=== PATIENT | female | born 1935 | race Caucasian/White ===

== ENCOUNTER → 2016-03-27 | Outpatient (REF) | payer MEDICARE ==
[~2016-03-27] MED LIST: ACET65TA; BABY81CH PO; CALC500T49; CALC600T10 PO; COLA100C2; COLA100C2 PO; DEXI60CA PO; PRAV10TA PO; REST0.05 OP; SENO8.6T5; SIMV20TA2; THERGRAN PO; VICO5TAB
== END ==
LOC: M LAB REF 12:18
PROVIDERS: ATTEND Internal Medicine Medical Oncology
DX: C18.9 Malignant neoplasm of colon, unspecified (principal)

== ENCOUNTER → 2016-12-02 | Outpatient (REF) | payer MEDICARE ==
[~2016-12-02] MED LIST changes: -DEXI60CA PO; +DEXI60CA2 PO; -PRAV10TA PO; +PRAV10TA4 PO
== END ==
LOC: M LAB REF 16:05
PROVIDERS: ATTEND Internal Medicine
DX: R92.8 Other abnormal and inconclusive findings on diagnostic imaging of breast (principal)

== ENCOUNTER → 2017-03-06 | Outpatient (CLI) | payer MEDICARE ==
--- NOTE | 2017-03-06 13:25 | REP ---
DIAGNOSTIC MAMMOGRAM LEFT BREAST WITH LEFT BREAST ULTRASOUND: Diagnostic mammogram left breast performed in the MLO and CC projections. Patient had ultrasound guided biopsy of a nodule in the left breast centrally behind the nipple at [facility] 12/02/2016. Reportedly this was benign. Today's ML and CC views of the left breast show no change since the prior mammogram of 11/18/2016. The nodule posteriorly in the central left breast appears unchanged. There is no new mass or clustered microcalcifications. A metallic clip is seen just superior to the nodule in question. Real-time sonographic evaluation of the left breast is performed. In a region in the left breast centrally behind the nipple is an oval hypoechoic nodule which measures 1.4 x 0.8 x 1.2 cm. This is measuring larger than the prior ultrasound in October when maximum diameter was 9 mm. There are adjacent dilated ducts. IMPRESSION: ACR 3 probably benign. Mammographically the nodule centrally and posteriorly in the left breast is stable, status post ultrasound guided biopsy in November 2016 at [facility]. Sonographically it is measuring larger than on the prior study, but this could be due to postbiopsy change and residual surrounding hematoma. I would recommend another followup mammogram and ultrasound of the left breast in 3 months. ACR 3 probably benign. BI-RADS/ACR category 3 mammogram. Probably benign findings. Initial short-term followup (usually 6 month) examination. This mammogram was interpreted with the aid of an FDA-approved computer-aided detection system. A. Negative x-ray reports should not delay biopsy if a dominant or clinically suspicious mass is present. B. Four to eight percent of cancers are not identified by x-ray. C. Adenosis and dense breasts may obscure an underlying neoplasm. The patient states she had a clinical breast exam 3 months ago. The patient letter being requested is M3. Signed by Nik Churchill MD 03/06/2017 01:32 P
== END ==
LOC: M RAD 10:19
PROVIDERS: ATTEND Surgery
DX: R92.8 Other abnormal and inconclusive findings on diagnostic imaging of breast (principal); R55 Syncope and collapse
CPT/HCPCS: 76642; G0206

== ENCOUNTER → 2017-04-21 | Outpatient (REF) | payer MEDICARE ==
[2017-04-22 09:22] LABS: CARCINOEMBRYONIC ANTIGEN 1.1 NG/ML (<2.5)
== END ==
LOC: M LAB REF 13:32
DX: C18.9 Malignant neoplasm of colon, unspecified (principal)
CPT/HCPCS: 82378

== ENCOUNTER 2017-04-28 07:03 | Emergency (ER) | payer MEDICARE ==
[2017-04-28] MEDS: fentaNYL 100 MCG/2 ML INJECTION (J3010) IV (07:44)
[2017-04-28] MEDS: ONDANSETRON 4MG/2ML VIAL (J2405) IV (07:45)
[2017-04-28] MEDS ORDERED: KETOROLAC 30 MG/ML VIAL (J1885) As Ordered (08:14)
[2017-04-28] MEDS: KETOROLAC 30 MG/ML VIAL (J1885) IV (08:21)
== END 2017-04-28 10:37 | disposition home or self-care (01) ==
LOC: M ED 07:03
DX: S42.292A Other displaced fracture of upper end of left humerus, initial encounter for closed fracture (principal); W00.9XXA Unspecified fall due to ice and snow, initial encounter; Y92.093 Driveway of other non-institutional residence as the place of occurrence of the external cause; M50.322 Other cervical disc degeneration at C5-C6 level; M50.323 Other cervical disc degeneration at C6-C7 level; Z98.890 Other specified postprocedural states; Z98.0 Intestinal bypass and anastomosis status; Z85.038 Personal history of other malignant neoplasm of large intestine
CPT/HCPCS: J2405

== ENCOUNTER 2017-05-20 12:33 | Emergency (ER) | payer MEDICARE | END 2017-05-20 16:48 | disposition home or self-care (01) | LOC: M ED 12:33 | DX: M48.00 Spinal stenosis, site unspecified (principal); L89.309 Pressure ulcer of unspecified buttock, unspecified stage; S42.212A Unspecified displaced fracture of surgical neck of left humerus, initial encounter for closed fracture; E78.5 Hyperlipidemia, unspecified; Z90.49 Acquired absence of other specified parts of digestive tract; Z79.899 Other long term (current) drug therapy; Z91.89 Other specified personal risk factors, not elsewhere classified; Z91.013 Allergy to seafood | CPT/HCPCS: 99283 ==

== ENCOUNTER → 2017-07-14 | Outpatient (CLI) | payer MEDICARE | LOC: M RAD 10:38 | DX: N63.20 Unspecified lump in the left breast, unspecified quadrant (principal); D24.2 Benign neoplasm of left breast; R92.0 Mammographic microcalcification found on diagnostic imaging of breast | CPT/HCPCS: 77065 ==

== ENCOUNTER 2018-01-24 08:54 | Emergency (ER) | payer MEDICARE ==
[2018-01-24] MEDS: ACETAMINOPHEN TAB 650MG DOSE (2X325MG) PO (09:35)
== END 2018-01-24 11:29 | disposition home or self-care (01) ==
LOC: M ED 08:54
DX: S51.802A Unspecified open wound of left forearm, initial encounter (principal); S09.90XA Unspecified injury of head, initial encounter; W01.0XXA Fall on same level from slipping, tripping and stumbling without subsequent striking against object, initial encounter; Y92.511 Restaurant or cafe as the place of occurrence of the external cause; M43.02 Spondylolysis, cervical region; I63.81 Other cerebral infarction due to occlusion or stenosis of small artery; E78.00 Pure hypercholesterolemia, unspecified; Z79.899 Other long term (current) drug therapy; Z79.82 Long term (current) use of aspirin; Z88.8 Allergy status to other drugs, medicaments and biological substances; Z91.013 Allergy to seafood; Z91.048 Other nonmedicinal substance allergy status
CPT/HCPCS: 70450

== ENCOUNTER → 2018-02-05 | Outpatient (REF) | payer MEDICARE ==
[2018-02-05 15:31] LABS: BASO # 0.1 10^3/uL (0.0-0.2); EOS # 0.1 10^3/uL (0.0-0.50); EOS % 1.3 % (0.0-3.0); HEMATOCRIT 42.4 % (36.0-47.0); HEMOGLOBIN 12.9 g/dl (12.0-15.5); IMMATURE GRANULOCYTE % 0.7 % (0-3.0); LYMPH # 1.3 10^3/uL (1.5-4.5); LYMPH % 21.3 % (24.0-44.0); MEAN CORPUSCULAR HEMOGLOBIN 30.2 pg (27.0-33.0); MEAN CORPUSCULAR HGB CONC 30.4 g/dl (32.0-36.5); MEAN CORPUSCULAR VOLUME 99.3 fl (80.0-96.0); MONO # 0.6 10^3/uL (0.0-0.8); MONO % 10.4 % (0.0-5.0); NEUTROPHILS % 65.3 % (36.0-66.0); PLATELET COUNT, AUTOMATED 274 10^3/uL (150-450); RED BLOOD COUNT 4.27 10^6/uL (4.00-5.40); RED CELL DISTRIBUTION WIDTH 13.3 % (11.5-14.5); WHITE BLOOD COUNT 6.1 10^3/uL (4.0-10.0)
[2018-02-05 15:38] LABS: ALBUMIN 3.5 GM/DL (3.2-5.2); ALBUMIN/GLOBULIN RATIO 1.13 (1.00-1.93); ALKALINE PHOSPHATASE 115 U/L (45-117); ALT/SGPT 17 U/L (12-78); ANION GAP 7 MEQ/L (8-16); AST/SGOT 12 U/L (7-37); BILIRUBIN,TOTAL 0.8 MG/DL (0.2-1.0); BLOOD UREA NITROGEN 11 MG/DL (7-18); CARBON DIOXIDE LEVEL 30 MEQ/L (21-32); CHLORIDE LEVEL 105 MEQ/L (98-107); CREATININE FOR GFR 0.56 MG/DL (0.55-1.30); GLOMERULAR FILTRATION RATE > 60.0 (>32); GLUCOSE, FASTING 84 MG/DL (70-100); POTASSIUM SERUM 3.9 MEQ/L (3.5-5.1); RHEUMATOID FACTOR QUANT < 10.0 IU/ML (<15.0); SODIUM LEVEL 142 MEQ/L (136-145); TOTAL PROTEIN 6.6 GM/DL (6.4-8.2)
[2018-02-05 15:40] LABS: TOTAL 25(OH) VITAMIN D 16.2 NG/ML (30.0-100.0)
[2018-02-05 16:46] LABS: ERYTHROCYTE SEDIMENTATION RATE 28 mm/hr (0-30)
[2018-02-07 14:10] LABS: ANTINUCLEAR ANTIBODIES DIRECT Negative (Negative)
== END ==
LOC: M LABNEURO 10:52
DX: R51 Headache (principal)
CPT/HCPCS: 84443

== ENCOUNTER 2019-03-09 09:38 | Emergency (ER) | payer MEDICARE ==
[~2019-03-09] VITALS: Ht 160 cm; Wt 68.6 kg
[~2019-03-09 09:38] MED LIST changes: +APAP500T10 PO; +ASPI81TA85 PO; +COLA100C5 PO; +IBUP-1022 PO; +PERC5TAB12 PO; +PRAV40TA2 PO; +TRAM50TA2; +ZANT300T9 PO
[2019-03-09] MEDS ORDERED: ONDANSETRON 4MG/2ML VIAL (J2405) IV ONE (09:45)
[2019-03-09] MEDS ORDERED: ADACEL/BOOSTRIX VACCINE (DIPHTH/PERTUSS/ACELL/TETANUS)0.5ML SYR (90715) IM ONE (10:00)
[2019-03-09] MEDS: MORPHINE 2 MG/ML 1ML VIAL (J2270) IV PRN ×2 (10:26→11:06)
--- NOTE | 2019-03-09 10:29 | REP ---
CT brain: 03/09/2019. Indication: Head trauma. Comparison: 01/24/2018. Technique: Unenhanced axial CT images of the brain were obtained from skull base to vertex. Findings: Anterior right scalp hematoma is present. There is no intracranial hemorrhage, acute cortical infarction, mass effect, hydrocephalus or acute calvarial fracture. Diffuse volume loss, intracranial atherosclerotic disease and chronic small vessel disease are present. Left basal ganglia and the right cerebellar lacunar infarctions are present. Impression: No acute intracranial process. Electronically Signed by Uvaldo Espinoza DO 03/09/2019 10:20 A
--- NOTE | 2019-03-09 10:32 | REP ---
CT cervical spine: 03/09/2019. Indication: Cervical spine trauma. Comparison: 01/24/2018. Technique: Unenhanced axial CT images of the cervical spine were performed with coronal and sagittal reconstructions provided. Findings: There is no acute fracture, subluxation or dislocation. No significant spinal canal hemorrhage or additional spinal canal acute post traumatic sequelae are present. Multilevel spondylosis is present most pronounced at C5/C6 and C6/C7 without severe spinal canal narrowing detected. Bilateral carotid atherosclerotic disease is present. Impression: No acute osseous injury of the cervical spine. Electronically Signed by Uvaldo Espinoza DO 03/09/2019 10:23 A
--- NOTE | 2019-03-09 11:09 | REP ---
RIGHT HUMERUS, TWO VIEWS: Two views of the right humerus performed. There is a mildly comminuted displaced fracture of the proximal aspect of the right humerus involving the head and neck. No other acute fracture or dislocation is seen. There is narrowing of the acromioclavicular and glenohumeral joints. IMPRESSION: Mildly comminuted displaced fracture proximal right humerus. Electronically Signed by Nik Churchill MD 03/09/2019 04:05 P
[2019-03-09] MEDS ORDERED: NORC1TAB7 PO (11:16)
[2019-03-09 12:46] VITALS: BP 165/79
== END 2019-03-09 12:50 | disposition home or self-care (01) ==
LOC: EDBD 09:38 → M ED 09:38
DX: S42.291A Other displaced fracture of upper end of right humerus, initial encounter for closed fracture (principal); S01.81XA Laceration without foreign body of other part of head, initial encounter; W00.0XXA Fall on same level due to ice and snow, initial encounter; Y92.89 Other specified places as the place of occurrence of the external cause; E78.9 Disorder of lipoprotein metabolism, unspecified; M51.9 Unspecified thoracic, thoracolumbar and lumbosacral intervertebral disc disorder; Z79.899 Other long term (current) drug therapy; Z79.82 Long term (current) use of aspirin; Z88.8 Allergy status to other drugs, medicaments and biological substances; Z91.018 Allergy to other foods; Z91.048 Other nonmedicinal substance allergy status
CPT/HCPCS: 70450; 72125; 73060; 73564; 90471; 90715; 96374; 96375; 96376; 99284; J2270; J2405

== ENCOUNTER 2019-03-14 16:17 | Emergency (ER) | payer MEDICARE ==
[~2019-03-14] VITALS: Ht 162.6 cm; Wt 68.6 kg
[~2019-03-14 16:17] MED LIST changes: +NORC1TAB7 PO
[2019-03-14] MEDS ORDERED: VITA200028 PO (16:38)
[2019-03-14 18:18] VITALS: BP 131/64
--- NOTE | 2019-03-15 07:40 | REP ---
Clinical: Trauma. Technique: AP and lateral views of the right wrist. Findings: Generalized age-related osteopenia and degenerative changes noted. No obvious acute fracture or dislocation identified. Impression: No obvious acute fracture or dislocation. If the patient remains symptomatic consider complete reevaluation in 3-5 days. Electronically Signed by Vamshi Bingham MD 03/15/2019 07:31 A
--- NOTE | 2019-03-15 08:01 | REP ---
Clinical: Trauma. Technique: AP and lateral views of the right hand. Findings: Generalized age-related osteopenia and degenerative changes are appreciated. Lateral view demonstrates significant soft tissue swelling primarily overlying the wrist metacarpal region of the hand. No subcutaneous emphysema. No foreign body. No obvious acute fracture or dislocation. However, very subtle injury involving the base of the fifth metacarpal bone and/or the base of the fifth proximal phalanx cannot definitively be excluded. Impression: Significant soft tissue swelling. No definite acute fracture. As above. Electronically Signed by Vamshi Bingham MD 03/15/2019 07:52 A
== END 2019-03-14 18:20 | disposition home or self-care (01) ==
LOC: M ED 16:17
DX: R60.0 Localized edema (principal); E78.5 Hyperlipidemia, unspecified; Z79.899 Other long term (current) drug therapy; Z79.82 Long term (current) use of aspirin; Z91.018 Allergy to other foods; Z91.048 Other nonmedicinal substance allergy status; Z88.8 Allergy status to other drugs, medicaments and biological substances

== ENCOUNTER 2020-05-14 11:04 | Emergency (ER) | payer MEDICARE ==
[~2020-05-14] VITALS: Ht 162.6 cm; Wt 64.7 kg
[~2020-05-14 11:04] MED LIST changes: -ASPI81TA85 PO; +ASPI81TA86 PO; +VITA200028 PO
--- OUTSIDE RECORDS SUMMARY | 2020-05-14 11:11 | CCD ---
Author Organization Unknown Address [address] [place] [address] Phone [phone] Care Team Providers Care Pattern Finisher Name Role Phone LEONARDO ALVES MD 3 [phone] Allergies Code Code System Name Reaction Severity Status Onset Shellfish Derived Active 01/11/2015 5933 RxNorm Iodine Hives Moderate to Severe Active Medications Name Status Start Date Stop Date amoxicillin 500 mg tablet Completed 2018 Asprin Ec Low Dose Active Not available ferrous sulfate 325 mg (65 mg iron) tabl et TK 1 T PO BID Completed 03/21/2020 Fluzone High-Dose (PF) 180 mcg/0 .5 mL intramuscular syringe INJECT DIRECTED Completed 03/21/2020 Fluzone High-Dose Quad (PF) 240 mcg/0.7 mL IM syringe INJECT 0.7ML INTRAMUSCULARLY Completed 03/21/2020 gabapentin 100 mg capsule Completed 2019 hydrocodone 5 mg-acetaminophen 325 mg tablet Completed 07/21/2019 ibuprofen 600 mg tablet 1 tablet every 6 hours as needed Completed 2018 Miralax 17 gram/dose oral powder DISSOLVE 1 CAPFUL IN 4-8 OUNCES OF LIQUID DAILY FOR CONSTIPATION Active Not available oxycodone-acetaminophen 5 mg-325 mg tablet Completed 03/26/2018 pravastatin 10 mg tablet Active Not jania ilable ranitidine 300 mg tablet Completed 019 Restasis 0.05 % eye drops in a dropperette Completed 07/21/2019 Restasis MultiDose 0.05 % eye drops Completed 05/28/2018 tramadol 50 mg tablet Completed 03/26/2018 Tylenol Extra Strength 500 mg tablet Take 2 tablets twice a day by oral route. 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 01/11/2015 H istory Prolapsed Lumbar Intervertebral Disc Active 01/11/2015 History Intervertebral Disc Prolapse Active 01/11/2015 His tory Degeneration of Lumbar Intervertebral Disc Active 01/11 History Degeneration of Lumbosacral Intervertebral Disc Active 01/11/2015 History Spinal Stenosis of Lumbar Region Active 01/11/2015 History Lumbosacral Spondylosis without Myelopathy Active 03/26 Displacement of Lumbar Intervertebral Disc without Myelopathy Ac tive 03/26/2018 Lumbar Radiculopathy Active 03/26/2018 Procedures Date Name Performed by 03/24/2014 Hernia Repair Information not avai lable 03/24/1991 Cholecystectomy Information not avai lable 03/24/1964 Hysterectomy Information not avai lable 01/26/2019 MRI, Lumbar Spine, W/o Contrast [facility] [address] [address] (Work Place) Results Lab Results Date Name Specimen Result Interpretation Description Value Range Status Address 04/03/2020 [facility] P[facility] Report NOS No observation recorded. [facility]: [address] [place] [address] 04/03/2020 COVID-19 RNA (SARS-CoV-2), QL, outsole cementer machine-PCR, Respirat ory Specimen NOS Normal Sars-cov-2 negative negative Final [facility]: [address] [place] [address], [place] 09/28/2019 COVID-19 RNA (SARS-CoV-2), QL, outsole cementer machine-PCR, Respiratory Specim en No observation recorded. [facility]: [address] [place] [address] 09/13/2019 COVID-19 RNA (SARS-CoV-2), QL, outsole cementer machine-PCR, Respiratory Specim en No observation recorded. [facility]: [address] [place] [address] 08/30/2019 COVID-19 RNA (SARS-CoV-2), QL, outsole cementer machine-PCR, Respiratory Specim en No observation recorded. [facility]: [address] [place] [address] Past Encounters 04/17/2020 Pre-surgery Testing; Viral Screening Ranjit Lu MD: [address], [address], [place] [address], Ph. [phone] 04/06/2020 Spinal Stenosis of Lumbar Region; Lumbar Radiculopathy; Degeneration of Lumbar Intervertebral Disc; Degeneration of Lumbosacral Intervertebral Disc; Displacement of Lumbar Intervertebral Disc without Myelopathy; Intervertebral Disc Disorder; Spondylosis without Myelopathy; Lumbosacral Spondylosis without Myelopathy; Inflammation of Sacroiliac Joint Ranjit uL MD: [address] [facility] [address], [facility] [place] [address], Ph. 04/03/2020 Pre-surgery Testing; Viral Screening Ranjit Lu MD: [address] [address], [facility] [place] [address], Ph. [phone] 03/21/2020 Spinal Stenosis of Lumbar Region; Degeneration of Lumbar Intervertebral Disc; Degeneration of Lumbosacral Intervertebral Disc; Displacement of Lumbar Intervertebral Disc without Myelopathy; Intervertebral Disc Disorder; Spondylosis without Myelopathy; Lumbosacral Spondylosis without Myelopathy; Lumbar Radiculopathy; Inflammation of Sacroiliac Joint Vonda Pearce [employer]: [address] [address], [facility] [place] [address], Ph. 10/14/2019 Spinal Stenosis of Lumbar Region; Degeneration of Lumbar Intervertebral Disc; Degeneration of Lumbosacral Intervertebral Disc; Displacement of Lumbar Intervertebral Disc without Myelopathy; Intervertebral Disc Disorder; Spondylosis without Myelopathy; Lumbosacral Spondylosis without Myelopathy; Lumbar Radiculopathy; Inflammation of Sacroiliac Joint Vonda Pearce, [employer] WORKER: [address] [address], [facility] [place] [address], Ph. 09/30/2019 Spinal Stenosis of Lumbar Region; Lumbar Radiculopathy; Degeneration of Lumbar Intervertebral Disc; Degeneration of Lumbosacral Intervertebral Disc; Displacement of Lumbar Intervertebral Disc without Myelopathy; Intervertebral Disc Disorder; Spondylosis without Myelopathy; Lumbosacral Spondylosis without Myelopathy; Inflammation of Sacroiliac Joint Ranjit Lu MD: [id number] [facility] [address], [facility] [place] [address], Ph. 09/28/2019 Pre-surgery Testing; Viral Screening Ranjit Lu MD: [address] [address], [facility] [place] [address], Ph. [phone] 09/15/2019 Spinal Stenosis of Lumbar Region; Lumbar Radiculopathy; Degeneration of Lumbar Intervertebral Disc; Degeneration of Lumbosacral Intervertebral Disc; Displacement of Lumbar Intervertebral Disc without Myelopathy; Intervertebral Disc Disorder; Spondylosis without Myelopathy; Lumbosacral Spondylosis without Myelopathy; Inflammation of Sacroiliac Joint Ranjit Lu MD: [id number] [address], Ph. 09/13/2019 Pre-surgery Testing; Viral Screening Ranjit Lu MD: [id number] [address], Ph. [phone] 09/02/2019 Spinal Stenosis of Lumbar Region; Lumbar Radiculopathy; Degeneration of Lumbar Intervertebral Disc; Degeneration of Lumbosacral Intervertebral Disc; Displacement of Lumbar Intervertebral Disc without Myelopathy; Intervertebral Disc Disorder; Spondylosis without Myelopathy; Lumbosacral Spondylosis without Myelopathy; Inflammation of Sacroiliac Joint Ranjit Lu MD: [id number] [address], Ph. 08/30/2019 Pre-surgery Testing; Viral Screening Ranjit Lu MD: [id number] [address], Ph. [phone] 07/21/2019 Spinal Stenosis of Lumbar Region; Degeneration of Lumbar Intervertebral Disc; Degeneration of Lumbosacral Intervertebral Disc; Displacement of Lumbar Intervertebral Disc without Myelopathy; Intervertebral Disc Disorder; Spondylosis without Myelopathy; Lumbosacral Spondylosis without Myelopathy; Lumbar Radiculopathy; Inflammation of Sacroiliac Joint Vonda Pearce NP: [id number] [address], Ph. 02/08/2019 Spinal Stenosis of Lumbar Region; Lumbar Radiculopathy; Degeneration of Lumbar Intervertebral Disc; Degeneration of Lumbosacral Intervertebral Disc; Displacement of Lumbar Intervertebral Disc without Myelopathy; Intervertebral Disc Disorder; Spondylosis without Myelopathy; Lumbosacral Spondylosis without Myelopathy; Inflammation of Sacroiliac Joint Ranjit Lu MD: [id number] [address], Ph. 01/26/2019 Spinal Stenosis of Lumbar Region; Degeneration of Lumbar Intervertebral Disc; Degeneration of Lumbosacral Intervertebral Disc; Displacement of Lumbar Intervertebral Disc without Myelopathy; Intervertebral Disc Disorder; Spondylosis without Myelopathy; Lumbosacral Spondylosis without Myelopathy; Lumbar Radiculopathy; Inflammation of Sacroiliac Joint Vonda Pb Pearce, [employer] WORKER: [address] [address], [place] [address], Ph. 09/07/2018 Spinal Stenosis of Lumbar Region; Degeneration of Lumbar Intervertebral Disc; Degeneration of Lumbosacral Intervertebral Disc; Displacement of Lumbar Intervertebral Disc without Myelopathy; Intervertebral Disc Disorder; Spondylosis without Myelopathy; Lumbosacral Spondylosis without Myelopathy; Lumbar Radiculopathy; Inflammation of Sacroiliac Joint Vonda Pb Pearce, [employer] WORKER: [id number] [address], Ph. 07/08/2018 Spinal Stenosis of Lumbar Region; Degeneration of Lumbar Intervertebral Disc; Degeneration of Lumbosacral Intervertebral Disc; Displacement of Lumbar Intervertebral Disc without Myelopathy; Intervertebral Disc Disorder; Spondylosis without Myelopathy; Lumbosacral Spondylosis without Myelopathy; Lumbar Radiculopathy; Inflammation of Sacroiliac Joint Vonda Pb Pearce, [employer] WORKER: [address] [address], Ph. 06/10/2018 Spinal Stenosis of Lumbar Region; Degeneration of Lumbar Intervertebral Disc; Degeneration of Lumbosacral Intervertebral Disc; Displacement of Lumbar Intervertebral Disc without Myelopathy; Intervertebral Disc Disorder; Spondylosis without Myelopathy; Lumbosacral Spondylosis without Myelopathy; Lumbar Radiculopathy; Inflammation of Sacroiliac Joint Ranjit Lu MD: [address] [address], [place] [address], Ph. 05/28/2018 Spinal Stenosis of Lumbar Region; Degeneration of Lumbar Intervertebral Disc; Degeneration of Lumbosacral Intervertebral Disc; Displacement of Lumbar Intervertebral Disc without Myelopathy; Intervertebral Disc Disorder; Spondylosis without Myelopathy; Lumbosacral Spondylosis without Myelopathy; Lumbar Radiculopathy; Inflammation of Sacroiliac Joint Ranjit Lu MD: [address] [address], [place] [address], Ph. 05/18/2018 Spinal Stenosis of Lumbar Region; Degeneration of Lumbar Intervertebral Disc; Degeneration of Lumbosacral Intervertebral Disc; Displacement of Lumbar Intervertebral Disc without Myelopathy; Intervertebral Disc Disorder; Spondylosis without Myelopathy; Lumbosacral Spondylosis without Myelopathy; Lumbar Radiculopathy; Inflammation of Sacroiliac Joint Vonda Pb Pearce, [employer] WORKER: [address] [address], Ph. 03/30/2018 Spinal Stenosis of Lumbar Region; Degeneration of Lumbar Intervertebral Disc; Degeneration of Lumbosacral Intervertebral Disc; Displacement of Lumbar Intervertebral Disc without Myelopathy; Intervertebral Disc Disorder; Spondylosis without Myelopathy; Lumbosacral Spondylosis without Myelopathy; Lumbar Radiculopathy; Inflammation of Sacroiliac Joint Ranjit Lu MD: [id number] [address], Ph. 03/26/2018 Spinal Stenosis of Lumbar Region; Degeneration of Lumbar Intervertebral Disc; Degeneration of Lumbosacral Intervertebral Disc; Displacement of Lumbar Intervertebral Disc without Myelopathy; Intervertebral Disc Disorder; Spondylosis without Myelopathy; Lumbosacral Spondylosis without Myelopathy; Lumbar Radiculopathy; Inflammation of Sacroiliac Joint Vonda Pearce, [employer] WORKER: [id number] [address], [place] [address], Ph. Social History Tobacco Smoking Status Never Smoker Vaccine List None recorded. Plan of Care Reminders Provider Appointments None recorded. Lab None recorded. Referral None recorded. Procedures None recorded. Surgeries None recorded. Imaging None recorded. Vitals 03/21/2020 10:30AM Extended Follow Up Visit Height Blood Pressure 5 ft 3 in 136/81 mm[Hg] 10/14/2019 11:15AM Telehealth Height 5 ft 3 in 07/21/2019 02:30PM Telehealth Height 5 ft 3 in 02/08/2019 08:00AM Lumbar epidural steroid inject Height 5 ft 3 in 01/26/2019 09:30AM Extended Follow Up Visit Height Weight BMI Blood Pressure 5 ft 3 in 151 lbs 26.7 kg/m2 120/65 mm[Hg] 09/07/2018 08:15AM FOLLOW-UP Height Blood Pressure 5 ft 3 in 127/72 mm[Hg] 07/08/2018 09:30AM FOLLOW-UP Height Weight BMI Blood Pressure 5 ft 3 in 151 lbs 26.7 kg/m2 112/66 mm[Hg] 05/18/2018 04:30PM FOLLOW-UP Height Blood Pressure 5 ft 3 in 134/86 mm[Hg] 03/26/2018 01:30PM FOLLOW-UP Height Weight BMI Blood Pressure 5 ft 3 in 151 lbs 26.7 kg/m2 151/87 mm[Hg] 02/02/2018 Blood Pressure 126/74 mm[Hg] 01/05/2018 Blood Pressure 130/79 mm[Hg] 12/22/2017 Blood Pressure 165/70 mm[Hg] 11/13/2017 Blood Pressure 121/71 mm[Hg] 10/23/2017 Blood Pressure 140/79 mm[Hg] 10/13/2017 Blood Pressure 127/78 mm[Hg] 04/18/2017 Weight BMI Blood Pressure 160 lbs 28.45 kg/m2 126/74 mm[Hg] 02/21/2017 Weight BMI Blood Pressure 160 lbs 28.45 kg/m2 111/76 mm[Hg] 01/24/2017 Blood Pressure 132/65 mm[Hg] 01/09/2017 Blood Pressure 128/60 mm[Hg] 12/20/2016 Weight BMI Blood Pressure 159 lbs 28.27 kg/m2 136/82 mm[Hg] 12/05/2016 Blood Pressure 147/85 mm[Hg] 11/28/2016 Weight BMI Blood Pressure 153 lbs 27.20 kg/m2 113/71 mm[Hg] 11/13/2016 Blood Pressure 133/73 mm[Hg] 11/05/2016 Blood Pressure 152/79 mm[Hg] 10/08/2016 Blood Pressure 129/77 mm[Hg] 09/18/2016 Blood Pressure 126/88 mm[Hg] 07/29/2016 Blood Pressure 135/79 mm[Hg] 07/19/2016 Blood Pressure 146/76 mm[Hg] 07/03/2016 Blood Pressure 136/85 mm[Hg] 05/16/2016 Blood Pressure 121/74 mm[Hg] 04/25/2016 Blood Pressure 157/79 mm[Hg] 04/11/2016 Blood Pressure 146/83 mm[Hg] 04/02/2016 Blood Pressure 138/80 mm[Hg] 12/14/2015 Blood Pressure 121/79 mm[Hg] 11/23/2015 Blood Pressure 142/79 mm[Hg] 11/09/2015 Blood Pressure 132/75 mm[Hg] 11/02/2015 Blood Pressure 137/76 mm[Hg] 01/19/2015 Blood Pressure 153/92 mm[Hg] 01/11/2015 Height Weight BMI Blood Pressure 5 ft 3 in 151 lbs 26.85 kg/m2 143/83 mm[Hg]
--- OUTSIDE RECORDS SUMMARY | 2020-05-14 11:11 | CCD | Continuity of Care Document ---
Author Author Linette MEDEL M.D. Organization Unknown Address [address] [address] Phone [phone] Care Team Providers Care Retort Kiln Burner Name Role Phone RonniGonzález Jared [facility] [phone] Problems Active Problems Provider Date Hyperlipidemia Hua Medel M.D. Onset: 4 Social History Type Date Description Comments Sex Unknown ETOH Use Consumes 1 glass of wine per wee k Tobacco Use Start: Unknown Patient has never smoked Recreational Drug Use Denies Drug Use Allergies, Adverse Reactions, Alerts Active Allergies Reaction Severity Comments Date Latex hives- 04/27/2013 Scallops hives 04/27/2013 Medications Active Medications SIG Qnty Indications Ordering Provide r Date Dexilant 60mg Capsules DR 1 by mouth every day Hua Finnegan M.D. 04/14/19 21 Shingrix 50mcg/0.5ML Suspension Re c as directed 1units Hua Medel M.D. 12/24/19 19 Pravastatin Sodium 10mg Tablets take 1 tablet by mouth three times per week 90Eric Childs M.D. 04/27/2013 Aspirin Ec 81mg Tablets DR 1 po 3 times a week Unknown Tylenol Extra Strength 500mg Tablets prn OTC Unknown Vitamin D 1000Unit Tablets 1 by mouth every day Unknown Magnesium 500mg Capsules 1 by mouth every day Unknown Stool Softener 100mg Capsules 1 p.o. qod as needed for constipation OTC Unknown History Medications Nexium 40mg Capsules DR 1 by mouth every day Hua Finnegan M.D. 04/14/19 21 - 04/14/2020 Immunizations CPT Code Status Date Vaccine Lot # [id number] Given 11/25/2017 Pneumococcal Immunization R0 [id number] 02783 Given 11/04/2015 Prevnar 13 Pneum o. Conj Ped. Vaccine 13 Valent (PCV13) For Im Use 03603 Given 01/04/2015 Influenza Vaccin e (Fluzone) 3Yrs Of Age Or Older Medicare Plans 70531 Refused 12/23/2018 Influenza Virus Vaccine, Quadrivalent, Slit Virus, Im Use 3Y & Up Vital Signs Date Vital Result Comment 04/14/2020 8:49am BP Systolic 112 mmHg BP Diastolic 74 mmHg Body Temperature 98.8 F Heart Rate 80 /min Respiratory Rate 14 /min Height 60 inches 5'0" Weight 140.00 lb [place] Body Weight 100 lb BMI (Body Mass Index) 27.3 kg/m2 O2 % BldC Oximetry 96 % 10/11/2019 9:03am BP Systolic 126 mmHg BP Diastolic 84 mmHg Body Temperature 98.3 F Heart Rate 80 /min Respiratory Rate 14 /min Height 60 inches 5'0" Weight 139.00 lb [place] Body Weight 100 lb BMI (Body Mass Index) 27.1 kg/m2 O2 % BldC Oximetry 97 % Results Test Acquired Date Facility Test Result H/L Range Note CMP 04/14/2020 [facility] Glu 90 mg/dL 70 - 110 1 BUN 9 mg/dL 8 - 23 Creat 0.6 mg/dL 0.5 - 1.0 BUN/Creatinine Ratio 15.4 CALC Na 137 mmol/L 136 - 145 K 4.0 mmol/L 3.5 - 5.1 CL 100.1 mmol/L 98.0 - 107.0 Co2 27.0 mmol/L 22.0 - 29.0 CA 9.6 mg/dL 8.6 - 10.2 TP 6.3 g/dL Low 6.6 - 8.7 Alb 4.2 g/dL 3.4 - 4.8 A/G Ratio 2.0 CALC Globulin 2.1 CALC Alp 68.2 U/L 35 - 129 Alt (SGPT) 7 U/L 0 - 41 Ast (Sgot) 11 U/L 0 - 40 Tbili 1.38 mg/dL High 0.0 - 1.2 Osmolality-Calculated 271.3 CALC Anion Gap 14 mmol/L eGFR 96 # Calc 2 eGFR Non-Afr. Chinese 83 # Calc 3 Lipid Panel 04/14/2020 [facility] Chol 191 mg/dL 0 - 200 Trig 108 mg/dL 40 - 200 HDL 58 mg/dL 45 - 65 LDL_C 112 Calc 75 - 129 Cho/HDL Ratio 3.3 CALC CBC 04/14/2020 [facility] WBC 5.8 10E3/uL 4.1 - 10.9 RBC 3.90 10E6/uL Low 4.20 - 6.30 HGB 12.8 g/dL 12.0 - 18.0 HCT 39.5 % 37.0 - 51.0 MCV 101.3 fL High 80.0 - 97.0 MCH 32.8 pg High 26.0 - 32.0 MCHC 32.4 g/dL 31.0 - 36.0 PLT 243 10E3/uL 140 - 440 RDW-CV 13.6 % 11.5 - 14.5 Lym% 21.1 % 10.0 - 58.5 Neut% 66.9 % 37.0 - 92.0 MXD% 12.0 % 0.1 - 24.0 Lym# 1.2 10E3/uL 0.6 - 4.1 Neut# 3.9 % 2.0 - 7.8 MXD# 0.7 10E3/uL 0.0 - 1.8 MPV 9.7 fL 9.0 - 13.0 1 NORMAL RANGES Age WBC RBC HGB HCT MCV PLT Adult M 4.1-10.9 4.20-6.30 12.0-18.0 37.0-51.0 80-97 140-440 Adult F 4.1-10.9 4.04-5.48 12.0-18.0 37.0-51.0 80-97 140-440 0 -1 Yr 5.0-20.0 3.9-5.9 15-18 MV: 44 MV: 91 MV: 277 2-9 Yr. 6.0-17.0 3.8-5.4 11-13 MV: 37 MV: 78 MV: 300 10 Yrs. 5.0-13.0 3.8-5.4 12-15 MV: 39 MV: 80 MV: 250 NOTE: * FOR ADULT BLACK MALES AND FEMALES, NORMAL WBC IS 2.9-7.7 K/ML * FOR ADULT BLACK MALES AND FEMALES, NORMAL RBC,HGB, AND HCT IS 5% LESS SOURCE FOR DATA: [employer] 1800 OPERATION MANUAL( AUTOMATED BLOOD COUNTS AND DIFF.) APPENDIX B-3 CHRONIC KIDNEY DISEASE STAGING PER NKF: MALE GFR INTERPRETATION: 20-49 YRS: >60 mL/min Normal 50-59 YRS: >56 mL/min Normal 60-69 YRS: >49 mL/min Normal 70-79 YRS: >42 mL/min Normal 80 and above >35 mL/min Normal FEMALE GRF INTERPRETATION: 20-39 YRS: >60 mL/min Normal 40-49 YRS: >58 mL/min Normal 50-59 YRS: >51 mL/min Normal 60-69 YRS: >45 mL/min Normal 70-79 YRS: >39 mL/min Normal 80 and above >32 mL/min NormalCLASSIFICATION CHOLESTEROL FOR ADULTS CHILDREN/ADOLESCENTS* DESIRABLE: <200 MG/DL <170 MG/DL BORDER-LINE HIGH RISK: 200-239 MG/DL 170-199 MG/DL HIGH RISK: >240 MG/DL >200 MG/DL CLASS. FOR PRIMARY LDL CHOL PREVENTION: LDL CHOL-CHILD/ADOLESCENTS* DESIRABLE: <130 MG/DL <110 MG/DL BORDERLINE-HIGH RISK: 130-159 MG/DL 110-129 MG/DL HIGH RISK: >160 MG/DL >130 MG/DL *CHILDREN AND ADOLESCENTS REPRESENTS INDIVIDUALA AGED 2-19 YEARS EXCLUSIVE. 2 CKD-EPI 3 CKD-EPI Procedures Description No Information Available Medical Devices Description No Information Available Encounters Type Date Location Provider Dx Diagnosis Office Visit 04/14/2020 8:45a [facility] Hua Medel M. D. E78.5 Hyperlipidemia, unspecified K21.9 Gastro-esophageal reflux dis ease without esophagitis D64.9 Anemia, unspecified Assessments Date Code Description Provider 04/14/2020 E78.5 Hyperlipidemia, unspecified [facility] Hua jasso M.D. 04/14/2020 K21.9 Gastro-esophageal reflux disease without esophagitis Hua Medel M.D. 04/14/2020 D64.9 Anemia, unspecified Guillaume Medel M.D. Plan of Treatment Future Appointment(s):* 10/17/2020 8:45 am - Hua Medel M.D. at [facility] Functional Status Description No Information Available Mental Status Description No Information Available Referrals Description No Information Available
--- OUTSIDE RECORDS SUMMARY | 2020-05-14 11:11 | CCD | Continuity of Care Document ---
Author Author Linette ALVES M.D. Organization Unknown Address [address] [address] Phone [phone] Care Team Providers Care Training Manager Name Role Phone Ronni González Jared [facility] [phone] Problems Active Problems Provider Date Hyperlipidemia Hua Alves M.D. Onset: 4 Social History Type Date Description Comments Sex Unknown ETOH Use Consumes 1 glass of wine per wee k Tobacco Use Start: Unknown Patient has never smoked Recreational Drug Use Denies Drug Use Allergies, Adverse Reactions, Alerts Active Allergies Reaction Severity Comments Date Latex hives- 04/27/2013 Scallops hives 04/27/2013 Medications Active Medications SIG Qnty Indications Ordering Provide r Date Nexium 40mg Capsules DR 1 by mouth every day 90caps Hua Alves M.D. 04/14/19 21 Shingrix 50mcg/0.5ML Suspension Re c as directed 1units Hua Alves M.D. 12/24/19 19 Pravastatin Sodium 10mg Tablets take 1 tablet by mouth three times per week 90tabs Eric Alves M.D. 04/27/2013 Aspirin Ec 81mg Tablets DR 1 po 3 times a week Unknown Tylenol Extra Strength 500mg Tablets prn OTC Unknown Vitamin D 1000Unit Tablets 1 by mouth every day Unknown Magnesium 500mg Capsules 1 by mouth every day Unknown Stool Softener 100mg Capsules 1 p.o. qod as needed for constipation OTC Unknown Immunizations CPT Code Status Date Vaccine Lot # [id number] Given 11/25/2017 Pneumococcal Immunization R0 [id number] [id number] Given 11/04/2015 Prevnar 13 Pneum o. Conj Ped. Vaccine 13 Valent (PCV13) For Im Use 31924 Given 01/04/2015 Influenza Vaccin e (Fluzone) 3Yrs Of Age Or Older Medicare Plans 44043 Refused 12/23/2018 Influenza Virus Vaccine, Quadrivalent, Slit Virus, Im Use 3Y & Up Vital Signs Date Vital Result Comment 04/14/2020 8:49am BP Systolic 112 mmHg BP Diastolic 74 mmHg Body Temperature 98.8 F Heart Rate 80 /min Respiratory Rate 14 /min Height 60 inches 5'0" Weight 140.00 lb [place] Body Weight 100 lb BMI (Body Mass Index) 27.3 kg/m2 O2 % BldC Oximetry 96 % 10/11/2019 9:03am BP Systolic 126 mmHg BP Diastolic 84 mmHg Body Temperature 98.3 F Heart Rate 80 /min Respiratory Rate 14 /min Height 60 inches 5'0" Weight 139.00 lb [place] Body Weight 100 lb BMI (Body Mass Index) 27.1 kg/m2 O2 % BldC Oximetry 97 % Results Test Acquired Date Facility Test Result H/L Range Note CBC 04/14/2020 [facility] WBC 5.8 10E3/uL 4.1 - 10.9 1 RBC 3.90 10E6/uL Low 4.20 - 6.30 [...] HCT IS 5% LESS SOURCE FOR DATA: [employer] 1800 OPERATION MANUAL( AUTOMATED BLOOD COUNTS AND [...] ADOLESCENTS REPRESENTS INDIVIDUALA AGED 2-19 YEARS EXCLUSIVE. Procedures Description No Information Available Medical Devices Description No Information Available Encounters Type Date Location Provider Dx Diagnosis Office Visit 04/14/2020 8:45a [facility] Hua Alves M. D. E78.5 Hyperlipidemia, unspecified K21.9 Gastro-esophageal reflux dis ease without esophagitis D64.9 Anemia, unspecified Assessments Date Code Description Provider 04/14/2020 E78.5 Hyperlipidemia, unspecified [facility] jasso M.[facility]. 04/14/2020 K21.9 Gastro-esophageal reflux disease without esophagitis Hua Alves M.D. 04/14/2020 D64.9 Anemia, unspecified Guillaume Alves M.D. Plan of Treatment Future Appointment(s):* 10/17/2020 8:45 am - Hua Alves M.D. at [facility] Functional Status Description No Information Available Mental Status Description No Information Available Referrals Description No Information Available
--- OUTSIDE RECORDS SUMMARY | 2020-05-14 11:11 | CCD | Continuity of Care Document ---
Author Author Linette MEDEL M.D. Organization Unknown Address [address] [address] Phone [phone] Care Team Providers Care Sales Route Driver Helper Name Role Phone RonniGonzález Jared [facility] [phone] Problems Active Problems Provider Date Hyperlipidemia Hua [...] CPT Code Status Date Vaccine Lot # [id number] Given 11/25/2017 Pneumococcal Immunization R0 49249 02230 Given 11/04/2015 Prevnar 13 Pneum o. Conj Ped. Vaccine 13 Valent (PCV13) For Im Use 49822 Given 01/04/2015 Influenza Vaccin e (Fluzone) 3Yrs Of Age Or Older Medicare Plans 09265 Refused 12/23/2018 Influenza Virus Vaccine, Quadrivalent, Slit Virus, Im Use 3Y & Up Vital Signs Date Vital Result Comment 04/14/2020 8:49am BP Systolic 112 mmHg BP Diastolic 74 mmHg Body Temperature 98.8 F Heart Rate 80 /min Respiratory Rate 14 /min Height 60 inches 5'0" Weight 140.00 lb [place] Body Weight 100 lb BMI (Body Mass Index) 27.3 kg/m2 O2 % BldC Oximetry 96 % 10/11/2019 9:03am BP Systolic 126 mmHg BP Diastolic 84 mmHg Body Temperature 98.3 F Heart Rate 80 /min Respiratory Rate 14 /min Height 60 inches 5'0" Weight 139.00 lb [place] Body Weight 100 lb BMI (Body Mass [...] eGFR 96 # Calc 2 eGFR Non-Afr. Kyrgyz 83 # Calc 3 Lipid Panel 04/14/2020 [...] HCT IS 5% LESS SOURCE FOR DATA: [employer] 1800 OPERATION MANUAL( AUTOMATED BLOOD COUNTS AND [...] Provider Dx Diagnosis Office Visit 04/14/2020 8:45a [facility] Hua Medel M. D. E78.5 Hyperlipidemia, unspecified K21.9 Gastro-esophageal reflux dis ease without esophagitis D64.9 Anemia, unspecified Assessments Date Code Description Provider 04/14/2020 E78.5 Hyperlipidemia, unspecified [facility] Hua jasso M.D. 04/14/2020 K21.9 Gastro-esophageal reflux disease without esophagitis Hua Medel M.D. 04/14/2020 D64.9 Anemia, unspecified Guillaume Medel M.D. Plan of Treatment Future Appointment(s):* 10/17/2020 8:45 am - Hua Medel M.D. at [facility] Functional Status Description No Information Available Mental Status Description No Information Available Referrals Description No Information Available
--- OUTSIDE RECORDS SUMMARY | 2020-05-14 11:11 | CCD ---
Author Organization Unknown Address [address] [place] [address] Phone [phone] Care Team Providers Care Plate And Weld Inspector Name Role Phone LEONARDO ALVES MD 3 [phone] Allergies Code Code System Name Reaction Severity Status Onset Shellfish Derived Active 01/11/2015 5933 RxNorm Iodine Hives Moderate to Severe Active Medications Name Status Start Date Stop Date amoxicillin 500 mg tablet Completed 2018 Asprin Ec Low Dose Active Not available Dexilant 60 mg capsule, delayed release Active Not available ferrous sulfate 325 mg [...] LIQUID DAILY FOR CONSTIPATION Active Not available Moderna COVID-19 Vaccine (PF) 100 mcg/0. 5 mL intramuscular susp. (EUA) INJECT BY [facility] FIRST DOSE Active Not available oxycodone-acetaminophen 5 mg-325 mg [...] lable 01/26/2019 MRI, Lumbar Spine, W/o Contrast [facility] [address] [address] (Work Place) Results Lab Results Date Name Specimen Result Interpretation Description Value Range Status Address 04/17/2020 [facility] Pdf Report NOS No observation recorded. [facility]: [address] [facility], [place] 04/17/2020 COVID-19 RNA (SARS-CoV-2), QL, ballistics expert-PCR, Respirat ory Specimen NOS Normal Sars-cov-2 negative negative Final [facility]: [address] [facility], [place] 04/03/2020 [facility] Pdf Report NOS No observation recorded. [facility]: [address] [facility], [place] 04/03/2020 COVID-19 RNA (SARS-CoV-2), QL, ballistics expert-PCR, Respirat ory Specimen NOS Normal Sars-cov-2 negative negative Final [facility]: [address] [facility], [place] 09/28/2019 COVID-19 RNA (SARS-CoV-2), QL, ballistics expert-PCR, Respiratory Specim en No observation recorded. [employer]: [address] [place] [address], [place] 09/13/2019 COVID-19 RNA (SARS-CoV-2), QL, ballistics expert-PCR, Respiratory Specim en No observation recorded. [employer]: [address] [place] [address], [place] 08/30/2019 COVID-19 RNA (SARS-CoV-2), QL, ballistics expert-PCR, Respiratory Specim en No observation recorded. [employer]: [address] [place] [address], [place] Past Encounters 04/20/2020 Spinal Stenosis of Lumbar Region; Lumbar Radiculopathy; Degeneration of Lumbar Intervertebral Disc; Degeneration of Lumbosacral Intervertebral Disc; Displacement of Lumbar Intervertebral Disc without Myelopathy; Intervertebral Disc Disorder; Spondylosis without Myelopathy; Lumbosacral Spondylosis without Myelopathy; Inflammation of Sacroiliac Joint Ranjit Lu MD: [id number] [facility] [address], [facility] [place] [address], Ph. 04/17/2020 Pre-surgery Testing; Viral Screening Ranjit Lu MD: [address], [facility] [place] [address], Ph. [phone] 04/06/2020 Spinal Stenosis of Lumbar Region; Lumbar Radiculopathy; Degeneration of Lumbar Intervertebral Disc; Degeneration of Lumbosacral Intervertebral Disc; Displacement of Lumbar Intervertebral Disc without Myelopathy; Intervertebral Disc Disorder; Spondylosis without Myelopathy; Lumbosacral Spondylosis without Myelopathy; Inflammation of Sacroiliac Joint Ranjit Lu MD: [address], [facility] [place] [address], Ph. 04/03/2020 Pre-surgery Testing; Viral Screening Ranjit Lu MD: [address] [facility] [address], [facility] [place] [address], Ph. [phone] 03/21/2020 Spinal Stenosis of Lumbar Region; Degeneration of Lumbar Intervertebral Disc; Degeneration of Lumbosacral Intervertebral Disc; Displacement of Lumbar Intervertebral Disc without Myelopathy; Intervertebral Disc Disorder; Spondylosis without Myelopathy; Lumbosacral Spondylosis without Myelopathy; Lumbar Radiculopathy; Inflammation of Sacroiliac Joint Vonda Pearce NP: [address], [place] [address], Ph. 10/14/2019 Spinal Stenosis of Lumbar Region; Degeneration of Lumbar Intervertebral Disc; Degeneration of Lumbosacral Intervertebral Disc; Displacement of Lumbar Intervertebral Disc without Myelopathy; Intervertebral Disc Disorder; Spondylosis without Myelopathy; Lumbosacral Spondylosis without Myelopathy; Lumbar Radiculopathy; Inflammation of Sacroiliac Joint Vonda Pearce, MATHEW: [address] [facility] [address], [facility] [place] [address], Ph. 09/30/2019 Spinal Stenosis of Lumbar Region; Lumbar Radiculopathy; Degeneration of Lumbar Intervertebral Disc; Degeneration of Lumbosacral Intervertebral Disc; Displacement of Lumbar Intervertebral Disc without Myelopathy; Intervertebral Disc Disorder; Spondylosis without Myelopathy; Lumbosacral Spondylosis without Myelopathy; Inflammation of Sacroiliac Joint Ranjit Lu MD: [id number] [address], [facility] [place] [address], Ph. 09/28/2019 Pre-surgery Testing; Viral Screening Ranjit Lu MD: [id number] [address], [facility] [place] [address], Ph. [phone] 09/15/2019 Spinal Stenosis of Lumbar Region; Lumbar Radiculopathy; Degeneration of Lumbar Intervertebral Disc; Degeneration of Lumbosacral Intervertebral Disc; Displacement of Lumbar Intervertebral Disc without Myelopathy; Intervertebral Disc Disorder; Spondylosis without Myelopathy; Lumbosacral Spondylosis without Myelopathy; Inflammation of Sacroiliac Joint Ranjit Lu MD: [address] [address], [facility] [place] [address], Ph. 09/13/2019 Pre-surgery Testing; Viral Screening Ranjit Lu MD: [address] [address], [place] [address], Ph. [phone] 09/02/2019 Spinal Stenosis of Lumbar Region; Lumbar Radiculopathy; Degeneration of Lumbar Intervertebral Disc; Degeneration of Lumbosacral Intervertebral Disc; Displacement of Lumbar Intervertebral Disc without Myelopathy; Intervertebral Disc Disorder; Spondylosis without Myelopathy; Lumbosacral Spondylosis without Myelopathy; Inflammation of Sacroiliac Joint Ranjit Lu MD: [address] [address], [facility] [place] [address], Ph. 08/30/2019 Pre-surgery Testing; Viral Screening Ranjit Lu MD: [address] [address], Ph. [phone] 07/21/2019 Spinal Stenosis of Lumbar Region; Degeneration of Lumbar Intervertebral Disc; Degeneration of Lumbosacral Intervertebral Disc; Displacement of Lumbar Intervertebral Disc without Myelopathy; Intervertebral Disc Disorder; Spondylosis without Myelopathy; Lumbosacral Spondylosis without Myelopathy; Lumbar Radiculopathy; Inflammation of Sacroiliac Joint Vonda Pb Pearce, MECHANICAL RESEARCH ENGINEER: [address] [address], Ph. 02/08/2019 Spinal Stenosis of Lumbar Region; Lumbar Radiculopathy; Degeneration of Lumbar Intervertebral Disc; Degeneration of Lumbosacral Intervertebral Disc; Displacement of Lumbar Intervertebral Disc without Myelopathy; Intervertebral Disc Disorder; Spondylosis without Myelopathy; Lumbosacral Spondylosis without Myelopathy; Inflammation of Sacroiliac Joint Ranjit Lu MD: [address] [address], Ph. 01/26/2019 Spinal Stenosis of Lumbar Region; Degeneration of Lumbar Intervertebral Disc; Degeneration of Lumbosacral Intervertebral Disc; Displacement of Lumbar Intervertebral Disc without Myelopathy; Intervertebral Disc Disorder; Spondylosis without Myelopathy; Lumbosacral Spondylosis without Myelopathy; Lumbar Radiculopathy; Inflammation of Sacroiliac Joint Vonda Pb Pearce, MECHANICAL RESEARCH ENGINEER: [address] [address], Ph. 09/07/2018 Spinal Stenosis of Lumbar Region; Degeneration of Lumbar Intervertebral Disc; Degeneration of Lumbosacral Intervertebral Disc; Displacement of Lumbar Intervertebral Disc without Myelopathy; Intervertebral Disc Disorder; Spondylosis without Myelopathy; Lumbosacral Spondylosis without Myelopathy; Lumbar Radiculopathy; Inflammation of Sacroiliac Joint Vonda Pb Pearce, MECHANICAL RESEARCH ENGINEER: [address] [address], Ph. 07/08/2018 Spinal Stenosis of Lumbar Region; Degeneration of Lumbar Intervertebral Disc; Degeneration of Lumbosacral Intervertebral Disc; Displacement of Lumbar Intervertebral Disc without Myelopathy; Intervertebral Disc Disorder; Spondylosis without Myelopathy; Lumbosacral Spondylosis without Myelopathy; Lumbar Radiculopathy; Inflammation of Sacroiliac Joint Vonda Pearce, MECHANICAL RESEARCH ENGINEER: [address] [address], [facility] [place] [address], Ph. 06/10/2018 Spinal Stenosis of Lumbar Region; Degeneration of Lumbar Intervertebral Disc; Degeneration of Lumbosacral Intervertebral Disc; Displacement of Lumbar Intervertebral Disc without Myelopathy; Intervertebral Disc Disorder; Spondylosis without Myelopathy; Lumbosacral Spondylosis without Myelopathy; Lumbar Radiculopathy; Inflammation of Sacroiliac Joint Ranjit Lu MD: [address] [address], Ph. 05/28/2018 Spinal Stenosis of Lumbar Region; Degeneration of Lumbar Intervertebral Disc; Degeneration of Lumbosacral Intervertebral Disc; Displacement of Lumbar Intervertebral Disc without Myelopathy; Intervertebral Disc Disorder; Spondylosis without Myelopathy; Lumbosacral Spondylosis without Myelopathy; Lumbar Radiculopathy; Inflammation of Sacroiliac Joint Ranjit Lu MD: [address] [address], Ph. 05/18/2018 Spinal Stenosis of Lumbar Region; Degeneration of Lumbar Intervertebral Disc; Degeneration of Lumbosacral Intervertebral Disc; Displacement of Lumbar Intervertebral Disc without Myelopathy; Intervertebral Disc Disorder; Spondylosis without Myelopathy; Lumbosacral Spondylosis without Myelopathy; Lumbar Radiculopathy; Inflammation of Sacroiliac Joint Vonda Pb Pearce, MECHANICAL RESEARCH ENGINEER: [address] [address], [facility] [place] [address], Ph. 03/30/2018 Spinal Stenosis of Lumbar Region; Degeneration of Lumbar Intervertebral Disc; Degeneration of Lumbosacral Intervertebral Disc; Displacement of Lumbar Intervertebral Disc without Myelopathy; Intervertebral Disc Disorder; Spondylosis without Myelopathy; Lumbosacral Spondylosis without Myelopathy; Lumbar Radiculopathy; Inflammation of Sacroiliac Joint Ranjit Lu MD: [address] [address], [facility], [place] [address], Ph. 03/26/2018 Spinal Stenosis of Lumbar Region; Degeneration of Lumbar Intervertebral Disc; Degeneration of Lumbosacral Intervertebral Disc; Displacement of Lumbar Intervertebral Disc without Myelopathy; Intervertebral Disc Disorder; Spondylosis without Myelopathy; Lumbosacral Spondylosis without Myelopathy; Lumbar Radiculopathy; Inflammation of Sacroiliac Joint Vonda Pearce, MECHANICAL RESEARCH ENGINEER: [address], [place] [address], Ph. Social History Tobacco Smoking Status Never [...]
--- OUTSIDE RECORDS SUMMARY | 2020-05-14 11:11 | CCD | Continuity of Care Document ---
Author Author Linette ALVES M.D. Organization Unknown Address [address] [address] Phone [phone] Care Team Providers Care Cover Cutter Machine Name Role Phone Ronni González Jared AUTM [phone] Problems Active Problems Provider Date Hyperlipidemia Hua [...] M.D. 12/24/19 19 Pravastatin Sodium 10mg Tablets Take 1 Tablet By Mouth Three Times Per Week 90tabs Eric Alves M.D. 04/27/2013 Aspirin Ec [...] CPT Code Status Date Vaccine Lot # [id number] Given 11/25/2017 Pneumococcal Immunization R0 [id number] Given 11/04/2015 Prevnar 13 Pneum o. Conj Ped. Vaccine 13 Valent (PCV13) For Im Use [id number] Given 01/04/2015 Influenza Vaccin e (Fluzone) 3Yrs Of Age Or Older Medicare Plans [id number] Refused 12/23/2018 Influenza Virus Vaccine, Quadrivalent, Slit Virus, Im Use 3Y & Up Vital Signs Date Vital Result Comment 04/14/2020 8:49am BP Systolic 112 mmHg BP Diastolic 74 mmHg Body Temperature 98.8 F Heart Rate 80 /min Respiratory Rate 14 /min Height 60 inches 5'0" Weight 140.00 lb [place] Body Weight 100 lb BMI (Body Mass Index) 27.3 kg/m2 O2 % BldC Oximetry 96 % 10/11/2019 9:03am BP Systolic 126 mmHg BP Diastolic 84 mmHg Body Temperature 98.3 F Heart Rate 80 /min Respiratory Rate 14 /min Height 60 inches 5'0" Weight 139.00 lb [place] Body Weight 100 lb BMI (Body Mass Index) 27.1 kg/m2 O2 % BldC Oximetry 97 % Results Description No Information Available Procedures Description No Information Available Medical Devices Description No Information Available Encounters Type Date Location Provider Dx Diagnosis Office Visit 04/14/2020 8:45a [place] [facility] Hua Alves M. D. E78.5 Hyperlipidemia, unspecified K21.9 Gastro-esophageal reflux dis ease without esophagitis D64.9 Anemia, unspecified Assessments Date Code Description Provider 04/14/2020 E78.5 Hyperlipidemia, unspecified [facility] Hua jasso M.D. 04/14/2020 K21.9 Gastro-esophageal reflux disease without esophagitis Hua Alves M.D. 04/14/2020 D64.9 Anemia, unspecified Guillaume Alves M.D. Plan of Treatment No Information Available Functional Status Description No Information Available Mental Status Description No Information Available Referrals Description No Information Available
--- OUTSIDE RECORDS SUMMARY | 2020-05-14 11:12 | CCD ---
Author Organization Unknown Address [address] [place] [address] Phone [phone] Care Team Providers Care Wheelchair Driver Name Role Phone LEONARDO ALVES MD 3 [phone] Allergies Code Code System Name Reaction Severity Status Onset Shellfish Derived Active 01/11/2015 Medications Name Status Start Date Stop Date [...] tablet Completed 03/26/2018 pravastatin 10 mg tablet TK 1 T PO THREE TIMES PER WEEK MDD 1 Active N ot available ranitidine 300 mg tablet Completed 019 Restasis [...] lable 01/26/2019 MRI, Lumbar Spine, W/o Contrast [facility] [address] [address] (Work Place) Results Lab Results Date Name Specimen Result Interpretation Description Value Range Status Address 09/28/2019 COVID-19 RNA (SARS-CoV-2), QL, bee breeder-PCR, Respiratory Specim en No observation recorded. [employer]: [address] [place] [address] 09/13/2019 COVID-19 RNA (SARS-CoV-2), QL, bee breeder-PCR, Respiratory Specim en No observation recorded. [employer]: [address] [place] [address] 08/30/2019 COVID-19 RNA (SARS-CoV-2), QL, bee breeder-PCR, Respiratory Specim en No observation recorded. [employer]: [address] [place] [address] Past Encounters 03/21/2020 Spinal Stenosis of Lumbar Region; Degeneration of Lumbar Intervertebral Disc; Degeneration of Lumbosacral Intervertebral Disc; Displacement of Lumbar Intervertebral Disc without Myelopathy; Intervertebral Disc Disorder; Spondylosis without Myelopathy; Lumbosacral Spondylosis without Myelopathy; Lumbar Radiculopathy; Inflammation of Sacroiliac Joint Vonda Pearce, VP [employer]ODUCT MARKET[employer]: [address] [facility], [place] [address], Ph. 10/14/2019 Spinal Stenosis of Lumbar Region; Degeneration of Lumbar Intervertebral Disc; Degeneration of Lumbosacral Intervertebral Disc; Displacement of Lumbar Intervertebral Disc without Myelopathy; Intervertebral Disc Disorder; Spondylosis without Myelopathy; Lumbosacral Spondylosis without Myelopathy; Lumbar Radiculopathy; Inflammation of Sacroiliac Joint Vonda Pearce, VP PRODUCT MARKET[employer]: [address], [place] [address], Ph. 09/30/2019 Spinal Stenosis of Lumbar Region; Lumbar Radiculopathy; Degeneration of Lumbar Intervertebral Disc; Degeneration of Lumbosacral Intervertebral Disc; Displacement of Lumbar Intervertebral Disc without Myelopathy; Intervertebral Disc Disorder; Spondylosis without Myelopathy; Lumbosacral Spondylosis without Myelopathy; Inflammation of Sacroiliac Joint Ranjit Lu MD: [address] [address], [facility] [place] [address], Ph. 09/28/2019 Pre-surgery Testing; Viral Screening Ranjit Lu MD: [address] [address], [place] [address], Ph. [phone] 09/15/2019 Spinal Stenosis of Lumbar Region; Lumbar Radiculopathy; Degeneration of Lumbar Intervertebral Disc; Degeneration of Lumbosacral Intervertebral Disc; Displacement of Lumbar Intervertebral Disc without Myelopathy; Intervertebral Disc Disorder; Spondylosis without Myelopathy; Lumbosacral Spondylosis without Myelopathy; Inflammation of Sacroiliac Joint Ranjit Lu MD: [address] [address], [place] [address], Ph. 09/13/2019 Pre-surgery Testing; Viral Screening Ranjit Lu MD: [address] [address], [place] [address], Ph. [phone] 09/02/2019 Spinal Stenosis of Lumbar Region; Lumbar Radiculopathy; Degeneration of Lumbar Intervertebral Disc; Degeneration of Lumbosacral Intervertebral Disc; Displacement of Lumbar Intervertebral Disc without Myelopathy; Intervertebral Disc Disorder; Spondylosis without Myelopathy; Lumbosacral Spondylosis without Myelopathy; Inflammation of Sacroiliac Joint Ranjit Lu MD: [address] [address], [place] [address], Ph. 08/30/2019 Pre-surgery Testing; Viral Screening Ranjit Lu MD: [address] [address], [place] [address], Ph. [phone] 07/21/2019 Spinal Stenosis of Lumbar Region; Degeneration of Lumbar Intervertebral Disc; Degeneration of Lumbosacral Intervertebral Disc; Displacement of Lumbar Intervertebral Disc without Myelopathy; Intervertebral Disc Disorder; Spondylosis without Myelopathy; Lumbosacral Spondylosis without Myelopathy; Lumbar Radiculopathy; Inflammation of Sacroiliac Joint Vonda Pb Pearce, VP [employer]: [address] [address], Ph. 02/08/2019 Spinal Stenosis of Lumbar Region; Lumbar Radiculopathy; Degeneration of Lumbar Intervertebral Disc; Degeneration of Lumbosacral Intervertebral Disc; Displacement of Lumbar Intervertebral Disc without Myelopathy; Intervertebral Disc Disorder; Spondylosis without Myelopathy; Lumbosacral Spondylosis without Myelopathy; Inflammation of Sacroiliac Joint Ranjit Lu MD: [address] [place] [address], Ph. 01/26/2019 Spinal Stenosis of Lumbar Region; Degeneration of Lumbar Intervertebral Disc; Degeneration of Lumbosacral Intervertebral Disc; Displacement of Lumbar Intervertebral Disc without Myelopathy; Intervertebral Disc Disorder; Spondylosis without Myelopathy; Lumbosacral Spondylosis without Myelopathy; Lumbar Radiculopathy; Inflammation of Sacroiliac Joint Vonda Pb Pearce, VP [employer]: [address] [place] [address], Ph. 09/07/2018 Spinal Stenosis of Lumbar Region; Degeneration of Lumbar Intervertebral Disc; Degeneration of Lumbosacral Intervertebral Disc; Displacement of Lumbar Intervertebral Disc without Myelopathy; Intervertebral Disc Disorder; Spondylosis without Myelopathy; Lumbosacral Spondylosis without Myelopathy; Lumbar Radiculopathy; Inflammation of Sacroiliac Joint Vonda Pb Pearce, VP [employer]ET[employer]: [address] [address], [place] [address], Ph. 07/08/2018 Spinal Stenosis of Lumbar Region; Degeneration of Lumbar Intervertebral Disc; Degeneration of Lumbosacral Intervertebral Disc; Displacement of Lumbar Intervertebral Disc without Myelopathy; Intervertebral Disc Disorder; Spondylosis without Myelopathy; Lumbosacral Spondylosis without Myelopathy; Lumbar Radiculopathy; Inflammation of Sacroiliac Joint Vonda Pearce, VP [employer]ET[employer]: [address] [address], [place] [address], Ph. 06/10/2018 Spinal Stenosis of Lumbar Region; Degeneration of Lumbar Intervertebral Disc; Degeneration of Lumbosacral Intervertebral Disc; Displacement of Lumbar Intervertebral Disc without Myelopathy; Intervertebral Disc Disorder; Spondylosis without Myelopathy; Lumbosacral Spondylosis without Myelopathy; Lumbar Radiculopathy; Inflammation of Sacroiliac Joint Ranjit Lu MD: [address] [address], [place] [address], Ph. 05/28/2018 Spinal Stenosis of Lumbar Region; Degeneration of Lumbar Intervertebral Disc; Degeneration of Lumbosacral Intervertebral Disc; Displacement of Lumbar Intervertebral Disc without Myelopathy; Intervertebral Disc Disorder; Spondylosis without Myelopathy; Lumbosacral Spondylosis without Myelopathy; Lumbar Radiculopathy; Inflammation of Sacroiliac Joint Ranjit Lu MD: [address] [address], [place] [address], Ph. 05/18/2018 Spinal Stenosis of Lumbar Region; Degeneration of Lumbar Intervertebral Disc; Degeneration of Lumbosacral Intervertebral Disc; Displacement of Lumbar Intervertebral Disc without Myelopathy; Intervertebral Disc Disorder; Spondylosis without Myelopathy; Lumbosacral Spondylosis without Myelopathy; Lumbar Radiculopathy; Inflammation of Sacroiliac Joint Vonda Pb Pearce, VP [employer]ODUCT MARKETING: [address] [facility] [address], [facility] [place] [address], Ph. 03/30/2018 Spinal Stenosis of Lumbar Region; Degeneration of Lumbar Intervertebral Disc; Degeneration of Lumbosacral Intervertebral Disc; Displacement of Lumbar Intervertebral Disc without Myelopathy; Intervertebral Disc Disorder; Spondylosis without Myelopathy; Lumbosacral Spondylosis without Myelopathy; Lumbar Radiculopathy; Inflammation of Sacroiliac Joint Ranjit Lu MD: [address] [address], [place] [address], Ph. 03/26/2018 Spinal Stenosis of Lumbar Region; Degeneration of Lumbar Intervertebral Disc; Degeneration of Lumbosacral Intervertebral Disc; Displacement of Lumbar Intervertebral Disc without Myelopathy; Intervertebral Disc Disorder; Spondylosis without Myelopathy; Lumbosacral Spondylosis without Myelopathy; Lumbar Radiculopathy; Inflammation of Sacroiliac Joint Vonda Pearce, VP [employer] MARK[employer]: [address], [place] [address], Ph. Social History Tobacco Smoking Status Never [...]
--- OUTSIDE RECORDS SUMMARY | 2020-05-14 11:12 | CCD ---
Author Organization Unknown Address [address] [place] [address] Phone [phone] Care Team Providers Care Climate Change Analyst Name Role Phone LEONARDO ALVES MD 3 [phone] Allergies Code Code System Name Reaction Severity [...] lable 01/26/2019 MRI, Lumbar Spine, W/o Contrast [facility] [address] [id number] (Work Place) Results Lab Results Date Name Specimen Result Interpretation Description Value Range Status Address 04/03/2020 [facility] Pdf Report NOS No observation recorded. [facility]: [address] [place] [address], [place] 04/03/2020 COVID-19 RNA (SARS-CoV-2), QL, language translator-PCR, Respirat ory Specimen NOS Normal Sars-cov-2 negative negative Final [facility]: [address] [facility], [place] 09/28/2019 COVID-19 RNA (SARS-CoV-2), QL, language translator-PCR, Respiratory Specim en No observation recorded. [employer]: [address] [place] [address] 09/13/2019 COVID-19 RNA (SARS-CoV-2), QL, language translator-PCR, Respiratory Specim en No observation recorded. [employer]: [address] [place] [address] 08/30/2019 COVID-19 RNA (SARS-CoV-2), QL, language translator-PCR, Respiratory Specim en No observation recorded. [employer]: [address] [place] [address] Past Encounters 04/06/2020 Spinal Stenosis of Lumbar Region; Lumbar Radiculopathy; Degeneration of Lumbar Intervertebral Disc; Degeneration of Lumbosacral Intervertebral Disc; Displacement of Lumbar Intervertebral Disc without Myelopathy; Intervertebral Disc Disorder; Spondylosis without Myelopathy; Lumbosacral Spondylosis without Myelopathy; Inflammation of Sacroiliac Joint Ranjit Lu MD: [address], [place] [address], Ph. 04/03/2020 Pre-surgery Testing; Viral Screening Ranjit Lu MD: [address] [address], [facility] [place] [address], Ph. [phone] 03/21/2020 Spinal Stenosis of Lumbar Region; Degeneration of Lumbar Intervertebral Disc; Degeneration of Lumbosacral Intervertebral Disc; Displacement of Lumbar Intervertebral Disc without Myelopathy; Intervertebral Disc Disorder; Spondylosis without Myelopathy; Lumbosacral Spondylosis without Myelopathy; Lumbar Radiculopathy; Inflammation of Sacroiliac Joint Vonda Pearce, PROFESSOR OF ENGINEERING: [address] [facility] [address], [facility] [place] [address], Ph. 10/14/2019 Spinal Stenosis of Lumbar Region; Degeneration of Lumbar Intervertebral Disc; Degeneration of Lumbosacral Intervertebral Disc; Displacement of Lumbar Intervertebral Disc without Myelopathy; Intervertebral Disc Disorder; Spondylosis without Myelopathy; Lumbosacral Spondylosis without Myelopathy; Lumbar Radiculopathy; Inflammation of Sacroiliac Joint Vonda Pearce, PROFESSOR OF ENGINEERING: [address] [address], [facility] [place] [address], Ph. 09/30/2019 Spinal Stenosis of Lumbar Region; Lumbar Radiculopathy; Degeneration of Lumbar Intervertebral Disc; Degeneration of Lumbosacral Intervertebral Disc; Displacement of Lumbar Intervertebral Disc without Myelopathy; Intervertebral Disc Disorder; Spondylosis without Myelopathy; Lumbosacral Spondylosis without Myelopathy; Inflammation of Sacroiliac Joint Ranjit Lu MD: [address] [address], [facility] [place] [address], Ph. 09/28/2019 Pre-surgery Testing; Viral Screening Ranjit Lu MD: [address] [address], [place] [address], Ph. [phone] 09/15/2019 Spinal Stenosis of Lumbar Region; Lumbar Radiculopathy; Degeneration of Lumbar Intervertebral Disc; Degeneration of Lumbosacral Intervertebral Disc; Displacement of Lumbar Intervertebral Disc without Myelopathy; Intervertebral Disc Disorder; Spondylosis without Myelopathy; Lumbosacral Spondylosis without Myelopathy; Inflammation of Sacroiliac Joint Ranjit Lu MD: [address] [address], [place] [address], Ph. 09/13/2019 Pre-surgery Testing; Viral Screening Ranjit Lu MD: [address] [address], [place] [address], Ph. [phone] 09/02/2019 Spinal Stenosis of Lumbar Region; Lumbar Radiculopathy; Degeneration of Lumbar Intervertebral Disc; Degeneration of Lumbosacral Intervertebral Disc; Displacement of Lumbar Intervertebral Disc without Myelopathy; Intervertebral Disc Disorder; Spondylosis without Myelopathy; Lumbosacral Spondylosis without Myelopathy; Inflammation of Sacroiliac Joint Ranjit Lu MD: [address] [address], [place] [address], Ph. 08/30/2019 Pre-surgery Testing; Viral Screening Ranjit Lu MD: [address] [address], [place] [address], Ph. [phone] 07/21/2019 Spinal Stenosis of Lumbar Region; Degeneration of Lumbar Intervertebral Disc; Degeneration of Lumbosacral Intervertebral Disc; Displacement of Lumbar Intervertebral Disc without Myelopathy; Intervertebral Disc Disorder; Spondylosis without Myelopathy; Lumbosacral Spondylosis without Myelopathy; Lumbar Radiculopathy; Inflammation of Sacroiliac Joint Vonda Pearce NP: [address] [address], Ph. 02/08/2019 Spinal Stenosis of Lumbar Region; Lumbar Radiculopathy; Degeneration of Lumbar Intervertebral Disc; Degeneration of Lumbosacral Intervertebral Disc; Displacement of Lumbar Intervertebral Disc without Myelopathy; Intervertebral Disc Disorder; Spondylosis without Myelopathy; Lumbosacral Spondylosis without Myelopathy; Inflammation of Sacroiliac Joint Ranjit Lu MD: [address] [address], [place] [address], Ph. 01/26/2019 Spinal Stenosis of Lumbar Region; Degeneration of Lumbar Intervertebral Disc; Degeneration of Lumbosacral Intervertebral Disc; Displacement of Lumbar Intervertebral Disc without Myelopathy; Intervertebral Disc Disorder; Spondylosis without Myelopathy; Lumbosacral Spondylosis without Myelopathy; Lumbar Radiculopathy; Inflammation of Sacroiliac Joint Vonda Pb Pearce, PROFESSOR OF ENGINEERING: [address] [address], Ph. 09/07/2018 Spinal Stenosis of Lumbar Region; Degeneration of Lumbar Intervertebral Disc; Degeneration of Lumbosacral Intervertebral Disc; Displacement of Lumbar Intervertebral Disc without Myelopathy; Intervertebral Disc Disorder; Spondylosis without Myelopathy; Lumbosacral Spondylosis without Myelopathy; Lumbar Radiculopathy; Inflammation of Sacroiliac Joint Vonda Pb Pearce, PROFESSOR OF ENGINEERING: [address] [address], Ph. 07/08/2018 Spinal Stenosis of Lumbar Region; Degeneration of Lumbar Intervertebral Disc; Degeneration of Lumbosacral Intervertebral Disc; Displacement of Lumbar Intervertebral Disc without Myelopathy; Intervertebral Disc Disorder; Spondylosis without Myelopathy; Lumbosacral Spondylosis without Myelopathy; Lumbar Radiculopathy; Inflammation of Sacroiliac Joint Vonda Pb Pearce, PROFESSOR OF ENGINEERING: [address] [address], Ph. 06/10/2018 Spinal Stenosis of Lumbar Region; Degeneration of Lumbar Intervertebral Disc; Degeneration of Lumbosacral Intervertebral Disc; Displacement of Lumbar Intervertebral Disc without Myelopathy; Intervertebral Disc Disorder; Spondylosis without Myelopathy; Lumbosacral Spondylosis without Myelopathy; Lumbar Radiculopathy; Inflammation of Sacroiliac Joint Ranjit Lu MD: [address] [address], Ph. 05/28/2018 Spinal Stenosis of Lumbar Region; Degeneration of Lumbar Intervertebral Disc; Degeneration of Lumbosacral Intervertebral Disc; Displacement of Lumbar Intervertebral Disc without Myelopathy; Intervertebral Disc Disorder; Spondylosis without Myelopathy; Lumbosacral Spondylosis without Myelopathy; Lumbar Radiculopathy; Inflammation of Sacroiliac Joint Ranjit Lu MD: [address] [address] [place] [address], Ph. 05/18/2018 Spinal Stenosis of Lumbar Region; Degeneration of Lumbar Intervertebral Disc; Degeneration of Lumbosacral Intervertebral Disc; Displacement of Lumbar Intervertebral Disc without Myelopathy; Intervertebral Disc Disorder; Spondylosis without Myelopathy; Lumbosacral Spondylosis without Myelopathy; Lumbar Radiculopathy; Inflammation of Sacroiliac Joint Vonda Pearce PROFESSOR OF ENGINEERING: [address] [address], [facility] [place] [address], Ph. 03/30/2018 Spinal Stenosis of Lumbar Region; Degeneration of Lumbar Intervertebral Disc; Degeneration of Lumbosacral Intervertebral Disc; Displacement of Lumbar Intervertebral Disc without Myelopathy; Intervertebral Disc Disorder; Spondylosis without Myelopathy; Lumbosacral Spondylosis without Myelopathy; Lumbar Radiculopathy; Inflammation of Sacroiliac Joint Ranjit Lu MD: [address] [address], [place] [address], Ph. 03/26/2018 Spinal Stenosis of Lumbar Region; Degeneration of Lumbar Intervertebral Disc; Degeneration of Lumbosacral Intervertebral Disc; Displacement of Lumbar Intervertebral Disc without Myelopathy; Intervertebral Disc Disorder; Spondylosis without Myelopathy; Lumbosacral Spondylosis without Myelopathy; Lumbar Radiculopathy; Inflammation of Sacroiliac Joint Vonda Pearce PROFESSOR OF ENGINEERING: [address] [address], [place] [address], Ph. Social History Tobacco Smoking Status Never [...]
--- OUTSIDE RECORDS SUMMARY | 2020-05-14 11:12 | CCD ---
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 [place]: [address] [place] [address] Past Encounters 04/03/2020 Pre-surgery Testing; Viral Screening aRnjit Lu MD: [id number] [facility], [facility] [place] [address], Ph. [phone] 03/21/2020 Spinal Stenosis of Lumbar Region; Degeneration of Lumbar Intervertebral Disc; Degeneration of Lumbosacral Intervertebral Disc; Displacement of Lumbar Intervertebral Disc without Myelopathy; Intervertebral Disc Disorder; Spondylosis without Myelopathy; Lumbosacral Spondylosis without Myelopathy; Lumbar Radiculopathy; Inflammation of Sacroiliac Joint Vonda Pearce NP: [id number] [facility], [place] [address], Ph. 10/14/2019 Spinal Stenosis of Lumbar Region; Degeneration of Lumbar Intervertebral Disc; Degeneration of Lumbosacral Intervertebral Disc; Displacement of Lumbar Intervertebral Disc without Myelopathy; Intervertebral Disc Disorder; Spondylosis without Myelopathy; Lumbosacral Spondylosis without Myelopathy; Lumbar Radiculopathy; Inflammation of Sacroiliac Joint Vonda Pearce NP: [id number] [address], [facility] [address], Ph. 09/30/2019 Spinal Stenosis of Lumbar Region; Lumbar Radiculopathy; Degeneration of Lumbar Intervertebral Disc; Degeneration of Lumbosacral Intervertebral Disc; Displacement of Lumbar Intervertebral Disc without Myelopathy; Intervertebral Disc Disorder; Spondylosis without Myelopathy; Lumbosacral Spondylosis without Myelopathy; Inflammation of Sacroiliac Joint Ranjit Lu MD: [id number] [address], [place] [address], Ph. 09/28/2019 Pre-surgery Testing; Viral Screening Ranjit Lu MD: [id number] [address], [place] [address], Ph. [phone] 09/15/2019 Spinal Stenosis of Lumbar Region; Lumbar Radiculopathy; Degeneration of Lumbar Intervertebral Disc; Degeneration of Lumbosacral Intervertebral Disc; Displacement of Lumbar Intervertebral Disc without Myelopathy; Intervertebral Disc Disorder; Spondylosis without Myelopathy; Lumbosacral Spondylosis without Myelopathy; Inflammation of Sacroiliac Joint Ranjit Lu MD: [address] [address], [facility] [place] [address], Ph. 09/13/2019 Pre-surgery Testing; Viral Screening Ranjit Lu MD: [id number] [address], [place] [address], Ph. [phone] 09/02/2019 Spinal Stenosis of Lumbar Region; Lumbar Radiculopathy; Degeneration of Lumbar Intervertebral Disc; Degeneration of Lumbosacral Intervertebral Disc; Displacement of Lumbar Intervertebral Disc without Myelopathy; Intervertebral Disc Disorder; Spondylosis without Myelopathy; Lumbosacral Spondylosis without Myelopathy; Inflammation of Sacroiliac Joint Ranjit Lu MD: [address] [address], [place] [address], Ph. 08/30/2019 Pre-surgery Testing; Viral Screening Ranjit Lu MD: [id number] [address], [facility] [place] [address], Ph. [phone] 07/21/2019 Spinal Stenosis of Lumbar Region; Degeneration of Lumbar Intervertebral Disc; Degeneration of Lumbosacral Intervertebral Disc; Displacement of Lumbar Intervertebral Disc without Myelopathy; Intervertebral Disc Disorder; Spondylosis without Myelopathy; Lumbosacral Spondylosis without Myelopathy; Lumbar Radiculopathy; Inflammation of Sacroiliac Joint Vonda Manaixasonrosales Pearce, SALES ACCOUNT REPRESENTATIVE: [id number] [address], Ph. 02/08/2019 Spinal Stenosis of Lumbar Region; Lumbar Radiculopathy; Degeneration of Lumbar Intervertebral Disc; Degeneration of Lumbosacral Intervertebral Disc; Displacement of Lumbar Intervertebral Disc without Myelopathy; Intervertebral Disc Disorder; Spondylosis without Myelopathy; Lumbosacral Spondylosis without Myelopathy; Inflammation of Sacroiliac Joint Ranjit Lu MD: [address] [facility], [facility] [place] [address], Ph. 01/26/2019 Spinal Stenosis of Lumbar Region; Degeneration of Lumbar Intervertebral Disc; Degeneration of Lumbosacral Intervertebral Disc; Displacement of Lumbar Intervertebral Disc without Myelopathy; Intervertebral Disc Disorder; Spondylosis without Myelopathy; Lumbosacral Spondylosis without Myelopathy; Lumbar Radiculopathy; Inflammation of Sacroiliac Joint Vonda Rameshsonrosales [place]zon, SALES ACCOUNT REPRESENTATIVE: [address] [address], [facility] [place] [address], Ph. 09/07/2018 Spinal Stenosis of Lumbar Region; Degeneration of Lumbar Intervertebral Disc; Degeneration of Lumbosacral Intervertebral Disc; Displacement of Lumbar Intervertebral Disc without Myelopathy; Intervertebral Disc Disorder; Spondylosis without Myelopathy; Lumbosacral Spondylosis without Myelopathy; Lumbar Radiculopathy; Inflammation of Sacroiliac Joint Vonda Manongsong Jumalon, SALES ACCOUNT REPRESENTATIVE: [address] [facility], [facility] [place] [address], Ph. 07/08/2018 Spinal Stenosis of Lumbar Region; Degeneration of Lumbar Intervertebral Disc; Degeneration of Lumbosacral Intervertebral Disc; Displacement of Lumbar Intervertebral Disc without Myelopathy; Intervertebral Disc Disorder; Spondylosis without Myelopathy; Lumbosacral Spondylosis without Myelopathy; Lumbar Radiculopathy; Inflammation of Sacroiliac Joint Vonda Pb Pearce, SALES ACCOUNT REPRESENTATIVE: [address] [address], [place] [address], Ph. 06/10/2018 Spinal Stenosis of Lumbar Region; Degeneration of Lumbar Intervertebral Disc; Degeneration of Lumbosacral Intervertebral Disc; Displacement of Lumbar Intervertebral Disc without Myelopathy; Intervertebral Disc Disorder; Spondylosis without Myelopathy; Lumbosacral Spondylosis without Myelopathy; Lumbar Radiculopathy; Inflammation of Sacroiliac Joint Ranjit Lu MD: [id number] [address], Ph. 05/28/2018 Spinal Stenosis of Lumbar Region; Degeneration of Lumbar Intervertebral Disc; Degeneration of Lumbosacral Intervertebral Disc; Displacement of Lumbar Intervertebral Disc without Myelopathy; Intervertebral Disc Disorder; Spondylosis without Myelopathy; Lumbosacral Spondylosis without Myelopathy; Lumbar Radiculopathy; Inflammation of Sacroiliac Joint Ranjit Lu MD: [id number] [address], Ph. 05/18/2018 Spinal Stenosis of Lumbar Region; Degeneration of Lumbar Intervertebral Disc; Degeneration of Lumbosacral Intervertebral Disc; Displacement of Lumbar Intervertebral Disc without Myelopathy; Intervertebral Disc Disorder; Spondylosis without Myelopathy; Lumbosacral Spondylosis without Myelopathy; Lumbar Radiculopathy; Inflammation of Sacroiliac Joint Vonda Pb Pearce, SALES ACCOUNT REPRESENTATIVE: [id number] [address], Ph. 03/30/2018 Spinal Stenosis of Lumbar Region; Degeneration of Lumbar Intervertebral Disc; Degeneration of Lumbosacral Intervertebral Disc; Displacement of Lumbar Intervertebral Disc without Myelopathy; Intervertebral Disc Disorder; Spondylosis without Myelopathy; Lumbosacral Spondylosis without Myelopathy; Lumbar Radiculopathy; Inflammation of Sacroiliac Joint Ranjit Lu MD: [address], [place] [address], Ph. 03/26/2018 Spinal Stenosis of Lumbar Region; Degeneration of Lumbar Intervertebral Disc; Degeneration of Lumbosacral Intervertebral Disc; Displacement of Lumbar Intervertebral Disc without Myelopathy; Intervertebral Disc Disorder; Spondylosis without Myelopathy; Lumbosacral Spondylosis without Myelopathy; Lumbar Radiculopathy; Inflammation of Sacroiliac Joint Vonda Pearce NP: [address], [place] [address], Ph. Social History Tobacco Smoking Status Never [...]
--- OUTSIDE RECORDS SUMMARY | 2020-05-14 11:13 | CCD ---
Author Author [facility] Organization [facility] Address Unknown Phone Unavailable Care Team Providers Care Neurodiagnostic Technician Name Role Phone Jumalon, M Vonda PATTERN CHAIN BUILDER Unavailable Unavailable Jumalon, M Vonda PATTERN CHAIN BUILDER Unavailable Unavailable Jumalon, M Vonda PATTERN CHAIN BUILDER Unavailable Unavailable Jumalon, M Vonda PATTERN CHAIN BUILDER Unavailable Unavailable Jumalon, M Vonda PATTERN CHAIN BUILDER Unavailable Unavailable Jumalon, M Vonda PATTERN CHAIN BUILDER Unavailable Unavailable Jumalon, M Vonda PATTERN CHAIN BUILDER Unavailable Unavailable Jumalon, M Vonda PATTERN CHAIN BUILDER Unavailable Unavailable Jumalon, M Vonda PATTERN CHAIN BUILDER Unavailable Unavailable Jumalon, M Vonda PATTERN CHAIN BUILDER Unavailable Unavailable Jumalon, M Vonda PATTERN CHAIN BUILDER Unavailable Unavailable Jumalon, M Vonda PATTERN CHAIN BUILDER Unavailable Unavailable Jumalon, M Vonda PATTERN CHAIN BUILDER Unavailable Unavailable Jumalon, M Vonda PATTERN CHAIN BUILDER Unavailable Unavailable Jumalon, M Vonda PATTERN CHAIN BUILDER Unavailable Unavailable Jumalon, M Vonda PATTERN CHAIN BUILDER Unavailable Unavailable Jumalon, M Vonda PATTERN CHAIN BUILDER Unavailable Unavailable Jumalon, M Vonda PATTERN CHAIN BUILDER Unavailable Unavailable Jumalon, M Vonda PATTERN CHAIN BUILDER Unavailable Unavailable Jumalon, M Vonda PATTERN CHAIN BUILDER Unavailable Unavailable Jumalon, M Vonda PATTERN CHAIN BUILDER Unavailable Unavailable Jumalon, M Vonda PATTERN CHAIN BUILDER Unavailable Unavailable Jumalon, M Vonda PATTERN CHAIN BUILDER Unavailable Unavailable Jumalon, M Vonda PATTERN CHAIN BUILDER Unavailable Unavailable Jumalon, M Vonda PATTERN CHAIN BUILDER Unavailable Unavailable Jumalon, M Vonda PATTERN CHAIN BUILDER Unavailable Unavailable Jumalon M Vonda PATTERN CHAIN BUILDER Unavailable Unavailable Jumalon, M Vonda PATTERN CHAIN BUILDER Unavailable Unavailable Sekou ALVES MD Unavailable Unavailable Sekou ALVES MD Unavailable Unavailable Sekou ALVES MD Unavailable Unavailable Sekou ALVES MD Unavailable Unavailable Sekou ALVES MD Unavailable Unavailable Sekou ALVES MD Unavailable Unavailable Sekou ALVES MD Unavailable Unavailable Sekou ALVES MD Unavailable Unavailable Sekou ALVES MD Unavailable Unavailable Sekou ALVES MD Unavailable Unavailable Sekou ALVES MD Unavailable Unavailable Sekou ALVES MD Unavailable Unavailable Sekou ALVES MD Unavailable Unavailable Sekou ALVES MD Unavailable Unavailable Sekou ALVES MD Unavailable Unavailable Sekou ALVES MD Unavailable Unavailable Sekou ALVES MD Unavailable Unavailable Sekou ALVES MD Unavailable Unavailable Sekou ALVES MD Unavailable Unavailable Sekou ALVES MD Unavailable Unavailable Sekou ALVES MD Unavailable Unavailable Sekou ALVES MD Unavailable Unavailable Sekou ALVES MD Unavailable Unavailable Sekou ALVES MD Unavailable Unavailable Sekou ALVES MD Unavailable Unavailable Sekou ALVES MD Unavailable Unavailable Sekou ALVES MD Unavailable Unavailable Sekou ALVES MD Unavailable Unavailable Sekou ALVES MD Unavailable Unavailable Sekou ALVES MD Unavailable Unavailable Sekou ALVES MD Unavailable Unavailable Sekou ALVES MD Unavailable Unavailable Sekou ALVES MD Unavailable Unavailable Sekou ALVES MD Unavailable Unavailable Sekou ALVES MD Unavailable Unavailable Sekou ALVES MD Unavailable Unavailable Sekou ALVES MD Unavailable Unavailable Sekou ALVES MD Unavailable Unavailable Sekou ALVES MD Unavailable Unavailable Sekou ALVES MD Unavailable Unavailable Sekou ALVES MD Unavailable Unavailable Sekou ALVES MD Unavailable Unavailable Sekou ALVES MD Unavailable Unavailable Sekou ALVES MD Unavailable Unavailable Sekou ALVES MD Unavailable Unavailable Seoku ALVES MD Unavailable Unavailable Sekou ALVES MD Unavailable Unavailable Sekou ALVES MD Unavailable Unavailable Sekou ALVES MD Unavailable Unavailable Sekou ALVES MD Unavailable Unavailable Sekou ALVES MD Unavailable Unavailable Skeou ALVES MD Unavailable Unavailable Sekou ALVES MD Unavailable Unavailable Sekou ALVES MD Unavailable Unavailable Sekou ALVES MD Unavailable Unavailable Sekou ALVES MD Unavailable Unavailable Sekou ALVES MD Unavailable Unavailable Sekou ALVES MD Unavailable Unavailable Sekou ALVES MD Unavailable Unavailable Sekou ALVES MD Unavailable Unavailable Sekou ALVES MD Unavailable Unavailable Sekou ALVES MD Unavailable Unavailable Sekou ALVES MD Unavailable Unavailable Sekou ALVES MD Unavailable Unavailable Sekou ALVES MD Unavailable Unavailable Sekou ALVES MD Unavailable Unavailable Sekou ALVES MD Unavailable Unavailable Sekou ALVES MD Unavailable Unavailable Sekou ALVES MD Unavailable Unavailable Sekou ALVES MD Unavailable Unavailable Sekou ALVES MD Unavailable Unavailable Sekou ALVES MD Unavailable Unavailable Sekou ALVES MD Unavailable Unavailable Sekou ALVES MD Unavailable Unavailable Sekou ALVES MD Unavailable Unavailable Sekou ALVES MD Unavailable Unavailable Jumalon, M Vonda PATTERN CHAIN BUILDER Unavailable Unavailable Jumalon, M Vonda PATTERN CHAIN BUILDER Unavailable Unavailable Jumalon, M Vonda PATTERN CHAIN BUILDER Unavailable Unavailable Jumalon, M Vonda PATTERN CHAIN BUILDER Unavailable Unavailable Jumalon, M Vonda PATTERN CHAIN BUILDER Unavailable Unavailable Jumalon, M Vonda PATTERN CHAIN BUILDER Unavailable Unavailable Jumalon, M Vonda PATTERN CHAIN BUILDER Unavailable Unavailable Jumalon, M Vonda PATTERN CHAIN BUILDER Unavailable Unavailable Jumalon, M Vonda PATTERN CHAIN BUILDER Unavailable Unavailable Jumalon, M Vonda PATTERN CHAIN BUILDER Unavailable Unavailable Jumalon, M Vonda PATTERN CHAIN BUILDER Unavailable Unavailable Jumalon, M Vonda PATTERN CHAIN BUILDER Unavailable Unavailable Jumalon, M Vonda PATTERN CHAIN BUILDER Unavailable Unavailable Jumalon, M Vonda PATTERN CHAIN BUILDER Unavailable Unavailable Jumalon, M Vonda PATTERN CHAIN BUILDER Unavailable Unavailable Jumalon, M Vonda PATTERN CHAIN BUILDER Unavailable Unavailable Jumalon, M Vonda PATTERN CHAIN BUILDER Unavailable Unavailable Jumalon, M Vonda PATTERN CHAIN BUILDER Unavailable Unavailable Jumalon, M Vonda PATTERN CHAIN BUILDER Unavailable Unavailable Jumalon, M Vonda PATTERN CHAIN BUILDER Unavailable Unavailable Jumalon, M Vonda PATTERN CHAIN BUILDER Unavailable Unavailable Jumalon, M Vonda PATTERN CHAIN BUILDER Unavailable Unavailable Jumalon, M Vonda PATTERN CHAIN BUILDER Unavailable Unavailable Jumalon, M Vonda PATTERN CHAIN BUILDER Unavailable Unavailable Jumalon, M Vonda PATTERN CHAIN BUILDER Unavailable Unavailable Jumalon, M Vonda PATTERN CHAIN BUILDER Unavailable Unavailable Jumalon, M Vonda PATTERN CHAIN BUILDER Unavailable Unavailable Eric Lu MD Unavailable Unavailable Eric Lu MD Unavailable Unavailable Erci Lu MD Unavailable Unavailable Eric Lu MD Unavailable Unavailable Eric Lu MD Unavailable Unavailable Eric Lu MD Unavailable Unavailable Eric Lu MD Unavailable Unavailable Eric Lu MD Unavailable Unavailable Eric Lu MD Unavailable Unavailable Eric Lu MD Unavailable Unavailable Eric Lu MD Unavailable Unavailable Bolla, S Ranjit CORTES Unavailable Unavailable Bolla, S Ranjit MD Unavailable Unavailable Bolla, S Ranjit MD Unavailable Unavailable Bolla, S Ranjit MD Unavailable Unavailable Bolla, S Ranjit MD Unavailable Unavailable Bolla, S Ranjit MD Unavailable Unavailable Bolla, S Ranjit MD Unavailable Unavailable Bolla, S Ranjit MD Unavailable Unavailable Bolla, S Ranjit MD Unavailable Unavailable Bolla, S Ranjit MD Unavailable Unavailable Bolla, S Ranjit MD Unavailable Unavailable Bolla, S Ranjit MD Unavailable Unavailable Bolla, S Ranjit MD Unavailable Unavailable Bolla, S Ranjit MD Unavailable Unavailable Bolla, S Ranjit MD Unavailable Unavailable Bolla, S Ranjit MD Unavailable Unavailable Bolla, S Ranjit MD Unavailable Unavailable Bolla, S Ranjit MD Unavailable Unavailable Bolla, S Ranjit MD Unavailable Unavailable Bolla, S Ranjit MD Unavailable Unavailable Bolla, S Ranjit MD Unavailable Unavailable Bolla, S Ranjit MD Unavailable Unavailable Bolla, S Ranjit MD Unavailable Unavailable Bolla, S Ranjit MD Unavailable Unavailable Bolla, S Ranjit MD Unavailable Unavailable Bolla, S Ranjit MD Unavailable Unavailable Bolla, S Ranjit MD Unavailable Unavailable Bolla, S Ranjit MD Unavailable Unavailable Bolla, S Ranjit MD Unavailable Unavailable Bolla, S Ranjit MD Unavailable Unavailable Bolla, S Ranjit MD Unavailable Unavailable Bolla, S Ranjit MD Unavailable Unavailable Bolla, S Ranjit MD Unavailable Unavailable Bolla, S Ranjit MD Unavailable Unavailable Bolla, S Ranjit MD Unavailable Unavailable Bolla, S Ranjit MD Unavailable Unavailable Bolla, S Ranjit MD Unavailable Unavailable Re-disclosure Warning The records that you are about to access may contain information from federally-assisted alcohol or drug abuse programs. If such information is present, then the following federally mandated warning applies: This information has been disclosed to you from records protected by federal confidentiality rules (42 CFR part 2). The federal rules prohibit you from making any further disclosure of this information unless further disclosure is expressly permitted by the written consent of the person to whom it pertains or as otherwise permitted by 42 CFR part 2. A general authorization for the release of medical or other information is NOT sufficient for this purpose. The Federal rules restrict any use of the information to criminally investigate or prosecute any alcohol or drug abuse patient.The records that you are about to access may contain highly sensitive health information, the redisclosure of which is protected by Article 27-F of the [facility] Public Health law. If you continue you may have access to information: Regarding HIV / AIDS; Provided by facilities licensed or operated by the [facility] Office of Mental Health; or Provided by the [facility] Office for People With Developmental Disabilities. If such information is present, then the following [facility] mandated warning applies: This information has been disclosed to you from confidential records which are protected by state law. State law prohibits you from making any further disclosure of this information without the specific written consent of the person to whom it pertains, or as otherwise permitted by law. Any unauthorized further disclosure in violation of state law may result in a fine or snf sentence or both. A general authorization for the release of medical or other information is NOT sufficient authorization for further disc losure. Allergies and Adverse Reactions Type Description Substance Reaction Status Data Source(s ) Latex Latex Latex active NETSMART ([facility]) Scallops Scallops Scallops active NETSMART ([facility]) Family History Family Member Name Family Member Gender Family Member Status Date o f Status Description Data Source(s) Unknown Male Problem MEDENT ([facility]) Unknown Unknown Problem [facility] Unknown Unknown Problem MEDENT ([facility]) Encounters Encounter Providers Location Date Indications Data Source(s ) Ranjit Lu MD: [id number] [address], [place] [address], Ph. Attender: Ranjit Lu MD ID - [facility] Office 04/20/2020 12:00:00 AM EST DARIEN ([facility]) Ranjit Lu MD: [id number] [facility], [facility] [place] [address], Ph. [phone] Attender: Ranjit Lu MD [facility] - Main Office 04/17/2020 12:00:00 AM EST DARIEN ([facility]) Ranjit Lu MD: [address], [place], [place] [address], Ph. [phone] Attender: Ranjit Lu MD ID - [facility] 04/17/2020 12:00:00 AM EST DARIEN ([facility]) Outpatient Attender: LEONARDO ALVES MD [facility] 07:45:00 AM EST MEDENT ([facility] Rnajit Lu MD: [address], [address], [place] [address], Ph. Attender: Ranjit Lu MD ID - [facility] 04/06/2020 12:00:00 AM EST DARIEN ([facility]) Ranjit Lu MD: [address], [place] [address], Ph. Attender: Ranjit Lu MD ID - [facility] 04/06/2020 12:00:00 AM EST DARIEN ([facility]) Ranjit Lu MD: [address], [place] [address], Ph. Attender: Ranjit Lu MD ID - [facility] 04/06/2020 12:00:00 AM EST DARIEN ([facility]) Ranjit Lu MD: [address], [place] [address], Ph. [phone] Attender: Ranjit Lu MD ID - [facility] 04/03/2020 12:00:00 AM EST DARIEN ([facility]) Ranjit Lu MD: [address], [place] [address], Ph. [phone] Attender: Ranjit IZQUIERDO - [facility] 04/03/2020 12:00:00 AM EST DARIEN ([facility]) Ranjit Lu MD: [address], [place] [address], Ph. [phone] Attender: Ranjit Lu MD ID - [facility] 04/03/2020 12:00:00 AM EST DARIEN ([facility]) Ranjit Lu MD: [address], [place] [address], Ph. [phone] Attender: Ranjit Lu MD ID - [facility] 04/03/2020 12:00:00 AM EST DARIEN ([facility]) Vondamauricio Pearce, SUGAR MIXER: [address], [facility] [place] [address], Ph. Attender: Vonda Pearce [facility] 03/21/2020 12:00:00 AM EST ATHE NA ([facility]) Vonda Pearce, SUGAR MIXER: [address], [place] [address], Ph. Attender: Vonda Pearce [facility] 03/21/2020 12:00:00 AM EST ATHE NA ([facility]) Vonda Pearce, SUGAR MIXER: [address], [place] [address], Ph. Attender: Vonda Pearce [facility] 03/21/2020 12:00:00 AM EST ATHE NA ([facility]) Vonda Pearce, SUGAR MIXER: [address], [place] [address], Ph. Attender: Vonda Pearce PATTERN CHAIN BUILDER [place] - [facility] 03/21/2020 12:00:00 AM EST ATHE NA ([facility]) Vonda Pearce, SUGAR MIXER: [address], [place] [address], Ph. Attender: Vonda Pearce [facility] - [facility] 03/21/2020 12:00:00 AM EST ATHE NA ([facility]) Vonda Pearce, SUGAR MIXER: [address], [place] [address], Ph. Attender: Vonda Pearce [facility] - [facility] 10/14/2019 12:00:00 AM EDT ATHE NA ([facility]) Vonda Pearce, SUGAR MIXER: [address], [place] [address], Ph. Attender: Vonda Pearce [facility] - [facility] 10/14/2019 12:00:00 AM EDT ATHE NA ([facility]) Vonda Pearce, SUGAR MIXER: [address], [place] [address], Ph. Attender: Vonda Pearce [facility] - [facility] 10/14/2019 12:00:00 AM EDT ATHE NA ([facility]) Vonda Pearce, SUGAR MIXER: [address], [place] [address], Ph. Attender: Vonda Pearce [facility] - [facility] 10/14/2019 12:00:00 AM EDT ATHE NA ([facility]) Vonda Tommygiovanna Ramses, SUGAR MIXER: [address], [address], [place] [address], Ph. Attender: Vonda Pearce [facility] - [facility] 10/14/2019 12:00:00 AM EDT ATHPenelope NA ([facility]) Vonda Pearce, SUGAR MIXER: [address], [address], [place] [address], Ph. Attender: Vonda Pearce [facility] - [facility] 10/14/2019 12:00:00 AM EDT ATHPenelope NA ([facility]) Outpatient Attender: LEONARDO ALVES MD [facility] 09:15:00 AM EDT JEREMY ([facility] Ranjit Lu MD: [address], [place] [address], Ph. Attender: Ranjit Lu MD ID - [facility] 09/30/2019 12:00:00 AM EDT DARIEN ([facility]) Ranjit Lu MD: [address], [address], [place] [address], Ph. Attender: Ranjit Lu MD ID - [facility] 09/30/2019 12:00:00 AM EDT DARIEN ([facility]) Ranjit Lu MD: [address], [address], [place] [address], Ph. Attender: Ranjit Lu MD ID - [facility] 09/30/2019 12:00:00 AM EDT DARIEN ([facility]) Ranjit Lu MD: [address], [address], [place] [address], Ph. Attender: Ranjit Lu MD ID - [facility] 09/30/2019 12:00:00 AM EDT DARIEN ([facility]) Ranjit Lu MD: [address], [address], [place] [address], Ph. Attender: Ranjit IZQUIERDO - [facility] 09/30/2019 12:00:00 AM EDT DARIEN ([facility]) Ranjit Lu MD: [address], [address], [place] [address], Ph. Attender: Ranjit IZQUIERDO - [facility] 09/30/2019 12:00:00 AM EDT DARIEN ([facility]) Ranjit Lu MD: [address], [address], [place] [address], Ph. Attender: Ranjit IZQUIERDO - [facility] 09/30/2019 12:00:00 AM EDT DARIEN ([facility]) Ranjit Lu MD: [address], [address], [place] [address], Ph. [phone] Attender: Ranjit IZQUIERDO - [facility] 09/28/2019 12:00:00 AM EDT DARIEN ([facility]) Ranjit Lu MD: [address], [address], [place] [address], Ph. [phone] Attender: Ranjit IZQUIERDO - [facility] 09/28/2019 12:00:00 AM EDT DARIEN ([facility]) Ranjit Lu MD: [address], [address], [place] [address], Ph. [phone] Attender: Ranjit IZQUIERDO - [facility] 09/28/2019 12:00:00 AM EDT DARIEN ([facility]) Ranjit Lu MD: [address], [address], [place] [address], Ph. [phone] Attender: Ranjit Lu MD ID - [facility] 09/28/2019 12:00:00 AM EDT DARIEN ([facility]) Ranjit Lu MD: [address], [address], [place] [address], Ph. [phone] Attender: Ranjit Lu MD ID - [facility] 09/28/2019 12:00:00 AM EDT DARIEN ([facility]) Ranjit Lu MD: [address], [address], [place] [address], Ph. [phone] Attender: Ranjit IZQUIERDO - [facility] 09/28/2019 12:00:00 AM EDT DARIEN ([facility]) Ranjit Lu MD: [address], [address], [place] [address], Ph. [phone] Attender: Ranjit Lu MD ID - [facility] 09/28/2019 12:00:00 AM EDT DARIEN ([facility]) Ranjit Lu MD: [address], [address], [place] [address], Ph. [phone] Attender: Ranjit IZQUIERDO - [facility] 09/28/2019 12:00:00 AM EDT DARIEN ([facility]) Ranjit Lu MD: [address], [address], [place] [address], Ph. Attender: Ranjit IZQUIERDO - [facility] 09/15/2019 12:00:00 AM EDT DARIEN ([facility]) Ranjit Lu MD: [address], [address], [place] [address], Ph. Attender: Ranjit Lu MD ID - [facility] 09/15/2019 12:00:00 AM EDT DARIEN ([facility]) Ranjit Lu MD: [address], [address], [place] [address], Ph. Attender: Ranjit Lu MD ID - [facility] 09/15/2019 12:00:00 AM EDT DARIEN ([facility]) Ranjit Lu MD: [address], [address], [place] [address], Ph. Attender: Ranjit Lu MD ID - [facility] 09/15/2019 12:00:00 AM EDT DARIEN ([facility]) Ranjit Lu MD: [address], [address], [place] [address], Ph. Attender: Ranjit IZQUIERDO - [facility] 09/15/2019 12:00:00 AM EDT DARIEN ([facility]) Ranjit Lu MD: [address], [address], [place] [address], Ph. Attender: Ranjti Lu MD ID - [facility] 09/15/2019 12:00:00 AM EDT DARIEN ([facility]) Ranjit Lu MD: [address], [address], [place] [address], Ph. Attender: Ranjit IZQUIERDO - [facility] 09/15/2019 12:00:00 AM EDT DARIEN ([facility]) Ranjit Lu MD: [address], [address], [place] [address], Ph. Attender: Ranjit Lu MD ID - [facility] 09/15/2019 12:00:00 AM EDT DARIEN ([facility]) Ranjit Lu MD: [address], [address], [place] [address], Ph. Attender: Ranjit Lu MD ID - [facility] 09/15/2019 12:00:00 AM EDT DARIEN ([facility]) Ranjit Lu MD: [address], [address], [place] [address], Ph. [phone] Attender: Ranjit Lu MD ID - [facility] 09/13/2019 12:00:00 AM EDT DARIEN ([facility]) Ranjit Lu MD: [address], [address], [place] [address], Ph. [phone] Attender: Ranjit Lu MD ID - [facility] 09/13/2019 12:00:00 AM EDT DARIEN ([facility]) Ranjit Lu MD: [address], [address], [place] [address], Ph. [phone] Attender: Ranjit IZQUIERDO - [facility] 09/13/2019 12:00:00 AM EDT DARIEN ([facility]) Ranjit Lu MD: [address], [address], [place] [address], Ph. [phone] Attender: Ranjit Lu MD ID - [facility] 09/13/2019 12:00:00 AM EDT DARIEN ([facility]) Ranjit Lu MD: [id number], [address], [place] [address], Ph. [phone] Attender: Ranjit Lu MD ID - [facility] 09/13/2019 12:00:00 AM EDT DARIEN ([facility]) Ranjit Lu MD: [address], [address], [place] [address], Ph. [phone] Attender: Ranjit Lu MD ID - [facility] 09/13/2019 12:00:00 AM EDT DARIEN ([facility]) Ranjit Lu MD: [address], [address], [place] [address], Ph. [phone] Attender: Ranjit IZQUIERDO - [facility] 09/13/2019 12:00:00 AM EDT DARIEN ([facility]) Ranjit Lu MD: [address], [address], [place] [address], Ph. [phone] Attender: Ranjit IZQUIERDO - [facility] 09/13/2019 12:00:00 AM EDT DARIEN ([facility]) Ranjit Lu MD: [address], [address], [place] [address], Ph. [phone] Attender: Ranjit IZQUIERDO - [facility] 09/13/2019 12:00:00 AM EDT DARIEN ([facility]) Ranjit Lu MD: [address], [address], [place] [address], Ph. [phone] Attender: Ranjit IZQUIERDO - [facility] 09/13/2019 12:00:00 AM EDT DARIEN ([facility]) Ranjit Lu MD: [address], [address], [place] [address], Ph. Attender: Ranjit IZQUIERDO - [facility] 09/02/2019 12:00:00 AM EDT DARIEN ([facility]) Ranjit Lu MD: [address], [address], [place] [address], Ph. Attender: Ranjit Lu MD ID - [facility] 09/02/2019 12:00:00 AM EDT DARIEN ([facility]) Ranjit Lu MD: [address], [address], [place] [address], Ph. Attender: Ranjit IZQUIERDO - [facility] 09/02/2019 12:00:00 AM EDT DARIEN ([facility]) Ranjit Lu MD: [address], [address], [place] [address], Ph. Attender: Ranjit IZQUIERDO - [facility] 09/02/2019 12:00:00 AM EDT DARIEN ([facility]) Ranjit Lu MD: [address], [address], [place] [address], Ph. Attender: Ranjit IZQUIERDO - [facility] 09/02/2019 12:00:00 AM EDT DARIEN ([facility]) Ranjit Lu MD: [address], [address], [place] [address], Ph. Attender: Ranjit IZQUIERDO - [facility] 09/02/2019 12:00:00 AM EDT DARIEN ([facility]) Ranjit Lu MD: [address], [address], [place] [address], Ph. Attender: Ranjit IZQUIERDO - [facility] 09/02/2019 12:00:00 AM EDT DARIEN ([facility]) Ranjit Lu MD: [address], [address], [place] [address], Ph. Attender: Ranjit IZQUIERDO - [facility] 09/02/2019 12:00:00 AM EDT DARIEN ([facility]) Ranjit Lu MD: [address], [address], [place] [address], Ph. Attender: Ranjit IZQUIERDO - [facility] 09/02/2019 12:00:00 AM EDT DARIEN ([facility]) Ranjit Lu MD: [address], [address], [place] [address], Ph. Attender: Ranjit IZQUIERDO - [facility] 09/02/2019 12:00:00 AM EDT DARIEN ([facility]) Ranjit Lu MD: [address], [address], [place] [address], Ph. Attender: Ranjit IZQUIERDO - [facility] 09/02/2019 12:00:00 AM EDT DARIEN ([facility]) Ranjit Lu MD: [address], [address], [place] [address], Ph. [phone] Attender: Ranjit IZQUIERDO - [facility] 08/30/2019 12:00:00 AM EDT DARIEN ([facility]) Ranjit Lu MD: [address], [address], [place] [address], Ph. [phone] Attender: Ranjit IZQUIERDO - [facility] 08/30/2019 12:00:00 AM EDT DARIEN ([facility]) Ranjit Lu MD: [address], [address], [place] [address], Ph. [phone] Attender: Ranjit Lu MD ID - [facility] - [facility] 08/30/2019 12:00:00 AM EDT DARIEN ([facility]) Ranjit Lu MD: [address], [address], [place] [address], Ph. [phone] Attender: Ranjit Lu MD ID - [facility] - [facility] 08/30/2019 12:00:00 AM EDT DARIEN ([facility]) Ranjit Lu MD: [address], [address], [place] [address], Ph. [phone] Attender: Ranjit Lu MD ID - [facility] - [facility] 08/30/2019 12:00:00 AM EDT DARIEN ([facility]) Ranjit Lu MD: [address], [address], [place] [address], Ph. [phone] Attender: Ranjit Lu MD ID - [facility] - [facility] 08/30/2019 12:00:00 AM EDT DARIEN ([facility]) Ranjit Lu MD: [address], [address], [place] [address], Ph. [phone] Attender: Ranjit IZQUIERDO - [facility] - [facility] 08/30/2019 12:00:00 AM EDT DARIEN ([facility]) Ranjit Lu MD: [address], [address], [place] [address], Ph. [phone] Attender: Ranjit Lu MD ID - [facility] - [facility] 08/30/2019 12:00:00 AM EDT DARIEN ([facility]) Ranjit Lu MD: [address], [address], [place] [address], Ph. [phone] Attender: Ranjit Lu MD ID - [facility] 08/30/2019 12:00:00 AM EDT DARIEN ([facility]) Ranjit Lu MD: [address], [address], [place] [address], Ph. [phone] Attender: Ranjit Lu MD ID - [facility] 08/30/2019 12:00:00 AM EDT DARIEN ([facility]) Ranjit Lu MD: [address], [address], [place] [address], Ph. [phone] Attender: Ranjit Lu MD ID - [facility] 08/30/2019 12:00:00 AM EDT DARIEN ([facility]) Ranjit Lu MD: [address], [address], [place] [address], Ph. [phone] Attender: Ranjit Lu MD ID - [facility] 08/30/2019 12:00:00 AM EDT DARIEN ([facility]) Vonda Pearce, SUGAR MIXER: [address], [place] [address], Ph. Attender: Vonda Pearce [facility] - [facility] 07/21/2019 12:00:00 AM EDT DARIEN ([facility]) Vonda Pearce, SUGAR MIXER: [address], [place] [address], Ph. Attender: Vonda Pearce [facility] - [facility] 07/21/2019 12:00:00 AM EDT DARIEN ([facility]) Vonda Pearce, SUGAR MIXER: [address], [place] [address], Ph. Attender: Vonda Pearce [employer] [place] - [facility] 07/21/2019 12:00:00 AM EDT DARIEN ([facility]) Vonda Pearce, SUGAR MIXER: [address], [place] [address], Ph. Attender: Vonda Pearce [employer] [place] - [facility] 07/21/2019 12:00:00 AM EDT DARIEN ([facility]) Vonda Pearce, SUGAR MIXER: [address], [place] [address], Ph. Attender: Vonda Pearce [employer] [place] - [facility] 07/21/2019 12:00:00 AM EDT DARIEN ([facility]) Vonda Pearce, SUGAR MIXER: [address], [place] [address], Ph. Attender: Vonda Pearce [employer] [place] - [facility] 07/21/2019 12:00:00 AM EDT DARIEN ([facility]) Vonda Pearce, SUGAR MIXER: [address], [place] [address], Ph. Attender: Vonda Pearce [employer] [place] - [facility] 07/21/2019 12:00:00 AM EDT DARIEN ([facility]) Vonda Pearce, SUGAR MIXER: [address], [place] [address], Ph. Attender: Vonda Pearce [employer] [place] - [facility] 07/21/2019 12:00:00 AM EDT DARIEN ([facility]) Vonda Pearce, SUGAR MIXER: [address], [place] [address], Ph. [facility]: [facility] 07/21/2019 12:00:00 AM EDT DARIEN ([facility]) Vonda Pearce, SUGAR MIXER: [address], [place] [address], Ph. Attender: [facility] 07/21/2019 12:00:00 AM EDT DARIEN ([facility]) Vonda Pearce, SUGAR MIXER: [address], [place] [address], Ph. Attender: [facility] 07/21/2019 12:00:00 AM EDT DARIEN ([facility]) Vonda Pearce, SUGAR MIXER: [address], [place] [address], Ph. Attender: [facility] 07/21/2019 12:00:00 AM EDT DARIEN ([facility]) Vonda Pearce, SUGAR MIXER: [address], [place] [address], Ph. 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) Outpatient Attender: LEONARDO ALVES MD [facility] 05/2019 01:00:00 PM EDT [facility] ([facility] Outpatient Referrer: Vonda Pearce [employer] 04/01/2019 03:04:0 0 PM EST [facility] Outpatient Attender: LEONARDO ALVES MD [facility] 10/2019 12:15:00 PM EST [facility] ([facility] Outpatient Referrer: Vonda Pearce PATTERN CH[employer]DER 03/30/2019 02:02:0 0 PM EST [facility] 03/30/2019 12:00:00 AM EST - 020 01:23:35 PM EST NETSMART ([facility]) Immunizations Vaccine Date Status Description Data Source(s) INFLUENZA VIRUS VACCINE QUADRIVAL SPLIT 2019-21(65 YR UP)/PF 12/19/2019 12:00:00 AM EDT completed [facility] Medications Medication Brand Name Start Date Product Form Dose Route Admi nistrative Instructions Pharmacy Instructions Status Indications Reaction Description Data Source(s) dexlansoprazole 60 MG Delayed Release Oral Capsule [Dexilant ] Dexilant 04/14/2020 12:00:00 AM EST ORAL active [facility] ([facility] Esomeprazole 40 MG Delayed Release Oral Capsule [Nexium] Nex ium 04/14/2020 12:00:00 AM EST ORAL completed [facility] ([facility] Ferrous Sulfate 325 (65 Fe) MG Ferrous Sulfate 04/02/2019 12:00:00 AM EST 0 {mg} completed NETSMART ([facility]) Triple Antibio. Oint Triple Antibio. Oint 04/02/2019 12:00:00 AM ES T 1.0 {asd} completed [facility]SM[facility] ([facility]) ferrous sulfate 325 MG Oral Tablet Ferrous Sulfate 04/01/2019 12:00 :00 AM EST ORAL active MEDENT ([facility] Aspirin 81 MG Aspirin 03/30/2019 12:00:00 AM EST c ompleted NETSMART ([facility]) Pravastatin Sodium 10 MG Pravastatin Sodium 03/30/2019 12:00:00 AM EST completed [facility] ([facility]) magnesium magnesium 03/30/2019 12:00:00 AM EST 483.0 {mg} completed [facility]SMART ([facility] ) Vitamin D3 25 MCG Vitamin D3 03/30/2019 12:00:00 AM EST completed [facility]SMART ([facility] ) Tylenol Extra Strength 500 MG Tylenol Extra Strength 03/30/2019 12:00:00 AM EST completed NETSMA RT ([facility]) Restasis 0.05 % Restasis 03/30/2019 12:00:00 AM EST completed [facility]SMART ([facility]) Advil 200 MG Advil 03/30/2019 12:00:00 AM EST comp leted [facility]SMART ([facility]) Acetaminophen 325 MG / Hydrocodone Galina trate 5 MG Oral Tablet hydrocodone 5 mg- acetaminophen 325 mg tablet hydrocodone 5 mg-acetaminophen 325 mg tablet completed Acetaminophen 325 MG / Hydrocodone Bitartrate 5 MG Oral Tablet DARIEN ([facility]) Acetaminophen 325 MG / Hydrocodone Galina trate 5 MG Oral Tablet hydrocodone 5 mg- acetaminophen 325 mg tablet hydrocodone 5 mg-acetaminophen 325 mg tablet completed acetaminophen 325 MG / hydrocodone bitartrate 5 MG Oral Tablet DARIEN ([facility]) Fluzone High-Dose Quad (PF) 240 mcg/0.7 mL IM syringe INJECT 0.7ML INTRAMUSCULARLY 104732 completed 0.7 ML influenza A virus A/[facility]/[id number] (H1N1) antigen 0.0857 MG/ML / influenza A virus A/[place] (H3N2) antigen 0.0857 MG/ML / influenza B virus B/[facility] antigen 0.0857 MG/ML / influenza B virus B/ antigen 0.0857 MG/ML Prefilled Syringe [Fluzone Quadrivalent ] DARIEN ([facility]) Acetaminophen 325 MG / Hydrocodone Galina trate 5 MG Oral Tablet hydrocodone 5 mg- acetaminophen 325 mg tablet hydrocodone 5 mg-acetaminophen 325 mg tablet completed acetaminophen 325 MG / hydrocodone bitartrate 5 MG Oral Tablet DARIEN ([facility]) Cyclosporine 0.5 MG/ML Ophthalmic Suspen nicola [Restasis] Restasis 0.05 % eye drops in a dropperette Restasis 0.05 % eye drops in a dropperette completed cyclosporine 0.5 MG/ML Ophthalmi c Suspension [Restasis] DARIEN ([facility]) Cyclosporine 0.5 MG/ML Ophthalmic Suspen nicola [Restasis] Restasis 0.05 % eye drops in a dropperette Restasis 0.05 % eye drops in a dropperette completed cyclosporine 0.5 MG/ML Ophthalmi c Suspension [Restasis] DARIEN ([facility]) Acetaminophen 325 MG / Hydrocodone Galina trate 5 MG Oral Tablet hydrocodone 5 mg- acetaminophen 325 mg tablet hydrocodone 5 mg-acetaminophen 325 mg tablet completed acetaminophen 325 MG / hydrocodone bitartrate 5 MG Oral Tablet DARIEN ([facility]) Cyclosporine 0.5 MG/ML Ophthalmic Suspen nicola [Restasis] Restasis 0.05 % eye drops in a dropperette Restasis 0.05 % eye drops in a dropperette completed cyclosporine 0.5 MG/ML Ophthalmi c Suspension [Restasis] DARIEN ([facility]) Acetaminophen 325 MG / Hydrocodone Galina trate 5 MG Oral Tablet hydrocodone 5 mg- acetaminophen 325 mg tablet hydrocodone 5 mg-acetaminophen 325 mg tablet completed acetaminophen 325 MG / hydrocodone bitartrate 5 MG Oral Tablet DARIEN ([facility]) ferrous sulfate 325 MG Oral Tablet lynette us sulfate 325 mg (65 mg iron) tablet TK 1 T PO BID ferrous sulfate 325 mg (65 mg iron) tablet TK 1 T PO BID completed ferrous sulfate 325 MG Oral Tablet DARIEN ([facility]) Fluzone High-Dose Quad (PF) 240 mcg/0.7 mL IM syringe INJECT 0.7ML INTRAMUSCULARLY 527104 completed 0.7 ML influenza A virus A/[facility]/[id number] (H1N1) antigen 0.0857 MG/ML / influenza A virus A/[place] (H3N2) antigen 0.0857 MG/ML / influenza B virus B/[facility] antigen 0.0857 MG/ML / influenza B virus B/ antigen 0.0857 MG/ML Prefilled Syringe [Fluzone Quadrivalent ] DARIEN ([facility]) Cyclosporine 0.5 MG/ML Ophthalmic Suspen nicola [Restasis] Restasis 0.05 % eye drops in a dropperette Restasis 0.05 % eye drops in a dropperette completed cyclosporine 0.5 MG/ML Ophthalmi c Suspension [Restasis] DARIEN ([facility]) Cyclosporine 0.5 MG/ML Ophthalmic Suspen nicola [Restasis] Restasis 0.05 % eye drops in a dropperette Restasis 0.05 % eye drops in a dropperette completed cyclosporine 0.5 MG/ML Ophthalmi c Suspension [Restasis] DARIEN ([facility]) gabapentin 100 MG Oral Capsule gabapentin 100 mg capsu le gabapentin 100 mg capsule completed gabapentin 100 MG Oral Capsule DARIEN ([facility]) Acetaminophen 325 MG / Hydrocodone Galina trate 5 MG Oral Tablet hydrocodone 5 mg- acetaminophen 325 mg tablet hydrocodone 5 mg-acetaminophen 325 mg tablet completed acetaminophen 325 MG / hydrocodone bitartrate 5 MG Oral Tablet DARIEN ([facility]) ferrous sulfate 325 MG Oral Tablet lynette us sulfate 325 mg (65 mg iron) tablet TK 1 T PO BID ferrous sulfate 325 mg (65 mg iron) tablet TK 1 T PO BID completed ferrous sulfate 325 MG Oral Tablet DARIEN ([facility] [place] [facility]) Fluzone High-Dose Quad (PF) 240 mcg/0.7 mL IM syringe INJECT 0.7ML INTRAMUSCULARLY [id number] completed 0.7 ML influenza A virus A/[facility]/[id number] (H1N1) antigen 0.0857 MG/ML / influenza A virus A/[place] (H3N2) antigen 0.0857 MG/ML / influenza B virus B/[facility] antigen 0.0857 MG/ML / influenza B virus B/ antigen 0.0857 MG/ML Prefilled Syringe [Fluzone Quadrivalent ] DARIEN ([facility]) Acetaminophen 325 MG / Hydrocodone Galina trate 5 MG Oral Tablet hydrocodone 5 mg- acetaminophen 325 mg tablet hydrocodone 5 mg-acetaminophen 325 mg tablet completed acetaminophen 325 MG / hydrocodone bitartrate 5 MG Oral Tablet DARIEN ([facility]) ferrous sulfate 325 MG Oral Tablet lynette us sulfate 325 mg (65 mg iron) tablet TK 1 T PO BID ferrous sulfate 325 mg (65 mg iron) tablet TK 1 T PO BID completed ferrous sulfate 325 MG Oral Tabl et DARIEN ([facility]) Acetaminophen 325 MG / Hydrocodone Galina trate 5 MG Oral Tablet hydrocodone 5 mg- acetaminophen 325 mg tablet hydrocodone 5 mg-acetaminophen 325 mg tablet completed acetaminophen 325 MG / hydrocodone bitartrate 5 MG Oral Tablet DARIEN ([facility]) Cyclosporine 0.5 MG/ML Ophthalmic Suspen nicola [Restasis] Restasis 0.05 % eye drops in a dropperette Restasis 0.05 % eye drops in a dropperette completed cyclosporine 0.5 MG/ML Ophthalmi c Suspension [Restasis] DARIEN ([facility]) gabapentin 100 MG Oral Capsule gabapentin 100 mg capsu le gabapentin 100 mg capsule completed gabapentin 100 MG Oral Capsule DARIEN ([facility]) gabapentin 100 MG Oral Capsule gabapentin 100 mg capsu le gabapentin 100 mg capsule completed gabapentin 100 MG Oral Capsule DARIEN ([facility]) gabapentin 100 MG Oral Capsule gabapentin 100 mg capsu le gabapentin 100 mg capsule completed gabapentin 100 MG Oral Capsule DARIEN ([facility]) Cyclosporine 0.5 MG/ML Ophthalmic Suspen nicola [Restasis] Restasis 0.05 % eye drops in a dropperette Restasis 0.05 % eye drops in a dropperette completed cyclosporine 0.5 MG/ML Ophthalmi c Suspension [Restasis] DARIEN ([facility]) Fluzone High-Dose (PF) 180 mcg/0 .5 mL intramuscular syringe INJECT DIRECTED [id number] completed 0.5 ML influenza A virus A/ (H1N1) antigen 0.12 MG/ML / influenza A virus A/[place] (H3N2) antigen 0.12 MG/ML / influenza B virus B/ antigen 0.12 MG/ML Prefilled Syringe [Fluzone 8031-6714] DARIEN ([facility]) Acetaminophen 325 MG / Hydrocodone Galina trate 5 MG Oral Tablet hydrocodone 5 mg- acetaminophen 325 mg tablet hydrocodone 5 mg-acetaminophen 325 mg tablet completed acetaminophen 325 MG / hydrocodone bitartrate 5 MG Oral Tablet DARIEN ([facility]) Fluzone High-Dose Quad (PF) 240 mcg/0.7 mL IM syringe INJECT 0.7ML INTRAMUSCULARLY [id number] completed 0.7 ML influenza A virus A/[facility]/[id number] (H1N1) antigen 0.0857 MG/ML / influenza A virus A/[place] (H3N2) antigen 0.0857 MG/ML / influenza B virus B/[facility] antigen 0.0857 MG/ML / influenza B virus B/[place] antigen 0.0857 MG/ML Prefilled Syringe [Fluzone Quadrivalent ] DARIEN ([facility]) Fluzone High-Dose (PF) 180 mcg/0 .5 mL intramuscular syringe INJECT DIRECTED [id number] completed 0.5 ML influenza A virus A/[place] (H1N1) antigen 0.12 MG/ML / influenza A virus A/[place] (H3N2) antigen 0.12 MG/ML / influenza B virus B/[place] antigen 0.12 MG/ML Prefilled Syringe [Fluzone ] DARIEN ([facility]) Cyclosporine 0.5 MG/ML Ophthalmic Suspen nicola [Restasis] Restasis 0.05 % eye drops in a dropperette Restasis 0.05 % eye drops in a dropperette completed cyclosporine 0.5 MG/ML Ophthalmi c Suspension [Restasis] DARIEN ([facility]) gabapentin 100 MG Oral Capsule gabapentin 100 mg capsu le gabapentin 100 mg capsule completed gabapentin 100 MG Oral Capsule DARIEN ([facility]) Acetaminophen 325 MG / Hydrocodone Galina trate 5 MG Oral Tablet hydrocodone 5 mg- acetaminophen 325 mg tablet hydrocodone 5 mg-acetaminophen 325 mg tablet completed acetaminophen 325 MG / hydrocodone bitartrate 5 MG Oral Tablet DARIEN ([facility]) Acetaminophen 325 MG / Hydrocodone Galina trate 5 MG Oral Tablet hydrocodone 5 mg- acetaminophen 325 mg tablet hydrocodone 5 mg-acetaminophen 325 mg tablet completed acetaminophen 325 MG / hydrocodone bitartrate 5 MG Oral Tablet DARIEN ([facility]) ferrous sulfate 325 MG Oral Tablet lynette us sulfate 325 mg (65 mg iron) tablet TK 1 T PO BID ferrous sulfate 325 mg (65 mg iron) tablet TK 1 T PO BID completed ferrous sulfate 325 MG Oral Tablet DARIEN ([facility]) Fluzone High-Dose (PF) 180 mcg/0 .5 mL intramuscular syringe INJECT DIRECTED [id number] completed 0.5 ML influenza A virus A/[place] (H1N1) antigen 0.12 MG/ML / influenza A virus A/[place] (H3N2) antigen 0.12 MG/ML / influenza B virus B/[place] antigen 0.12 MG/ML Prefilled Syringe [Fluzone ] DARIEN ([facility]) Cyclosporine 0.5 MG/ML Ophthalmic Suspen nicola [Restasis] Restasis 0.05 % eye drops in a dropperette Restasis 0.05 % eye drops in a dropperette completed cyclosporine 0.5 MG/ML Ophthalmi c Suspension [Restasis] DARIEN ([facility]) Cyclosporine 0.5 MG/ML Ophthalmic Suspen nicola [Restasis] Restasis 0.05 % eye drops in a dropperette Restasis 0.05 % eye drops in a dropperette completed cyclosporine 0.5 MG/ML Ophthalmi c Suspension [Restasis] DARIEN ([facility]) Acetaminophen 325 MG / Hydrocodone Galina trate 5 MG Oral Tablet hydrocodone 5 mg- acetaminophen 325 mg tablet hydrocodone 5 mg-acetaminophen 325 mg tablet completed acetaminophen 325 MG / hydrocodone bitartrate 5 MG Oral Tablet DARIEN ([facility]) Cyclosporine 0.5 MG/ML Ophthalmic Suspen nicola [Restasis] Restasis 0.05 % eye drops in a dropperette Restasis 0.05 % eye drops in a dropperette completed cyclosporine 0.5 MG/ML Ophthalmi c Suspension [Restasis] MANGUM ([facility]) Fluzone High-Dose Quad (PF) 240 mcg/0.7 mL IM syringe INJECT 0.7ML INTRAMUSCULARLY [id number] completed 0.7 ML influenza A virus A/[facility]/HHP0072 (H1N1) antigen 0.0857 MG/ML / influenza A virus A/[facility] (H3N2) antigen 0.0857 MG/ML / influenza B virus B/[facility] antigen 0.0857 MG/ML / influenza B virus B/ antigen 0.0857 MG/ML Prefilled Syringe [Fluzone Quadrivalent ] DARIEN ([facility]) Acetaminophen 325 MG / Hydrocodone Galina trate 5 MG Oral Tablet hydrocodone 5 mg- acetaminophen 325 mg tablet hydrocodone 5 mg-acetaminophen 325 mg tablet completed acetaminophen 325 MG / hydrocodone bitartrate 5 MG Oral Tablet DARIEN ([facility]) Cyclosporine 0.5 MG/ML Ophthalmic Suspen nicola [Restasis] Restasis 0.05 % eye drops in a dropperette Restasis 0.05 % eye drops in a dropperette completed Cyclosporine 0.5 MG/ML Ophthalmi c Suspension [Restasis] DARIEN ([facility]) ferrous sulfate 325 MG Oral Tablet lynette us sulfate 325 mg (65 mg iron) tablet TK 1 T PO BID ferrous sulfate 325 mg (65 mg iron) tablet TK 1 T PO BID completed ferrous sulfate 325 MG Oral Tablet DARIEN ([facility]) Fluzone High-Dose (PF) 180 mcg/0 .5 mL intramuscular syringe INJECT DIRECTED [id number] completed 0.5 ML influenza A virus A/ (H1N1) antigen 0.12 MG/ML / influenza A virus A/ (H3N2) antigen 0.12 MG/ML / influenza B virus B/ antigen 0.12 MG/ML Prefilled Syringe [Fluzone ] DARIEN ([facility]) Cyclosporine 0.5 MG/ML Ophthalmic Suspen nicola [Restasis] Restasis 0.05 % eye drops in a dropperette Restasis 0.05 % eye drops in a dropperette completed cyclosporine 0.5 MG/ML Ophthalmi c Suspension [Restasis] DARIEN ([facility]) Fluzone High-Dose (PF) 180 mcg/0 .5 mL intramuscular syringe INJECT DIRECTED [id number] completed 0.5 ML influenza A virus A/[place] (H1N1) antigen 0.12 MG/ML / influenza A virus A/ (H3N2) antigen 0.12 MG/ML / influenza B virus B/ antigen 0.12 MG/ML Prefilled Syringe [Fluzone ] DARIEN ([facility]) Insurance Providers Payer name Policy type / Coverage type Policy ID Covered democrat ID Covered democrat's relationship to oneil Policy Oneil Plan Information MEDICARE [id number] SP [id number] U59 AARP HEALTH CARE OPTIONS [id number] SP [id number] MEDICARE C [id number] S [id number] U59 AARP O [id number] S [id number] MEDICARE C [id number] S [id number] D MEDICARE [id number] SP [id number] D AARP HEALTH CARE OPTIONS [id number] SP [id number] Aarp Healthcare Options Medigap Part B [id number] Self [id number] [place] Primary [id number] Self [id number] A[employer] Options Medigap Part B [id number] Self [id number] [place] Primary [id number] Self [id number] [employer] Options Medigap Part B [id number] Self [id number] [place] Primary [id number] Self [id number] [employer] Options Medigap Part B [id number] Self [id number] [place] Primary [id number] Self [id number] [employer] Options Medigap Part B [id number] Self [id number] [place] Primary [id number] Self [id number] [employer] Options Medigap Part B [id number] Self [id number] [place] Primary [id number] Self [id number] AARP HEALTH CARE OPTIONS [id number] SP [id number] A[employer] Options Medigap Part B [id number] Self [id number] [place] Primary [id number] Self [id number] [employer] Options Medigap Part B [id number] Self [id number] [place] Primary [id number] Self [id number] [employer] Options Medigap Part B [id number] Self [id number] [place] Primary [id number] Self [id number] A[employer] Options Medigap Part B [id number] Self [id number] [place] Primary [id number] Self [id number] Aarp Medigap Part B [id number] Self [id number] [place]/NGS Medicare Primary [id number] Self [id number] AARP HEALTH CARE OPTIONS [id number] SP [id number] Aarp Medigap Part B [id number] Self [id number] Medicare [facility] Medicare Primary [id number] Self [id number] AARP O [id number] S [id number] Aarp Medigap Part B [id number] Self [id number] Medicare 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 Problem 03/29/2019 12:00:00 AM EST NETSMART ([facility]) W19.XXXD Unspecified fall, subsequent encounter U nspecified fall, subsequent encounter Problem 03/29/2019 12:00:00 AM EST NETSMART ([facility]) S42.221D 2-part displaced fracture of surgical neck of right humerus, subsequent encounter for fracture with routine healing 2-part displaced fracture of surgical neck of right humerus, subsequent encounter for fracture with routine healing Problem 03/21/2019 12:00:00 AM EST NETSMART ([facility]) Surgeries/Procedures Procedure Description Date Indications Data Source(s) THERAPEUTIC PX 1/> AREAS EACH 15 MIN EXERCISES 12:00:00 AM EDT MEDENT ([facility] ) THERAPEUTIC PX 1/> AREAS EACH 15 MIN EXERCISES 12:00:00 AM EDT MEDENT ([facility] ) THERAPEUTIC PX 1/> AREAS EACH 15 MIN EXERCISES 12:00:00 AM EDT MEDENT ([facility] ) THERAPEUTIC PX 1/> AREAS EACH 15 MIN EXERCISES 12:00:00 AM EDT MEDENT ([facility] ) THERAPEUTIC PX 1/> AREAS EACH 15 MIN EXERCISES 12:00:00 AM EDT MEDENT ([facility] ) THERAPEUTIC PX 1/> AREAS EACH 15 MIN EXERCISES 12:00:00 AM EDT MEDENT ([facility] ) THERAPEUTIC PX 1/> AREAS EACH 15 MIN EXERCISES 12:00:00 AM EDT MEDENT ([facility] ) THERAPEUTIC PX 1/> AREAS EACH 15 MIN EXERCISES 12:00:00 AM EDT MEDENT ([facility] ) THERAPEUTIC PX 1/> AREAS EACH 15 MIN EXERCISES 12:00:00 AM EDT MEDENT ([facility] ) THERAPEUTIC PX 1/> AREAS EACH 15 MIN EXERCISES 12:00:00 AM EDT MEDENT ([facility] ) THERAPEUTIC PX 1/> AREAS EACH 15 MIN EXERCISES 12:00:00 AM EDT MEDENT ([facility] ) THERAPEUTIC PX 1/> AREAS EACH 15 MIN EXERCISES 12:00:00 AM EDT MEDENT ([facility] ) THERAPEUTIC PX 1/> AREAS EACH 15 MIN EXERCISES 12:00:00 AM EDT MEDENT ([facility] ) THERAPEUTIC PX 1/> AREAS EACH 15 MIN EXERCISES 12:00:00 AM EDT MEDENT ([facility] ) THERAPEUTIC PX 1/> AREAS EACH 15 MIN EXERCISES 12:00:00 AM EDT MEDENT ([facility] ) THERAPEUTIC PX 1/> AREAS EACH 15 MIN EXERCISES 12:00:00 AM EDT MEDENT ([facility] ) THERAPEUTIC PX 1/> AREAS EACH 15 MIN EXERCISES 12:00:00 AM EDT MEDENT ([facility] ) THERAPEUTIC PX 1/> AREAS EACH 15 MIN EXERCISES 12:00:00 AM EDT MEDENT ([facility] ) THERAPEUTIC PX 1/> AREAS EACH 15 MIN EXERCISES 12:00:00 AM EDT MEDENT ([facility] ) THERAPEUTIC PX 1/> AREAS EACH 15 MIN EXERCISES 12:00:00 AM EST MEDENT ([facility]) Physical Therapy Eval - Low Complexity 05/24/2019 12:0 0:00 AM EST MEDENT ([facility]) RADEX SHOULDER COMPLETE MINIMUM 2 VIEWS 04/19/2019 12: 00:00 AM EST MEDENT ([facility]) RADEX SHOULDER COMPLETE MINIMUM 2 VIEWS 03/19/2019 12: 00:00 AM EST MEDENT ([facility]) Results ID Date Data Source [id number] 04/17/2020 12:00:00 AM EST [facility] Name Value Range Interpretation Code Description Data Nannette rce(s) Supporting Document(s) SARS-CoV-2 NEGATIVE [facility] This lab was ordered by [facility] and reported by [facility]. ID Date Data Source [id number] 04/17/2020 12:00:00 AM EST DARIEN ([facility]) Name Value Range Interpretation Code Description Data Nannette rce(s) Supporting Document(s) SARS-CoV-2 (COVID-19) RNA [Presence] in Respiratory specimen by TONE with probe detection negative negative normal Sars-cov-2 DARIEN ([facility]) ID Date Data Source [id number] 04/17/2020 12:00:00 AM EST DARIEN ([facility]) Name Value Range Interpretation Code Description Data Nannette rce(s) Supporting Document(s) ID Date Data Source [id number] 04/14/2020 08:57:00 AM EST MEDENT ([facility] Name Value Range Interpretation Code Description Data Nannette rce(s) Supporting Document(s) WBC 5.8 10E3/uL 4.1-10.9 MEDENT ([facility] NORMAL RANGES Age WBC RBC HGB HCT [...] HCT IS 5% LESS SOURCE FOR DATA: [employer] 1800 OPERATION MANUAL( AUTOMATED BLOOD COUNTS AND [...] DESIRABLE: <130 MG/DL <110 MG/DL BORDERLINE-HIGH RISK: 130- 159 MG/DL 110-129 MG/DL HIGH RISK: >160 MG/DL >130 MG/DL *CHILDREN AND ADOLESCENTS REPRESENTS INDIVIDUALA AGED 2-19 YEARS EXCLUSIVE. RBC 3.90 10E6/uL 4.20-6.30 Below low normal [facility] ([facility] NORMAL RANGES Age WBC RBC HGB HCT [...] HCT IS 5% LESS SOURCE FOR DATA: JORDY [employer] 1800 OPERATION MANUAL( AUTOMATED BLOOD COUNTS AND [...] DESIRABLE: <130 MG/DL <110 MG/DL BORDERLINE-HIGH RISK: 130- 159 MG/DL 110-129 MG/DL HIGH RISK: >160 MG/DL >130 MG/DL *CHILDREN AND ADOLESCENTS REPRESENTS INDIVIDUALA AGED 2-19 YEARS EXCLUSIVE. HGB 12.8 g/dL 12.0-18.0 [facility] NORMAL RANGES Age WBC RBC HGB HCT [...] HCT IS 5% LESS SOURCE FOR DATA: [employer] 1800 OPERATION MANUAL( AUTOMATED BLOOD COUNTS AND [...] DESIRABLE: <130 MG/DL <110 MG/DL BORDERLINE-HIGH RISK: 130- 159 MG/DL 110-129 MG/DL HIGH RISK: >160 MG/DL >130 MG/DL *CHILDREN AND ADOLESCENTS REPRESENTS INDIVIDUALA AGED 2-19 YEARS EXCLUSIVE. MCV 101.3 fL 80.0-97.0 Above high normal MEDENT ([facility] NORMAL RANGES Age WBC RBC HGB HCT [...] HCT IS 5% LESS SOURCE FOR DATA: [employer] 1800 OPERATION MANUAL( AUTOMATED BLOOD COUNTS AND [...] DESIRABLE: <130 MG/DL <110 MG/DL BORDERLINE-HIGH RISK: 130- 159 MG/DL 110-129 MG/DL HIGH RISK: >160 MG/DL >130 MG/DL *CHILDREN AND ADOLESCENTS REPRESENTS INDIVIDUALA AGED 2-19 YEARS EXCLUSIVE. HCT 39.5 % 37.0-51.0 [facility] ([facility] NORMAL RANGES Age WBC RBC HGB HCT [...] HCT IS 5% LESS SOURCE FOR DATA: JORDY DYN 1800 OPERATION MANUAL( AUTOMATED BLOOD COUNTS AND [...] DESIRABLE: <130 MG/DL <110 MG/DL BORDERLINE-HIGH RISK: 130- 159 MG/DL 110-129 MG/DL HIGH RISK: >160 MG/DL >130 MG/DL *CHILDREN AND ADOLESCENTS REPRESENTS INDIVIDUALA AGED 2-19 YEARS EXCLUSIVE. MCHC 32.4 g/dL 31.0-36.0 [facility] ([facility] NORMAL RANGES Age WBC RBC HGB HCT [...] HCT IS 5% LESS SOURCE FOR DATA: [employer] 1800 OPERATION MANUAL( AUTOMATED BLOOD COUNTS AND [...] DESIRABLE: <130 MG/DL <110 MG/DL BORDERLINE-HIGH RISK: 130- 159 MG/DL 110-129 MG/DL HIGH RISK: >160 MG/DL >130 MG/DL *CHILDREN AND ADOLESCENTS REPRESENTS INDIVIDUALA AGED 2-19 YEARS EXCLUSIVE. MCH 32.8 pg 26.0-32.0 Above high normal MEDENT ([facility] NORMAL RANGES Age WBC RBC HGB HCT [...] HCT IS 5% LESS SOURCE FOR DATA: [employer] 1800 OPERATION MANUAL( AUTOMATED BLOOD COUNTS AND [...] DESIRABLE: <130 MG/DL <110 MG/DL BORDERLINE-HIGH RISK: 130- 159 MG/DL 110-129 MG/DL HIGH RISK: >160 MG/DL >130 MG/DL *CHILDREN AND ADOLESCENTS REPRESENTS INDIVIDUALA AGED 2-19 YEARS EXCLUSIVE. PLT 243 10E3/uL 140-440 [employer] ([facility] NORMAL RANGES Age WBC RBC HGB HCT [...] HCT IS 5% LESS SOURCE FOR DATA: [employer] DYN 1800 OPERATION MANUAL( AUTOMATED BLOOD COUNTS AND [...] DESIRABLE: <130 MG/DL <110 MG/DL BORDERLINE-HIGH RISK: 130- 159 MG/DL 110-129 MG/DL HIGH RISK: >160 MG/DL >130 MG/DL *CHILDREN AND ADOLESCENTS REPRESENTS INDIVIDUALA AGED 2-19 YEARS EXCLUSIVE. Lym% 21.1 % 10.0-58.5 MEDENT ([facility] NORMAL RANGES Age WBC RBC HGB HCT [...] HCT IS 5% LESS SOURCE FOR DATA: [employer] 1800 OPERATION MANUAL( AUTOMATED BLOOD COUNTS AND [...] DESIRABLE: <130 MG/DL <110 MG/DL BORDERLINE-HIGH RISK: 130- 159 MG/DL 110-129 MG/DL HIGH RISK: >160 MG/DL >130 MG/DL *CHILDREN AND ADOLESCENTS REPRESENTS INDIVIDUALA AGED 2-19 YEARS EXCLUSIVE. Neut% 66.9 % 37.0-92.0 MEDENT ([facility] NORMAL RANGES Age WBC RBC HGB HCT [...] HCT IS 5% LESS SOURCE FOR DATA: [employer] 1800 OPERATION MANUAL( AUTOMATED BLOOD COUNTS AND [...] DESIRABLE: <130 MG/DL <110 MG/DL BORDERLINE-HIGH RISK: 130- 159 MG/DL 110-129 MG/DL HIGH RISK: >160 MG/DL >130 MG/DL *CHILDREN AND ADOLESCENTS REPRESENTS INDIVIDUALA AGED 2-19 YEARS EXCLUSIVE. RDW-CV 13.6 % 11.5-14.5 [facility] ([facility] NORMAL RANGES Age WBC RBC HGB HCT [...] HCT IS 5% LESS SOURCE FOR DATA: [employer] 1800 OPERATION MANUAL( AUTOMATED BLOOD COUNTS AND [...] DESIRABLE: <130 MG/DL <110 MG/DL BORDERLINE-HIGH RISK: 130- 159 MG/DL 110-129 MG/DL HIGH RISK: >160 MG/DL >130 MG/DL *CHILDREN AND ADOLESCENTS REPRESENTS INDIVIDUALA AGED 2-19 YEARS EXCLUSIVE. MXD% 12.0 % 0.1-24.0 [facility] ([facility] NORMAL RANGES Age WBC RBC HGB HCT [...] HCT IS 5% LESS SOURCE FOR DATA: [employer] 1800 OPERATION MANUAL( AUTOMATED BLOOD COUNTS AND [...] DESIRABLE: <130 MG/DL <110 MG/DL BORDERLINE-HIGH RISK: 130- 159 MG/DL 110-129 MG/DL HIGH RISK: >160 MG/DL >130 MG/DL *CHILDREN AND ADOLESCENTS REPRESENTS INDIVIDUALA AGED 2-19 YEARS EXCLUSIVE. Lym# 1.2 10E3/uL 0.6-4.1 JEREMY ([facility] NORMAL RANGES Age WBC RBC HGB HCT [...] HCT IS 5% LESS SOURCE FOR DATA: [employer] 1800 OPERATION MANUAL( AUTOMATED BLOOD COUNTS AND [...] DESIRABLE: <130 MG/DL <110 MG/DL BORDERLINE-HIGH RISK: 130- 159 MG/DL 110-129 MG/DL HIGH RISK: >160 MG/DL >130 MG/DL *CHILDREN AND ADOLESCENTS REPRESENTS INDIVIDUALA AGED 2-19 YEARS EXCLUSIVE. Neut# 3.9 % 2.0-7.8 [facility] ([facility] NORMAL RANGES Age WBC RBC HGB HCT [...] HCT IS 5% LESS SOURCE FOR DATA: [employer] 1800 OPERATION MANUAL( AUTOMATED BLOOD COUNTS AND [...] DESIRABLE: <130 MG/DL <110 MG/DL BORDERLINE-HIGH RISK: 130- 159 MG/DL 110-129 MG/DL HIGH RISK: >160 MG/DL >130 MG/DL *CHILDREN AND ADOLESCENTS REPRESENTS INDIVIDUALA AGED 2-19 YEARS EXCLUSIVE. MXD# 0.7 10E3/uL 0.0-1.8 [facility] ([facility] NORMAL RANGES Age WBC RBC HGB HCT [...] HCT IS 5% LESS SOURCE FOR DATA: [employer] 1800 OPERATION MANUAL( AUTOMATED BLOOD COUNTS AND [...] DESIRABLE: <130 MG/DL <110 MG/DL BORDERLINE-HIGH RISK: 130- 159 MG/DL 110-129 MG/DL HIGH RISK: >160 MG/DL >130 MG/DL *CHILDREN AND ADOLESCENTS REPRESENTS INDIVIDUALA AGED 2-19 YEARS EXCLUSIVE. MPV 9.7 fL 9.0-13.0 JEREMY [facility] NORMAL RANGES Age WBC RBC HGB HCT [...] HCT IS 5% LESS SOURCE FOR DATA: [employer] 1800 OPERATION MANUAL( AUTOMATED BLOOD COUNTS AND [...] DESIRABLE: <130 MG/DL <110 MG/DL BORDERLINE-HIGH RISK: 130- 159 MG/DL 110-129 MG/DL HIGH RISK: >160 MG/DL >130 MG/DL *CHILDREN AND ADOLESCENTS REPRESENTS INDIVIDUALA AGED 2-19 YEARS EXCLUSIVE. ID Date Data Source [id number] 04/14/2020 08:57:00 AM EST MEDENT ([facility] Name Value Range Interpretation Code Description Data Nannette rce(s) Supporting Document(s) Chol 191 mg/dL 0-200 MEDENT ([facility] NORMAL RANGES Age WBC RBC HGB HCT [...] HCT IS 5% LESS SOURCE FOR DATA: [employer] 1800 OPERATION MANUAL( AUTOMATED BLOOD COUNTS AND [...] DESIRABLE: <130 MG/DL <110 MG/DL BORDERLINE-HIGH RISK: 130- 159 MG/DL 110-129 MG/DL HIGH RISK: >160 MG/DL >130 MG/DL *CHILDREN AND ADOLESCENTS REPRESENTS INDIVIDUALA AGED 2-19 YEARS EXCLUSIVE. LDL_C 112 Calc 75-129 MEDENT ([facility] NORMAL RANGES Age WBC RBC HGB HCT [...] HCT IS 5% LESS SOURCE FOR DATA: [employer] 1800 OPERATION MANUAL( AUTOMATED BLOOD COUNTS AND [...] DESIRABLE: <130 MG/DL <110 MG/DL BORDERLINE-HIGH RISK: 130- 159 MG/DL 110-129 MG/DL HIGH RISK: >160 MG/DL >130 MG/DL *CHILDREN AND ADOLESCENTS REPRESENTS INDIVIDUALA AGED 2-19 YEARS EXCLUSIVE. Trig 108 mg/dL 40-200 MEDENT ([facility] NORMAL RANGES Age WBC RBC HGB HCT [...] HCT IS 5% LESS SOURCE FOR DATA: [employer] DYN 1800 OPERATION MANUAL( AUTOMATED BLOOD COUNTS AND [...] DESIRABLE: <130 MG/DL <110 MG/DL BORDERLINE-HIGH RISK: 130- 159 MG/DL 110-129 MG/DL HIGH RISK: >160 MG/DL >130 MG/DL *CHILDREN AND ADOLESCENTS REPRESENTS INDIVIDUALA AGED 2-19 YEARS EXCLUSIVE. Cholesterol in HDL [Mass/volume] in Serum or Plasma 58 mg/dL 45-65 MEDENT ([facility] NORMAL RANGES Age WBC RBC HGB HCT [...] HCT IS 5% LESS SOURCE FOR DATA: [employer] 1800 OPERATION MANUAL( AUTOMATED BLOOD COUNTS AND [...] DESIRABLE: <130 MG/DL <110 MG/DL BORDERLINE-HIGH RISK: 130- 159 MG/DL 110-129 MG/DL HIGH RISK: >160 MG/DL >130 MG/DL *CHILDREN AND ADOLESCENTS REPRESENTS INDIVIDUALA AGED 2-19 YEARS EXCLUSIVE. Cho/HDL Ratio 3.3 CALC [facility] ([facility] NORMAL RANGES Age WBC RBC HGB HCT [...] HCT IS 5% LESS SOURCE FOR DATA: [employer] 1800 OPERATION MANUAL( AUTOMATED BLOOD COUNTS AND [...] DESIRABLE: <130 MG/DL <110 MG/DL BORDERLINE-HIGH RISK: 130- 159 MG/DL 110-129 MG/DL HIGH RISK: >160 MG/DL >130 MG/DL *CHILDREN AND ADOLESCENTS REPRESENTS INDIVIDUALA AGED 2-19 YEARS EXCLUSIVE. ID Date Data Source [id number] 04/14/2020 08:57:00 AM EST MEDENT ([facility] Name Value Range Interpretation Code Description Data Nannette rce(s) Supporting Document(s) Glu 90 mg/dL 70-110 MEDENT ([facility] NORMAL RANGES Age WBC RBC HGB HCT [...] HCT IS 5% LESS SOURCE FOR DATA: [employer] DYN 1800 OPERATION MANUAL( AUTOMATED BLOOD COUNTS AND [...] DESIRABLE: <130 MG/DL <110 MG/DL BORDERLINE-HIGH RISK: 130- 159 MG/DL 110-129 MG/DL HIGH RISK: >160 MG/DL >130 MG/DL *CHILDREN AND ADOLESCENTS REPRESENTS INDIVIDUALA AGED 2-19 YEARS EXCLUSIVE. BUN 9 mg/dL 8-23 [facility] ([facility] NORMAL RANGES Age WBC RBC HGB HCT [...] HCT IS 5% LESS SOURCE FOR DATA: [employer] 1800 OPERATION MANUAL( AUTOMATED BLOOD COUNTS AND [...] DESIRABLE: <130 MG/DL <110 MG/DL BORDERLINE-HIGH RISK: 130- 159 MG/DL 110-129 MG/DL HIGH RISK: >160 MG/DL >130 MG/DL *CHILDREN AND ADOLESCENTS REPRESENTS INDIVIDUALA AGED 2-19 YEARS EXCLUSIVE. BUN/Creatinine Ratio 15.4 [facility] ([facility] NORMAL RANGES Age WBC RBC HGB HCT [...] HCT IS 5% LESS SOURCE FOR DATA: [employer] 1800 OPERATION MANUAL( AUTOMATED BLOOD COUNTS AND [...] DESIRABLE: <130 MG/DL <110 MG/DL BORDERLINE-HIGH RISK: 130- 159 MG/DL 110-129 MG/DL HIGH RISK: >160 MG/DL >130 MG/DL *CHILDREN AND ADOLESCENTS REPRESENTS INDIVIDUALA AGED 2-19 YEARS EXCLUSIVE. Creat 0.6 mg/dL 0.5-1.0 [facility] ([facility] NORMAL RANGES Age WBC RBC HGB HCT [...] HCT IS 5% LESS SOURCE FOR DATA: [employer] 1800 OPERATION MANUAL( AUTOMATED BLOOD COUNTS AND [...] DESIRABLE: <130 MG/DL <110 MG/DL BORDERLINE-HIGH RISK: 130- 159 MG/DL 110-129 MG/DL HIGH RISK: >160 MG/DL >130 MG/DL *CHILDREN AND ADOLESCENTS REPRESENTS INDIVIDUALA AGED 2-19 YEARS EXCLUSIVE. Na 137 mmol/L 136-145 MEDENT ([facility] NORMAL RANGES Age WBC RBC HGB HCT [...] HCT IS 5% LESS SOURCE FOR DATA: [employer] 1800 OPERATION MANUAL( AUTOMATED BLOOD COUNTS AND [...] DESIRABLE: <130 MG/DL <110 MG/DL BORDERLINE-HIGH RISK: 130- 159 MG/DL 110-129 MG/DL HIGH RISK: >160 MG/DL >130 MG/DL *CHILDREN AND ADOLESCENTS REPRESENTS INDIVIDUALA AGED 2-19 YEARS EXCLUSIVE. CL 100.1 mmol/L 98.0-107.0 JEREMY [facility] NORMAL RANGES Age WBC RBC HGB HCT [...] HCT IS 5% LESS SOURCE FOR DATA: [employer] 1800 OPERATION MANUAL( AUTOMATED BLOOD COUNTS AND [...] DESIRABLE: <130 MG/DL <110 MG/DL BORDERLINE-HIGH RISK: 130- 159 MG/DL 110-129 MG/DL HIGH RISK: >160 MG/DL >130 MG/DL *CHILDREN AND ADOLESCENTS REPRESENTS INDIVIDUALA AGED 2-19 YEARS EXCLUSIVE. K 4.0 mmol/L 3.5-5.1 [facility] ([facility] NORMAL RANGES Age WBC RBC HGB HCT [...] HCT IS 5% LESS SOURCE FOR DATA: [employer] 1800 OPERATION MANUAL( AUTOMATED BLOOD COUNTS AND [...] DESIRABLE: <130 MG/DL <110 MG/DL BORDERLINE-HIGH RISK: 130- 159 MG/DL 110-129 MG/DL HIGH RISK: >160 MG/DL >130 MG/DL *CHILDREN AND ADOLESCENTS REPRESENTS INDIVIDUALA AGED 2-19 YEARS EXCLUSIVE. Co2 27.0 mmol/L 22.0-29.0 MEDENT ([facility] NORMAL RANGES Age WBC RBC HGB HCT [...] HCT IS 5% LESS SOURCE FOR DATA: [employer] 1800 OPERATION MANUAL( AUTOMATED BLOOD COUNTS AND [...] DESIRABLE: <130 MG/DL <110 MG/DL BORDERLINE-HIGH RISK: 130- 159 MG/DL 110-129 MG/DL HIGH RISK: >160 MG/DL >130 MG/DL *CHILDREN AND ADOLESCENTS REPRESENTS INDIVIDUALA AGED 2-19 YEARS EXCLUSIVE. CA 9.6 mg/dL 8.6-10.2 [facility] ([facility] NORMAL RANGES Age WBC RBC HGB HCT [...] HCT IS 5% LESS SOURCE FOR DATA: [employer] 1800 OPERATION MANUAL( AUTOMATED BLOOD COUNTS AND [...] DESIRABLE: <130 MG/DL <110 MG/DL BORDERLINE-HIGH RISK: 130- 159 MG/DL 110-129 MG/DL HIGH RISK: >160 MG/DL >130 MG/DL *CHILDREN AND ADOLESCENTS REPRESENTS INDIVIDUALA AGED 2-19 YEARS EXCLUSIVE. TP 6.3 g/dL 6.6-8.7 Below low normal [facility] ( [facility] NORMAL RANGES Age WBC RBC HGB HCT [...] HCT IS 5% LESS SOURCE FOR DATA: [employer] 1800 OPERATION MANUAL( AUTOMATED BLOOD COUNTS AND [...] DESIRABLE: <130 MG/DL <110 MG/DL BORDERLINE-HIGH RISK: 130- 159 MG/DL 110-129 MG/DL HIGH RISK: >160 MG/DL >130 MG/DL *CHILDREN AND ADOLESCENTS REPRESENTS INDIVIDUALA AGED 2-19 YEARS EXCLUSIVE. Alb 4.2 g/dL 3.4-4.8 [facility] (Family [facility] NORMAL RANGES Age WBC RBC HGB HCT [...] HCT IS 5% LESS SOURCE FOR DATA: [employer] 1800 OPERATION MANUAL( AUTOMATED BLOOD COUNTS AND [...] DESIRABLE: <130 MG/DL <110 MG/DL BORDERLINE-HIGH RISK: 130- 159 MG/DL 110-129 MG/DL HIGH RISK: >160 MG/DL >130 MG/DL *CHILDREN AND ADOLESCENTS REPRESENTS INDIVIDUALA AGED 2-19 YEARS EXCLUSIVE. A/G Ratio 2.0 CALC [employer] ([facility] NORMAL RANGES Age WBC RBC HGB HCT [...] HCT IS 5% LESS SOURCE FOR DATA: JORDY DYN 1800 OPERATION MANUAL( AUTOMATED BLOOD COUNTS AND [...] DESIRABLE: <130 MG/DL <110 MG/DL BORDERLINE-HIGH RISK: 130- 159 MG/DL 110-129 MG/DL HIGH RISK: >160 MG/DL >130 MG/DL *CHILDREN AND ADOLESCENTS REPRESENTS INDIVIDUALA AGED 2-19 YEARS EXCLUSIVE. Globulin 2.1 CALC MEDENT ([facility] NORMAL RANGES Age WBC RBC HGB HCT [...] HCT IS 5% LESS SOURCE FOR DATA: [employer] 1800 OPERATION MANUAL( AUTOMATED BLOOD COUNTS AND [...] DESIRABLE: <130 MG/DL <110 MG/DL BORDERLINE-HIGH RISK: 130- 159 MG/DL 110-129 MG/DL HIGH RISK: >160 MG/DL >130 MG/DL *CHILDREN AND ADOLESCENTS REPRESENTS INDIVIDUALA AGED 2-19 YEARS EXCLUSIVE. Alt (SGPT) 7 U/L 0-41 [facility] ([facility] NORMAL RANGES Age WBC RBC HGB HCT [...] HCT IS 5% LESS SOURCE FOR DATA: [employer] 1800 OPERATION MANUAL( AUTOMATED BLOOD COUNTS AND [...] DESIRABLE: <130 MG/DL <110 MG/DL BORDERLINE-HIGH RISK: 130- 159 MG/DL 110-129 MG/DL HIGH RISK: >160 MG/DL >130 MG/DL *CHILDREN AND ADOLESCENTS REPRESENTS INDIVIDUALA AGED 2-19 YEARS EXCLUSIVE. Alp 68.2 U/L 35-129 [facility] ([facility] NORMAL RANGES Age WBC RBC HGB HCT [...] HCT IS 5% LESS SOURCE FOR DATA: [employer] DYN 1800 OPERATION MANUAL( AUTOMATED BLOOD COUNTS AND [...] DESIRABLE: <130 MG/DL <110 MG/DL BORDERLINE-HIGH RISK: 130- 159 MG/DL 110-129 MG/DL HIGH RISK: >160 MG/DL >130 MG/DL *CHILDREN AND ADOLESCENTS REPRESENTS INDIVIDUALA AGED 2-19 YEARS EXCLUSIVE. Ast (Sgot) 11 U/L 0-40 [facility] ([facility] NORMAL RANGES Age WBC RBC HGB HCT [...] HCT IS 5% LESS SOURCE FOR DATA: [employer] 1800 OPERATION MANUAL( AUTOMATED BLOOD COUNTS AND [...] DESIRABLE: <130 MG/DL <110 MG/DL BORDERLINE-HIGH RISK: 130- 159 MG/DL 110-129 MG/DL HIGH RISK: >160 MG/DL >130 MG/DL *CHILDREN AND ADOLESCENTS REPRESENTS INDIVIDUALA AGED 2-19 YEARS EXCLUSIVE. Anion Gap 14 mmol/L [facility] ([facility] NORMAL RANGES Age WBC RBC HGB HCT [...] HCT IS 5% LESS SOURCE FOR DATA: [employer] 1800 OPERATION MANUAL( AUTOMATED BLOOD COUNTS AND [...] DESIRABLE: <130 MG/DL <110 MG/DL BORDERLINE-HIGH RISK: 130- 159 MG/DL 110-129 MG/DL HIGH RISK: >160 MG/DL >130 MG/DL *CHILDREN AND ADOLESCENTS REPRESENTS INDIVIDUALA AGED 2-19 YEARS EXCLUSIVE. Tbili 1.38 mg/dL 0.0-1.2 Above high normal [facility] ([facility] NORMAL RANGES Age WBC RBC HGB HCT [...] HCT IS 5% LESS SOURCE FOR DATA: [employer] DYN 1800 OPERATION MANUAL( AUTOMATED BLOOD COUNTS AND [...] DESIRABLE: <130 MG/DL <110 MG/DL BORDERLINE-HIGH RISK: 130- 159 MG/DL 110-129 MG/DL HIGH RISK: >160 MG/DL >130 MG/DL *CHILDREN AND ADOLESCENTS REPRESENTS INDIVIDUALA AGED 2-19 YEARS EXCLUSIVE. Osmolality-Calculated 271.3 CALC [employer] ([facility] NORMAL RANGES Age WBC RBC HGB HCT [...] HCT IS 5% LESS SOURCE FOR DATA: [employer] 1800 OPERATION MANUAL( AUTOMATED BLOOD COUNTS AND [...] DESIRABLE: <130 MG/DL <110 MG/DL BORDERLINE-HIGH RISK: 130- 159 MG/DL 110-129 MG/DL HIGH RISK: >160 MG/DL >130 MG/DL *CHILDREN AND ADOLESCENTS REPRESENTS INDIVIDUALA AGED 2-19 YEARS EXCLUSIVE. eGFR Non-Afr. [place] 83 # MEDENT ([facility] NORMAL RANGES Age WBC RBC HGB HCT [...] HCT IS 5% LESS SOURCE FOR DATA: [employer] 1800 OPERATION MANUAL( AUTOMATED BLOOD COUNTS AND [...] DESIRABLE: <130 MG/DL <110 MG/DL BORDERLINE-HIGH RISK: 130- 159 MG/DL 110-129 MG/DL HIGH RISK: >160 MG/DL >130 MG/DL *CHILDREN AND ADOLESCENTS REPRESENTS INDIVIDUALA AGED 2-19 YEARS EXCLUSIVE. eGFR 96 # [facility] ( [facility] NORMAL RANGES Age WBC RBC HGB HCT [...] HCT IS 5% LESS SOURCE FOR DATA: [employer] 1800 OPERATION MANUAL( AUTOMATED BLOOD COUNTS AND [...] DESIRABLE: <130 MG/DL <110 MG/DL BORDERLINE-HIGH RISK: 130- 159 MG/DL 110-129 MG/DL HIGH RISK: >160 MG/DL >130 MG/DL *CHILDREN AND ADOLESCENTS REPRESENTS INDIVIDUALA AGED 2-19 YEARS EXCLUSIVE. ID Date Data Source [id number] 04/03/2020 12:00:00 AM EST DARIEN ([employer] [facility]) Name Value Range Interpretation Code Description Data Nannette rce(s) Supporting Document(s) SARS-CoV-2 (COVID-19) RNA [Presence] in Respiratory specimen by TONE with probe detection negative negative normal Sars-cov-2 DARIEN ([employer] [facility]) ID Date Data Source [id number] 04/03/2020 12:00:00 AM SUHA LEDEZMA [employer] [facility]) Name Value Range Interpretation Code Description Data Nannette rce(s) Supporting Document(s) ID Date Data Source [id number] 04/03/2020 12:00:00 AM EST DARIEN ([facility]) Name Value Range Interpretation Code Description Data Nannette rce(s) Supporting Document(s) SARS-CoV-2 (COVID-19) RNA [Presence] in Respiratory specimen by TONE with probe detection negative negative normal Sars-cov-2 DARIEN ([facility]) ID Date Data Source [id number] 04/03/2020 12:00:00 AM EST DARIEN ([facility]) Name Value Range Interpretation Code Description Data Nannette rce(s) Supporting Document(s) ID Date Data Source [id number] 04/03/2020 12:00:00 AM EST DARIEN ([facility]) Name Value Range Interpretation Code Description Data Nannette rce(s) Supporting Document(s) SARS-CoV-2 (COVID-19) RNA [Presence] in Respiratory specimen by TONE with probe detection negative negative normal Sars-cov-2 DARIEN ([facility]) ID Date Data Source [id number] 04/03/2020 12:00:00 AM EST DARIEN ([facility]) Name Value Range Interpretation Code Description Data Nannette rce(s) Supporting Document(s) ID Date Data Source [id number] 04/03/2020 12:00:00 AM EST [facility] Name Value Range Interpretation Code Description Data Nannette rce(s) Supporting Document(s) SARS-CoV-2 NEGATIVE [facility] This lab was ordered by [facility] [employer] [facility]-COVID[facility] and reported by [facility]. ID Date Data Source [id number] 10/11/2019 09:13:00 AM EDT MEDENT ([facility] Name Value Range Interpretation Code Description Data Nannette rce(s) Supporting Document(s) WBC 5.3 10E3/uL 4.1-10.9 [facility] ([facility] NORMAL RANGES Age WBC RBC HGB HCT [...] HCT IS 5% LESS SOURCE FOR DATA: [employer] 1800 OPERATION MANUAL( AUTOMATED BLOOD COUNTS AND [...] DESIRABLE: <130 MG/DL <110 MG/DL BORDERLINE-HIGH RISK: 130- 159 MG/DL 110-129 MG/DL HIGH RISK: >160 MG/DL >130 MG/DL *CHILDREN AND ADOLESCENTS REPRESENTS INDIVIDUALA AGED 2-19 YEARS EXCLUSIVE. RBC 4.01 10E6/uL 4.20-6.30 Below low normal [facility] ([facility] NORMAL RANGES Age WBC RBC HGB HCT [...] HCT IS 5% LESS SOURCE FOR DATA: [employer] 1800 OPERATION MANUAL( AUTOMATED BLOOD COUNTS AND [...] DESIRABLE: <130 MG/DL <110 MG/DL BORDERLINE-HIGH RISK: 130- 159 MG/DL 110-129 MG/DL HIGH RISK: >160 MG/DL >130 MG/DL *CHILDREN AND ADOLESCENTS REPRESENTS INDIVIDUALA AGED 2-19 YEARS EXCLUSIVE. HCT 40.5 % 37.0-51.0 [facility] ([facility] NORMAL RANGES Age WBC RBC HGB HCT [...] HCT IS 5% LESS SOURCE FOR DATA: [employer] 1800 OPERATION MANUAL( AUTOMATED BLOOD COUNTS AND [...] DESIRABLE: <130 MG/DL <110 MG/DL BORDERLINE-HIGH RISK: 130- 159 MG/DL 110-129 MG/DL HIGH RISK: >160 MG/DL >130 MG/DL *CHILDREN AND ADOLESCENTS REPRESENTS INDIVIDUALA AGED 2-19 YEARS EXCLUSIVE. HGB 13.1 g/dL 12.0-18.0 [employer] ([facility] NORMAL RANGES Age WBC RBC HGB HCT [...] HCT IS 5% LESS SOURCE FOR DATA: [employer] 1800 OPERATION MANUAL( AUTOMATED BLOOD COUNTS AND [...] DESIRABLE: <130 MG/DL <110 MG/DL BORDERLINE-HIGH RISK: 130- 159 MG/DL 110-129 MG/DL HIGH RISK: >160 MG/DL >130 MG/DL *CHILDREN AND ADOLESCENTS REPRESENTS INDIVIDUALA AGED 2-19 YEARS EXCLUSIVE. MCV 101.0 fL 80.0-97.0 Above high normal [facility] ([facility] NORMAL RANGES Age WBC RBC HGB HCT [...] HCT IS 5% LESS SOURCE FOR DATA: [employer] 1800 OPERATION MANUAL( AUTOMATED BLOOD COUNTS AND [...] DESIRABLE: <130 MG/DL <110 MG/DL BORDERLINE-HIGH RISK: 130- 159 MG/DL 110-129 MG/DL HIGH RISK: >160 MG/DL >130 MG/DL *CHILDREN AND ADOLESCENTS REPRESENTS INDIVIDUALA AGED 2-19 YEARS EXCLUSIVE. MCHC 32.3 g/dL 31.0-36.0 [facility] ([facility] NORMAL RANGES Age WBC RBC HGB HCT [...] HCT IS 5% LESS SOURCE FOR DATA: [employer] 1800 OPERATION MANUAL( AUTOMATED BLOOD COUNTS AND [...] DESIRABLE: <130 MG/DL <110 MG/DL BORDERLINE-HIGH RISK: 130- 159 MG/DL 110-129 MG/DL HIGH RISK: >160 MG/DL >130 MG/DL *CHILDREN AND ADOLESCENTS REPRESENTS INDIVIDUALA AGED 2-19 YEARS EXCLUSIVE. MCH 32.7 pg 26.0-32.0 Above high normal [facility] ([facility] NORMAL RANGES Age WBC RBC HGB HCT [...] HCT IS 5% LESS SOURCE FOR DATA: [employer] 1800 OPERATION MANUAL( AUTOMATED BLOOD COUNTS AND [...] DESIRABLE: <130 MG/DL <110 MG/DL BORDERLINE-HIGH RISK: 130- 159 MG/DL 110-129 MG/DL HIGH RISK: >160 MG/DL >130 MG/DL *CHILDREN AND ADOLESCENTS REPRESENTS INDIVIDUALA AGED 2-19 YEARS EXCLUSIVE. PLT 234 10E3/uL 140-440 [facility] ([facility] NORMAL RANGES Age WBC RBC HGB HCT [...] HCT IS 5% LESS SOURCE FOR DATA: [employer] 1800 OPERATION MANUAL( AUTOMATED BLOOD COUNTS AND [...] DESIRABLE: <130 MG/DL <110 MG/DL BORDERLINE-HIGH RISK: 130- 159 MG/DL 110-129 MG/DL HIGH RISK: >160 MG/DL >130 MG/DL *CHILDREN AND ADOLESCENTS REPRESENTS INDIVIDUALA AGED 2-19 YEARS EXCLUSIVE. RDW-CV 12.9 % 11.5-14.5 [facility] ([facility] NORMAL RANGES Age WBC RBC HGB HCT [...] HCT IS 5% LESS SOURCE FOR DATA: [employer] 1800 OPERATION MANUAL( AUTOMATED BLOOD COUNTS AND [...] DESIRABLE: <130 MG/DL <110 MG/DL BORDERLINE-HIGH RISK: 130- 159 MG/DL 110-129 MG/DL HIGH RISK: >160 MG/DL >130 MG/DL *CHILDREN AND ADOLESCENTS REPRESENTS INDIVIDUALA AGED 2-19 YEARS EXCLUSIVE. Lym% 19.8 % 10.0-58.5 [facility] ([facility] NORMAL RANGES Age WBC RBC HGB HCT [...] HCT IS 5% LESS SOURCE FOR DATA: [employer] 1800 OPERATION MANUAL( AUTOMATED BLOOD COUNTS AND [...] DESIRABLE: <130 MG/DL <110 MG/DL BORDERLINE-HIGH RISK: 130- 159 MG/DL 110-129 MG/DL HIGH RISK: >160 MG/DL >130 MG/DL *CHILDREN AND ADOLESCENTS REPRESENTS INDIVIDUALA AGED 2-19 YEARS EXCLUSIVE. Neut% 70.2 % 37.0-92.0 [facility] ([facility] NORMAL RANGES Age WBC RBC HGB HCT [...] HCT IS 5% LESS SOURCE FOR DATA: [employer] 1800 OPERATION MANUAL( AUTOMATED BLOOD COUNTS AND [...] DESIRABLE: <130 MG/DL <110 MG/DL BORDERLINE-HIGH RISK: 130- 159 MG/DL 110-129 MG/DL HIGH RISK: >160 MG/DL >130 MG/DL *CHILDREN AND ADOLESCENTS REPRESENTS INDIVIDUALA AGED 2-19 YEARS EXCLUSIVE. Lym# 1.0 10E3/uL 0.6-4.1 MEDENT ([facility] NORMAL RANGES Age WBC RBC HGB HCT [...] HCT IS 5% LESS SOURCE FOR DATA: [employer] 1800 OPERATION MANUAL( AUTOMATED BLOOD COUNTS AND [...] DESIRABLE: <130 MG/DL <110 MG/DL BORDERLINE-HIGH RISK: 130- 159 MG/DL 110-129 MG/DL HIGH RISK: >160 MG/DL >130 MG/DL *CHILDREN AND ADOLESCENTS REPRESENTS INDIVIDUALA AGED 2-19 YEARS EXCLUSIVE. MXD% 10.0 % 0.1-24.0 [facility] ([facility] NORMAL RANGES Age WBC RBC HGB HCT [...] HCT IS 5% LESS SOURCE FOR DATA: JORD[employer] DYN 1800 OPERATION MANUAL( AUTOMATED BLOOD COUNTS AND [...] DESIRABLE: <130 MG/DL <110 MG/DL BORDERLINE-HIGH RISK: 130- 159 MG/DL 110-129 MG/DL HIGH RISK: >160 MG/DL >130 MG/DL *CHILDREN AND ADOLESCENTS REPRESENTS INDIVIDUALA AGED 2-19 YEARS EXCLUSIVE. Neut# 3.8 % 2.0-7.8 [facility] ([facility] NORMAL RANGES Age WBC RBC HGB HCT [...] HCT IS 5% LESS SOURCE FOR DATA: [employer] 1800 OPERATION MANUAL( AUTOMATED BLOOD COUNTS AND [...] DESIRABLE: <130 MG/DL <110 MG/DL BORDERLINE-HIGH RISK: 130- 159 MG/DL 110-129 MG/DL HIGH RISK: >160 MG/DL >130 MG/DL *CHILDREN AND ADOLESCENTS REPRESENTS INDIVIDUALA AGED 2-19 YEARS EXCLUSIVE. MXD# 0.5 10E3/uL 0.0-1.8 [facility] ([facility] NORMAL RANGES Age WBC RBC HGB HCT [...] HCT IS 5% LESS SOURCE FOR DATA: [employer] 1800 OPERATION MANUAL( AUTOMATED BLOOD COUNTS AND [...] DESIRABLE: <130 MG/DL <110 MG/DL BORDERLINE-HIGH RISK: 130- 159 MG/DL 110-129 MG/DL HIGH RISK: >160 MG/DL >130 MG/DL *CHILDREN AND ADOLESCENTS REPRESENTS INDIVIDUALA AGED 2-19 YEARS EXCLUSIVE. MPV 9.5 fL 9.0-13.0 [facility] ([facility] NORMAL RANGES Age WBC RBC HGB HCT [...] HCT IS 5% LESS SOURCE FOR DATA: [employer] 1800 OPERATION MANUAL( AUTOMATED BLOOD COUNTS AND [...] DESIRABLE: <130 MG/DL <110 MG/DL BORDERLINE-HIGH RISK: 130- 159 MG/DL 110-129 MG/DL HIGH RISK: >160 MG/DL >130 MG/DL *CHILDREN AND ADOLESCENTS REPRESENTS INDIVIDUALA AGED 2-19 YEARS EXCLUSIVE. ID Date Data Source [id number] 10/11/2019 09:13:00 AM EDT MEDENT ([facility] Name Value Range Interpretation Code Description Data Nannette rce(s) Supporting Document(s) Chol 201 mg/dL 0-200 Above high normal [facility] ([facility] NORMAL RANGES Age WBC RBC HGB HCT [...] HCT IS 5% LESS SOURCE FOR DATA: [employer] 1800 OPERATION MANUAL( AUTOMATED BLOOD COUNTS AND [...] DESIRABLE: <130 MG/DL <110 MG/DL BORDERLINE-HIGH RISK: 130- 159 MG/DL 110-129 MG/DL HIGH RISK: >160 MG/DL >130 MG/DL *CHILDREN AND ADOLESCENTS REPRESENTS INDIVIDUALA AGED 2-19 YEARS EXCLUSIVE. Trig 102 mg/dL 40-200 [facility] ([facility] NORMAL RANGES Age WBC RBC HGB HCT [...] HCT IS 5% LESS SOURCE FOR DATA: [employer] 1800 OPERATION MANUAL( AUTOMATED BLOOD COUNTS AND [...] DESIRABLE: <130 MG/DL <110 MG/DL BORDERLINE-HIGH RISK: 130- 159 MG/DL 110-129 MG/DL HIGH RISK: >160 MG/DL >130 MG/DL *CHILDREN AND ADOLESCENTS REPRESENTS INDIVIDUALA AGED 2-19 YEARS EXCLUSIVE. LDL_C 134 Calc 75-129 Above high normal [facility] ([facility] NORMAL RANGES Age WBC RBC HGB HCT [...] HCT IS 5% LESS SOURCE FOR DATA: [employer] DYN 1800 OPERATION MANUAL( AUTOMATED BLOOD COUNTS AND [...] DESIRABLE: <130 MG/DL <110 MG/DL BORDERLINE-HIGH RISK: 130- 159 MG/DL 110-129 MG/DL HIGH RISK: >160 MG/DL >130 MG/DL *CHILDREN AND ADOLESCENTS REPRESENTS INDIVIDUALA AGED 2-19 YEARS EXCLUSIVE. Cholesterol in HDL [Mass/volume] in Serum or Plasma 47 mg/dL 45-65 [facility] ([facility] NORMAL RANGES Age WBC RBC HGB HCT [...] HCT IS 5% LESS SOURCE FOR DATA: [employer] 1800 OPERATION MANUAL( AUTOMATED BLOOD COUNTS AND [...] DESIRABLE: <130 MG/DL <110 MG/DL BORDERLINE-HIGH RISK: 130- 159 MG/DL 110-129 MG/DL HIGH RISK: >160 MG/DL >130 MG/DL *CHILDREN AND ADOLESCENTS REPRESENTS INDIVIDUALA AGED 2-19 YEARS EXCLUSIVE. Cho/HDL Ratio 4.3 Calc JEREMY ([facility] NORMAL RANGES Age WBC RBC HGB HCT [...] HCT IS 5% LESS SOURCE FOR DATA: [employer] 1800 OPERATION MANUAL( AUTOMATED BLOOD COUNTS AND [...] DESIRABLE: <130 MG/DL <110 MG/DL BORDERLINE-HIGH RISK: 130- 159 MG/DL 110-129 MG/DL HIGH RISK: >160 MG/DL >130 MG/DL *CHILDREN AND ADOLESCENTS REPRESENTS INDIVIDUALA AGED 2-19 YEARS EXCLUSIVE. ID Date Data Source [id number] 10/11/2019 09:13:00 AM JUNIOR LUNA ([facility] Name Value Range Interpretation Code Description Data Nannette rce(s) Supporting Document(s) Glu 92 mg/dL 70-110 [facility] ([facility] NORMAL RANGES Age WBC RBC HGB HCT [...] HCT IS 5% LESS SOURCE FOR DATA: [employer] 1800 OPERATION MANUAL( AUTOMATED BLOOD COUNTS AND [...] DESIRABLE: <130 MG/DL <110 MG/DL BORDERLINE-HIGH RISK: 130- 159 MG/DL 110-129 MG/DL HIGH RISK: >160 MG/DL >130 MG/DL *CHILDREN AND ADOLESCENTS REPRESENTS INDIVIDUALA AGED 2-19 YEARS EXCLUSIVE. BUN 8 mg/dL 8-23 [facility] ([facility] NORMAL RANGES Age WBC RBC HGB HCT [...] HCT IS 5% LESS SOURCE FOR DATA: [employer] 1800 OPERATION MANUAL( AUTOMATED BLOOD COUNTS AND [...] DESIRABLE: <130 MG/DL <110 MG/DL BORDERLINE-HIGH RISK: 130- 159 MG/DL 110-129 MG/DL HIGH RISK: >160 MG/DL >130 MG/DL *CHILDREN AND ADOLESCENTS REPRESENTS INDIVIDUALA AGED 2-19 YEARS EXCLUSIVE. BUN/Creatinine Ratio 14.6 CALC [employer] ([facility] NORMAL RANGES Age WBC RBC HGB HCT [...] HCT IS 5% LESS SOURCE FOR DATA: [employer] DYN 1800 OPERATION MANUAL( AUTOMATED BLOOD COUNTS AND [...] DESIRABLE: <130 MG/DL <110 MG/DL BORDERLINE-HIGH RISK: 130- 159 MG/DL 110-129 MG/DL HIGH RISK: >160 MG/DL >130 MG/DL *CHILDREN AND ADOLESCENTS REPRESENTS INDIVIDUALA AGED 2-19 YEARS EXCLUSIVE. Na 138 mmol/L 136-145 [facility] ([facility] NORMAL RANGES Age WBC RBC HGB HCT [...] HCT IS 5% LESS SOURCE FOR DATA: [employer] 1800 OPERATION MANUAL( AUTOMATED BLOOD COUNTS AND [...] DESIRABLE: <130 MG/DL <110 MG/DL BORDERLINE-HIGH RISK: 130- 159 MG/DL 110-129 MG/DL HIGH RISK: >160 MG/DL >130 MG/DL *CHILDREN AND ADOLESCENTS REPRESENTS INDIVIDUALA AGED 2-19 YEARS EXCLUSIVE. Creat 0.6 mg/dL 0.5-1.0 [facility] ([facility] NORMAL RANGES Age WBC RBC HGB HCT [...] HCT IS 5% LESS SOURCE FOR DATA: [employer] 1800 OPERATION MANUAL( AUTOMATED BLOOD COUNTS AND [...] DESIRABLE: <130 MG/DL <110 MG/DL BORDERLINE-HIGH RISK: 130- 159 MG/DL 110-129 MG/DL HIGH RISK: >160 MG/DL >130 MG/DL *CHILDREN AND ADOLESCENTS REPRESENTS INDIVIDUALA AGED 2-19 YEARS EXCLUSIVE. CL 100.4 mmol/L 98.0-107.0 [facility] ([facility] NORMAL RANGES Age WBC RBC HGB HCT [...] HCT IS 5% LESS SOURCE FOR DATA: [employer] 1800 OPERATION MANUAL( AUTOMATED BLOOD COUNTS AND [...] DESIRABLE: <130 MG/DL <110 MG/DL BORDERLINE-HIGH RISK: 130- 159 MG/DL 110-129 MG/DL HIGH RISK: >160 MG/DL >130 MG/DL *CHILDREN AND ADOLESCENTS REPRESENTS INDIVIDUALA AGED 2-19 YEARS EXCLUSIVE. K 3.8 mmol/L 3.5-5.1 [facility] ([facility] NORMAL RANGES Age WBC RBC HGB HCT [...] HCT IS 5% LESS SOURCE FOR DATA: [employer] 1800 OPERATION MANUAL( AUTOMATED BLOOD COUNTS AND [...] DESIRABLE: <130 MG/DL <110 MG/DL BORDERLINE-HIGH RISK: 130- 159 MG/DL 110-129 MG/DL HIGH RISK: >160 MG/DL >130 MG/DL *CHILDREN AND ADOLESCENTS REPRESENTS INDIVIDUALA AGED 2-19 YEARS EXCLUSIVE. Co2 27.9 mmol/L 22.0-29.0 [facility] ([facility] NORMAL RANGES Age WBC RBC HGB HCT [...] HCT IS 5% LESS SOURCE FOR DATA: [employer] 1800 OPERATION MANUAL( AUTOMATED BLOOD COUNTS AND [...] DESIRABLE: <130 MG/DL <110 MG/DL BORDERLINE-HIGH RISK: 130- 159 MG/DL 110-129 MG/DL HIGH RISK: >160 MG/DL >130 MG/DL *CHILDREN AND ADOLESCENTS REPRESENTS INDIVIDUALA AGED 2-19 YEARS EXCLUSIVE. CA 9.9 mg/dL 8.6-10.2 [facility] ([facility] NORMAL RANGES Age WBC RBC HGB HCT [...] HCT IS 5% LESS SOURCE FOR DATA: [employer] 1800 OPERATION MANUAL( AUTOMATED BLOOD COUNTS AND [...] DESIRABLE: <130 MG/DL <110 MG/DL BORDERLINE-HIGH RISK: 130- 159 MG/DL 110-129 MG/DL HIGH RISK: >160 MG/DL >130 MG/DL *CHILDREN AND ADOLESCENTS REPRESENTS INDIVIDUALA AGED 2-19 YEARS EXCLUSIVE. TP 6.2 g/dL 6.6-8.7 Below low normal [facility] ( [facility] NORMAL RANGES Age WBC RBC HGB HCT [...] HCT IS 5% LESS SOURCE FOR DATA: [employer] 1800 OPERATION MANUAL( AUTOMATED BLOOD COUNTS AND [...] DESIRABLE: <130 MG/DL <110 MG/DL BORDERLINE-HIGH RISK: 130- 159 MG/DL 110-129 MG/DL HIGH RISK: >160 MG/DL >130 MG/DL *CHILDREN AND ADOLESCENTS REPRESENTS INDIVIDUALA AGED 2-19 YEARS EXCLUSIVE. Alb 4.0 g/dL 3.4-4.8 JEREMY ([facility] NORMAL RANGES Age WBC RBC HGB HCT [...] HCT IS 5% LESS SOURCE FOR DATA: [employer] 1800 OPERATION MANUAL( AUTOMATED BLOOD COUNTS AND [...] DESIRABLE: <130 MG/DL <110 MG/DL BORDERLINE-HIGH RISK: 130- 159 MG/DL 110-129 MG/DL HIGH RISK: >160 MG/DL >130 MG/DL *CHILDREN AND ADOLESCENTS REPRESENTS INDIVIDUALA AGED 2-19 YEARS EXCLUSIVE. Globulin 2.2 CALC [facility] ([facility] NORMAL RANGES Age WBC RBC HGB HCT [...] HCT IS 5% LESS SOURCE FOR DATA: [employer] DYN 1800 OPERATION MANUAL( AUTOMATED BLOOD COUNTS AND [...] DESIRABLE: <130 MG/DL <110 MG/DL BORDERLINE-HIGH RISK: 130- 159 MG/DL 110-129 MG/DL HIGH RISK: >160 MG/DL >130 MG/DL *CHILDREN AND ADOLESCENTS REPRESENTS INDIVIDUALA AGED 2-19 YEARS EXCLUSIVE. Alp 70.3 U/L 35-129 [facility] ([facility] NORMAL RANGES Age WBC RBC HGB HCT [...] HCT IS 5% LESS SOURCE FOR DATA: [employer] 1800 OPERATION MANUAL( AUTOMATED BLOOD COUNTS AND [...] DESIRABLE: <130 MG/DL <110 MG/DL BORDERLINE-HIGH RISK: 130- 159 MG/DL 110-129 MG/DL HIGH RISK: >160 MG/DL >130 MG/DL *CHILDREN AND ADOLESCENTS REPRESENTS INDIVIDUALA AGED 2-19 YEARS EXCLUSIVE. A/G Ratio 1.8 [facility]C [facility] NORMAL RANGES Age WBC RBC HGB HCT [...] HCT IS 5% LESS SOURCE FOR DATA: [employer] 1800 OPERATION MANUAL( AUTOMATED BLOOD COUNTS AND [...] DESIRABLE: <130 MG/DL <110 MG/DL BORDERLINE-HIGH RISK: 130- 159 MG/DL 110-129 MG/DL HIGH RISK: >160 MG/DL >130 MG/DL *CHILDREN AND ADOLESCENTS REPRESENTS INDIVIDUALA AGED 2-19 YEARS EXCLUSIVE. Tbili 0.87 mg/dL 0.0-1.2 [facility] ([facility] NORMAL RANGES Age WBC RBC HGB HCT [...] HCT IS 5% LESS SOURCE FOR DATA: [employer] 1800 OPERATION MANUAL( AUTOMATED BLOOD COUNTS AND [...] DESIRABLE: <130 MG/DL <110 MG/DL BORDERLINE-HIGH RISK: 130- 159 MG/DL 110-129 MG/DL HIGH RISK: >160 MG/DL >130 MG/DL *CHILDREN AND ADOLESCENTS REPRESENTS INDIVIDUALA AGED 2-19 YEARS EXCLUSIVE. Ast (Sgot) 13 U/L 0-40 [facility] ([facility] NORMAL RANGES Age WBC RBC HGB HCT [...] HCT IS 5% LESS SOURCE FOR DATA: [employer] 1800 OPERATION MANUAL( AUTOMATED BLOOD COUNTS AND [...] DESIRABLE: <130 MG/DL <110 MG/DL BORDERLINE-HIGH RISK: 130- 159 MG/DL 110-129 MG/DL HIGH RISK: >160 MG/DL >130 MG/DL *CHILDREN AND ADOLESCENTS REPRESENTS INDIVIDUALA AGED 2-19 YEARS EXCLUSIVE. Alt (SGPT) 8 U/L 0-41 [facility] ([facility] NORMAL RANGES Age WBC RBC HGB HCT [...] HCT IS 5% LESS SOURCE FOR DATA: JORDY [employer] 1800 OPERATION MANUAL( AUTOMATED BLOOD COUNTS AND [...] DESIRABLE: <130 MG/DL <110 MG/DL BORDERLINE-HIGH RISK: 130- 159 MG/DL 110-129 MG/DL HIGH RISK: >160 MG/DL >130 MG/DL *CHILDREN AND ADOLESCENTS REPRESENTS INDIVIDUALA AGED 2-19 YEARS EXCLUSIVE. Anion Gap 14 mmol/L [facility] ([facility] NORMAL RANGES Age WBC RBC HGB HCT [...] HCT IS 5% LESS SOURCE FOR DATA: [employer] 1800 OPERATION MANUAL( AUTOMATED BLOOD COUNTS AND [...] DESIRABLE: <130 MG/DL <110 MG/DL BORDERLINE-HIGH RISK: 130- 159 MG/DL 110-129 MG/DL HIGH RISK: >160 MG/DL >130 MG/DL *CHILDREN AND ADOLESCENTS REPRESENTS INDIVIDUALA AGED 2-19 YEARS EXCLUSIVE. Osmolality-Calculated 274.5 CALC MED ENT ([facility] NORMAL RANGES Age WBC RBC HGB HCT [...] HCT IS 5% LESS SOURCE FOR DATA: [employer] 1800 OPERATION MANUAL( AUTOMATED BLOOD COUNTS AND [...] DESIRABLE: <130 MG/DL <110 MG/DL BORDERLINE-HIGH RISK: 130- 159 MG/DL 110-129 MG/DL HIGH RISK: >160 MG/DL >130 MG/DL *CHILDREN AND ADOLESCENTS REPRESENTS INDIVIDUALA AGED 2-19 YEARS EXCLUSIVE. eGFR 96 # MEDENT ( [facility] NORMAL RANGES Age WBC RBC HGB HCT [...] HCT IS 5% LESS SOURCE FOR DATA: [employer] 1800 OPERATION MANUAL( AUTOMATED BLOOD COUNTS AND [...] DESIRABLE: <130 MG/DL <110 MG/DL BORDERLINE-HIGH RISK: 130- 159 MG/DL 110-129 MG/DL HIGH RISK: >160 MG/DL >130 MG/DL *CHILDREN AND ADOLESCENTS REPRESENTS INDIVIDUALA AGED 2-19 YEARS EXCLUSIVE. eGFR Non-Afr. [place] 83 # MEDENT ([facility] NORMAL RANGES Age WBC RBC HGB HCT [...] HCT IS 5% LESS SOURCE FOR DATA: [employer] 1800 OPERATION MANUAL( AUTOMATED BLOOD COUNTS AND [...] DESIRABLE: <130 MG/DL <110 MG/DL BORDERLINE-HIGH RISK: 130- 159 MG/DL 110-129 MG/DL HIGH RISK: >160 MG/DL >130 MG/DL *CHILDREN AND ADOLESCENTS REPRESENTS INDIVIDUALA AGED 2-19 YEARS EXCLUSIVE. ID Date Data Source [id number] 09/28/2019 12:00:00 AM EDT DARIEN ([facility]) Name Value Range Interpretation Code Description Data Nannette rce(s) Supporting Document(s) ID Date Data Source [id number] 09/28/2019 12:00:00 AM EDT DARIEN ([facility]) Name Value Range Interpretation Code Description Data Nannette rce(s) Supporting Document(s) ID Date Data Source [id number] 09/28/2019 12:00:00 AM EDT DARIEN ([facility]) Name Value Range Interpretation Code Description Data Nannette rce(s) Supporting Document(s) ID Date Data Source [id number] 09/28/2019 12:00:00 AM EDT DARIEN ([facility]) Name Value Range Interpretation Code Description Data Nannette rce(s) Supporting Document(s) ID Date Data Source [id number] 09/28/2019 12:00:00 AM EDT DARIEN ([facility]) Name Value Range Interpretation Code Description Data Nannette rce(s) Supporting Document(s) ID Date Data Source [id number] 09/28/2019 12:00:00 AM EDT DARIEN ([facility]) Name Value Range Interpretation Code Description Data Nannette rce(s) Supporting Document(s) ID Date Data Source [id number] 09/28/2019 12:00:00 AM EDT [facility] Name Value Range Interpretation Code Description Data Nannette rce(s) Supporting Document(s) SARS-CoV-2 [facility] This lab was [facility] by [facility] and reported by [facility]. ID Date Data Source [id number] 09/13/2019 12:00:00 AM EDT DARIEN ([facility]) Name Value Range Interpretation Code Description Data Nannette rce(s) Supporting Document(s) ID Date Data Source [id number] 09/13/2019 12:00:00 AM EDT DARIEN ([facility]) Name Value Range Interpretation Code Description Data Nannette rce(s) Supporting Document(s) ID Date Data Source [id number] 09/13/2019 12:00:00 AM EDT DARIEN ([facility]) Name Value Range Interpretation Code Description Data Nannette rce(s) Supporting Document(s) ID Date Data Source [id number] 09/13/2019 12:00:00 AM EDT DARIEN ([facility]) Name Value Range Interpretation Code Description Data Nannette rce(s) Supporting Document(s) ID Date Data Source [id number] 09/13/2019 12:00:00 AM EDT DARIEN ([facility]) Name Value Range Interpretation Code Description Data Nannette rce(s) Supporting Document(s) ID Date Data Source [id number] 09/13/2019 12:00:00 AM EDT DARIEN ([facility]) Name Value Range Interpretation Code Description Data Nannette rce(s) Supporting Document(s) ID Date Data Source [id number] 09/13/2019 12:00:00 AM EDT DARIEN ([facility]) Name Value Range Interpretation Code Description Data Nannette rce(s) Supporting Document(s) ID Date Data Source [id number] 09/13/2019 12:00:00 AM EDT DARIEN ([facility]) Name Value Range Interpretation Code Description Data Nannette rce(s) Supporting Document(s) ID Date Data Source [id number] 09/13/2019 12:00:00 AM EDT [facility] Name Value Range Interpretation Code Description Data Nannette rce(s) Supporting Document(s) SARS-CoV-2 [facility] This lab was ordered by [facility] and reported by [facility]. ID Date Data Source [id number] 09/13/2019 12:00:00 AM EDT DARIEN ([facility]) Name Value Range Interpretation Code Description Data Nannette rce(s) Supporting Document(s) ID Date Data Source [id number] 08/30/2019 12:00:00 AM EDT DARIEN ([facility]) Name Value Range Interpretation Code Description Data Nannette rce(s) Supporting Document(s) ID Date Data Source [id number] 08/30/2019 12:00:00 AM EDT DARIEN ([facility]) Name Value Range Interpretation Code Description Data Nannette rce(s) Supporting Document(s) ID Date Data Source [id number] 08/30/2019 12:00:00 AM EDT DARIEN ([facility]) Name Value Range Interpretation Code Description Data Nannette rce(s) Supporting Document(s) ID Date Data Source [id number] 08/30/2019 12:00:00 AM EDT DARIEN ([facility]) Name Value Range Interpretation Code Description Data Nannette rce(s) Supporting Document(s) ID Date Data Source [id number] 08/30/2019 12:00:00 AM EDT DARIEN ([facility]) Name Value Range Interpretation Code Description Data Nannette rce(s) Supporting Document(s) ID Date Data Source [id number] 08/30/2019 12:00:00 AM EDT DARIEN ([facility]) Name Value Range Interpretation Code Description Data Nannette rce(s) Supporting Document(s) ID Date Data Source [id number] 08/30/2019 12:00:00 AM EDT DARIEN ([facility]) Name Value Range Interpretation Code Description Data Nannette rce(s) Supporting Document(s) ID Date Data Source [id number] 08/30/2019 12:00:00 AM EDT DARIEN ([facility]) Name Value Range Interpretation Code Description Data Nannette rce(s) Supporting Document(s) ID Date Data Source [id number] 08/30/2019 12:00:00 AM EDT DARIEN ([facility]) Name Value Range Interpretation Code Description Data Nannette rce(s) Supporting Document(s) ID Date Data Source [id number] 08/30/2019 12:00:00 AM EDT DARIEN ([facility]) Name Value Range Interpretation Code Description Data Nannette rce(s) Supporting Document(s) ID Date Data Source [id number] 08/30/2019 12:00:00 AM EDT DARIEN ([facility]) Name Value Range Interpretation Code Description Data Nannette rce(s) Supporting Document(s) ID Date Data Source [id number] 08/30/2019 12:00:00 AM EDT [facility] Name Value Range Interpretation Code Description Data Nannette rce(s) Supporting Document(s) SARS-CoV-2 [facility] This lab was ordered by [facility] and reported by [facility]. ID Date Data Source [id number] 06/18/2019 08:50:00 AM EDT MEDENT ([facility] Name Value Range Interpretation Code Description Data Nannette rce(s) Supporting Document(s) Trig 132 mg/dL 40-200 MED[facility] ([facility] CLASSIFICATION CHOLESTEROL FO R ADULTS CHILDREN/ADOLESCENTS* DESIRABLE: <200 MG/DL <170 MG/DL BORDER-LINE HIGH RISK: 200-239 MG/DL 170-199 MG/DL HIGH RISK: >240 MG/DL >200 MG/DL CLASS. FOR PRIMARY LDL CHOL PREVENTION: LDL CHOL-CHILD/ADOLESCENTS* DESIRABLE: <130 MG/DL <110 MG/DL BORDERLINE-HIGH RISK: 130-159 MG/DL 110-129 MG/DL HIGH RISK: >160 MG/DL >130 MG/DL *CHILDREN AND ADOLESCENTS REPRESENTS INDIVIDUALA AGED 2-19 YEARS EXCLUSIVE. CHRONIC KIDNEY DISEASE STAGING PER NKF: MALE [...] mL/min Normal 80 and above >32 mL/min Normal Chol 247 mg/dL 0-200 Above high normal MEDENT ([facility] CLASSIFICATION CHOLESTEROL FO R ADULTS CHILDREN/ADOLESCENTS* DESIRABLE: <200 MG/DL <170 MG/DL BORDER-LINE HIGH RISK: 200-239 MG/DL 170-199 MG/DL HIGH RISK: >240 MG/DL >200 MG/DL CLASS. FOR PRIMARY LDL CHOL PREVENTION: LDL CHOL-CHILD/ADOLESCENTS* DESIRABLE: <130 MG/DL <110 MG/DL BORDERLINE-HIGH RISK: 130-159 MG/DL 110-129 MG/DL HIGH RISK: >160 MG/DL >130 MG/DL *CHILDREN AND ADOLESCENTS REPRESENTS INDIVIDUALA AGED 2-19 YEARS EXCLUSIVE. CHRONIC KIDNEY DISEASE STAGING PER NKF: MALE [...] mL/min Normal 80 and above >32 mL/min Normal Cho/HDL Ratio 4.4 CALC MEDENT ([facility] CLASSIFICATION CHOLESTEROL FO R ADULTS CHILDREN/ADOLESCENTS* DESIRABLE: <200 MG/DL <170 MG/DL BORDER-LINE HIGH RISK: 200-239 MG/DL 170-199 MG/DL HIGH RISK: >240 MG/DL >200 MG/DL CLASS. FOR PRIMARY LDL CHOL PREVENTION: LDL CHOL-CHILD/ADOLESCENTS* DESIRABLE: <130 MG/DL <110 MG/DL BORDERLINE-HIGH RISK: 130-159 MG/DL 110-129 MG/DL HIGH RISK: >160 MG/DL >130 MG/DL *CHILDREN AND ADOLESCENTS REPRESENTS INDIVIDUALA AGED 2-19 YEARS EXCLUSIVE. CHRONIC KIDNEY DISEASE STAGING PER NKF: MALE [...] mL/min Normal 80 and above >32 mL/min Normal Prostate specific Ag [Mass/volume] in Serum or Plasma 56 mg/dL 45-6 5 MEDENT ([facility] CLASSIFICATION CHOLESTEROL FO R ADULTS CHILDREN/ADOLESCENTS* DESIRABLE: <200 MG/DL <170 MG/DL BORDER-LINE HIGH RISK: 200-239 MG/DL 170-199 MG/DL HIGH RISK: >240 MG/DL >200 MG/DL CLASS. FOR PRIMARY LDL CHOL PREVENTION: LDL CHOL-CHILD/ADOLESCENTS* DESIRABLE: <130 MG/DL <110 MG/DL BORDERLINE-HIGH RISK: 130-159 MG/DL 110-129 MG/DL HIGH RISK: >160 MG/DL >130 MG/DL *CHILDREN AND ADOLESCENTS REPRESENTS INDIVIDUALA AGED 2-19 YEARS EXCLUSIVE. CHRONIC KIDNEY DISEASE STAGING PER NKF: MALE [...] mL/min Normal 80 and above >32 mL/min Normal LDL_C 165 Calc 75-129 Above high normal MEDENT ([facility] CLASSIFICATION CHOLESTEROL FO R ADULTS CHILDREN/ADOLESCENTS* DESIRABLE: <200 MG/DL <170 MG/DL BORDER-LINE HIGH RISK: 200-239 MG/DL 170-199 MG/DL HIGH RISK: >240 MG/DL >200 MG/DL CLASS. FOR PRIMARY LDL CHOL PREVENTION: LDL CHOL-CHILD/ADOLESCENTS* DESIRABLE: <130 MG/DL <110 MG/DL BORDERLINE-HIGH RISK: 130-159 MG/DL 110-129 MG/DL HIGH RISK: >160 MG/DL >130 MG/DL *CHILDREN AND ADOLESCENTS REPRESENTS INDIVIDUALA AGED 2-19 YEARS EXCLUSIVE. CHRONIC KIDNEY DISEASE STAGING PER NKF: MALE [...] mL/min Normal 80 and above >32 mL/min Normal ID Date Data Source [id number] 06/18/2019 08:50:00 AM EDT MEDENT ([facility] Name Value Range Interpretation Code Description Data Nannette rce(s) Supporting Document(s) BUN 9 mg/dL 8-23 [facility] ([facility] CLASSIFICATION CHOLESTEROL FO R ADULTS CHILDREN/ADOLESCENTS* DESIRABLE: <200 MG/DL <170 MG/DL BORDER-LINE HIGH RISK: 200-239 MG/DL 170-199 MG/DL HIGH RISK: >240 MG/DL >200 MG/DL CLASS. FOR PRIMARY LDL CHOL PREVENTION: LDL CHOL-CHILD/ADOLESCENTS* DESIRABLE: <130 MG/DL <110 MG/DL BORDERLINE-HIGH RISK: 130-159 MG/DL 110-129 MG/DL HIGH RISK: >160 MG/DL >130 MG/DL *CHILDREN AND ADOLESCENTS REPRESENTS INDIVIDUALA AGED 2-19 YEARS EXCLUSIVE. CHRONIC KIDNEY DISEASE STAGING PER NKF: MALE [...] mL/min Normal 80 and above >32 mL/min Normal Glu 93 mg/dL 70-110 MED[facility] ([facility] CLASSIFICATION CHOLESTEROL FO R ADULTS CHILDREN/ADOLESCENTS* DESIRABLE: <200 MG/DL <170 MG/DL BORDER-LINE HIGH RISK: 200-239 MG/DL 170-199 MG/DL HIGH RISK: >240 MG/DL >200 MG/DL CLASS. FOR PRIMARY LDL CHOL PREVENTION: LDL CHOL-CHILD/ADOLESCENTS* DESIRABLE: <130 MG/DL <110 MG/DL BORDERLINE-HIGH RISK: 130-159 MG/DL 110-129 MG/DL HIGH RISK: >160 MG/DL >130 MG/DL *CHILDREN AND ADOLESCENTS REPRESENTS INDIVIDUALA AGED 2-19 YEARS EXCLUSIVE. CHRONIC KIDNEY DISEASE STAGING PER NKF: MALE [...] mL/min Normal 80 and above >32 mL/min Normal Na 138 mmol/L 136-145 MEDENT ([facility] CLASSIFICATION CHOLESTEROL FO R ADULTS CHILDREN/ADOLESCENTS* DESIRABLE: <200 MG/DL <170 MG/DL BORDER-LINE HIGH RISK: 200-239 MG/DL 170-199 MG/DL HIGH RISK: >240 MG/DL >200 MG/DL CLASS. FOR PRIMARY LDL CHOL PREVENTION: LDL CHOL-CHILD/ADOLESCENTS* DESIRABLE: <130 MG/DL <110 MG/DL BORDERLINE-HIGH RISK: 130-159 MG/DL 110-129 MG/DL HIGH RISK: >160 MG/DL >130 MG/DL *CHILDREN AND ADOLESCENTS REPRESENTS INDIVIDUALA AGED 2-19 YEARS EXCLUSIVE. CHRONIC KIDNEY DISEASE STAGING PER NKF: MALE [...] mL/min Normal 80 and above >32 mL/min Normal Creat 0.6 mg/dL 0.5-1.0 [facility] ([facility] CLASSIFICATION CHOLESTEROL FO R ADULTS CHILDREN/ADOLESCENTS* DESIRABLE: <200 MG/DL <170 MG/DL BORDER-LINE HIGH RISK: 200-239 MG/DL 170-199 MG/DL HIGH RISK: >240 MG/DL >200 MG/DL CLASS. FOR PRIMARY LDL CHOL PREVENTION: LDL CHOL-CHILD/ADOLESCENTS* DESIRABLE: <130 MG/DL <110 MG/DL BORDERLINE-HIGH RISK: 130-159 MG/DL 110-129 MG/DL HIGH RISK: >160 MG/DL >130 MG/DL *CHILDREN AND ADOLESCENTS REPRESENTS INDIVIDUALA AGED 2-19 YEARS EXCLUSIVE. CHRONIC KIDNEY DISEASE STAGING PER NKF: MALE [...] mL/min Normal 80 and above >32 mL/min Normal BUN/Creatinine Ratio 15.5 Calc MEDENT ([facility] CLASSIFICATION CHOLESTEROL FO R ADULTS CHILDREN/ADOLESCENTS* DESIRABLE: <200 MG/DL <170 MG/DL BORDER-LINE HIGH RISK: 200-239 MG/DL 170-199 MG/DL HIGH RISK: >240 MG/DL >200 MG/DL CLASS. FOR PRIMARY LDL CHOL PREVENTION: LDL CHOL-CHILD/ADOLESCENTS* DESIRABLE: <130 MG/DL <110 MG/DL BORDERLINE-HIGH RISK: 130-159 MG/DL 110-129 MG/DL HIGH RISK: >160 MG/DL >130 MG/DL *CHILDREN AND ADOLESCENTS REPRESENTS INDIVIDUALA AGED 2-19 YEARS EXCLUSIVE. CHRONIC KIDNEY DISEASE STAGING PER NKF: MALE [...] mL/min Normal 80 and above >32 mL/min Normal K 4.2 mmol/L 3.5-5.1 MEDENT ([facility] CLASSIFICATION CHOLESTEROL FO R ADULTS CHILDREN/ADOLESCENTS* DESIRABLE: <200 MG/DL <170 MG/DL BORDER-LINE HIGH RISK: 200-239 MG/DL 170-199 MG/DL HIGH RISK: >240 MG/DL >200 MG/DL CLASS. FOR PRIMARY LDL CHOL PREVENTION: LDL CHOL-CHILD/ADOLESCENTS* DESIRABLE: <130 MG/DL <110 MG/DL BORDERLINE-HIGH RISK: 130-159 MG/DL 110-129 MG/DL HIGH RISK: >160 MG/DL >130 MG/DL *CHILDREN AND ADOLESCENTS REPRESENTS INDIVIDUALA AGED 2-19 YEARS EXCLUSIVE. CHRONIC KIDNEY DISEASE STAGING PER NKF: MALE [...] mL/min Normal 80 and above >32 mL/min Normal CA 9.6 mg/dL 8.6-10.2 MEDENT ([facility] CLASSIFICATION CHOLESTEROL FO R ADULTS CHILDREN/ADOLESCENTS* DESIRABLE: <200 MG/DL <170 MG/DL BORDER-LINE HIGH RISK: 200-239 MG/DL 170-199 MG/DL HIGH RISK: >240 MG/DL >200 MG/DL CLASS. FOR PRIMARY LDL CHOL PREVENTION: LDL CHOL-CHILD/ADOLESCENTS* DESIRABLE: <130 MG/DL <110 MG/DL BORDERLINE-HIGH RISK: 130-159 MG/DL 110-129 MG/DL HIGH RISK: >160 MG/DL >130 MG/DL *CHILDREN AND ADOLESCENTS REPRESENTS INDIVIDUALA AGED 2-19 YEARS EXCLUSIVE. CHRONIC KIDNEY DISEASE STAGING PER NKF: MALE [...] mL/min Normal 80 and above >32 mL/min Normal CL 100.9 mmol/L 98.0-107.0 [facility] ([facility] CLASSIFICATION CHOLESTEROL FO R ADULTS CHILDREN/ADOLESCENTS* DESIRABLE: <200 MG/DL <170 MG/DL BORDER-LINE HIGH RISK: 200-239 MG/DL 170-199 MG/DL HIGH RISK: >240 MG/DL >200 MG/DL CLASS. FOR PRIMARY LDL CHOL PREVENTION: LDL CHOL-CHILD/ADOLESCENTS* DESIRABLE: <130 MG/DL <110 MG/DL BORDERLINE-HIGH RISK: 130-159 MG/DL 110-129 MG/DL HIGH RISK: >160 MG/DL >130 MG/DL *CHILDREN AND ADOLESCENTS REPRESENTS INDIVIDUALA AGED 2-19 YEARS EXCLUSIVE. CHRONIC KIDNEY DISEASE STAGING PER NKF: MALE [...] mL/min Normal 80 and above >32 mL/min Normal Co2 25.7 mmol/L 22.0-29.0 MEDENT ([facility] CLASSIFICATION CHOLESTEROL FO R ADULTS CHILDREN/ADOLESCENTS* DESIRABLE: <200 MG/DL <170 MG/DL BORDER-LINE HIGH RISK: 200-239 MG/DL 170-199 MG/DL HIGH RISK: >240 MG/DL >200 MG/DL CLASS. FOR PRIMARY LDL CHOL PREVENTION: LDL CHOL-CHILD/ADOLESCENTS* DESIRABLE: <130 MG/DL <110 MG/DL BORDERLINE-HIGH RISK: 130-159 MG/DL 110-129 MG/DL HIGH RISK: >160 MG/DL >130 MG/DL *CHILDREN AND ADOLESCENTS REPRESENTS INDIVIDUALA AGED 2-19 YEARS EXCLUSIVE. CHRONIC KIDNEY DISEASE STAGING PER NKF: MALE [...] mL/min Normal 80 and above >32 mL/min Normal TP 6.4 g/dL 6.6-8.7 Below low normal MEDENT ( [facility] CLASSIFICATION CHOLESTEROL FO R ADULTS CHILDREN/ADOLESCENTS* DESIRABLE: <200 MG/DL <170 MG/DL BORDER-LINE HIGH RISK: 200-239 MG/DL 170-199 MG/DL HIGH RISK: >240 MG/DL >200 MG/DL CLASS. FOR PRIMARY LDL CHOL PREVENTION: LDL CHOL-CHILD/ADOLESCENTS* DESIRABLE: <130 MG/DL <110 MG/DL BORDERLINE-HIGH RISK: 130-159 MG/DL 110-129 MG/DL HIGH RISK: >160 MG/DL >130 MG/DL *CHILDREN AND ADOLESCENTS REPRESENTS INDIVIDUALA AGED 2-19 YEARS EXCLUSIVE. CHRONIC KIDNEY DISEASE STAGING PER NKF: MALE [...] mL/min Normal 80 and above >32 mL/min Normal Alb 3.9 g/dL 3.4-4.8 [facility] ([facility] CLASSIFICATION CHOLESTEROL FO R ADULTS CHILDREN/ADOLESCENTS* DESIRABLE: <200 MG/DL <170 MG/DL BORDER-LINE HIGH RISK: 200-239 MG/DL 170-199 MG/DL HIGH RISK: >240 MG/DL >200 MG/DL CLASS. FOR PRIMARY LDL CHOL PREVENTION: LDL CHOL-CHILD/ADOLESCENTS* DESIRABLE: <130 MG/DL <110 MG/DL BORDERLINE-HIGH RISK: 130-159 MG/DL 110-129 MG/DL HIGH RISK: >160 MG/DL >130 MG/DL *CHILDREN AND ADOLESCENTS REPRESENTS INDIVIDUALA AGED 2-19 YEARS EXCLUSIVE. CHRONIC KIDNEY DISEASE STAGING PER NKF: MALE [...] mL/min Normal 80 and above >32 mL/min Normal A/G Ratio 1.6 Calc [facility] ([facility] CLASSIFICATION CHOLESTEROL FO R ADULTS CHILDREN/ADOLESCENTS* DESIRABLE: <200 MG/DL <170 MG/DL BORDER-LINE HIGH RISK: 200-239 MG/DL 170-199 MG/DL HIGH RISK: >240 MG/DL >200 MG/DL CLASS. FOR PRIMARY LDL CHOL PREVENTION: LDL CHOL-CHILD/ADOLESCENTS* DESIRABLE: <130 MG/DL <110 MG/DL BORDERLINE-HIGH RISK: 130-159 MG/DL 110-129 MG/DL HIGH RISK: >160 MG/DL >130 MG/DL *CHILDREN AND ADOLESCENTS REPRESENTS INDIVIDUALA AGED 2-19 YEARS EXCLUSIVE. CHRONIC KIDNEY DISEASE STAGING PER NKF: MALE [...] mL/min Normal 80 and above >32 mL/min Normal Ast (Sgot) 14 U/L 0-40 MEDENT ([facility] CLASSIFICATION CHOLESTEROL FO R ADULTS CHILDREN/ADOLESCENTS* DESIRABLE: <200 MG/DL <170 MG/DL BORDER-LINE HIGH RISK: 200-239 MG/DL 170-199 MG/DL HIGH RISK: >240 MG/DL >200 MG/DL CLASS. FOR PRIMARY LDL CHOL PREVENTION: LDL CHOL-CHILD/ADOLESCENTS* DESIRABLE: <130 MG/DL <110 MG/DL BORDERLINE-HIGH RISK: 130-159 MG/DL 110-129 MG/DL HIGH RISK: >160 MG/DL >130 MG/DL *CHILDREN AND ADOLESCENTS REPRESENTS INDIVIDUALA AGED 2-19 YEARS EXCLUSIVE. CHRONIC KIDNEY DISEASE STAGING PER NKF: MALE [...] mL/min Normal 80 and above >32 mL/min Normal Alp 101.9 U/L 35-129 [facility] ([facility] CLASSIFICATION CHOLESTEROL FO R ADULTS CHILDREN/ADOLESCENTS* DESIRABLE: <200 MG/DL <170 MG/DL BORDER-LINE HIGH RISK: 200-239 MG/DL 170-199 MG/DL HIGH RISK: >240 MG/DL >200 MG/DL CLASS. FOR PRIMARY LDL CHOL PREVENTION: LDL CHOL-CHILD/ADOLESCENTS* DESIRABLE: <130 MG/DL <110 MG/DL BORDERLINE-HIGH RISK: 130-159 MG/DL 110-129 MG/DL HIGH RISK: >160 MG/DL >130 MG/DL *CHILDREN AND ADOLESCENTS REPRESENTS INDIVIDUALA AGED 2-19 YEARS EXCLUSIVE. CHRONIC KIDNEY DISEASE STAGING PER NKF: MALE [...] mL/min Normal 80 and above >32 mL/min Normal Alt (SGPT) 7 U/L 0-41 [facility] ([facility] CLASSIFICATION CHOLESTEROL FO R ADULTS CHILDREN/ADOLESCENTS* DESIRABLE: <200 MG/DL <170 MG/DL BORDER-LINE HIGH RISK: 200-239 MG/DL 170-199 MG/DL HIGH RISK: >240 MG/DL >200 MG/DL CLASS. FOR PRIMARY LDL CHOL PREVENTION: LDL CHOL-CHILD/ADOLESCENTS* DESIRABLE: <130 MG/DL <110 MG/DL BORDERLINE-HIGH RISK: 130-159 MG/DL 110-129 MG/DL HIGH RISK: >160 MG/DL >130 MG/DL *CHILDREN AND ADOLESCENTS REPRESENTS INDIVIDUALA AGED 2-19 YEARS EXCLUSIVE. CHRONIC KIDNEY DISEASE STAGING PER NKF: MALE [...] mL/min Normal 80 and above >32 mL/min Normal Globulin 2.5 Calc MEDENT ([facility] CLASSIFICATION CHOLESTEROL FO R ADULTS CHILDREN/ADOLESCENTS* DESIRABLE: <200 MG/DL <170 MG/DL BORDER-LINE HIGH RISK: 200-239 MG/DL 170-199 MG/DL HIGH RISK: >240 MG/DL >200 MG/DL CLASS. FOR PRIMARY LDL CHOL PREVENTION: LDL CHOL-CHILD/ADOLESCENTS* DESIRABLE: <130 MG/DL <110 MG/DL BORDERLINE-HIGH RISK: 130-159 MG/DL 110-129 MG/DL HIGH RISK: >160 MG/DL >130 MG/DL *CHILDREN AND ADOLESCENTS REPRESENTS INDIVIDUALA AGED 2-19 YEARS EXCLUSIVE. CHRONIC KIDNEY DISEASE STAGING PER NKF: MALE [...] mL/min Normal 80 and above >32 mL/min Normal Osmolality-Calculated 274.6 Calc MED ENT ([facility] CLASSIFICATION CHOLESTEROL FO R ADULTS CHILDREN/ADOLESCENTS* DESIRABLE: <200 MG/DL <170 MG/DL BORDER-LINE HIGH RISK: 200-239 MG/DL 170-199 MG/DL HIGH RISK: >240 MG/DL >200 MG/DL CLASS. FOR PRIMARY LDL CHOL PREVENTION: LDL CHOL-CHILD/ADOLESCENTS* DESIRABLE: <130 MG/DL <110 MG/DL BORDERLINE-HIGH RISK: 130-159 MG/DL 110-129 MG/DL HIGH RISK: >160 MG/DL >130 MG/DL *CHILDREN AND ADOLESCENTS REPRESENTS INDIVIDUALA AGED 2-19 YEARS EXCLUSIVE. CHRONIC KIDNEY DISEASE STAGING PER NKF: MALE [...] mL/min Normal 80 and above >32 mL/min Normal Anion Gap 16 mmol/L [facility] ([facility] CLASSIFICATION CHOLESTEROL FO R ADULTS CHILDREN/ADOLESCENTS* DESIRABLE: <200 MG/DL <170 MG/DL BORDER-LINE HIGH RISK: 200-239 MG/DL 170-199 MG/DL HIGH RISK: >240 MG/DL >200 MG/DL CLASS. FOR PRIMARY LDL CHOL PREVENTION: LDL CHOL-CHILD/ADOLESCENTS* DESIRABLE: <130 MG/DL <110 MG/DL BORDERLINE-HIGH RISK: 130-159 MG/DL 110-129 MG/DL HIGH RISK: >160 MG/DL >130 MG/DL *CHILDREN AND ADOLESCENTS REPRESENTS INDIVIDUALA AGED 2-19 YEARS EXCLUSIVE. CHRONIC KIDNEY DISEASE STAGING PER NKF: MALE [...] mL/min Normal 80 and above >32 mL/min Normal Tbili 0.85 mg/dL 0.0-1.2 [facility] ([facility] CLASSIFICATION CHOLESTEROL FO R ADULTS CHILDREN/ADOLESCENTS* DESIRABLE: <200 MG/DL <170 MG/DL BORDER-LINE HIGH RISK: 200-239 MG/DL 170-199 MG/DL HIGH RISK: >240 MG/DL >200 MG/DL CLASS. FOR PRIMARY LDL CHOL PREVENTION: LDL CHOL-CHILD/ADOLESCENTS* DESIRABLE: <130 MG/DL <110 MG/DL BORDERLINE-HIGH RISK: 130-159 MG/DL 110-129 MG/DL HIGH RISK: >160 MG/DL >130 MG/DL *CHILDREN AND ADOLESCENTS REPRESENTS INDIVIDUALA AGED 2-19 YEARS EXCLUSIVE. CHRONIC KIDNEY DISEASE STAGING PER NKF: MALE [...] mL/min Normal 80 and above >32 mL/min Normal eGFR Non-Afr. [place] 83 # [facility] ([facility] CLASSIFICATION CHOLESTEROL FO R ADULTS CHILDREN/ADOLESCENTS* DESIRABLE: <200 MG/DL <170 MG/DL BORDER-LINE HIGH RISK: 200-239 MG/DL 170-199 MG/DL HIGH RISK: >240 MG/DL >200 MG/DL CLASS. FOR PRIMARY LDL CHOL PREVENTION: LDL CHOL-CHILD/ADOLESCENTS* DESIRABLE: <130 MG/DL <110 MG/DL BORDERLINE-HIGH RISK: 130-159 MG/DL 110-129 MG/DL HIGH RISK: >160 MG/DL >130 MG/DL *CHILDREN AND ADOLESCENTS REPRESENTS INDIVIDUALA AGED 2-19 YEARS EXCLUSIVE. CHRONIC KIDNEY DISEASE STAGING PER NKF: MALE [...] mL/min Normal 80 and above >32 mL/min Normal eGFR 96 # [facility] ( [facility] CLASSIFICATION CHOLESTEROL FO R ADULTS CHILDREN/ADOLESCENTS* DESIRABLE: <200 MG/DL <170 MG/DL BORDER-LINE HIGH RISK: 200-239 MG/DL 170-199 MG/DL HIGH RISK: >240 MG/DL >200 MG/DL CLASS. FOR PRIMARY LDL CHOL PREVENTION: LDL CHOL-CHILD/ADOLESCENTS* DESIRABLE: <130 MG/DL <110 MG/DL BORDERLINE-HIGH RISK: 130-159 MG/DL 110-129 MG/DL HIGH RISK: >160 MG/DL >130 MG/DL *CHILDREN AND ADOLESCENTS REPRESENTS INDIVIDUALA AGED 2-19 YEARS EXCLUSIVE. CHRONIC KIDNEY DISEASE STAGING PER NKF: MALE [...] mL/min Normal 80 and above >32 mL/min Normal ID Date Data Source [id number] 03/31/2019 01:37:00 PM SUHA LUNA ([facility] Name Value Range Interpretation Code Description Data Nannette rce(s) Supporting Document(s) WBC 5.6 10E3/uL 4.1-10.9 JEREMY ([facility] CHRONIC KIDNEY DISEASE STAGING PER NKF: MALE [...] mL/min Normal 80 and above >32 mL/min NormalNORMAL RANGES Age WBC RBC HGB HCT MCV PLT Adult M 4.1-10.9 4.20-6.30 12.0-18.0 37.0-51.0 80-97 140-440 Adult F 4.1-10.9 4.04-5.48 12.0-18.0 37.0-51.0 80-97 140-440 0- 1 Yr 5.0-20.0 3.9-5.9 15-18 MV: 44 MV: 91 MV: 277 2-9 Yr. 6.0-17.0 3.8-5.4 11-13 MV: 37 MV: 78 MV: 300 10 Yrs. 5.0-13.0 3.8-5.4 12-15 MV: 39 MV: 80 MV: 250 NOTE: * FOR ADULT BLACK MALES AND FEMALES, NORMAL WBC IS 2.9-7.7 K/ML * FOR ADULT BLACK MALES AND FEMALES, NORMAL RBC,HGB, AND HCT IS 5% LESS SOURCE FOR DATA: JORDY DYN 1800 OPERATION MANUAL( AUTOMATED BLOOD COUNTS AND DIFF.) APPENDIX B-3 HGB 11.2 g/dL 12.0-18.0 Below low normal [facility] ( [facility] CHRONIC KIDNEY DISEASE STAGING PER NKF: MALE [...] mL/min Normal 80 and above >32 mL/min NormalNORMAL RANGES Age WBC RBC HGB HCT MCV PLT Adult M 4.1-10.9 4.20-6.30 12.0-18.0 37.0-51.0 80-97 140-440 Adult F 4.1-10.9 4.04-5.48 12.0-18.0 37.0-51.0 80-97 140-440 0- 1 Yr 5.0-20.0 3.9-5.9 15-18 MV: 44 MV: 91 MV: 277 2-9 Yr. 6.0-17.0 3.8-5.4 11-13 MV: 37 MV: 78 MV: 300 10 Yrs. 5.0-13.0 3.8-5.4 12-15 MV: 39 MV: 80 MV: 250 NOTE: * FOR ADULT BLACK MALES AND FEMALES, NORMAL WBC IS 2.9-7.7 K/ML * FOR ADULT BLACK MALES AND FEMALES, NORMAL RBC,HGB, AND HCT IS 5% LESS SOURCE FOR DATA: JORDY DYN 1800 OPERATION MANUAL( AUTOMATED BLOOD COUNTS AND DIFF.) APPENDIX B-3 RBC 3.55 10E6/uL 4.20-6.30 Below low normal [facility] ([facility] CHRONIC KIDNEY DISEASE STAGING PER NKF: MALE [...] mL/min Normal 80 and above >32 mL/min NormalNORMAL RANGES Age WBC RBC HGB HCT MCV PLT Adult M 4.1-10.9 4.20-6.30 12.0-18.0 37.0-51.0 80-97 140-440 Adult F 4.1-10.9 4.04-5.48 12.0-18.0 37.0-51.0 80-97 140-440 0- 1 Yr 5.0-20.0 3.9-5.9 15-18 MV: 44 MV: 91 MV: 277 2-9 Yr. 6.0-17.0 3.8-5.4 11-13 MV: 37 MV: 78 MV: 300 10 Yrs. 5.0-13.0 3.8-5.4 12-15 MV: 39 MV: 80 MV: 250 NOTE: * FOR ADULT BLACK MALES AND FEMALES, NORMAL WBC IS 2.9-7.7 K/ML * FOR ADULT BLACK MALES AND FEMALES, NORMAL RBC,HGB, AND HCT IS 5% LESS SOURCE FOR DATA: JORDY DYN 1800 OPERATION MANUAL( AUTOMATED BLOOD COUNTS AND DIFF.) APPENDIX B-3 MCH 31.5 pg 26.0-32.0 [facility] ([facility] CHRONIC KIDNEY DISEASE STAGING PER NKF: MALE [...] mL/min Normal 80 and above >32 mL/min NormalNORMAL RANGES Age WBC RBC HGB HCT MCV PLT Adult M 4.1-10.9 4.20-6.30 12.0-18.0 37.0-51.0 80-97 140-440 Adult F 4.1-10.9 4.04-5.48 12.0-18.0 37.0-51.0 80-97 140-440 0- 1 Yr 5.0-20.0 3.9-5.9 15-18 MV: 44 MV: 91 MV: 277 2-9 Yr. 6.0-17.0 3.8-5.4 11-13 MV: 37 MV: 78 MV: 300 10 Yrs. 5.0-13.0 3.8-5.4 12-15 MV: 39 MV: 80 MV: 250 NOTE: * FOR ADULT BLACK MALES AND FEMALES, NORMAL WBC IS 2.9-7.7 K/ML * FOR ADULT BLACK MALES AND FEMALES, NORMAL RBC,HGB, AND HCT IS 5% LESS SOURCE FOR DATA: JORDY DYN 1800 OPERATION MANUAL( AUTOMATED BLOOD COUNTS AND DIFF.) APPENDIX B-3 HCT 35.4 % 37.0-51.0 Below low normal [facility] ( [facility] CHRONIC KIDNEY DISEASE STAGING PER NKF: MALE [...] mL/min Normal 80 and above >32 mL/min NormalNORMAL RANGES Age WBC RBC HGB HCT MCV PLT Adult M 4.1-10.9 4.20-6.30 12.0-18.0 37.0-51.0 80-97 140-440 Adult F 4.1-10.9 4.04-5.48 12.0-18.0 37.0-51.0 80-97 140-440 0- 1 Yr 5.0-20.0 3.9-5.9 15-18 MV: 44 MV: 91 MV: 277 2-9 Yr. 6.0-17.0 3.8-5.4 11-13 MV: 37 MV: 78 MV: 300 10 Yrs. 5.0-13.0 3.8-5.4 12-15 MV: 39 MV: 80 MV: 250 NOTE: * FOR ADULT BLACK MALES AND FEMALES, NORMAL WBC IS 2.9-7.7 K/ML * FOR ADULT BLACK MALES AND FEMALES, NORMAL RBC,HGB, AND HCT IS 5% LESS SOURCE FOR DATA: JORDY DYN 1800 OPERATION MANUAL( AUTOMATED BLOOD COUNTS AND DIFF.) APPENDIX B-3 MCV 99.7 fL 80.0-97.0 Above high normal [facility] ([facility] CHRONIC KIDNEY DISEASE STAGING PER NKF: MALE [...] mL/min Normal 80 and above >32 mL/min NormalNORMAL RANGES Age WBC RBC HGB HCT MCV PLT Adult M 4.1-10.9 4.20-6.30 12.0-18.0 37.0-51.0 80-97 140-440 Adult F 4.1-10.9 4.04-5.48 12.0-18.0 37.0-51.0 80-97 140-440 0- 1 Yr 5.0-20.0 3.9-5.9 15-18 MV: 44 MV: 91 MV: 277 2-9 Yr. 6.0-17.0 3.8-5.4 11-13 MV: 37 MV: 78 MV: 300 10 Yrs. 5.0-13.0 3.8-5.4 12-15 MV: 39 MV: 80 MV: 250 NOTE: * FOR ADULT BLACK MALES AND FEMALES, NORMAL WBC IS 2.9-7.7 K/ML * FOR ADULT BLACK MALES AND FEMALES, NORMAL RBC,HGB, AND HCT IS 5% LESS SOURCE FOR DATA: Voradius 1800 OPERATION MANUAL( AUTOMATED BLOOD COUNTS AND DIFF.) APPENDIX B-3 RDW-CV 13.6 % 11.5-14.5 [facility] CHRONIC KIDNEY DISEASE STAGING PER NKF: MALE [...] mL/min Normal 80 and above >32 mL/min NormalNORMAL RANGES Age WBC RBC HGB HCT MCV PLT Adult M 4.1-10.9 4.20-6.30 12.0-18.0 37.0-51.0 80-97 140-440 Adult F 4.1-10.9 4.04-5.48 12.0-18.0 37.0-51.0 80-97 140-440 0- 1 Yr 5.0-20.0 3.9-5.9 15-18 MV: 44 MV: 91 MV: 277 2-9 Yr. 6.0-17.0 3.8-5.4 11-13 MV: 37 MV: 78 MV: 300 10 Yrs. 5.0-13.0 3.8-5.4 12-15 MV: 39 MV: 80 MV: 250 NOTE: * FOR ADULT BLACK MALES AND FEMALES, NORMAL WBC IS 2.9-7.7 K/ML * FOR ADULT BLACK MALES AND FEMALES, NORMAL RBC,HGB, AND HCT IS 5% LESS SOURCE FOR DATA: Voradius 1800 OPERATION MANUAL( AUTOMATED BLOOD COUNTS AND DIFF.) APPENDIX B-3 MCHC 31.6 g/dL 31.0-36.0 [facility] ([facility] CHRONIC KIDNEY DISEASE STAGING PER NKF: MALE [...] mL/min Normal 80 and above >32 mL/min NormalNORMAL RANGES Age WBC RBC HGB HCT MCV PLT Adult M 4.1-10.9 4.20-6.30 12.0-18.0 37.0-51.0 80-97 140-440 Adult F 4.1-10.9 4.04-5.48 12.0-18.0 37.0-51.0 80-97 140-440 0- 1 Yr 5.0-20.0 3.9-5.9 15-18 MV: 44 MV: 91 MV: 277 2-9 Yr. 6.0-17.0 3.8-5.4 11-13 MV: 37 MV: 78 MV: 300 10 Yrs. 5.0-13.0 3.8-5.4 12-15 MV: 39 MV: 80 MV: 250 NOTE: * FOR ADULT BLACK MALES AND FEMALES, NORMAL WBC IS 2.9-7.7 K/ML * FOR ADULT BLACK MALES AND FEMALES, NORMAL RBC,HGB, AND HCT IS 5% LESS SOURCE FOR DATA: Voradius 1800 OPERATION MANUAL( AUTOMATED BLOOD COUNTS AND DIFF.) APPENDIX B-3 PLT 319 10E3/uL 140-440 [facility] ([facility] CHRONIC KIDNEY DISEASE STAGING PER NKF: MALE [...] mL/min Normal 80 and above >32 mL/min NormalNORMAL RANGES Age WBC RBC HGB HCT MCV PLT Adult M 4.1-10.9 4.20-6.30 12.0-18.0 37.0-51.0 80-97 140-440 Adult F 4.1-10.9 4.04-5.48 12.0-18.0 37.0-51.0 80-97 140-440 0- 1 Yr 5.0-20.0 3.9-5.9 15-18 MV: 44 MV: 91 MV: 277 2-9 Yr. 6.0-17.0 3.8-5.4 11-13 MV: 37 MV: 78 MV: 300 10 Yrs. 5.0-13.0 3.8-5.4 12-15 MV: 39 MV: 80 MV: 250 NOTE: * FOR ADULT BLACK MALES AND FEMALES, NORMAL WBC IS 2.9-7.7 K/ML * FOR ADULT BLACK MALES AND FEMALES, NORMAL RBC,HGB, AND HCT IS 5% LESS SOURCE FOR DATA: Voradius 1800 OPERATION MANUAL( AUTOMATED BLOOD COUNTS AND DIFF.) APPENDIX B-3 Lym% 16.3 % 10.0-58.5 [facility] ([facility] CHRONIC KIDNEY DISEASE STAGING PER NKF: MALE [...] mL/min Normal 80 and above >32 mL/min NormalNORMAL RANGES Age WBC RBC HGB HCT MCV PLT Adult M 4.1-10.9 4.20-6.30 12.0-18.0 37.0-51.0 80-97 140-440 Adult F 4.1-10.9 4.04-5.48 12.0-18.0 37.0-51.0 80-97 140-440 0- 1 Yr 5.0-20.0 3.9-5.9 15-18 MV: 44 MV: 91 MV: 277 2-9 Yr. 6.0-17.0 3.8-5.4 11-13 MV: 37 MV: 78 MV: 300 10 Yrs. 5.0-13.0 3.8-5.4 12-15 MV: 39 MV: 80 MV: 250 NOTE: * FOR ADULT BLACK MALES AND FEMALES, NORMAL WBC IS 2.9-7.7 K/ML * FOR ADULT BLACK MALES AND FEMALES, NORMAL RBC,HGB, AND HCT IS 5% LESS SOURCE FOR DATA: JORDY DYN 1800 OPERATION MANUAL( AUTOMATED BLOOD COUNTS AND DIFF.) APPENDIX B-3 Neut% 73.3 % 37.0-92.0 [facility] CHRONIC KIDNEY DISEASE STAGING PER NKF: MALE [...] mL/min Normal 80 and above >32 mL/min NormalNORMAL RANGES Age WBC RBC HGB HCT MCV PLT Adult M 4.1-10.9 4.20-6.30 12.0-18.0 37.0-51.0 80-97 140-440 Adult F 4.1-10.9 4.04-5.48 12.0-18.0 37.0-51.0 80-97 140-440 0- 1 Yr 5.0-20.0 3.9-5.9 15-18 MV: 44 MV: 91 MV: 277 2-9 Yr. 6.0-17.0 3.8-5.4 11-13 MV: 37 MV: 78 MV: 300 10 Yrs. 5.0-13.0 3.8-5.4 12-15 MV: 39 MV: 80 MV: 250 NOTE: * FOR ADULT BLACK MALES AND FEMALES, NORMAL WBC IS 2.9-7.7 K/ML * FOR ADULT BLACK MALES AND FEMALES, NORMAL RBC,HGB, AND HCT IS 5% LESS SOURCE FOR DATA: Voradius 1800 OPERATION MANUAL( AUTOMATED BLOOD COUNTS AND DIFF.) APPENDIX B-3 Neut# 4.1 % 2.0-7.8 JEREMY ([facility] CHRONIC KIDNEY DISEASE STAGING PER NKF: MALE [...] mL/min Normal 80 and above >32 mL/min NormalNORMAL RANGES Age WBC RBC HGB HCT MCV PLT Adult M 4.1-10.9 4.20-6.30 12.0-18.0 37.0-51.0 80-97 140-440 Adult F 4.1-10.9 4.04-5.48 12.0-18.0 37.0-51.0 80-97 140-440 0- 1 Yr 5.0-20.0 3.9-5.9 15-18 MV: 44 MV: 91 MV: 277 2-9 Yr. 6.0-17.0 3.8-5.4 11-13 MV: 37 MV: 78 MV: 300 10 Yrs. 5.0-13.0 3.8-5.4 12-15 MV: 39 MV: 80 MV: 250 NOTE: * FOR ADULT BLACK MALES AND FEMALES, NORMAL WBC IS 2.9-7.7 K/ML * FOR ADULT BLACK MALES AND FEMALES, NORMAL RBC,HGB, AND HCT IS 5% LESS SOURCE FOR DATA: JORDY DYN 1800 OPERATION MANUAL( AUTOMATED BLOOD COUNTS AND DIFF.) APPENDIX B-3 MXD% 10.4 % 0.1-24.0 JEREMY ([facility] CHRONIC KIDNEY DISEASE STAGING PER NKF: MALE [...] mL/min Normal 80 and above >32 mL/min NormalNORMAL RANGES Age WBC RBC HGB HCT MCV PLT Adult M 4.1-10.9 4.20-6.30 12.0-18.0 37.0-51.0 80- 140-440 Adult F 4.1-10.9 4.04-5.48 12.0-18.0 37.0-51.0 - 140-440 0- 1 Yr 5.0-20.0 3.9-5.9 15-18 MV: 44 MV: 91 MV: 277 2-9 Yr. 6.0-17.0 3.8-5.4 11-13 MV: 37 MV: 78 MV: 300 10 Yrs. 5.0-13.0 3.8-5.4 12-15 MV: 39 MV: 80 MV: 250 NOTE: * FOR ADULT BLACK MALES AND FEMALES, NORMAL WBC IS 2.9-7.7 K/ML * FOR ADULT BLACK MALES AND FEMALES, NORMAL RBC,HGB, AND HCT IS 5% LESS SOURCE FOR DATA: JORDY DYN 1800 OPERATION MANUAL( AUTOMATED BLOOD COUNTS AND DIFF.) APPENDIX B-3 Lym# 0.9 10E3/uL 0.6-4.1 JEREMY ([facility] CHRONIC KIDNEY DISEASE STAGING PER NKF: MALE [...] mL/min Normal 80 and above >32 mL/min NormalNORMAL RANGES Age WBC RBC HGB HCT MCV PLT Adult M 4.1-10.9 4.20-6.30 12.0-18.0 37.0-51.0 80-97 140-440 Adult F 4.1-10.9 4.04-5.48 12.0-18.0 37.0-51.0 80-97 140-440 0- 1 Yr 5.0-20.0 3.9-5.9 15-18 MV: 44 MV: 91 MV: 277 2-9 Yr. 6.0-17.0 3.8-5.4 11-13 MV: 37 MV: 78 MV: 300 10 Yrs. 5.0-13.0 3.8-5.4 12-15 MV: 39 MV: 80 MV: 250 NOTE: * FOR ADULT BLACK MALES AND FEMALES, NORMAL WBC IS 2.9-7.7 K/ML * FOR ADULT BLACK MALES AND FEMALES, NORMAL RBC,HGB, AND HCT IS 5% LESS SOURCE FOR DATA: JORDY DYN 1800 OPERATION MANUAL( AUTOMATED BLOOD COUNTS AND DIFF.) APPENDIX B-3 MPV 9.5 fL 9.0-13.0 [facility] ([facility] CHRONIC KIDNEY DISEASE STAGING PER NKF: MALE [...] mL/min Normal 80 and above >32 mL/min NormalNORMAL RANGES Age WBC RBC HGB HCT MCV PLT Adult M 4.1-10.9 4.20-6.30 12.0-18.0 37.0-51.0 80-97 140-440 Adult F 4.1-10.9 4.04-5.48 12.0-18.0 37.0-51.0 80-97 140-440 0- 1 Yr 5.0-20.0 3.9-5.9 15-18 MV: 44 MV: 91 MV: 277 2-9 Yr. 6.0-17.0 3.8-5.4 11-13 MV: 37 MV: 78 MV: 300 10 Yrs. 5.0-13.0 3.8-5.4 12-15 MV: 39 MV: 80 MV: 250 NOTE: * FOR ADULT BLACK MALES AND FEMALES, NORMAL WBC IS 2.9-7.7 K/ML * FOR ADULT BLACK MALES AND FEMALES, NORMAL RBC,HGB, AND HCT IS 5% LESS SOURCE FOR DATA: Voradius 1800 OPERATION MANUAL( AUTOMATED BLOOD COUNTS AND DIFF.) APPENDIX B-3 MXD# 0.6 10E3/uL 0.0-1.8 [facility] ([facility] CHRONIC KIDNEY DISEASE STAGING PER NKF: MALE [...] mL/min Normal 80 and above >32 mL/min NormalNORMAL RANGES Age WBC RBC HGB HCT MCV PLT Adult M 4.1-10.9 4.20-6.30 12.0-18.0 37.0-51.0 80-97 140-440 Adult F 4.1-10.9 4.04-5.48 12.0-18.0 37.0-51.0 80-97 140-440 0- 1 Yr 5.0-20.0 3.9-5.9 15-18 MV: 44 MV: 91 MV: 277 2-9 Yr. 6.0-17.0 3.8-5.4 11-13 MV: 37 MV: 78 MV: 300 10 Yrs. 5.0-13.0 3.8-5.4 12-15 MV: 39 MV: 80 MV: 250 NOTE: * FOR ADULT BLACK MALES AND FEMALES, NORMAL WBC IS 2.9-7.7 K/ML * FOR ADULT BLACK MALES AND FEMALES, NORMAL RBC,HGB, AND HCT IS 5% LESS SOURCE FOR DATA: Voradius 1800 OPERATION MANUAL( AUTOMATED BLOOD COUNTS AND DIFF.) APPENDIX B-3 ID Date Data Source [id number] 03/31/2019 01:37:00 PM EST MEDDARLYN ([facility] Name Value Range Interpretation Code Description Data Nannette rce(s) Supporting Document(s) BUN 12 mg/dL 8 MEDDARLYN ([facility] CHRONIC KIDNEY DISEASE STAGING PER NKF: MALE [...] mL/min Normal 80 and above >32 mL/min NormalNORMAL RANGES Age WBC RBC HGB HCT MCV PLT Adult M 4.1-10.9 4.20-6.30 12.0-18.0 37.0-51.0 80-97 140-440 Adult F 4.1-10.9 4.04-5.48 12.0-18.0 37.0-51.0 80-97 140-440 0- 1 Yr 5.0-20.0 3.9-5.9 15-18 MV: 44 MV: 91 MV: 277 2-9 Yr. 6.0-17.0 3.8-5.4 11-13 MV: 37 MV: 78 MV: 300 10 Yrs. 5.0-13.0 3.8-5.4 12-15 MV: 39 MV: 80 MV: 250 NOTE: * FOR ADULT BLACK MALES AND FEMALES, NORMAL WBC IS 2.9-7.7 K/ML * FOR ADULT BLACK MALES AND FEMALES, NORMAL RBC,HGB, AND HCT IS 5% LESS SOURCE FOR DATA: JORDY DYN 1800 OPERATION MANUAL( AUTOMATED BLOOD COUNTS AND DIFF.) APPENDIX B-3 Glu 87 mg/dL 70-110 [facility] ([facility] CHRONIC KIDNEY DISEASE STAGING PER NKF: MALE [...] mL/min Normal 80 and above >32 mL/min NormalNORMAL RANGES Age WBC RBC HGB HCT MCV PLT Adult M 4.1-10.9 4.20-6.30 12.0-18.0 37.0-51.0 80-97 140-440 Adult F 4.1-10.9 4.04-5.48 12.0-18.0 37.0-51.0 80-97 140-440 0- 1 Yr 5.0-20.0 3.9-5.9 15-18 MV: 44 MV: 91 MV: 277 2-9 Yr. 6.0-17.0 3.8-5.4 11-13 MV: 37 MV: 78 MV: 300 10 Yrs. 5.0-13.0 3.8-5.4 12-15 MV: 39 MV: 80 MV: 250 NOTE: * FOR ADULT BLACK MALES AND FEMALES, NORMAL WBC IS 2.9-7.7 K/ML * FOR ADULT BLACK MALES AND FEMALES, NORMAL RBC,HGB, AND HCT IS 5% LESS SOURCE FOR DATA: JORDY DYN 1800 OPERATION MANUAL( AUTOMATED BLOOD COUNTS AND DIFF.) APPENDIX B-3 BUN/Creatinine Ratio 20.5 Calc [facility] ([facility] CHRONIC KIDNEY DISEASE STAGING PER NKF: MALE [...] mL/min Normal 80 and above >32 mL/min NormalNORMAL RANGES Age WBC RBC HGB HCT MCV PLT Adult M 4.1-10.9 4.20-6.30 12.0-18.0 37.0-51.0 80-97 140-440 Adult F 4.1-10.9 4.04-5.48 12.0-18.0 37.0-51.0 80-97 140-440 0- 1 Yr 5.0-20.0 3.9-5.9 15-18 MV: 44 MV: 91 MV: 277 2-9 Yr. 6.0-17.0 3.8-5.4 11-13 MV: 37 MV: 78 MV: 300 10 Yrs. 5.0-13.0 3.8-5.4 12-15 MV: 39 MV: 80 MV: 250 NOTE: * FOR ADULT BLACK MALES AND FEMALES, NORMAL WBC IS 2.9-7.7 K/ML * FOR ADULT BLACK MALES AND FEMALES, NORMAL RBC,HGB, AND HCT IS 5% LESS SOURCE FOR DATA: JORDY DYN 1800 OPERATION MANUAL( AUTOMATED BLOOD COUNTS AND DIFF.) APPENDIX B-3 Creat 0.6 mg/dL 0.5-1.0 [facility] ([facility] CHRONIC KIDNEY DISEASE STAGING PER NKF: MALE [...] mL/min Normal 80 and above >32 mL/min NormalNORMAL RANGES Age WBC RBC HGB HCT MCV PLT Adult M 4.1-10.9 4.20-6.30 12.0-18.0 37.0-51.0 80-97 140-440 Adult F 4.1-10.9 4.04-5.48 12.0-18.0 37.0-51.0 80-97 140-440 0- 1 Yr 5.0-20.0 3.9-5.9 15-18 MV: 44 MV: 91 MV: 277 2-9 Yr. 6.0-17.0 3.8-5.4 11-13 MV: 37 MV: 78 MV: 300 10 Yrs. 5.0-13.0 3.8-5.4 12-15 MV: 39 MV: 80 MV: 250 NOTE: * FOR ADULT BLACK MALES AND FEMALES, NORMAL WBC IS 2.9-7.7 K/ML * FOR ADULT BLACK MALES AND FEMALES, NORMAL RBC,HGB, AND HCT IS 5% LESS SOURCE FOR DATA: Voradius 1800 OPERATION MANUAL( AUTOMATED BLOOD COUNTS AND DIFF.) APPENDIX B-3 Na 140 mmol/L 136-145 [facility] CHRONIC KIDNEY DISEASE STAGING PER NKF: MALE [...] mL/min Normal 80 and above >32 mL/min NormalNORMAL RANGES Age WBC RBC HGB HCT MCV PLT Adult M 4.1-10.9 4.20-6.30 12.0-18.0 37.0-51.0 80-97 140-440 Adult F 4.1-10.9 4.04-5.48 12.0-18.0 37.0-51.0 80-97 140-440 0- 1 Yr 5.0-20.0 3.9-5.9 15-18 MV: 44 MV: 91 MV: 277 2-9 Yr. 6.0-17.0 3.8-5.4 11-13 MV: 37 MV: 78 MV: 300 10 Yrs. 5.0-13.0 3.8-5.4 12-15 MV: 39 MV: 80 MV: 250 NOTE: * FOR ADULT BLACK MALES AND FEMALES, NORMAL WBC IS 2.9-7.7 K/ML * FOR ADULT BLACK MALES AND FEMALES, NORMAL RBC,HGB, AND HCT IS 5% LESS SOURCE FOR DATA: Voradius 1800 OPERATION MANUAL( AUTOMATED BLOOD COUNTS AND DIFF.) APPENDIX B-3 CL 100.7 mmol/L 98.0-107.0 [facility] ([facility] CHRONIC KIDNEY DISEASE STAGING PER NKF: MALE [...] mL/min Normal 80 and above >32 mL/min NormalNORMAL RANGES Age WBC RBC HGB HCT MCV PLT Adult M 4.1-10.9 4.20-6.30 12.0-18.0 37.0-51.0 80-97 140-440 Adult F 4.1-10.9 4.04-5.48 12.0-18.0 37.0-51.0 80-97 140-440 0- 1 Yr 5.0-20.0 3.9-5.9 15-18 MV: 44 MV: 91 MV: 277 2-9 Yr. 6.0-17.0 3.8-5.4 11-13 MV: 37 MV: 78 MV: 300 10 Yrs. 5.0-13.0 3.8-5.4 12-15 MV: 39 MV: 80 MV: 250 NOTE: * FOR ADULT BLACK MALES AND FEMALES, NORMAL WBC IS 2.9-7.7 K/ML * FOR ADULT BLACK MALES AND FEMALES, NORMAL RBC,HGB, AND HCT IS 5% LESS SOURCE FOR DATA: JORDY DYN 1800 OPERATION MANUAL( AUTOMATED BLOOD COUNTS AND DIFF.) APPENDIX B-3 K 4.0 mmol/L 3.5-5.1 [facility] ([facility] CHRONIC KIDNEY DISEASE STAGING PER NKF: MALE [...] mL/min Normal 80 and above >32 mL/min NormalNORMAL RANGES Age WBC RBC HGB HCT MCV PLT Adult M 4.1-10.9 4.20-6.30 12.0-18.0 37.0-51.0 80-97 140-440 Adult F 4.1-10.9 4.04-5.48 12.0-18.0 37.0-51.0 80-97 140-440 0- 1 Yr 5.0-20.0 3.9-5.9 15-18 MV: 44 MV: 91 MV: 277 2-9 Yr. 6.0-17.0 3.8-5.4 11-13 MV: 37 MV: 78 MV: 300 10 Yrs. 5.0-13.0 3.8-5.4 12-15 MV: 39 MV: 80 MV: 250 NOTE: * FOR ADULT BLACK MALES AND FEMALES, NORMAL WBC IS 2.9-7.7 K/ML * FOR ADULT BLACK MALES AND FEMALES, NORMAL RBC,HGB, AND HCT IS 5% LESS SOURCE FOR DATA: [employer] 1800 OPERATION MANUAL( AUTOMATED BLOOD COUNTS AND DIFF.) APPENDIX B-3 Co2 27.5 mmol/L 22.0-29.0 [employer] ([facility] CHRONIC KIDNEY DISEASE STAGING PER NKF: MALE [...] mL/min Normal 80 and above >32 mL/min NormalNORMAL RANGES Age WBC RBC HGB HCT MCV PLT Adult M 4.1-10.9 4.20-6.30 12.0-18.0 37.0-51.0 80-97 140-440 Adult F 4.1-10.9 4.04-5.48 12.0-18.0 37.0-51.0 80-97 140-440 0- 1 Yr 5.0-20.0 3.9-5.9 15-18 MV: 44 MV: 91 MV: 277 2-9 Yr. 6.0-17.0 3.8-5.4 11-13 MV: 37 MV: 78 MV: 300 10 Yrs. 5.0-13.0 3.8-5.4 12-15 MV: 39 MV: 80 MV: 250 NOTE: * FOR ADULT BLACK MALES AND FEMALES, NORMAL WBC IS 2.9-7.7 K/ML * FOR ADULT BLACK MALES AND FEMALES, NORMAL RBC,HGB, AND HCT IS 5% LESS SOURCE FOR DATA: [employer] 1800 OPERATION MANUAL( AUTOMATED BLOOD COUNTS AND DIFF.) APPENDIX B-3 CA 9.0 mg/dL 8.6-10.2 [facility] ([facility] CHRONIC KIDNEY DISEASE STAGING PER NKF: MALE [...] mL/min Normal 80 and above >32 mL/min NormalNORMAL RANGES Age WBC RBC HGB HCT MCV PLT Adult M 4.1-10.9 4.20-6.30 12.0-18.0 37.0-51.0 80-97 140-440 Adult F 4.1-10.9 4.04-5.48 12.0-18.0 37.0-51.0 80-97 140-440 0- 1 Yr 5.0-20.0 3.9-5.9 15-18 MV: 44 MV: 91 MV: 277 2-9 Yr. 6.0-17.0 3.8-5.4 11-13 MV: 37 MV: 78 MV: 300 10 Yrs. 5.0-13.0 3.8-5.4 12-15 MV: 39 MV: 80 MV: 250 NOTE: * FOR ADULT BLACK MALES AND FEMALES, NORMAL WBC IS 2.9-7.7 K/ML * FOR ADULT BLACK MALES AND FEMALES, NORMAL RBC,HGB, AND HCT IS 5% LESS SOURCE FOR DATA: [employer] 1800 OPERATION MANUAL( AUTOMATED BLOOD COUNTS AND DIFF.) APPENDIX B-3 TP 5.8 g/dL 6.6-8.7 Below low normal [employer] ( [facility] CHRONIC KIDNEY DISEASE STAGING PER NKF: MALE [...] mL/min Normal 80 and above >32 mL/min NormalNORMAL RANGES Age WBC RBC HGB HCT MCV PLT Adult M 4.1-10.9 4.20-6.30 12.0-18.0 37.0-51.0 80-97 140-440 Adult F 4.1-10.9 4.04-5.48 12.0-18.0 37.0-51.0 80-97 140-440 0- 1 Yr 5.0-20.0 3.9-5.9 15-18 MV: 44 MV: 91 MV: 277 2-9 Yr. 6.0-17.0 3.8-5.4 11-13 MV: 37 MV: 78 MV: 300 10 Yrs. 5.0-13.0 3.8-5.4 12-15 MV: 39 MV: 80 MV: 250 NOTE: * FOR ADULT BLACK MALES AND FEMALES, NORMAL WBC IS 2.9-7.7 K/ML * FOR ADULT BLACK MALES AND FEMALES, NORMAL RBC,HGB, AND HCT IS 5% LESS SOURCE FOR DATA: [employer]YN 1800 OPERATION MANUAL( AUTOMATED BLOOD COUNTS AND DIFF.) APPENDIX B-3 Alb 3.7 g/dL 3.4-4.8 [facility] ([facility] CHRONIC KIDNEY DISEASE STAGING PER NKF: MALE [...] mL/min Normal 80 and above >32 mL/min NormalNORMAL RANGES Age WBC RBC HGB HCT MCV PLT Adult M 4.1-10.9 4.20-6.30 12.0-18.0 37.0-51.0 80-97 140-440 Adult F 4.1-10.9 4.04-5.48 12.0-18.0 37.0-51.0 80-97 140-440 0- 1 Yr 5.0-20.0 3.9-5.9 15-18 MV: 44 MV: 91 MV: 277 2-9 Yr. 6.0-17.0 3.8-5.4 11-13 MV: 37 MV: 78 MV: 300 10 Yrs. 5.0-13.0 3.8-5.4 12-15 MV: 39 MV: 80 MV: 250 NOTE: * FOR ADULT BLACK MALES AND FEMALES, NORMAL WBC IS 2.9-7.7 K/ML * FOR ADULT BLACK MALES AND FEMALES, NORMAL RBC,HGB, AND HCT IS 5% LESS SOURCE FOR DATA: [employer] DYN 1800 OPERATION MANUAL( AUTOMATED BLOOD COUNTS AND DIFF.) APPENDIX B-3 Globulin 2.2 Calc [employer] CHRONIC KIDNEY DISEASE STAGING PER NKF: MALE [...] mL/min Normal 80 and above >32 mL/min NormalNORMAL RANGES Age WBC RBC HGB HCT MCV PLT Adult M 4.1-10.9 4.20-6.30 12.0-18.0 37.0-51.0 80-97 140-440 Adult F 4.1-10.9 4.04-5.48 12.0-18.0 37.0-51.0 80-97 140-440 0- 1 Yr 5.0-20.0 3.9-5.9 15-18 MV: 44 MV: 91 MV: 277 2-9 Yr. 6.0-17.0 3.8-5.4 11-13 MV: 37 MV: 78 MV: 300 10 Yrs. 5.0-13.0 3.8-5.4 12-15 MV: 39 MV: 80 MV: 250 NOTE: * FOR ADULT BLACK MALES AND FEMALES, NORMAL WBC IS 2.9-7.7 K/ML * FOR ADULT BLACK MALES AND FEMALES, NORMAL RBC,HGB, AND HCT IS 5% LESS SOURCE FOR DATA: [employer] DYN 1800 OPERATION MANUAL( AUTOMATED BLOOD COUNTS AND DIFF.) APPENDIX B-3 A/G Ratio 1.7 [employer]c [facility] ([facility] CHRONIC KIDNEY DISEASE STAGING PER NKF: MALE [...] mL/min Normal 80 and above >32 mL/min NormalNORMAL RANGES Age WBC RBC HGB HCT MCV PLT Adult M 4.1-10.9 4.20-6.30 12.0-18.0 37.0-51.0 80-97 140-440 Adult F 4.1-10.9 4.04-5.48 12.0-18.0 37.0-51.0 80-97 140-440 0- 1 Yr 5.0-20.0 3.9-5.9 15-18 MV: 44 MV: 91 MV: 277 2-9 Yr. 6.0-17.0 3.8-5.4 11-13 MV: 37 MV: 78 MV: 300 10 Yrs. 5.0-13.0 3.8-5.4 12-15 MV: 39 MV: 80 MV: 250 NOTE: * FOR ADULT BLACK MALES AND FEMALES, NORMAL WBC IS 2.9-7.7 K/ML * FOR ADULT BLACK MALES AND FEMALES, NORMAL RBC,HGB, AND HCT IS 5% LESS SOURCE FOR DATA: [employer] 1800 OPERATION MANUAL( AUTOMATED BLOOD COUNTS AND DIFF.) APPENDIX B-3 Alt (SGPT) 7 U/L 0-41 [facility] ([facility] CHRONIC KIDNEY DISEASE STAGING PER NKF: MALE [...] mL/min Normal 80 and above >32 mL/min NormalNORMAL RANGES Age WBC RBC HGB HCT MCV PLT Adult M 4.1-10.9 4.20-6.30 12.0-18.0 37.0-51.0 80-97 140-440 Adult F 4.1-10.9 4.04-5.48 12.0-18.0 37.0-51.0 80-97 140-440 0- 1 Yr 5.0-20.0 3.9-5.9 15-18 MV: 44 MV: 91 MV: 277 2-9 Yr. 6.0-17.0 3.8-5.4 11-13 MV: 37 MV: 78 MV: 300 10 Yrs. 5.0-13.0 3.8-5.4 12-15 MV: 39 MV: 80 MV: 250 NOTE: * FOR ADULT BLACK MALES AND FEMALES, NORMAL WBC IS 2.9-7.7 K/ML * FOR ADULT BLACK MALES AND FEMALES, NORMAL RBC,HGB, AND HCT IS 5% LESS SOURCE FOR DATA: [employer] 1800 OPERATION MANUAL( AUTOMATED BLOOD COUNTS AND DIFF.) APPENDIX B-3 Alp 96.5 U/L 35-129 [facility] ([facility] CHRONIC KIDNEY DISEASE STAGING PER NKF: MALE [...] mL/min Normal 80 and above >32 mL/min NormalNORMAL RANGES Age WBC RBC HGB HCT MCV PLT Adult M 4.1-10.9 4.20-6.30 12.0-18.0 37.0-51.0 80-97 140-440 Adult F 4.1-10.9 4.04-5.48 12.0-18.0 37.0-51.0 80-97 140-440 0- 1 Yr 5.0-20.0 3.9-5.9 15-18 MV: 44 MV: 91 MV: 277 2-9 Yr. 6.0-17.0 3.8-5.4 11-13 MV: 37 MV: 78 MV: 300 10 Yrs. 5.0-13.0 3.8-5.4 12-15 MV: 39 MV: 80 MV: 250 NOTE: * FOR ADULT BLACK MALES AND FEMALES, NORMAL WBC IS 2.9-7.7 K/ML * FOR ADULT BLACK MALES AND FEMALES, NORMAL RBC,HGB, AND HCT IS 5% LESS SOURCE FOR DATA: JORDY DYN 1800 OPERATION MANUAL( AUTOMATED BLOOD COUNTS AND DIFF.) APPENDIX B-3 Ast (Sgot) 12 U/L 0-40 [facility] ([facility] CHRONIC KIDNEY DISEASE STAGING PER NKF: MALE [...] mL/min Normal 80 and above >32 mL/min NormalNORMAL RANGES Age WBC RBC HGB HCT MCV PLT Adult M 4.1-10.9 4.20-6.30 12.0-18.0 37.0-51.0 80-97 140-440 Adult F 4.1-10.9 4.04-5.48 12.0-18.0 37.0-51.0 80-97 140-440 0- 1 Yr 5.0-20.0 3.9-5.9 15-18 MV: 44 MV: 91 MV: 277 2-9 Yr. 6.0-17.0 3.8-5.4 11-13 MV: 37 MV: 78 MV: 300 10 Yrs. 5.0-13.0 3.8-5.4 12-15 MV: 39 MV: 80 MV: 250 NOTE: * FOR ADULT BLACK MALES AND FEMALES, NORMAL WBC IS 2.9-7.7 K/ML * FOR ADULT BLACK MALES AND FEMALES, NORMAL RBC,HGB, AND HCT IS 5% LESS SOURCE FOR DATA: JORDY DYN 1800 OPERATION MANUAL( AUTOMATED BLOOD COUNTS AND DIFF.) APPENDIX B-3 Anion Gap 15 mmol/L [facility] ([facility] CHRONIC KIDNEY DISEASE STAGING PER NKF: MALE [...] mL/min Normal 80 and above >32 mL/min NormalNORMAL RANGES Age WBC RBC HGB HCT MCV PLT Adult M 4.1-10.9 4.20-6.30 12.0-18.0 37.0-51.0 80-97 140-440 Adult F 4.1-10.9 4.04-5.48 12.0-18.0 37.0-51.0 80- 140-440 0- 1 Yr 5.0-20.0 3.9-5.9 15-18 MV: 44 MV: 91 MV: 277 2-9 Yr. 6.0-17.0 3.8-5.4 11-13 MV: 37 MV: 78 MV: 300 10 Yrs. 5.0-13.0 3.8-5.4 12-15 MV: 39 MV: 80 MV: 250 NOTE: * FOR ADULT BLACK MALES AND FEMALES, NORMAL WBC IS 2.9-7.7 K/ML * FOR ADULT BLACK MALES AND FEMALES, NORMAL RBC,HGB, AND HCT IS 5% LESS SOURCE FOR DATA: [employer] 1800 OPERATION MANUAL( AUTOMATED BLOOD COUNTS AND DIFF.) APPENDIX B-3 Tbili 0.51 mg/dL 0.0-1.2 [facility] [place] ([facility] CHRONIC KIDNEY DISEASE STAGING PER NKF: MALE [...] mL/min Normal 80 and above >32 mL/min NormalNORMAL RANGES Age WBC RBC HGB HCT MCV PLT Adult M 4.1-10.9 4.20-6.30 12.0-18.0 37.0-51.0 80-97 140-440 Adult F 4.1-10.9 4.04-5.48 12.0-18.0 37.0-51.0 80-97 140-440 0- 1 Yr 5.0-20.0 3.9-5.9 15-18 MV: 44 MV: 91 MV: 277 2-9 Yr. 6.0-17.0 3.8-5.4 11-13 MV: 37 MV: 78 MV: 300 10 Yrs. 5.0-13.0 3.8-5.4 12-15 MV: 39 MV: 80 MV: 250 NOTE: * FOR ADULT BLACK MALES AND FEMALES, NORMAL WBC IS 2.9-7.7 K/ML * FOR ADULT BLACK MALES AND FEMALES, NORMAL RBC,HGB, AND HCT IS 5% LESS SOURCE FOR DATA: [employer] 1800 OPERATION MANUAL( AUTOMATED BLOOD COUNTS AND DIFF.) APPENDIX B-3 Osmolality-Calculated 277.5 [facility] ([facility] CHRONIC KIDNEY DISEASE STAGING PER NKF: MALE [...] mL/min Normal 80 and above >32 mL/min NormalNORMAL RANGES Age WBC RBC HGB HCT MCV PLT Adult M 4.1-10.9 4.20-6.30 12.0-18.0 37.0-51.0 80-97 140-440 Adult F 4.1-10.9 4.04-5.48 12.0-18.0 37.0-51.0 80-97 140-440 0- 1 Yr 5.0-20.0 3.9-5.9 15-18 MV: 44 MV: 91 MV: 277 2-9 Yr. 6.0-17.0 3.8-5.4 11-13 MV: 37 MV: 78 MV: 300 10 Yrs. 5.0-13.0 3.8-5.4 12-15 MV: 39 MV: 80 MV: 250 NOTE: * FOR ADULT BLACK MALES AND FEMALES, NORMAL WBC IS 2.9-7.7 K/ML * FOR ADULT BLACK MALES AND FEMALES, NORMAL RBC,HGB, AND HCT IS 5% LESS SOURCE FOR DATA: [employer]ius 1800 OPERATION MANUAL( AUTOMATED BLOOD COUNTS AND DIFF.) APPENDIX B-3 eGFR Non-Afr. [place] 83 # MEDENT ([facility] CHRONIC KIDNEY DISEASE STAGING PER NKF: MALE [...] mL/min Normal 80 and above >32 mL/min NormalNORMAL RANGES Age WBC RBC HGB HCT MCV PLT Adult M 4.1-10.9 4.20-6.30 12.0-18.0 37.0-51.0 80-97 140-440 Adult F 4.1-10.9 4.04-5.48 12.0-18.0 37.0-51.0 80-97 140-440 0- 1 Yr 5.0-20.0 3.9-5.9 15-18 MV: 44 MV: 91 MV: 277 2-9 Yr. 6.0-17.0 3.8-5.4 11-13 MV: 37 MV: 78 MV: 300 10 Yrs. 5.0-13.0 3.8-5.4 12-15 MV: 39 MV: 80 MV: 250 NOTE: * FOR ADULT BLACK MALES AND FEMALES, NORMAL WBC IS 2.9-7.7 K/ML * FOR ADULT BLACK MALES AND FEMALES, NORMAL RBC,HGB, AND HCT IS 5% LESS SOURCE FOR DATA: Voradius 1800 OPERATION MANUAL( AUTOMATED BLOOD COUNTS AND DIFF.) APPENDIX B-3 eGFR 96 # MEDENT ( [facility] CHRONIC KIDNEY DISEASE STAGING PER NKF: MALE [...] mL/min Normal 80 and above >32 mL/min NormalNORMAL RANGES Age WBC RBC HGB HCT MCV PLT Adult M 4.1-10.9 4.20-6.30 12.0-18.0 37.0-51.0 80-97 140-440 Adult F 4.1-10.9 4.04-5.48 12.0-18.0 37.0-51.0 80-97 140-440 0- 1 Yr 5.0-20.0 3.9-5.9 15-18 MV: 44 MV: 91 MV: 277 2-9 Yr. 6.0-17.0 3.8-5.4 11-13 MV: 37 MV: 78 MV: 300 10 Yrs. 5.0-13.0 3.8-5.4 12-15 MV: 39 MV: 80 MV: 250 NOTE: * FOR ADULT BLACK MALES AND FEMALES, NORMAL WBC IS 2.9-7.7 K/ML * FOR ADULT BLACK MALES AND FEMALES, NORMAL RBC,HGB, AND HCT IS 5% LESS SOURCE FOR DATA: JORDY [employer] 1800 OPERATION MANUAL( AUTOMATED BLOOD COUNTS AND DIFF.) APPENDIX B-3 Procedure Vital Signs ID Date Data Source UNK Name Value Range Interpretation Code Description Data Source(s) Oxygen saturation in Arterial blood by Pulse oximetry 96 % 96 % JEREMY ([facility] Body mass index (BMI) [Ratio] 27.3 kg/m2 27.3 k g/m2 JEREMY ([facility] [place] body weight 100 [lb_av] 100 [lb_av] CORRIE Sultana ([facility] Body weight 140.00 [lb_av] 140.00 [lb_av] CORRIE Sultana ([facility] Body height 60 [in_i] 60 [in_i] MEDENT ([facility] 5'0" Respiratory rate 14 /min 14 /min MEDENT ( [facility] Heart rate 80 /min 80 /min MEDENT ([facility] Body temperature 98.8 [degF] 98.8 [degF] MEDENT ([facility] Diastolic blood pressure 74 mm[Hg] 74 mm[Hg] MEDENT ([facility] Systolic blood pressure 112 mm[Hg] 112 mm[Hg] M EDENT ([facility] Systolic blood pressure 136 mm[Hg] 136 mm[Hg] A THENA ([facility]) Body height 63 [in_i] 63 [in_i] DARIEN ([facility]) Diastolic blood pressure 81 mm[Hg] 81 mm[Hg] DARIEN ([facility]) Systolic blood pressure 136 mm[Hg] 136 mm[Hg] A THENA ([facility]) Body height 63 [in_i] 63 [in_i] DARIEN ([facility]) Diastolic blood pressure 81 mm[Hg] 81 mm[Hg] DARIEN ([facility]) Systolic blood pressure 136 mm[Hg] 136 mm[Hg] A THENA ([facility]) Body height 63 [in_i] 63 [in_i] DARIEN ([facility]) Diastolic blood pressure 81 mm[Hg] 81 mm[Hg] DARIEN ([facility]) Systolic blood pressure 136 mm[Hg] 136 mm[Hg] A THENA ([facility]) Body height 63 [in_i] 63 [in_i] DARIEN ([facility]) Diastolic blood pressure 81 mm[Hg] 81 mm[Hg] DARIEN ([facility]) Systolic blood pressure 136 mm[Hg] 136 mm[Hg] A THENA ([facility]) Body height 63 [in_i] 63 [in_i] DARIEN ([facility]) Diastolic blood pressure 81 mm[Hg] 81 mm[Hg] DARIEN ([facility]) Body height 63 [in_i] 63 [in_i] DARIEN ([facility]) Body height 63 [in_i] 63 [in_i] DARIEN ([facility]) Body height 63 [in_i] 63 [in_i] DARIEN ([facility]) Body height 63 [in_i] 63 [in_i] DARIEN ([facility]) Body height 63 [in_i] 63 [in_i] DARIEN ([facility]) Body height 63 [in_i] 63 [in_i] DARIEN ([facility]) Oxygen saturation in Arterial blood by Pulse oximetry 97 % 97 % MEDENT ([facility] Body mass index (BMI) [Ratio] 27.1 kg/m2 27.1 k g/m2 MEDENT ([facility] [place] body weight 100 [lb_av] 100 [lb_av] MEDEN T ([facility] Body weight 139.00 [lb_av] 139.00 [lb_av] MEDEN T ([facility] Body height 60 [in_i] 60 [in_i] MEDENT ([facility] 5'0" Respiratory rate 14 /min 14 /min MEDENT ( [facility] Heart rate 80 /min 80 /min MEDENT ([facility] Body temperature 98.3 [degF] 98.3 [degF] MEDENT ([facility] Diastolic blood pressure 84 mm[Hg] 84 mm[Hg] MEDENT ([facility] Systolic blood pressure 126 mm[Hg] 126 mm[Hg] M EDENT ([facility] Body height 63 [in_i] 63 [in_i] DARIEN ([facility]) Body height 63 [in_i] 63 [in_i] DARIEN ([facility]) Body height 63 [in_i] 63 [in_i] DARIEN ([facility]) Body height 63 [in_i] 63 [in_i] DARIEN ([facility]) Body height 63 [in_i] 63 [in_i] DARIEN ([facility]) Body height 63 [in_i] 63 [in_i] DARIEN ([facility]) Body height 63 [in_i] 63 [in_i] DARIEN ([facility]) Body height 63 [in_i] 63 [in_i] DARIEN ([facility]) Body height 63 [in_i] 63 [in_i] DARIEN ([facility]) Body height 63 [in_i] 63 [in_i] DARIEN ([facility]) Body height 63 [in_i] 63 [in_i] DARIEN ([facility]) Body height 63 [in_i] 63 [in_i] DARIEN ([facility]) Body height 63 [in_i] 63 [in_i] DARIEN ([facility]) Heart rate 72 /min 72 /min MEDENT ([facility] Diastolic blood pressure 64 mm[Hg] 64 mm[Hg] MEDENT ([facility] Systolic blood pressure 104 mm[Hg] 104 mm[Hg] Sherry POND ([facility] Body weight 148.00 [lb_av] 148.00 [lb_av] MEDEN T ([facility] Respiratory rate 12 /min 12 /min MEDENT ( [facility] Oxygen saturation in Arterial blood by Pulse oximetry 95 % 95 % MEDENT ([facility] Body height 60 [in_i] 60 [in_i] MEDENT ([facility] 5'0" Respiratory rate 14 /min 14 /min MEDENT ( [facility] Heart rate 90 /min 90 /min MEDENT ([facility] Body temperature 98.0 [degF] 98.0 [degF] MEDENT ([facility] Diastolic blood pressure 56 mm[Hg] 56 mm[Hg] MEDENT ([facility] Systolic blood pressure 100 mm[Hg] 100 mm[Hg] M DEJAH ([facility] Patient Treatment Plan of Care Planned Activity Planned Date Details Description Data Source (s) Triple Antibio. Oint 04/02/2019 12:00:00 AM EST NETSMART ([facility]) Ferrous Sulfate 325 (65 Fe) MG 04/02/2019 12:00:00 AM EST NETSMART ([facility]) Advil 200 MG 03/30/2019 12:00:00 AM EST N ETSMART ([facility]) magnesium 03/30/2019 12:00:00 AM EST N [facility] ([facility]) Vitamin D3 25 MCG 03/30/2019 12:00:00 AM EST [facility]SMART ([facility]) Tylenol Extra Strength 500 MG 03/30/2019 12:00:00 AM EST [facility]SMART ([facility]) Restasis 0.05 % 03/30/2019 12:00:00 AM EST [facility]SMART ([facility]) Aspirin 81 MG 03/30/2019 12:00:00 AM EST [facility]SMART ([facility]) Pravastatin Sodium 10 MG 03/30/2019 12:00:00 AM EST [facility]SMART ([facility]) Cyclosporine 0.5 MG/ML Ophthalmic Suspension [Restasis] DARIEN ([facility]) Acetaminophen 325 MG / Hydrocodone Bitartrate 5 MG Oral Tablet DARIEN ([facility]) gabapentin 100 MG Oral Capsule DARIEN ([facility]) Fluzone High-Dose Quad (PF) 240 mcg/0.7 mL IM syringe INJECT 0.7ML INTRAMUSCULARLY DARIEN ([facility]) Fluzone High-Dose (PF) 180 mcg/0 .5 mL intramuscular syringe INJECT DIRECTED DARIEN ([facility]) ferrous sulfate 325 MG Oral Tablet DARIEN ([facility]) Cyclosporine 0.5 MG/ML Ophthalmic Suspension [Restasis] DARIEN ([facility]) Acetaminophen 325 MG / Hydrocodone Bitartrate 5 MG Oral Tablet DARIEN ([facility]) gabapentin 100 MG Oral Capsule DARIEN ([facility]) Fluzone High-Dose Quad (PF) 240 mcg/0.7 mL IM syringe INJECT 0.7ML INTRAMUSCULARLY DARIEN ([facility]) Fluzone High-Dose (PF) 180 mcg/0 .5 mL intramuscular syringe INJECT DIRECTED DARIEN ([facility]) ferrous sulfate 325 MG Oral Tablet DARIEN ([facility]) Cyclosporine 0.5 MG/ML Ophthalmic Suspension [Restasis] DARIEN ([facility]) Acetaminophen 325 MG / Hydrocodone Bitartrate 5 MG Oral Tablet DARIEN ([facility]) gabapentin 100 MG Oral Capsule DARIEN ([facility]) Fluzone High-Dose Quad 2019- (PF) 240 mcg/0.7 mL IM syringe INJECT 0.7ML INTRAMUSCULARLY DARIEN ([facility]) Fluzone High-Dose (PF) 180 mcg/0 .5 mL intramuscular syringe INJECT DIRECTED DARIEN ([facility]) ferrous sulfate 325 MG Oral Tablet DARIEN ([facility]) Cyclosporine 0.5 MG/ML Ophthalmic Suspension [Restasis] DARIEN ([facility]) Acetaminophen 325 MG / Hydrocodone Bitartrate 5 MG Oral Tablet DARIEN ([facility]) gabapentin 100 MG Oral Capsule DARIEN ([facility]) Fluzone High-Dose Quad (PF) 240 mcg/0.7 mL IM syringe INJECT 0.7ML INTRAMUSCULARLY DARIEN ([facility]) Fluzone High-Dose (PF) 180 mcg/0 .5 mL intramuscular syringe INJECT DIRECTED DARIEN ([facility]) ferrous sulfate 325 MG Oral Tablet DARIEN ([facility]) Cyclosporine 0.5 MG/ML Ophthalmic Suspension [Restasis] DARIEN ([facility]) Acetaminophen 325 MG / Hydrocodone Bitartrate 5 MG Oral Tablet DARIEN ([facility]) gabapentin 100 MG Oral Capsule DARIEN ([facility]) Fluzone High-Dose Quad (PF) 240 mcg/0.7 mL IM syringe INJECT 0.7ML INTRAMUSCULARLY DARIEN ([facility]) Fluzone High-Dose (PF) 180 mcg/0 .5 mL intramuscular syringe INJECT DIRECTED DARIEN ([facility]) ferrous sulfate 325 MG Oral Tablet DARIEN ([facility]) Cyclosporine 0.5 MG/ML Ophthalmic Suspension [Restasis] DARIEN ([facility]) Acetaminophen 325 MG / Hydrocodone Bitartrate 5 MG Oral Tablet DARIEN ([facility]) Cyclosporine 0.5 MG/ML Ophthalmic Suspension [Restasis] DARIEN ([facility]) Acetaminophen 325 MG / Hydrocodone Bitartrate 5 MG Oral Tablet DARIEN ([facility]) Cyclosporine 0.5 MG/ML Ophthalmic Suspension [Restasis] DARIEN ([facility]) Acetaminophen 325 MG / Hydrocodone Bitartrate 5 MG Oral Tablet DARIEN ([facility]) Cyclosporine 0.5 MG/ML Ophthalmic Suspension [Restasis] DARIEN ([facility]) Acetaminophen 325 MG / Hydrocodone Bitartrate 5 MG Oral Tablet DARIEN ([facility]) Cyclosporine 0.5 MG/ML Ophthalmic Suspension [Restasis] DARIEN ([facility]) Acetaminophen 325 MG / Hydrocodone Bitartrate 5 MG Oral Tablet DARIEN ([facility]) Cyclosporine 0.5 MG/ML Ophthalmic Suspension [Restasis] DARIEN ([facility]) Acetaminophen 325 MG / Hydrocodone Bitartrate 5 MG Oral Tablet DARIEN ([facility]) Cyclosporine 0.5 MG/ML Ophthalmic Suspension [Restasis] DARIEN ([facility]) Acetaminophen 325 MG / Hydrocodone Bitartrate 5 MG Oral Tablet DARIEN ([facility]) Cyclosporine 0.5 MG/ML Ophthalmic Suspension [Restasis] DARIEN ([facility]) Acetaminophen 325 MG / Hydrocodone Bitartrate 5 MG Oral Tablet DARIEN ([facility])
[2020-05-14] MEDS ORDERED: DULC10SU2 PR (11:15)
[2020-05-14] MEDS ORDERED: ACET-861 PO (11:15)
[2020-05-14 12:48] LABS: BASO % 0.8 % (0.0-1.0); EOS # 0.1 10^3/uL (0.0-0.5); EOS % 2.1 % (0.0-3.0); HEMATOCRIT 42.1 % (36.0-47.0); HEMOGLOBIN 12.9 g/dl (12.0-15.5); LYMPH # 0.8 10^3/uL (1.5-5.0); LYMPH % 15.7 % (24.0-44.0); MEAN CORPUSCULAR HGB CONC 30.6 g/dl (32.0-36.5); MEAN CORPUSCULAR VOLUME 104.5 fl (80.0-96.0); MONO # 0.6 10^3/uL (0.0-0.8); MONO % 12.1 % (2.0-8.0); NEUTROPHILS # 3.3 10^3/uL (1.5-8.5); NEUTROPHILS % 68.7 % (36.0-66.0); PLATELET COUNT, AUTOMATED 201 10^3/uL (150-450); RED BLOOD COUNT 4.03 10^6/uL (4.00-5.40); WHITE BLOOD COUNT 4.8 10^3/uL (4.0-10.0)
--- NOTE | 2020-05-14 12:50 | REP ---
INDICATION: abd pain r/o SBO. COMPARISON: 11/21/2007 abdominal series, CT 01/03/2015. TECHNIQUE: Upright PA chest and two-view abdomen FINDINGS: PA chest: The lung chery are well inflated. No pleural effusion or acute infiltrate. The heart, mediastinal and hilar contours were normal the aorta is calcified at the arch mildly tortuous but without aneurysm. Airway intact. No widening of the mediastinum. Bony thorax shows marginal osteophytes and there are degenerative changes in both shoulders right greater than left. All of this stable. Flat upright abdomen: Multiple surgical clips and numerous anchors from abdominopelvic wall hernia surgery. There is stool and gas are scattered in the colon moderate amounts. Small bowel loops shows few air-fluid levels in nondilated bowel on the upright view I do not see perforation or free air. There is anastomotic suture line in the central pelvis. Multiple pelvic phleboliths are seen. I do not see any definite renal, ureteral or bladder stone disease. Degenerative changes in the spine and hips noted. IMPRESSION: A few air-fluid levels in nondilated small bowel loops may reflect some gastroenteritis or ileus. Moderate stool throughout the colon evident. Some degree of constipation suspected. No perforation or free air. Numerous surgical clips in the abdomen and pelvis and anastomotic suture ring in the pelvis. Numerous surgical anchors from abdominopelvic wall hernia repair. No acute cardiopulmonary change. <Electronically signed by Phillip Prieto > 05/14/20 [id number]
[2020-05-14] MEDS ORDERED: KETOROLAC 30 MG/ML 1ML VIAL IV ONE (13:00)
[2020-05-14] MEDS: READI-CAT 2 PO SCH ×2 (13:34→15:05)
[2020-05-14] MEDS: BOOSTRIX/ADACEL VACCINE (DIPHTH/PERTUSS/ACELL/TETANUS) 0.5ML SYR IM ONE ×2 (13:34→13:48)
--- OUTSIDE RECORDS SUMMARY | 2020-05-14 14:18 | CCD ---
Author Author [facility] Organization [facility] Address Unknown Phone Unavailable Care Team Providers Care Hl7 Interface Developer Name Role Phone Jumalon, M Vonda [employer] PIPE MANUFACTURING SUPERVISOR Unavailable Unavailable Jumalon, M Vonda [employer] PIPE MANUFACTURING SUPERVISOR Unavailable Unavailable Jumalon, M Vonda [employer] PIPE MANUFACTURING SUPERVISOR Unavailable Unavailable Jumalon, M Vonda [employer] PIPE MANUFACTURING SUPERVISOR Unavailable Unavailable Jumalon, M Vonda [employer]B PIPE MANUFACTURING SUPERVISOR Unavailable Unavailable Jumalon, M Vonda [employer]B PIPE MANUFACTURING SUPERVISOR Unavailable Unavailable Jumalon, M Vonda [employer] PIPE MANUFACTURING SUPERVISOR Unavailable Unavailable Jumalon, M Vonda [employer]B PIPE MANUFACTURING SUPERVISOR Unavailable Unavailable Jumalon, M Vonda CORNCOB PIPE MANUFACTURING SUPERVISOR Unavailable Unavailable Jumalon, M Vonda [employer] PIPE MANUFACTURING SUPERVISOR Unavailable Unavailable Jumalon, M Vonda CORNCOB PIPE MANUFACTURING SUPERVISOR Unavailable Unavailable Jumalon, M Vonda CORNCOB PIPE MANUFACTURING SUPERVISOR Unavailable Unavailable Jumalon, M Vonda CORNCOB PIPE MANUFACTURING SUPERVISOR Unavailable Unavailable Jumalon, M Vonda CORN[employer]B PIPE MANUFACTURING SUPERVISOR Unavailable Unavailable Jumalon, M Vonda CORNCOB PIPE MANUFACTURING SUPERVISOR Unavailable Unavailable Jumalon, M Vonda CORN[employer]B PIPE MANUFACTURING SUPERVISOR Unavailable Unavailable Jumalon, M Vonda CORNCOB PIPE MANUFACTURING SUPERVISOR Unavailable Unavailable Jumalon, M Vonda CORNCOB PIPE MANUFACTURING SUPERVISOR Unavailable Unavailable Jumalon, M Vonda CORNCOB PIPE MANUFACTURING SUPERVISOR Unavailable Unavailable Jumalon, M Vonda CORNCOB PIPE MANUFACTURING SUPERVISOR Unavailable Unavailable Jumalon, M Vonda CORNCOB PIPE MANUFACTURING SUPERVISOR Unavailable Unavailable Jumalon, M Vonda CORNCOB PIPE MANUFACTURING SUPERVISOR Unavailable Unavailable Jumalon, M Vonda CORNCOB PIPE MANUFACTURING SUPERVISOR Unavailable Unavailable Jumalon, M Vonda CORNCOB PIPE MANUFACTURING SUPERVISOR Unavailable Unavailable Jumalon, M Vonda CORNCOB PIPE MANUFACTURING SUPERVISOR Unavailable Unavailable Jumalon, M Vonda CORNCOB PIPE MANUFACTURING SUPERVISOR Unavailable Unavailable Jumalon, M Vonda CORNCOB PIPE MANUFACTURING SUPERVISOR Unavailable Unavailable Jumalon, M Vonda CORNCOB PIPE MANUFACTURING SUPERVISOR Unavailable Unavailable Sekou ALVES MD Unavailable Unavailable [...] ALVES MD Unavailable Unavailable Jumalon, M Vonda CORN[employer]B PIPE MANUFACTURING SUPERVISOR Unavailable Unavailable Jumalon, M Vonda CORNCOB PIPE MANUFACTURING SUPERVISOR Unavailable Unavailable Jumalon, M Vonda CORNCOB PIPE MANUFACTURING SUPERVISOR Unavailable Unavailable Jumalon, M Vonda CORNCOB PIPE MANUFACTURING SUPERVISOR Unavailable Unavailable Jumalon, M Vonda CORNCOB PIPE MANUFACTURING SUPERVISOR Unavailable Unavailable Jumalon, M Vonda CORNCOB PIPE MANUFACTURING SUPERVISOR Unavailable Unavailable Jumalon, M Vonda CORNCOB PIPE MANUFACTURING SUPERVISOR Unavailable Unavailable Jumalon, M Vonda CORNCOB PIPE MANUFACTURING SUPERVISOR Unavailable Unavailable Jumalon, M Vonda CORNCOB PIPE MANUFACTURING SUPERVISOR Unavailable Unavailable Jumalon, M Vonda CORNCOB PIPE MANUFACTURING SUPERVISOR Unavailable Unavailable Jumalon, M Vonda CORNCOB PIPE MANUFACTURING SUPERVISOR Unavailable Unavailable Jumalon, M Vonda CORNCOB PIPE MANUFACTURING SUPERVISOR Unavailable Unavailable Jumalon, M Vonda CORNCOB PIPE MANUFACTURING SUPERVISOR Unavailable Unavailable Jumalon, M Vonda CORNCOB PIPE MANUFACTURING SUPERVISOR Unavailable Unavailable Jumalon, M Vonda CORNCOB PIPE MANUFACTURING SUPERVISOR Unavailable Unavailable Jumalon, M Vonda CORNCOB PIPE MANUFACTURING SUPERVISOR Unavailable Unavailable Jumalon, M Vonda CORNCOB PIPE MANUFACTURING SUPERVISOR Unavailable Unavailable Jumalon, M Vonda CORNCOB PIPE MANUFACTURING SUPERVISOR Unavailable Unavailable Jumalon, M Vonda CORNCOB PIPE MANUFACTURING SUPERVISOR Unavailable Unavailable Jumalon, M Vonda CORNCOB PIPE MANUFACTURING SUPERVISOR Unavailable Unavailable Jumalon, M Vonda CORNCOB PIPE MANUFACTURING SUPERVISOR Unavailable Unavailable Jumalon, M Vonda CORNCOB PIPE MANUFACTURING SUPERVISOR Unavailable Unavailable Jumalon, M Vonda CORNCOB PIPE MANUFACTURING SUPERVISOR Unavailable Unavailable Jumalon, M Vonda CORNCOB PIPE MANUFACTURING SUPERVISOR Unavailable Unavailable Jumalon, M Vonda CORNCOB PIPE MANUFACTURING SUPERVISOR Unavailable Unavailable Jumalon, M Vonda CORNCOB PIPE MANUFACTURING SUPERVISOR Unavailable Unavailable Jumalon, M Vonda CORNCOB PIPE MANUFACTURING SUPERVISOR Unavailable Unavailable Eric Lu MD Unavailable Unavailable [...] Eric Lu MD Unavailable Unavailable Bolla, S Ranjitrhiannon CORTES Unavailable Unavailable Bolla, S Ranjit MD [...] is protected by Article 27-F of the [facility] Public Health law. If you continue you may have access to information: Regarding HIV / AIDS; Provided by facilities licensed or operated by the [facility] Office of Mental Health; or Provided by the [facility] Office for People With Developmental Disabilities. If such information is present, then the following [facility] mandated warning applies: This information has been [...] law may result in a fine or senior living sentence or both. A general authorization for the release of medical or other information is NOT sufficient authorization for further disc losure. Allergies and Adverse Reactions Type Description Substance Reaction Status Data Source(s ) Latex Latex Latex active NETSMART ([facility]) Scallops Scallops Scallops active NETSMART ([facility]) Family History Family Member Name Family Member Gender Family Member Status Date o f Status Description Data Source(s) Unknown Male Problem MEDENT ([facility]) Unknown Unknown Problem [facility] Unknown Unknown Problem MEDENT ([facility]) Encounters Encounter Providers Location Date Indications Data Source(s ) Ranjit Lu MD: [id number] [address], [place] [address], Ph. Attender: Ranjit Lu MD [place] - [facility] Office 04/20/2020 12:00:00 AM EST DARIEN ([facility]) Ranjit Lu MD: [address] [facility] [address], [place] [address], Ph. [phone] Attender: Ranjit Lu MD [facility] - Main Office 04/17/2020 12:00:00 AM EST DARIEN ([facility]) Ranjit Lu MD: [address], [address], [place] [address], Ph. [phone] Attender: Ranjit Lu MD [place] - [facility] 04/17/2020 12:00:00 AM EST DARIEN ([facility]) Outpatient Attender: LEONARDO ALVES MD [facility] 07:45:00 AM EST MEDENT ([facility] Ranjit Lu MD: [address], [place] [address], Ph. Attender: Ranjit Lu MD [place] - [facility] 04/06/2020 12:00:00 AM EST DARIEN ([facility]) Ranjit Lu MD: [address], [place] [address], Ph. Attender: Ranjit Lu MD [place] - [facility] 04/06/2020 12:00:00 AM EST DARIEN ([facility]) Ranjit Lu MD: [address], [place] [address], Ph. Attender: Ranjit Lu MD [place] - [facility] 04/06/2020 12:00:00 AM EST DARIEN ([facility]) Ranjit Lu MD: [address], [place] [address], Ph. [phone] Attender: Ranjit Lu MD [place] - [facility] 04/03/2020 12:00:00 AM EST DARIEN ([facility]) Ranjit Lu MD: [address], [place] [address], Ph. [phone] Attender: Ranjit Lu MD [place] - [facility] 04/03/2020 12:00:00 AM EST DARIEN ([facility]) Ranjit Lu MD: [address], [place] [address], Ph. [phone] Attender: Ranjit Lu MD [place] - [facility] 04/03/2020 12:00:00 AM EST DARIEN ([facility]) Ranjit Lu MD: [address], [address], [place] [address], Ph. [phone] Attender: Ranjit Lu MD [place] - [facility] 04/03/2020 12:00:00 AM EST DARIEN ([facility]) Vonda Pb Pearce, TRUCK DRIVER HELPER: [address], [place] [address], Ph. Attender: Vonda Pearce [facility] 03/21/2020 12:00:00 AM EST ATHE NA ([facility]) Vonda Pearce, TRUCK DRIVER HELPER: [address], [place] [address], Ph. Attender: Vonda Pearce [facility] 03/21/2020 12:00:00 AM EST ATHE NA ([facility]) Vonda Pearce, TRUCK DRIVER HELPER: [address], [place] [address], Ph. Attender: Vonda Pearce [facility] 03/21/2020 12:00:00 AM EST ATHE NA ([facility]) Vonda Pearce, TRUCK DRIVER HELPER: [address], [place] [address], Ph. Attender: Vonda Pearce CORNCOB PIPE MANUFACTURING SUPERVISOR [place] - [facility] 03/21/2020 12:00:00 AM EST ATHE NA ([facility]) Vonda Pearce, TRUCK DRIVER HELPER: [address], [place] [address], Ph. Attender: Vonda Pearce [facility] - [facility] 03/21/2020 12:00:00 AM EST ATHE NA ([facility]) Vonda Pearce, TRUCK DRIVER HELPER: [address], [place] [address], Ph. Attender: Vonda Pearce [facility] - [facility] 10/14/2019 12:00:00 AM EDT ATHE NA ([facility]) Vonda Pearce, TRUCK DRIVER HELPER: [address], [place] [address], Ph. Attender: Vonda Pearce [facility] - [facility] 10/14/2019 12:00:00 AM EDT ATHE NA ([facility]) Vonda Pearce, TRUCK DRIVER HELPER: [address], [place] [address], Ph. Attender: Vonda Pearce [facility] - [facility] 10/14/2019 12:00:00 AM EDT ATHE NA ([facility]) Vonda Pearce, TRUCK DRIVER HELPER: [address], [place] [address], Ph. Attender: Vonda Pearce [facility] - [facility] 10/14/2019 12:00:00 AM EDT ATHE NA ([facility]) Vonda Tommygiovanna Ramses, TRUCK DRIVER HELPER: [address], [address], [place] [address], Ph. Attender: Vonda Pearce [facility] - [facility] 10/14/2019 12:00:00 AM EDT ATHPenelope BELTRAN ([facility]) Vonda Pearce, TRUCK DRIVER HELPER: [address], [address], [place] [address], Ph. Attender: Vonda Pearce [facility] - [facility] Office 10/14/2019 12:00:00 AM EDT ATHPenelope BELTRAN ([facility]) Outpatient Attender: LEONARDO ALVES MD [facility] 09:15:00 AM EDT JEREMY ([facility] Ranjit Lu MD: [address], [place] [address], Ph. Attender: Ranjit Lu MD [place] - [facility] 09/30/2019 12:00:00 AM EDT DARIEN ([facility]) Ranjit Lu MD: [address], [address], [place] [address], Ph. Attender: Ranjit Lu MD [place] - [facility] 09/30/2019 12:00:00 AM EDT DARIEN ([facility]) Ranjit Lu MD: [address], [address], [place] [address], Ph. Attender: Ranjit Lu MD [place] - [facility] 09/30/2019 12:00:00 AM EDT DARIEN ([facility]) Ranjit Lu MD: [address], [address], [place] [address], Ph. Attender: Ranjit Lu MD [place] - [facility] 09/30/2019 12:00:00 AM EDT DARIEN ([facility]) Ranjit Lu MD: [address], [address], [place] [address], Ph. Attender: Ranjit IZQIUERDO - [facility] 09/30/2019 12:00:00 AM EDT DARIEN ([facility]) Ranjit Lu MD: [address], [address], [place] [address], Ph. Attender: Ranjit IZQUIERDO - [facility] 09/30/2019 12:00:00 AM EDT DARIEN ([facility]) Ranjit Lu MD: [address], [address], [place] [address], Ph. Attender: Ranjit IZQUIERDO - [facility] 09/30/2019 12:00:00 AM EDT DARIEN ([facility]) Ranjit Lu MD: [address], [address], [place] [address], Ph. [phone] Attender: Ranjit IZQUIERDO - [facility] 09/28/2019 12:00:00 AM EDT DARIEN ([facility]) Ranjit Lu MD: [address], [address], [place] [address], Ph. [phone] Attender: Ranjit IZQUIERDO - [facility] 09/28/2019 12:00:00 AM EDT DARIEN ([facility]) Ranjit Lu MD: [address], [address], [place] [address], Ph. [phone] Attender: Ranjit IZQUIERDO - [facility] 09/28/2019 12:00:00 AM EDT DARIEN ([facility]) Ranjit Lu MD: [address], [address], [place] [address], Ph. [phone] Attender: Ranjit Lu MD [place] - [facility] 09/28/2019 12:00:00 AM EDT DARIEN ([facility]) Ranjit Lu MD: [address], [address], [place] [address], Ph. [phone] Attender: Ranjit Lu MD [place] - [facility] 09/28/2019 12:00:00 AM EDT DARIEN ([facility]) Ranjit Lu MD: [address], [address], [place] [address], Ph. [phone] Attender: Ranjit Lu MD [place] - [facility] 09/28/2019 12:00:00 AM EDT DARIEN ([facility]) Ranjit Lu MD: [address], [address], [place] [address], Ph. [phone] Attender: Ranjit Lu MD [place] - [facility] 09/28/2019 12:00:00 AM EDT DARIEN ([facility]) Ranjit Lu MD: [address], [address], [place] [address], Ph. [phone] Attender: Ranjit IZQUIERDO - [facility] 09/28/2019 12:00:00 AM EDT DARIEN ([facility]) Ranjit Lu MD: [address], [address], [place] [address], Ph. Attender: Ranjit IZQUIERDO - [facility] 09/15/2019 12:00:00 AM EDT DARIEN ([facility]) Ranjit Lu MD: [address], [address], [place] [address], Ph. Attender: Ranjit Lu MD [place] - [facility] 09/15/2019 12:00:00 AM EDT DARIEN ([facility]) Ranjit Lu MD: [address], [address], [place] [address], Ph. Attender: Ranjit Lu MD [place] - [facility] 09/15/2019 12:00:00 AM EDT DARIEN ([facility]) Ranjit Lu MD: [address], [address], [place] [address], Ph. Attender: Ranjit Lu MD [place] - [facility] 09/15/2019 12:00:00 AM EDT DARIEN ([facility]) Ranjit Lu MD: [address], [address], [place] [address], Ph. Attender: Ranjit Lu MD [place] - [facility] 09/15/2019 12:00:00 AM EDT DARIEN ([facility]) Ranjit Lu MD: [address], [address], [place] [address], Ph. Attender: Ranjit Lu MD [place] - [facility] 09/15/2019 12:00:00 AM EDT DARIEN ([facility]) Ranjit Lu MD: [address], [address], [place] [address], Ph. Attender: Ranjit IZQUIERDO - [facility] 09/15/2019 12:00:00 AM EDT DARIEN ([facility]) Ranjit Lu MD: [address]98 [address], [address], [place] [address], Ph. Attender: Ranjit Lu MD [place] - [facility] 09/15/2019 12:00:00 AM EDT DARIEN ([facility]) Ranjit Lu MD: [address], [address], [place] [address], Ph. Attender: Ranjit Lu MD [place] - [facility] 09/15/2019 12:00:00 AM EDT DARIEN ([facility]) Ranjit Lu MD: [address], [address], [place] [address], Ph. [phone] Attender: Ranjit Lu MD [place] - [facility] 09/13/2019 12:00:00 AM EDT DARIEN ([facility]) Ranjit Lu MD: [address], [address], [place] [address], Ph. [phone] Attender: Ranjit Lu MD [place] - [facility] 09/13/2019 12:00:00 AM EDT DARIEN ([facility]) Ranjit Lu MD: [address], [address], [place] [address], Ph. [phone] Attender: Ranjit IZQUIERDO - [facility] 09/13/2019 12:00:00 AM EDT DARIEN ([facility]) Ranjit Lu MD: [address], [address], [place] [address], Ph. [phone] Attender: Ranjit Lu MD [place] - [facility] 09/13/2019 12:00:00 AM EDT DARIEN ([facility]) Ranjit Lu MD: [address], [address], [place] [address], Ph. [phone] Attender: Ranjit Lu MD [place] - [facility] 09/13/2019 12:00:00 AM EDT DARIEN ([facility]) Ranjit Lu MD: [address], [address], [place] [address], Ph. [phone] Attender: Ranjit Lu MD [place] - [facility] 09/13/2019 12:00:00 AM EDT DARIEN ([facility]) Ranjit Lu MD: [address], [address], [place] [address], Ph. [phone] Attender: Ranjit IZQUIERDO - [facility] 09/13/2019 12:00:00 AM EDT DARIEN ([facility]) Ranjit Lu MD: [address], [address], [place] [address], Ph. [phone] Attender: Ranjit Lu MD [place] - [facility] 09/13/2019 12:00:00 AM EDT DARIEN ([facility]) Ranjit Lu MD: [address], [address], [place] [address], Ph. [phone] Attender: Ranjit Lu MD [place] - [facility] 09/13/2019 12:00:00 AM EDT DARIEN ([facility]) Ranjit Lu MD: [address], [address], [place] [address], Ph. [phone] Attender: Ranjit Lu MD [place] - [facility] 09/13/2019 12:00:00 AM EDT DARIEN ([facility]) Ranjit Lu MD: [address]87 [address], [address], [place] [address], Ph. Attender: Ranjit Lu MD [place] - [facility] 09/02/2019 12:00:00 AM EDT DARIEN ([facility]) Ranjit Lu MD: [address], [address], [place] [address], Ph. Attender: Ranjit IZQUIERDO - [facility] 09/02/2019 12:00:00 AM EDT DARIEN ([facility]) Ranjit Lu MD: [address]54 [address], [address], [place] [address], Ph. Attender: Ranjit IZQUIERDO - [facility] 09/02/2019 12:00:00 AM EDT DARIEN ([facility]) Ranjit Lu MD: [address]18 [address], [address], [place] [address], Ph. Attender: Ranjit IZQUIERDO - [facility] 09/02/2019 12:00:00 AM EDT DARIEN ([facility]) Ranjit Lu MD: [address]28 [address], [address], [place] [address], Ph. Attender: Ranjit IZQUIERDO - [facility] 09/02/2019 12:00:00 AM EDT DARIEN ([facility]) Ranjit Lu MD: [address]34 [address], [address], [place] [address], Ph. Attender: Ranjit IZQUIERDO - [facility] 09/02/2019 12:00:00 AM EDT DARIEN ([facility]) Ranjit Lu MD: [address]014 [address], [address], [place] [address], Ph. Attender: Ranjit IZQUIERDO - [facility] 09/02/2019 12:00:00 AM EDT DARIEN ([facility]) Ranjit Lu MD: [address]756 [address], [address], [place] [address], Ph. Attender: Ranjit Lu MD [place] - [facility] 09/02/2019 12:00:00 AM EDT DARIEN ([facility]) Ranjit Lu MD: [address]6 [address], [address], [place] [address], Ph. Attender: Ranjit Lu MD [place] - [facility] 09/02/2019 12:00:00 AM EDT DARIEN ([facility]) Ranjit Lu MD: [address]35 [address], [address], [place] [address], Ph. Attender: Ranjit Lu MD [place] - [facility] 09/02/2019 12:00:00 AM EDT DARIEN ([facility]) Ranjit Lu MD: [address]16 [address], [address], [place] [address], Ph. Attender: Ranjit Lu MD [place] - [facility] 09/02/2019 12:00:00 AM EDT DARIEN ([facility]) Ranjit Lu MD: [address], [address], [place] [address], Ph. [phone] Attender: Ranjit Lu MD [place] - [facility] 08/30/2019 12:00:00 AM EDT DARIEN ([facility]) Ranjit Lu MD: [address]14 [address], [address], [place] [address], Ph. [phone] Attender: Ranjit Lu MD [place] - [facility] 08/30/2019 12:00:00 AM EDT DARIEN ([facility]) Ranjit Lu MD: [address], [address], [place] [address], Ph. [phone] Attender: Ranjit Lu MD [place] - [facility] 08/30/2019 12:00:00 AM EDT DARIEN ([facility]) Ranjit Lu MD: [address]53 [address], [address], [place] [address], Ph. [phone] Attender: Ranjit Lu MD [place] - [facility] - [facility] 08/30/2019 12:00:00 AM EDT DARIEN ([facility]) Ranjit Lu MD: [address]38 [address], [address], [place] [address], Ph. [phone] Attender: Ranjit Lu MD [place] - [facility] - [facility] 08/30/2019 12:00:00 AM EDT DARIEN ([facility]) Ranjit Lu MD: [address]32 [address], [address], [place] [address], Ph. [phone] Attender: Ranjit Lu MD [place] - [facility] [facility] 08/30/2019 12:00:00 AM EDT DARIEN ([facility]) Ranjit Lu MD: [address], [address], [place] [address], Ph. [phone] Attender: Ranjit IZQUIERDO - [facility] 08/30/2019 12:00:00 AM EDT DARIEN ([facility]) Ranjit Lu MD: [address], [address], [place] [address], Ph. [phone] Attender: Ranjit IZQUIERDO - [facility] 08/30/2019 12:00:00 AM EDT DARIEN ([facility]) Ranjit Lu MD: [address], [address], [place] [address], Ph. [phone] Attender: Ranjit Lu MD [place] - [facility] 08/30/2019 12:00:00 AM EDT DARIEN ([facility]) Ranjit Lu MD: [address], [address], [place] [address], Ph. [phone] Attender: Ranjit Lu MD [place] - [facility] 08/30/2019 12:00:00 AM EDT DARIEN ([facility]) Ranjit Lu MD: [address], [address], [place] [address], Ph. [phone] Attender: Ranjit uL MD [place] - [facility] 08/30/2019 12:00:00 AM EDT DARIEN ([facility]) Ranjit Lu MD: [address], [address], [place] [address], Ph. [phone] Attender: Ranjit Lu MD [place] - [facility] 08/30/2019 12:00:00 AM EDT DARIEN ([facility]) Vonda Pearce, TRUCK DRIVER HELPER: [address], [place] [address], Ph. Attender: Vonda Pearce [facility] - [facility] 07/21/2019 12:00:00 AM EDT DARIEN ([facility]) Vonda Pearce, TRUCK DRIVER HELPER: [address], [place] [address], Ph. Attender: Vonda Pearce [facility] - [facility] 07/21/2019 12:00:00 AM EDT DARIEN ([facility]) Vonda Pearce, TRUCK DRIVER HELPER: [address], [place] [address], Ph. Attender: Vonda Pearce [employer]ING SUPERVISOR [place] - [facility] 07/21/2019 12:00:00 AM EDT DARIEN ([facility]) Vonda Pearce, TRUCK DRIVER HELPER: [address], [place] [address], Ph. Attender: Vonda Pearce [employer]URING SUPERVISOR [place] - [facility] 07/21/2019 12:00:00 AM EDT DARIEN ([facility]) Vonda Pearce, TRUCK DRIVER HELPER: [address], [place] [address], Ph. Attender: Vonda Pearce [employer]URING SUPERVISOR [place] - [facility] 07/21/2019 12:00:00 AM EDT DARIEN ([facility]) Vonda Pearce, TRUCK DRIVER HELPER: [address], [place] [address], Ph. Attender: Vonda Pearce [employer]UFA[employer]URING SUPERVISOR [place] - [facility] 07/21/2019 12:00:00 AM EDT DARIEN ([facility]) Vonda Pearce, TRUCK DRIVER HELPER: [address], [place] [address], Ph. Attender: Vonda Pearce [employer]URING SUPERVISOR [place] - [facility] 07/21/2019 12:00:00 AM EDT DARIEN ([facility]) Vonda Pearce, TRUCK DRIVER HELPER: [address], [place] [address], Ph. Attender: Vonda Pearce [employer]UFA[employer]URING SUPERVISOR [place] - [facility] 07/21/2019 12:00:00 AM EDT DARIEN ([facility]) Vonda Pearce, TRUCK DRIVER HELPER: [address], [place] [address], Ph. Attender: Vonda Pearce [facility] [facility] 07/21/2019 12:00:00 AM EDT DARIEN ([facility]) Vonda Pearce, TRUCK DRIVER HELPER: [address], [place] [address], Ph. Attender: Vonda Pearce [facility] - [facility] 07/21/2019 12:00:00 AM EDT DARIEN ([facility]) Vonda Pearce, TRUCK DRIVER HELPER: [address], [place] [address], Ph. Attender: Vonda Pearce [employer] [facility] [facility] 07/21/2019 12:00:00 AM EDT DARIEN ([facility]) Vonda Pearce, TRUCK DRIVER HELPER: [address], [place] [address], Ph. Attender: Vonda Pearce [facility] - [facility] 07/21/2019 12:00:00 AM EDT DARIEN ([facility]) Vonda Pearce, TRUCK DRIVER HELPER: [address], [place] [address], Ph. Attender: Vonda Pearce [employer] [facility] 07/21/2019 12:00:00 AM EDT DARIEN ([facility]) Outpatient Attender: LEONARDO ALVES MD [place] [facility] 05/2019 01:00:00 PM EDT JEREMY ([facility] Outpatient Referrer: Vondamauricio HUGHESP 04/01/2019 03:04:0 0 PM EST [facility] Outpatient Attender: LEONARDO ALVES MD [place] [facility] 10/2019 12:15:00 PM EST MEDENT ([facility] Outpatient Referrer: Vonda Pearce [employer]UFA[employer]URING SUPERVISOR 03/30/2019 02:02:0 0 PM EST [facility] 03/30/2019 12:00:00 AM EST - 020 01:23:35 PM EST NETSMART ([facility]) Immunizations Vaccine Date Status Description Data Source(s) INFLUENZA VIRUS VACCINE QUADRIVAL SPLIT 2019-(65 YR UP)/PF 12/19/2019 12:00:00 AM EDT completed [...] 04/14/2020 12:00:00 AM EST ORAL completed MEDENT ([facility] Ferrous Sulfate 325 (65 Fe) MG Ferrous Sulfate 04/02/2019 12:00:00 AM EST 0 {mg} completed NETSMART ([facility]) Triple Antibio. Oint Triple Antibio. Oint 04/02/2019 12:00:00 AM ES T 1.0 {asd} completed NETSMART ([facility]) ferrous sulfate 325 MG Oral Tablet Ferrous Sulfate 04/01/2019 12:00 :00 AM EST ORAL active MEDENT ([facility] Aspirin 81 MG Aspirin 03/30/2019 12:00:00 AM EST c ompleted NETSMART ([facility]) Pravastatin Sodium 10 MG Pravastatin Sodium 03/30/2019 12:00:00 AM EST completed NETSMART ([facility]) magnesium magnesium 03/30/2019 12:00:00 AM EST 483.0 {mg} completed NETSMART ([facility] ) Vitamin D3 25 MCG Vitamin D3 03/30/2019 12:00:00 AM EST completed NETSMART ([facility] ) Tylenol Extra Strength 500 MG Tylenol Extra Strength 03/30/2019 12:00:00 AM EST completed NETSMA RT ([facility]) Restasis 0.05 % Restasis 03/30/2019 12:00:00 AM EST completed NETSMART ([facility]) Advil 200 MG Advil 03/30/2019 12:00:00 AM EST comp leted NETSMART ([facility]) Acetaminophen 325 MG / Hydrocodone Galina trate 5 MG Oral Tablet hydrocodone 5 mg- acetaminophen 325 mg tablet hydrocodone 5 mg-acetaminophen 325 mg tablet completed Acetaminophen 325 MG / Hydrocodone Bitartrate 5 MG Oral Tablet DARIEN ([facility]) Acetaminophen 325 MG / Hydrocodone Galina trate 5 MG Oral Tablet hydrocodone 5 mg- acetaminophen 325 mg tablet hydrocodone 5 mg-acetaminophen 325 mg tablet completed acetaminophen 325 MG / hydrocodone bitartrate 5 MG Oral Tablet DARIEN ([facility]) Fluzone High-Dose Quad (PF) 240 mcg/0.7 mL IM syringe INJECT 0.7ML INTRAMUSCULARLY [id number] completed 0.7 ML influenza A virus A/[facility]/[id number] (H1N1) antigen 0.0857 MG/ML / influenza A virus A/[place] (H3N2) antigen 0.0857 MG/ML / influenza B virus B/[facility] antigen 0.0857 MG/ML / influenza B virus B/ antigen 0.0857 MG/ML Prefilled Syringe [Fluzone Quadrivalent ] DARIEN ([facility]) Acetaminophen 325 MG / Hydrocodone Galina trate 5 MG Oral Tablet hydrocodone 5 mg- acetaminophen 325 mg tablet hydrocodone 5 mg-acetaminophen 325 mg tablet completed acetaminophen 325 MG / hydrocodone bitartrate 5 MG Oral Tablet DARIEN ([facility]) Cyclosporine 0.5 MG/ML Ophthalmic Suspen nicola [Restasis] Restasis 0.05 % eye drops in a dropperette Restasis 0.05 % eye drops in a dropperette completed cyclosporine 0.5 MG/ML Ophthalmi c Suspension [Restasis] DARIEN ([facility]) Cyclosporine 0.5 MG/ML Ophthalmic Suspen nicola [Restasis] Restasis 0.05 % eye drops in a dropperette Restasis 0.05 % eye drops in a dropperette completed cyclosporine 0.5 MG/ML Ophthalmi c Suspension [Restasis] DARIEN ([facility]) Acetaminophen 325 MG / Hydrocodone Galina trate 5 MG Oral Tablet hydrocodone 5 mg- acetaminophen 325 mg tablet hydrocodone 5 mg-acetaminophen 325 mg tablet completed acetaminophen 325 MG / hydrocodone bitartrate 5 MG Oral Tablet DARIEN ([facility]) Cyclosporine 0.5 MG/ML Ophthalmic Suspen nicola [Restasis] Restasis 0.05 % eye drops in a dropperette Restasis 0.05 % eye drops in a dropperette completed cyclosporine 0.5 MG/ML Ophthalmi c Suspension [Restasis] DARIEN ([facility]) Acetaminophen 325 MG / Hydrocodone Galina trate 5 MG Oral Tablet hydrocodone 5 mg- acetaminophen 325 mg tablet hydrocodone 5 mg-acetaminophen 325 mg tablet completed acetaminophen 325 MG / hydrocodone bitartrate 5 MG Oral Tablet DARIEN ([facility]) ferrous sulfate 325 MG Oral Tablet lynette us sulfate 325 mg (65 mg iron) tablet TK 1 T PO BID ferrous sulfate 325 mg (65 mg iron) tablet TK 1 T PO BID completed ferrous sulfate 325 MG Oral Tablet DARIEN ([facility]) Fluzone High-Dose Quad (PF) 240 mcg/0.7 mL IM syringe INJECT 0.7ML INTRAMUSCULARLY [id number] completed 0.7 ML influenza A virus A/[facility]/[id number] (H1N1) antigen 0.0857 MG/ML / influenza A virus A/[place] (H3N2) antigen 0.0857 MG/ML / influenza B virus B/[facility] antigen 0.0857 MG/ML / influenza B virus B/ antigen 0.0857 MG/ML Prefilled Syringe [Fluzone Quadrivalent ] DARIEN ([facility]) Cyclosporine 0.5 MG/ML Ophthalmic Suspen nicola [Restasis] Restasis 0.05 % eye drops in a dropperette Restasis 0.05 % eye drops in a dropperette completed cyclosporine 0.5 MG/ML Ophthalmi c Suspension [Restasis] DARIEN ([facility]) Cyclosporine 0.5 MG/ML Ophthalmic Suspen nicola [Restasis] Restasis 0.05 % eye drops in a dropperette Restasis 0.05 % eye drops in a dropperette completed cyclosporine 0.5 MG/ML Ophthalmi c Suspension [Restasis] DARIEN ([facility]) gabapentin 100 MG Oral Capsule gabapentin 100 mg capsu le gabapentin 100 mg capsule completed gabapentin 100 MG Oral Capsule DARIEN ([facility]) Acetaminophen 325 MG / Hydrocodone Galina trate 5 MG Oral Tablet hydrocodone 5 mg- acetaminophen 325 mg tablet hydrocodone 5 mg-acetaminophen 325 mg tablet completed acetaminophen 325 MG / hydrocodone bitartrate 5 MG Oral Tablet DARIEN ([facility]) ferrous sulfate 325 MG Oral Tablet lynette us sulfate 325 mg (65 mg iron) tablet TK 1 T PO BID ferrous sulfate 325 mg (65 mg iron) tablet TK 1 T PO BID completed ferrous sulfate 325 MG Oral Tablet DARIEN ([facility]) Fluzone High-Dose Quad (PF) 240 mcg/0.7 mL IM syringe INJECT 0.7ML INTRAMUSCULARLY [id number] completed 0.7 ML influenza A virus A/[facility]/[id number] (H1N1) antigen 0.0857 MG/ML / influenza A virus A/[place] (H3N2) antigen 0.0857 MG/ML / influenza B virus B/[facility] antigen 0.0857 MG/ML / influenza B virus B/ antigen 0.0857 MG/ML Prefilled Syringe [Fluzone Quadrivalent ] DARIEN ([facility]) Acetaminophen 325 MG / Hydrocodone Galina trate 5 MG Oral Tablet hydrocodone 5 mg- acetaminophen 325 mg tablet hydrocodone 5 mg-acetaminophen 325 mg tablet completed acetaminophen 325 MG / hydrocodone bitartrate 5 MG Oral Tablet DARIEN ([facility]) ferrous sulfate 325 MG Oral Tablet lynette us sulfate 325 mg (65 mg iron) tablet TK 1 T PO BID ferrous sulfate 325 mg (65 mg iron) tablet TK 1 T PO BID completed ferrous sulfate 325 MG Oral Tabl et DARIEN ([facility]) Acetaminophen 325 MG / Hydrocodone Galina trate 5 MG Oral Tablet hydrocodone 5 mg- acetaminophen 325 mg tablet hydrocodone 5 mg-acetaminophen 325 mg tablet completed acetaminophen 325 MG / hydrocodone bitartrate 5 MG Oral Tablet DARIEN ([facility]) Cyclosporine 0.5 MG/ML Ophthalmic Suspen nicola [Restasis] Restasis 0.05 % eye drops in a dropperette Restasis 0.05 % eye drops in a dropperette completed cyclosporine 0.5 MG/ML Ophthalmi c Suspension [Restasis] DARIEN ([facility]) gabapentin 100 MG Oral Capsule gabapentin 100 mg capsu le gabapentin 100 mg capsule completed gabapentin 100 MG Oral Capsule DARIEN ([facility]) gabapentin 100 MG Oral Capsule gabapentin 100 mg capsu le gabapentin 100 mg capsule completed gabapentin 100 MG Oral Capsule DARIEN ([facility]) gabapentin 100 MG Oral Capsule gabapentin 100 mg capsu le gabapentin 100 mg capsule completed gabapentin 100 MG Oral Capsule DARIEN ([facility]) Cyclosporine 0.5 MG/ML Ophthalmic Suspen nicola [Restasis] Restasis 0.05 % eye drops in a dropperette Restasis 0.05 % eye drops in a dropperette completed cyclosporine 0.5 MG/ML Ophthalmi c Suspension [Restasis] DARIEN ([facility]) Fluzone High-Dose (PF) 180 mcg/0 .5 mL intramuscular syringe INJECT DIRECTED [id number] completed 0.5 ML influenza A virus A/ (H1N1) antigen 0.12 MG/ML / influenza A virus A/[place] (H3N2) antigen 0.12 MG/ML / influenza B virus B/ antigen 0.12 MG/ML Prefilled Syringe [Fluzone 3812-1850] DARIEN ([facility]) Acetaminophen 325 MG / Hydrocodone Galina trate 5 MG Oral Tablet hydrocodone 5 mg- acetaminophen 325 mg tablet hydrocodone 5 mg-acetaminophen 325 mg tablet completed acetaminophen 325 MG / hydrocodone bitartrate 5 MG Oral Tablet DARIEN ([facility]) Fluzone High-Dose Quad (PF) 240 mcg/0.7 mL IM syringe INJECT 0.7ML INTRAMUSCULARLY [id number] completed 0.7 ML influenza A virus A/[facility]/[id number] (H1N1) antigen 0.0857 MG/ML / influenza A virus A/[place] (H3N2) antigen 0.0857 MG/ML / influenza B virus B/[facility] antigen 0.0857 MG/ML / influenza B virus B/[place] antigen 0.0857 MG/ML Prefilled Syringe [Fluzone Quadrivalent ] DARIEN ([facility]) Fluzone High-Dose (PF) 180 mcg/0 .5 mL intramuscular syringe INJECT DIRECTED [id number] completed 0.5 ML influenza A virus A/[place] (H1N1) antigen 0.12 MG/ML / influenza A virus A/[place] (H3N2) antigen 0.12 MG/ML / influenza B virus B/[place] antigen 0.12 MG/ML Prefilled Syringe [Fluzone ] DARIEN ([facility]) Cyclosporine 0.5 MG/ML Ophthalmic Suspen nicola [Restasis] Restasis 0.05 % eye drops in a dropperette Restasis 0.05 % eye drops in a dropperette completed cyclosporine 0.5 MG/ML Ophthalmi c Suspension [Restasis] DARIEN ([facility]) gabapentin 100 MG Oral Capsule gabapentin 100 mg capsu le gabapentin 100 mg capsule completed gabapentin 100 MG Oral Capsule DARIEN ([facility]) Acetaminophen 325 MG / Hydrocodone Galina trate 5 MG Oral Tablet hydrocodone 5 mg- acetaminophen 325 mg tablet hydrocodone 5 mg-acetaminophen 325 mg tablet completed acetaminophen 325 MG / hydrocodone bitartrate 5 MG Oral Tablet DARIEN ([facility]) Acetaminophen 325 MG / Hydrocodone Galina trate 5 MG Oral Tablet hydrocodone 5 mg- acetaminophen 325 mg tablet hydrocodone 5 mg-acetaminophen 325 mg tablet completed acetaminophen 325 MG / hydrocodone bitartrate 5 MG Oral Tablet DARIEN ([facility]) ferrous sulfate 325 MG Oral Tablet lynette us sulfate 325 mg (65 mg iron) tablet TK 1 T PO BID ferrous sulfate 325 mg (65 mg iron) tablet TK 1 T PO BID completed ferrous sulfate 325 MG Oral Tablet DARIEN ([facility]) Fluzone High-Dose (PF) 180 mcg/0 .5 mL intramuscular syringe INJECT DIRECTED [id number] completed 0.5 ML influenza A virus A/[place]/04/2017 (H1N1) antigen 0.12 MG/ML / influenza A virus A/[place] (H3N2) antigen 0.12 MG/ML / influenza B virus B/[place] antigen 0.12 MG/ML Prefilled Syringe [Fluzone ] DARIEN ([facility]) Cyclosporine 0.5 MG/ML Ophthalmic Suspen nicola [Restasis] Restasis 0.05 % eye drops in a dropperette Restasis 0.05 % eye drops in a dropperette completed cyclosporine 0.5 MG/ML Ophthalmi c Suspension [Restasis] DARIEN ([facility]) Cyclosporine 0.5 MG/ML Ophthalmic Suspen nicola [Restasis] Restasis 0.05 % eye drops in a dropperette Restasis 0.05 % eye drops in a dropperette completed cyclosporine 0.5 MG/ML Ophthalmi c Suspension [Restasis] DARIEN ([facility]) Acetaminophen 325 MG / Hydrocodone Galina trate 5 MG Oral Tablet hydrocodone 5 mg- acetaminophen 325 mg tablet hydrocodone 5 mg-acetaminophen 325 mg tablet completed acetaminophen 325 MG / hydrocodone bitartrate 5 MG Oral Tablet DARIEN ([facility]) Cyclosporine 0.5 MG/ML Ophthalmic Suspen nicola [Restasis] Restasis 0.05 % eye drops in a dropperette Restasis 0.05 % eye drops in a dropperette completed cyclosporine 0.5 MG/ML Ophthalmi c Suspension [Restasis] BRYANT ([facility]) Fluzone High-Dose Quad (PF) 240 mcg/0.7 mL IM syringe INJECT 0.7ML INTRAMUSCULARLY [id number] completed 0.7 ML influenza A virus A/[facility]/[id number] (H1N1) antigen 0.0857 MG/ML / influenza A virus A/[place] (H3N2) antigen 0.0857 MG/ML / influenza B virus B/[facility] antigen 0.0857 MG/ML / influenza B virus B/ antigen 0.0857 MG/ML Prefilled Syringe [Fluzone Quadrivalent ] DARIEN ([facility]) Acetaminophen 325 MG / Hydrocodone Galina trate 5 MG Oral Tablet hydrocodone 5 mg- acetaminophen 325 mg tablet hydrocodone 5 mg-acetaminophen 325 mg tablet completed acetaminophen 325 MG / hydrocodone bitartrate 5 MG Oral Tablet DARIEN ([facility]) Cyclosporine 0.5 MG/ML Ophthalmic Suspen nicola [Restasis] Restasis 0.05 % eye drops in a dropperette Restasis 0.05 % eye drops in a dropperette completed Cyclosporine 0.5 MG/ML Ophthalmi c Suspension [Restasis] DARIEN ([facility]) ferrous sulfate 325 MG Oral Tablet lynette us sulfate 325 mg (65 mg iron) tablet TK 1 T PO BID ferrous sulfate 325 mg (65 mg iron) tablet TK 1 T PO BID completed ferrous sulfate 325 MG Oral Tablet DARIEN ([facility]) Fluzone High-Dose (PF) 180 mcg/0 .5 mL intramuscular syringe INJECT DIRECTED [id number] completed 0.5 ML influenza A virus A/[place] (H1N1) antigen 0.12 MG/ML / influenza A virus A/ (H3N2) antigen 0.12 MG/ML / influenza B virus B/ antigen 0.12 MG/ML Prefilled Syringe [Fluzone ] DARIEN ([facility]) Cyclosporine 0.5 MG/ML Ophthalmic Suspen nicola [Restasis] Restasis 0.05 % eye drops in a dropperette Restasis 0.05 % eye drops in a dropperette completed cyclosporine 0.5 MG/ML Ophthalmi c Suspension [Restasis] DARIEN ([facility]) Fluzone High-Dose (PF) 180 mcg/0 .5 mL intramuscular syringe INJECT DIRECTED [id number] completed 0.5 ML influenza A virus A/[place] (H1N1) antigen 0.12 MG/ML / influenza A virus A/ (H3N2) antigen 0.12 MG/ML / influenza B virus B/ antigen 0.12 MG/ML Prefilled Syringe [Fluzone ] DARIEN ([facility]) Insurance Providers Payer name Policy type / Coverage type Policy ID Covered libertarian ID Covered libertarian's relationship to casanova Policy [place] Plan Information MEDICARE [id number] SP [id number] AARP HEALTH CARE OPTIONS [id number] SP [id number] MEDICARE C [id number] S [id number] U59 AARP O [id number] S [id number] MEDICARE C [id number] S [id number] D MEDICARE [id number] SP [id number] AARP HEALTH CARE OPTIONS [id number] SP [id number] [employer] Options Medigap Part B [id number] Self [id number] [place] Primary [id number] Self [id number] [employer] Medigap Part B [id number] Self [id number] [place] Primary [id number] Self [id number] [employer] Medigap Part B [id number] Self [id number] [place] Primary [id number] Self [id number] [employer] Medigap Part B [id number] Self [id number] [place] Primary [id number] Self [id number] [employer] Medigap Part B [id number] Self [id number] [place] Primary [id number] Self [id number] [facility] [facility] Medigap Part B [id number] Self [id number] [place] Primary [id number] Self [id number] AARP HE[employer] CARE OPTIONS [id number] SP [id number] [facility] [facility] Medigap Part B [id number] Self [id number] [place] Primary [id number] Self [id number] [facility] [facility] Medigap Part B [id number] Self [id number] [place] Primary [id number] Self [id number] [facility] [facility] Medigap Part B [id number] Self [id number] [place] Primary [id number] Self [id number] [facility] [facility] Medigap Part B [id number] Self [id number] [place] Primary [id number] Self [id number] Aarp Medigap Part B [id number] Self [id number] [place] Medicare Primary [id number] Self [id number] AARP HEALTH CARE OPTIONS [id number] SP [id number] Aarp Medigap Part B [id number] Self [id number] Medicare [facility] Medicare Primary [id number] Self [id number] AARP O [id number] S [id number] Aarp Medigap Part B [id number] Self [id number] Medicare [facility] Medicare Primary [id number] Self [id number] [facility] Options Medigap Part B Self Medicare [employer] Medicare Primary Self [id number] D [id number] Problems, Conditions, and Diagnoses Code Display Name Description Problem Type Effective Dates Data Source(s) Z91.81 History of falling History of falling Problem 0 12:00:00 AM EST NETSMART ([facility]) Z60.2 Problems related to living alone Problems related to l iving alone Problem 03/29/2019 12:00:00 AM EST NETSMART ([facility] ) 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 intermission coordinator (cu rrent) use of aspirin Problem 03/29/2019 12:00:00 AM EST NETSMART ([facility]) W19.XXXD Unspecified fall, subsequent encounter U nspecified fall, subsequent encounter Problem 03/29/2019 12:00:00 AM EST NETSMART ([facility]) S42.221D 2-part displaced fracture of surgical neck of right humerus, subsequent encounter for fracture with routine healing 2-part displaced fracture of surgical neck of right humerus, subsequent encounter for fracture with routine healing Problem 03/21/2019 12:00:00 AM EST NETSMART ([facility]) Surgeries/Procedures Procedure Description Date Indications Data Source(s) THERAPEUTIC PX 1/> AREAS EACH 15 MIN EXERCISES 12:00:00 AM EDT MEDENT ([facility] ) THERAPEUTIC PX 1/> AREAS EACH 15 MIN EXERCISES 12:00:00 AM EDT MEDENT ([facility] ) THERAPEUTIC PX 1/> AREAS EACH 15 MIN EXERCISES 12:00:00 AM EDT MEDENT ([facility] ) THERAPEUTIC PX 1/> AREAS EACH 15 MIN EXERCISES 12:00:00 AM EDT MEDENT ([facility]) THERAPEUTIC PX 1/> AREAS EACH 15 MIN EXERCISES 12:00:00 AM EDT MEDENT ([facility] ) THERAPEUTIC PX 1/> AREAS EACH 15 MIN EXERCISES 12:00:00 AM EDT MEDENT ([facility]) THERAPEUTIC PX 1/> AREAS EACH 15 MIN EXERCISES 12:00:00 AM EDT MEDENT ([facility]) THERAPEUTIC PX 1/> AREAS EACH 15 MIN EXERCISES 12:00:00 AM EDT MEDENT ([facility]) THERAPEUTIC PX 1/> AREAS EACH 15 MIN EXERCISES 12:00:00 AM EDT MEDENT ([facility]) THERAPEUTIC PX 1/> AREAS EACH 15 MIN EXERCISES 12:00:00 AM EDT MEDENT ([facility] ) THERAPEUTIC PX 1/> AREAS EACH 15 MIN EXERCISES 12:00:00 AM EDT MEDENT ([facility] ) THERAPEUTIC PX 1/> AREAS EACH 15 MIN EXERCISES 12:00:00 AM EDT MEDENT ([facility] ) THERAPEUTIC PX 1/> AREAS EACH 15 MIN EXERCISES 12:00:00 AM EDT MEDENT ([facility]) THERAPEUTIC PX 1/> AREAS EACH 15 MIN EXERCISES 12:00:00 AM EDT MEDENT ([facility] ) THERAPEUTIC PX 1/> AREAS EACH 15 MIN EXERCISES 12:00:00 AM EDT MEDENT ([facility]) THERAPEUTIC PX 1/> AREAS EACH 15 MIN EXERCISES 12:00:00 AM EDT MEDENT ([facility]) THERAPEUTIC PX 1/> AREAS EACH 15 MIN EXERCISES 12:00:00 AM EDT MEDENT ([facility]) THERAPEUTIC PX 1/> AREAS EACH 15 MIN EXERCISES 12:00:00 AM EDT MEDENT ([facility]) THERAPEUTIC PX 1/> AREAS EACH 15 MIN EXERCISES 12:00:00 AM EDT MEDENT ([facility]) THERAPEUTIC PX 1/> AREAS EACH 15 MIN EXERCISES 12:00:00 AM EST MEDENT ([facility]) Physical Therapy Eval - Low Complexity 05/24/2019 12:0 0:00 AM EST MEDENT ([facility]) RADEX SHOULDER COMPLETE MINIMUM 2 VIEWS 04/19/2019 12: 00:00 AM EST MEDENT ([facility]) RADEX SHOULDER COMPLETE MINIMUM 2 VIEWS 03/19/2019 12: 00:00 AM EST MEDENT ([facility]) Results ID Date Data Source [id number] 04/17/2020 12:00:00 AM EST [facility] Name Value Range Interpretation Code Description Data Nannette rce(s) Supporting Document(s) SARS-CoV-2 NEGATIVE [facility] This lab was ordered by [facility]-COVID19 and reported by [employer]. ID Date Data Source [id number] 04/17/2020 12:00:00 AM EST DARIEN ([facility]) Name Value Range Interpretation Code Description Data Nannette rce(s) Supporting Document(s) SARS-CoV-2 (COVID-19) RNA [Presence] in Respiratory specimen by TONE with probe detection negative negative normal Sars-cov-2 DARIEN ([facility]) ID Date Data Source [id number] 04/17/2020 12:00:00 AM EST DARIEN ([facility]) Name Value Range Interpretation Code Description Data Nannette rce(s) Supporting Document(s) ID Date Data Source [id number] 04/14/2020 08:57:00 AM EST MEDENT ([facility] Name Value Range Interpretation Code Description Data Nannette rce(s) Supporting Document(s) WBC 5.8 10E3/uL 4.1-10.9 [facility] ([facility] [...] HCT IS 5% LESS SOURCE FOR DATA: [employer] 1800 OPERATION MANUAL( AUTOMATED BLOOD COUNTS AND [...] RBC 3.90 10E6/uL 4.20-6.30 Below low normal [facility] ([facility] NORMAL RANGES [...] HCT IS 5% LESS SOURCE FOR DATA: [employer] 1800 OPERATION MANUAL( AUTOMATED BLOOD COUNTS AND [...] 2-19 YEARS EXCLUSIVE. HGB 12.8 g/dL 12.0-18.0 [facility] NORMAL [...] HCT IS 5% LESS SOURCE FOR DATA: [employer] 1800 OPERATION MANUAL( AUTOMATED BLOOD COUNTS AND [...] HCT IS 5% LESS SOURCE FOR DATA: [employer] 1800 OPERATION MANUAL( AUTOMATED BLOOD COUNTS AND [...] 2-19 YEARS EXCLUSIVE. HCT 39.5 % 37.0-51.0 [facility] ([facility] NORMAL RANGES [...] 2-19 YEARS EXCLUSIVE. MCHC 32.4 g/dL 31.0-36.0 [facility] NORMAL [...] HCT IS 5% LESS SOURCE FOR DATA: [employer] 1800 OPERATION MANUAL( AUTOMATED BLOOD COUNTS AND [...] HCT IS 5% LESS SOURCE FOR DATA: [employer] 1800 OPERATION MANUAL( AUTOMATED BLOOD COUNTS AND [...] 2-19 YEARS EXCLUSIVE. PLT 243 10E3/uL 140-[address] [facility] NORMAL RANGES Age WBC [...] HCT IS 5% LESS SOURCE FOR DATA: OnK[employer] DYN 1800 OPERATION MANUAL( AUTOMATED BLOOD COUNTS [...] HCT IS 5% LESS SOURCE FOR DATA: [employer]tech 1800 OPERATION MANUAL( AUTOMATED BLOOD COUNTS AND [...] HCT IS 5% LESS SOURCE FOR DATA: [employer] 1800 OPERATION MANUAL( AUTOMATED BLOOD COUNTS AND [...] 2-19 YEARS EXCLUSIVE. RDW-CV 13.6 % 11.5-14.5 [facility] NORMAL [...] HCT IS 5% LESS SOURCE FOR DATA: [employer] 1800 OPERATION MANUAL( AUTOMATED BLOOD COUNTS AND [...] 2-19 YEARS EXCLUSIVE. MXD% 12.0 % 0.1-24.0 [facility] NORMAL [...] HCT IS 5% LESS SOURCE FOR DATA: [employer] 1800 OPERATION MANUAL( AUTOMATED BLOOD COUNTS AND [...] YEARS EXCLUSIVE. Lym# 1.2 10E3/uL 0.6-4.1 JEREMY ([facility] NORMAL RANGES Age WBC [...] HCT IS 5% LESS SOURCE FOR DATA: [employer] 1800 OPERATION MANUAL( AUTOMATED BLOOD COUNTS AND [...] 2-19 YEARS EXCLUSIVE. Neut# 3.9 % 2.0-7.8 [facility] ([facility] NORMAL RANGES [...] HCT IS 5% LESS SOURCE FOR DATA: [employer] 1800 OPERATION MANUAL( AUTOMATED BLOOD COUNTS AND [...] 2-19 YEARS EXCLUSIVE. MXD# 0.7 10E3/uL 0.0-1.8 [facility] NORMAL RANGES Age WBC [...] HCT IS 5% LESS SOURCE FOR DATA: [employer] 1800 OPERATION MANUAL( AUTOMATED BLOOD COUNTS AND [...] MPV 9.7 fL 9.0-13.0 JEREMY ([facility] NORMAL RANGES Age WBC RBC [...] HCT IS 5% LESS SOURCE FOR DATA: [employer] 1800 OPERATION MANUAL( AUTOMATED BLOOD COUNTS AND [...] 2-19 YEARS EXCLUSIVE. ID Date Data Source [id number] 04/14/2020 08:57:00 AM EST MEDENT ([facility] Name Value Range Interpretation [...] HCT IS 5% LESS SOURCE FOR DATA: [employer] 1800 OPERATION MANUAL( AUTOMATED BLOOD COUNTS AND [...] HCT IS 5% LESS SOURCE FOR DATA: [employer] 1800 OPERATION MANUAL( AUTOMATED BLOOD COUNTS AND [...] HCT IS 5% LESS SOURCE FOR DATA: [employer] 1800 OPERATION MANUAL( AUTOMATED BLOOD COUNTS AND [...] 2-19 YEARS EXCLUSIVE. Cho/HDL Ratio 3.3 CALC [facility] ([facility] [...] HCT IS 5% LESS SOURCE FOR DATA: [employer] 1800 OPERATION MANUAL( AUTOMATED BLOOD COUNTS AND [...] 2-19 YEARS EXCLUSIVE. ID Date Data Source [id number] 04/14/2020 08:57:00 AM EST MEDDARLYN ([facility] Name Value Range Interpretation [...] HCT IS 5% LESS SOURCE FOR DATA: [employer] DYN 1800 OPERATION MANUAL( AUTOMATED BLOOD COUNTS [...] 2-19 YEARS EXCLUSIVE. BUN 9 mg/dL 8-23 [facility] NORMAL [...] HCT IS 5% LESS SOURCE FOR DATA: [employer] 1800 OPERATION MANUAL( AUTOMATED BLOOD COUNTS AND [...] AGED 2-19 YEARS EXCLUSIVE. BUN/Creatinine Ratio 15.4 [facility] ([facility] NORMAL RANGES [...] HCT IS 5% LESS SOURCE FOR DATA: [employer] 1800 OPERATION MANUAL( AUTOMATED BLOOD COUNTS AND [...] 2-19 YEARS EXCLUSIVE. Creat 0.6 mg/dL 0.5-1.0 [facility] NORMAL [...] HCT IS 5% LESS SOURCE FOR DATA: [employer] 1800 OPERATION MANUAL( AUTOMATED BLOOD COUNTS AND [...] HCT IS 5% LESS SOURCE FOR DATA: [employer] 1800 OPERATION MANUAL( AUTOMATED BLOOD COUNTS AND [...] CL 100.1 mmol/L 98.0-107.0 JEREMY ([facility] NORMAL RANGES Age WBC RBC [...] HCT IS 5% LESS SOURCE FOR DATA: [employer] 1800 OPERATION MANUAL( AUTOMATED BLOOD COUNTS AND [...] 2-19 YEARS EXCLUSIVE. K 4.0 mmol/L 3.5-5.1 [facility] ([facility] NORMAL RANGES [...] HCT IS 5% LESS SOURCE FOR DATA: [employer] 1800 OPERATION MANUAL( AUTOMATED BLOOD COUNTS AND [...] YEARS EXCLUSIVE. Co2 27.0 mmol/L 22.0-29.0 MEDENT ([facility] NORMAL RANGES Age WBC [...] HCT IS 5% LESS SOURCE FOR DATA: [employer] 1800 OPERATION MANUAL( AUTOMATED BLOOD COUNTS AND [...] 2-19 YEARS EXCLUSIVE. CA 9.6 mg/dL 8.6-10.2 [facility] ([facility] NORMAL [...] HCT IS 5% LESS SOURCE FOR DATA: [employer] 1800 OPERATION MANUAL( AUTOMATED BLOOD COUNTS AND [...] HCT IS 5% LESS SOURCE FOR DATA: [employer] 1800 OPERATION MANUAL( AUTOMATED BLOOD COUNTS AND [...] HCT IS 5% LESS SOURCE FOR DATA: [employer] 1800 OPERATION MANUAL( AUTOMATED BLOOD COUNTS AND [...] 2-19 YEARS EXCLUSIVE. A/G Ratio 2.[address] [facility] NORMAL RANGES [...] HCT IS 5% LESS SOURCE FOR DATA: [employer] 1800 OPERATION MANUAL( AUTOMATED BLOOD COUNTS AND [...] HCT IS 5% LESS SOURCE FOR DATA: [employer] 1800 OPERATION MANUAL( AUTOMATED BLOOD COUNTS AND [...] 2-19 YEARS EXCLUSIVE. Alp 68.2 U/L 35-129 [facility] NORMAL [...] HCT IS 5% LESS SOURCE FOR DATA: [employer] DYN 1800 OPERATION MANUAL( AUTOMATED BLOOD COUNTS [...] YEARS EXCLUSIVE. Ast (Sgot) 11 U/L 0-40 [facility] NORMAL RANGES Age WBC RBC [...] HCT IS 5% LESS SOURCE FOR DATA: [employer] 1800 OPERATION MANUAL( AUTOMATED BLOOD COUNTS AND [...] 2-19 YEARS EXCLUSIVE. Anion Gap 14 mmol/L [facility] ([facility] NORMAL [...] HCT IS 5% LESS SOURCE FOR DATA: [employer] 1800 OPERATION MANUAL( AUTOMATED BLOOD COUNTS AND [...] HCT IS 5% LESS SOURCE FOR DATA: [employer] DYN 1800 OPERATION MANUAL( AUTOMATED BLOOD COUNTS [...] HCT IS 5% LESS SOURCE FOR DATA: [employer]tech 1800 OPERATION MANUAL( AUTOMATED BLOOD COUNTS AND [...] INDIVIDUALA AGED 2-19 YEARS EXCLUSIVE. eGFR Non-Afr. Icelandic 83 # MEDENT ([facility] NORMAL RANGES Age WBC [...] HCT IS 5% LESS SOURCE FOR DATA: [employer] 1800 OPERATION MANUAL( AUTOMATED BLOOD COUNTS AND [...] HCT IS 5% LESS SOURCE FOR DATA: [employer] 1800 OPERATION MANUAL( AUTOMATED BLOOD COUNTS AND [...] 2-19 YEARS EXCLUSIVE. ID Date Data Source [id number] 04/03/2020 12:00:00 AM EST DARIEN ([facility]) Name Value Range Interpretation Code Description Data Nannette rce(s) Supporting Document(s) SARS-CoV-2 (COVID-19) RNA [Presence] in Respiratory specimen by TONE with probe detection negative negative normal Sars-cov-2 DARIEN ([facility]) ID Date Data Source [id number] 04/03/2020 12:00:00 AM EST DARIEN ([facility]) Name Value Range Interpretation Code Description Data Nannette rce(s) Supporting Document(s) ID Date Data Source [id number] 04/03/2020 12:00:00 AM EST DARIEN ([facility]) Name Value Range Interpretation Code Description Data Nannette rce(s) Supporting Document(s) SARS-CoV-2 (COVID-19) RNA [Presence] in Respiratory specimen by TONE with probe detection negative negative normal Sars-cov-2 DARIEN ([facility]) ID Date Data Source [id number] 04/03/2020 12:00:00 AM EST DARIEN ([facility]) Name Value Range Interpretation Code Description Data Nannette rce(s) Supporting Document(s) ID Date Data Source [id number] 04/03/2020 12:00:00 AM EST DARIEN ([facility]) Name Value Range Interpretation Code Description Data Nannette rce(s) Supporting Document(s) SARS-CoV-2 (COVID-19) RNA [Presence] in Respiratory specimen by TONE with probe detection negative negative normal Sars-cov-2 DARIEN ([facility]) ID Date Data Source [id number] 04/03/2020 12:00:00 AM EST DARIEN ([facility]) Name Value Range Interpretation Code Description Data Nannette rce(s) Supporting Document(s) ID Date Data Source [id number] 04/03/2020 12:00:00 AM EST [facility] Name Value Range Interpretation Code Description Data Nannette rce(s) Supporting Document(s) SARS-CoV-2 NEGATIVE [facility] This lab was ordered by [facility] [facility] [facility]-COVID19 and reported by [employer]. ID Date Data Source [id number] 10/11/2019 09:13:00 AM EDT MEDENT ([facility] Name Value Range [...] HCT IS 5% LESS SOURCE FOR DATA: [employer] 1800 OPERATION MANUAL( AUTOMATED BLOOD COUNTS AND [...] RBC 4.01 10E6/uL 4.20-6.30 Below low normal [facility] ([facility] NORMAL RANGES Age [...] HCT IS 5% LESS SOURCE FOR DATA: [employer] 1800 OPERATION MANUAL( AUTOMATED BLOOD COUNTS AND [...] HCT IS 5% LESS SOURCE FOR DATA: [employer] 1800 OPERATION MANUAL( AUTOMATED BLOOD COUNTS AND [...] HCT IS 5% LESS SOURCE FOR DATA: [employer]ertech 1800 OPERATION MANUAL( AUTOMATED BLOOD COUNTS AND [...] MCV 101.0 fL 80.0-97.0 Above high normal [facility] NORMAL RANGES [...] HCT IS 5% LESS SOURCE FOR DATA: [employer]tech 1800 OPERATION MANUAL( AUTOMATED BLOOD COUNTS AND [...] HCT IS 5% LESS SOURCE FOR DATA: [employer] 1800 OPERATION MANUAL( AUTOMATED BLOOD COUNTS AND [...] MCH 32.7 pg 26.0-32.0 Above high normal [facility] ([facility] NORMAL RANGES [...] HCT IS 5% LESS SOURCE FOR DATA: [employer]tech 1800 OPERATION MANUAL( AUTOMATED BLOOD COUNTS AND [...] 2-19 YEARS EXCLUSIVE. PLT 234 10E3/uL 140-440 [facility] ([facility] NORMAL RANGES Age WBC [...] HCT IS 5% LESS SOURCE FOR DATA: [employer] 1800 OPERATION MANUAL( AUTOMATED BLOOD COUNTS AND [...] HCT IS 5% LESS SOURCE FOR DATA: [employer] 1800 OPERATION MANUAL( AUTOMATED BLOOD COUNTS AND [...] 2-19 YEARS EXCLUSIVE. Lym% 19.8 % 10.0-58.5 [facility] NORMAL RANGES Age WBC RBC [...] IS 5% LESS SOURCE FOR DATA: [email or web address] 1800 OPERATION MANUAL( AUTOMATED BLOOD COUNTS AND [...] 2-19 YEARS EXCLUSIVE. Neut% 70.2 % 37.0-92.0 [facility] NORMAL [...] HCT IS 5% LESS SOURCE FOR DATA: [employer] 1800 OPERATION MANUAL( AUTOMATED BLOOD COUNTS AND [...] YEARS EXCLUSIVE. Lym# 1.0 10E3/uL 0.6-4.1 MEDENT ([facility] NORMAL RANGES Age WBC [...] HCT IS 5% LESS SOURCE FOR DATA: [employer] 1800 OPERATION MANUAL( AUTOMATED BLOOD COUNTS AND [...] 2-19 YEARS EXCLUSIVE. MXD% 10.0 % 0.1-24.0 [facility] ([facility] NORMAL RANGES [...] 2-19 YEARS EXCLUSIVE. Neut# 3.8 % 2.0-7.8 [facility] ([facility] NORMAL RANGES [...] HCT IS 5% LESS SOURCE FOR DATA: [employer] 1800 OPERATION MANUAL( AUTOMATED BLOOD COUNTS AND [...] 2-19 YEARS EXCLUSIVE. MXD# 0.5 10E3/uL 0.0-1.8 [facility] NORMAL RANGES Age WBC [...] HCT IS 5% LESS SOURCE FOR DATA: [employer]tech 1800 OPERATION MANUAL( AUTOMATED BLOOD COUNTS AND [...] 2-19 YEARS EXCLUSIVE. MPV 9.5 fL 9.0-13.0 [facility] ([facility] NORMAL RANGES [...] HCT IS 5% LESS SOURCE FOR DATA: [employer] DYN 1800 OPERATION MANUAL( AUTOMATED BLOOD COUNTS [...] 2-19 YEARS EXCLUSIVE. ID Date Data Source [id number] 10/11/2019 09:13:00 AM EDT MEDENT ([facility] Name Value Range Interpretation Code Description Data Nannette rce(s) Supporting Document(s) Chol 201 mg/dL 0-200 Above high normal MEDENT ([facility] NORMAL RANGES [...] HCT IS 5% LESS SOURCE FOR DATA: [employer] 1800 OPERATION MANUAL( AUTOMATED BLOOD COUNTS AND [...] 2-19 YEARS EXCLUSIVE. Trig 102 mg/dL 40-200 [facility] ([facility] NORMAL [...] HCT IS 5% LESS SOURCE FOR DATA: [employer] 1800 OPERATION MANUAL( AUTOMATED BLOOD COUNTS AND [...] LDL_C 134 Calc 75-129 Above high normal [facility] NORMAL RANGES [...] HCT IS 5% LESS SOURCE FOR DATA: OnK[employer] DYN 1800 OPERATION MANUAL( AUTOMATED BLOOD COUNTS [...] HCT IS 5% LESS SOURCE FOR DATA: [employer] 1800 OPERATION MANUAL( AUTOMATED BLOOD COUNTS AND [...] Cho/HDL Ratio 4.3 Calc JEREMY ([facility] NORMAL RANGES Age WBC RBC [...] HCT IS 5% LESS SOURCE FOR DATA: [employer]ertech 1800 OPERATION MANUAL( AUTOMATED BLOOD COUNTS AND [...] 2-19 YEARS EXCLUSIVE. ID Date Data Source [id number] 10/11/2019 09:13:00 AM JUNIOR LUNA ([facility] Name Value Range Interpretation Code Description Data Nannette rce(s) Supporting Document(s) Glu 92 mg/dL 70-110 MEDENT ([facility] NORMAL [...] HCT IS 5% LESS SOURCE FOR DATA: [employer] 1800 OPERATION MANUAL( AUTOMATED BLOOD COUNTS AND [...] 2-19 YEARS EXCLUSIVE. BUN 8 mg/dL 8-23 [facility] NORMAL [...] HCT IS 5% LESS SOURCE FOR DATA: [employer]er[employer] 1800 OPERATION MANUAL( AUTOMATED BLOOD COUNTS AND [...] 2-19 YEARS EXCLUSIVE. BUN/Creatinine Ratio 14.6 CALC MEDENT ([facility] NORMAL RANGES [...] HCT IS 5% LESS SOURCE FOR DATA: On[employer] DYN 1800 OPERATION MANUAL( AUTOMATED BLOOD COUNTS [...] 2-19 YEARS EXCLUSIVE. Na 138 mmol/L 136-145 [facility] NORMAL RANGES Age WBC RBC [...] HCT IS 5% LESS SOURCE FOR DATA: [employer] 1800 OPERATION MANUAL( AUTOMATED BLOOD COUNTS AND [...] HCT IS 5% LESS SOURCE FOR DATA: [employer]ertech 1800 OPERATION MANUAL( AUTOMATED BLOOD COUNTS AND [...] 2-19 YEARS EXCLUSIVE. CL 100.4 mmol/L 98.0-107.0 [facility] ([facility] NORMAL RANGES Age WBC RBC [...] HCT IS 5% LESS SOURCE FOR DATA: [employer] 1800 OPERATION MANUAL( AUTOMATED BLOOD COUNTS AND [...] 2-19 YEARS EXCLUSIVE. K 3.8 mmol/L 3.5-5.1 [facility] NORMAL [...] HCT IS 5% LESS SOURCE FOR DATA: Mixertech 1800 OPERATION MANUAL( AUTOMATED BLOOD COUNTS AND [...] 2-19 YEARS EXCLUSIVE. Co2 27.9 mmol/L 22.0-29.0 [facility] NORMAL RANGES Age WBC RBC HGB [...] HCT IS 5% LESS SOURCE FOR DATA: [employer]ertech 1800 OPERATION MANUAL( AUTOMATED BLOOD COUNTS AND [...] 2-19 YEARS EXCLUSIVE. CA 9.9 mg/dL 8.6-10.2 [facility] NORMAL [...] HCT IS 5% LESS SOURCE FOR DATA: [employer]ertech 1800 OPERATION MANUAL( AUTOMATED BLOOD COUNTS AND [...] HCT IS 5% LESS SOURCE FOR DATA: OnK[employer] DYN 1800 OPERATION MANUAL( AUTOMATED BLOOD COUNTS [...] 2-19 YEARS EXCLUSIVE. Alb 4.0 g/dL 3.4-4.8 [facility] NORMAL [...] HCT IS 5% LESS SOURCE FOR DATA: [employer]er[employer] 1800 OPERATION MANUAL( AUTOMATED BLOOD COUNTS AND [...] HCT IS 5% LESS SOURCE FOR DATA: OnK[employer] DYN 1800 OPERATION MANUAL( AUTOMATED BLOOD COUNTS [...] HCT IS 5% LESS SOURCE FOR DATA: [employer]ertech 1800 OPERATION MANUAL( AUTOMATED BLOOD COUNTS AND [...] HCT IS 5% LESS SOURCE FOR DATA: [employer] 1800 OPERATION MANUAL( AUTOMATED BLOOD COUNTS AND [...] 2-19 YEARS EXCLUSIVE. Tbili 0.87 mg/dL 0.0-1.2 [facility] NORMAL [...] HCT IS 5% LESS SOURCE FOR DATA: [employer] 1800 OPERATION MANUAL( AUTOMATED BLOOD COUNTS AND [...] HCT IS 5% LESS SOURCE FOR DATA: [employer] 1800 OPERATION MANUAL( AUTOMATED BLOOD COUNTS AND [...] YEARS EXCLUSIVE. Alt (SGPT) 8 U/L 0-41 [facility] ([facility] NORMAL RANGES Age WBC [...] IS 5% LESS SOURCE FOR DATA: [employer] 1800 OPERATION MANUAL( AUTOMATED BLOOD COUNTS AND [...] 2-19 YEARS EXCLUSIVE. Anion Gap 14 mmol/L [facility] NORMAL [...] HCT IS 5% LESS SOURCE FOR DATA: [employer] 1800 OPERATION MANUAL( AUTOMATED BLOOD COUNTS AND [...] HCT IS 5% LESS SOURCE FOR DATA: [employer]er[employer] 1800 OPERATION MANUAL( AUTOMATED BLOOD COUNTS AND [...] HCT IS 5% LESS SOURCE FOR DATA: [employer] 1800 OPERATION MANUAL( AUTOMATED BLOOD COUNTS AND [...] INDIVIDUALA AGED 2-19 YEARS EXCLUSIVE. eGFR Non-Afr. Icelandic 83 # [facility] ([facility] [...] HCT IS 5% LESS SOURCE FOR DATA: [employer] 1800 OPERATION MANUAL( AUTOMATED BLOOD COUNTS AND [...] 2-19 YEARS EXCLUSIVE. ID Date Data Source [id number] 09/28/2019 12:00:00 AM EDT DARIEN ([facility]) Name Value Range Interpretation Code Description Data Nannette rce(s) Supporting Document(s) ID Date Data Source [id number] 09/28/2019 12:00:00 AM EDT DARIEN ([facility]) Name Value Range Interpretation Code Description Data Nannette rce(s) Supporting Document(s) ID Date Data Source [id number] 09/28/2019 12:00:00 AM EDT DARIEN ([facility]) Name Value Range Interpretation Code Description Data Nannette rce(s) Supporting Document(s) ID Date Data Source [id number] 09/28/2019 12:00:00 AM EDT DARIEN ([facility]) Name Value Range Interpretation Code Description Data Nannette rce(s) Supporting Document(s) ID Date Data Source [id number] 09/28/2019 12:00:00 AM EDT DARIEN ([facility]) Name Value Range Interpretation Code Description Data Nannette rce(s) Supporting Document(s) ID Date Data Source [id number] 09/28/2019 12:00:00 AM EDT DARIEN ([facility]) Name Value Range Interpretation Code Description Data Nannette rce(s) Supporting Document(s) ID Date Data Source [id number] 09/28/2019 12:00:00 AM EDT [facility] Name Value Range Interpretation Code Description Data Nannette rce(s) Supporting Document(s) SARS-CoV-2 [facility] This lab was ordered by [facility] and reported by [employer]. ID Date Data Source [id number] 09/13/2019 12:00:00 AM EDT DARIEN ([facility]) Name Value Range Interpretation Code Description Data Nannette rce(s) Supporting Document(s) ID Date Data Source [id number] 09/13/2019 12:00:00 AM EDT DARIEN ([facility]) Name Value Range Interpretation Code Description Data Nannette rce(s) Supporting Document(s) ID Date Data Source [id number] 09/13/2019 12:00:00 AM EDT DARIEN ([facility]) Name Value Range Interpretation Code Description Data Nannette rce(s) Supporting Document(s) ID Date Data Source [id number] 09/13/2019 12:00:00 AM EDT DARIEN ([facility]) Name Value Range Interpretation Code Description Data Nannette rce(s) Supporting Document(s) ID Date Data Source [id number] 09/13/2019 12:00:00 AM EDT DARIEN ([facility]) Name Value Range Interpretation Code Description Data Nannette rce(s) Supporting Document(s) ID Date Data Source [id number] 09/13/2019 12:00:00 AM EDT DARIEN ([facility]) Name Value Range Interpretation Code Description Data Nannette rce(s) Supporting Document(s) ID Date Data Source [id number] 09/13/2019 12:00:00 AM EDT DARIEN ([facility]) Name Value Range Interpretation Code Description Data Nannette rce(s) Supporting Document(s) ID Date Data Source [id number] 09/13/2019 12:00:00 AM EDT DARIEN ([facility]) Name Value Range Interpretation Code Description Data Nannette rce(s) Supporting Document(s) ID Date Data Source [id number] 09/13/2019 12:00:00 AM EDT [facility] Name Value Range Interpretation Code Description Data Nannette rce(s) Supporting Document(s) SARS-CoV-2 [facility] This lab was ordered by [facility]-C[facility] and reported by [employer]. ID Date Data Source [id number] 09/13/2019 12:00:00 AM EDT DARIEN ([facility]) Name Value Range Interpretation Code Description Data Nannette rce(s) Supporting Document(s) ID Date Data Source [id number] 08/30/2019 12:00:00 AM EDT DARIEN ([facility]) Name Value Range Interpretation Code Description Data Nannette rce(s) Supporting Document(s) ID Date Data Source [id number] 08/30/2019 12:00:00 AM EDT DARIEN ([facility]) Name Value Range Interpretation Code Description Data Nannette rce(s) Supporting Document(s) ID Date Data Source [id number] 08/30/2019 12:00:00 AM EDT DARIEN ([facility]) Name Value Range Interpretation Code Description Data Nannette rce(s) Supporting Document(s) ID Date Data Source [id number] 08/30/2019 12:00:00 AM EDT DARIEN ([facility]) Name Value Range Interpretation Code Description Data Nannette rce(s) Supporting Document(s) ID Date Data Source [id number] 08/30/2019 12:00:00 AM EDT DARIEN ([facility]) Name Value Range Interpretation Code Description Data Nannette rce(s) Supporting Document(s) ID Date Data Source [id number] 08/30/2019 12:00:00 AM EDT DARIEN ([facility]) Name Value Range Interpretation Code Description Data Nannette rce(s) Supporting Document(s) ID Date Data Source [id number] 08/30/2019 12:00:00 AM EDT DARIEN ([facility]) Name Value Range Interpretation Code Description Data Nannette rce(s) Supporting Document(s) ID Date Data Source [id number] 08/30/2019 12:00:00 AM EDT DARIEN ([facility]) Name Value Range Interpretation Code Description Data Nannette rce(s) Supporting Document(s) ID Date Data Source [id number] 08/30/2019 12:00:00 AM EDT DARIEN ([facility]) Name Value Range Interpretation Code Description Data Nannette rce(s) Supporting Document(s) ID Date Data Source [id number] 08/30/2019 12:00:00 AM EDT DARIEN ([facility]) Name Value Range Interpretation Code Description Data Nannette rce(s) Supporting Document(s) ID Date Data Source [id number] 08/30/2019 12:00:00 AM EDT DARIEN ([facility]) Name Value Range Interpretation Code Description Data Nannette rce(s) Supporting Document(s) ID Date Data Source [id number] 08/30/2019 12:00:00 AM EDT [facility] Name Value Range Interpretation Code Description Data Nannette rce(s) Supporting Document(s) SARS-CoV-2 [facility] This lab was ordered by [facility] and reported by [employer]. ID Date Data Source [id number] 06/18/2019 08:50:00 AM EDT MEDENT (Famil y [...] 247 mg/dL 0-200 Above high normal MED[facility] ([facility] CLASSIFICATION CHOLESTEROL [...] mL/min Normal Cho/HDL Ratio 4.4 CALC [facility] ([facility] [place] [facility] CLASSIFICATION CHOLESTEROL FO R ADULTS [...] 165 Calc 75-129 Above high normal MEDENT ([facility] CLASSIFICATION CHOLESTEROL [...] >32 mL/min Normal ID Date Data Source [id number] 06/18/2019 08:50:00 AM EDT MEDENT ([facility] Name Value Range Interpretation Code Description Data Nannette rce(s) Supporting Document(s) BUN 9 mg/dL 8-23 MED[facility] ([facility] CLASSIFICATION CHOLESTEROL FO [...] mL/min Normal BUN/Creatinine Ratio 15.5 Calc MEDENT ([facility] CLASSIFICATION CHOLESTEROL [...] mL/min Normal CA 9.6 mg/dL 8.6-10.2 MED[facility] ([facility] CLASSIFICATION CHOLESTEROL FO R ADULTS [...] mL/min Normal CL 100.9 mmol/L 98.0-107.0 [facility] ([facility] CLASSIFICATION CHOLESTEROL FO R ADULTS [...] mL/min Normal Co2 25.7 mmol/L 22.0-29.0 MED[facility] ([facility] CLASSIFICATION CHOLESTEROL FO R [...] Normal Ast (Sgot) 14 U/L 0-40 [facility] CLASSIFICATION CHOLESTEROL FO R ADULTS [...] >32 mL/min Normal Globulin 2.5 Calc [facility] ([facility] CLASSIFICATION CHOLESTEROL FO [...] and above >32 mL/min Normal eGFR Non-Afr. Icelandic 83 # [facility] ([facility] [...] >32 mL/min Normal ID Date Data Source [id number] 03/31/2019 01:37:00 PM EST JEREMY ([facility] Name Value Range Interpretation Code Description Data Nannette rce(s) Supporting Document(s) WBC 5.6 10E3/uL 4.1-10.9 JEREMY ([facility] CHRONIC KIDNEY DISEASE STAGING [...] DIFF.) APPENDIX B-3 MCH 31.5 pg 26.0-32.0 [facility] ([facility] CHRONIC KIDNEY [...] HCT 35.4 % 37.0-51.0 Below low normal [facility] ( [facility] CHRONIC KIDNEY [...] MCV 99.7 fL 80.0-97.0 Above high normal [facility] CHRONIC KIDNEY [...] HCT IS 5% LESS SOURCE FOR DATA: [employer] 1800 OPERATION MANUAL( AUTOMATED BLOOD COUNTS AND DIFF.) APPENDIX B-3 RDW-CV 13.6 % 11.5-14.5 [facility] ([facility] CHRONIC KIDNEY DISEASE STAGING PER [...] HCT IS 5% LESS SOURCE FOR DATA: [employer] 1800 OPERATION MANUAL( AUTOMATED BLOOD COUNTS AND DIFF.) APPENDIX B-3 MCHC 31.6 g/dL 31.0-36.0 [facility] CHRONIC [...] HCT IS 5% LESS SOURCE FOR DATA: [employer] 1800 OPERATION MANUAL( AUTOMATED BLOOD COUNTS AND DIFF.) APPENDIX B-3 PLT 319 10E3/uL 140-440 [facility] ([facility] CHRONIC KIDNEY DISEASE STAGING [...] HCT IS 5% LESS SOURCE FOR DATA: [employer] 1800 OPERATION MANUAL( AUTOMATED BLOOD COUNTS AND DIFF.) APPENDIX B-3 Lym% 16.3 % 10.0-58.5 [facility] CHRONIC KIDNEY DISEASE STAGING PER [...] B-3 Neut% 73.3 % 37.0-92.0 [facility] CHRONIC KIDNEY DISEASE STAGING [...] HCT IS 5% LESS SOURCE FOR DATA: [employer] 1800 OPERATION MANUAL( AUTOMATED BLOOD COUNTS AND [...] DIFF.) APPENDIX B-3 MXD% 10.4 % 0.1-24.0 [facility] CHRONIC KIDNEY [...] APPENDIX B-3 Lym# 0.9 10E3/uL 0.6-4.1 JEREMY ([facility] CHRONIC KIDNEY DISEASE STAGING [...] DIFF.) APPENDIX B-3 MPV 9.5 fL 9.0-13.0 [facility] CHRONIC KIDNEY DISEASE STAGING PER [...] HCT IS 5% LESS SOURCE FOR DATA: [employer] 1800 OPERATION MANUAL( AUTOMATED BLOOD COUNTS AND DIFF.) APPENDIX B-3 MXD# 0.6 10E3/uL 0.0-1.8 [facility] ([facility] CHRONIC KIDNEY DISEASE STAGING [...] HCT IS 5% LESS SOURCE FOR DATA: [employer] 1800 OPERATION MANUAL( AUTOMATED BLOOD COUNTS AND DIFF.) APPENDIX B-3 ID Date Data Source [id number] 03/31/2019 01:37:00 PM EST JEREMY ([facility] Name Value Range Interpretation Code Description Data Nannette rce(s) Supporting Document(s) BUN 12 mg/dL 11-13 JEREMY ([facility] CHRONIC [...] DIFF.) APPENDIX B-3 Glu 87 mg/dL 70-110 [facility] ([facility] CHRONIC KIDNEY DISEASE STAGING PER [...] APPENDIX B-3 BUN/Creatinine Ratio 20.5 Calc MEDENT ([facility] CHRONIC KIDNEY [...] HCT IS 5% LESS SOURCE FOR DATA: [employer] 1800 OPERATION MANUAL( AUTOMATED BLOOD COUNTS AND DIFF.) APPENDIX B-3 Na 140 mmol/L 136-145 [facility] CHRONIC KIDNEY DISEASE STAGING PER [...] HCT IS 5% LESS SOURCE FOR DATA: [employer] 1800 OPERATION MANUAL( AUTOMATED BLOOD COUNTS AND DIFF.) APPENDIX B-3 CL 100.7 mmol/L 98.0-107.0 [facility] ([facility] CHRONIC KIDNEY DISEASE STAGING PER [...] APPENDIX B-3 K 4.0 mmol/L 3.5-5.1 [facility] ([facility] CHRONIC KIDNEY DISEASE STAGING PER NKF: [...] HCT IS 5% LESS SOURCE FOR DATA: [employer]YN 1800 OPERATION MANUAL( AUTOMATED BLOOD COUNTS AND DIFF.) APPENDIX B-3 Co2 27.5 mmol/L 22.0-29.0 [employer] ([facility] CHRONIC KIDNEY DISEASE STAGING [...] HCT IS 5% LESS SOURCE FOR DATA: [employer] 1800 OPERATION MANUAL( AUTOMATED BLOOD COUNTS AND DIFF.) APPENDIX B-3 CA 9.0 mg/dL 8.6-10.2 [facility] ([facility] CHRONIC KIDNEY DISEASE STAGING PER [...] HCT IS 5% LESS SOURCE FOR DATA: [employer] 1800 OPERATION MANUAL( AUTOMATED BLOOD COUNTS AND [...] HCT IS 5% LESS SOURCE FOR DATA: [employer] DYN 1800 OPERATION MANUAL( AUTOMATED BLOOD COUNTS AND DIFF.) APPENDIX B-3 Alb 3.7 g/dL 3.4-4.8 [facility] ([facility] CHRONIC KIDNEY DISEASE STAGING PER [...] HCT IS 5% LESS SOURCE FOR DATA: [employer] D[employer] 1800 OPERATION MANUAL( AUTOMATED BLOOD COUNTS [...] HCT IS 5% LESS SOURCE FOR DATA: [employer] 1800 OPERATION MANUAL( AUTOMATED BLOOD COUNTS [...] HCT IS 5% LESS SOURCE FOR DATA: [employer] 1800 OPERATION MANUAL( AUTOMATED BLOOD COUNTS AND DIFF.) APPENDIX B-3 Alt (SGPT) 7 U/L 0-41 [facility] ([facility] CHRONIC KIDNEY DISEASE STAGING [...] HCT IS 5% LESS SOURCE FOR DATA: [employer] 1800 OPERATION MANUAL( AUTOMATED BLOOD COUNTS AND DIFF.) APPENDIX B-3 Alp 96.5 U/L 35-129 [facility] CHRONIC KIDNEY DISEASE STAGING PER [...] APPENDIX B-3 Ast (Sgot) 12 U/L 0-40 [facility] CHRONIC KIDNEY DISEASE STAGING PER NKF: [...] DIFF.) APPENDIX B-3 Anion Gap 15 mmol/L [facility] ([facility] CHRONIC KIDNEY DISEASE STAGING PER [...] HCT IS 5% LESS SOURCE FOR DATA: [employer] 1800 OPERATION MANUAL( AUTOMATED BLOOD COUNTS AND DIFF.) APPENDIX B-3 Tbili 0.51 mg/dL 0.0-1.2 [facility] CHRONIC KIDNEY DISEASE STAGING [...] HCT IS 5% LESS SOURCE FOR DATA: [employer] 1800 OPERATION MANUAL( AUTOMATED BLOOD COUNTS AND [...] HCT IS 5% LESS SOURCE FOR DATA: [employer] 1800 OPERATION MANUAL( AUTOMATED BLOOD COUNTS AND DIFF.) APPENDIX B-3 eGFR Non-Afr. Icelandic 83 # [facility] ([facility] [...] HCT IS 5% LESS SOURCE FOR DATA: [employer] 1800 OPERATION MANUAL( AUTOMATED BLOOD COUNTS AND DIFF.) APPENDIX B-3 eGFR 96 # [facility] ( [facility] CHRONIC [...] HCT IS 5% LESS SOURCE FOR DATA: [employer] 1800 OPERATION MANUAL( AUTOMATED BLOOD COUNTS AND DIFF.) APPENDIX B-3 Procedure Vital Signs ID Date Data Source UNK Name Value Range Interpretation Code Description Data Source(s) Oxygen saturation in Arterial blood by Pulse oximetry 96 % 96 % JEREMY ([facility] Body mass index (BMI) [Ratio] 27.3 kg/m2 27.3 k g/m2 JEREMY ([facility] Cecil body weight 100 [lb_av] 100 [lb_av] CORRIE Sultana ([facility] Body weight 140.00 [lb_av] 140.00 [lb_av] CORRIE Sultana ([facility] Body height 60 [in_i] 60 [in_i] MEDENT ([facility] 5'0" Respiratory rate 14 /min 14 /min [facility] ( [facility] Heart rate 80 /min 80 /min [facility] ([facility] Body temperature 98.8 [degF] 98.8 [degF] [facility] ([facility] Diastolic blood pressure 74 mm[Hg] 74 mm[Hg] [facility] ([facility] Systolic blood pressure 112 mm[Hg] 112 mm[Hg] M EDENT ([facility] Systolic blood pressure 136 mm[Hg] 136 mm[Hg] A THENA ([facility]) Body height 63 [in_i] 63 [in_i] DARIEN ([facility]) Diastolic blood pressure 81 mm[Hg] 81 mm[Hg] DARIEN ([facility]) Systolic blood pressure 136 mm[Hg] 136 mm[Hg] A THENA ([facility]) Body height 63 [in_i] 63 [in_i] DARIEN ([facility]) Diastolic blood pressure 81 mm[Hg] 81 mm[Hg] [facility] ([facility]) Systolic blood pressure 136 mm[Hg] 136 mm[Hg] A THENA ([facility]) Body height 63 [in_i] 63 [in_i] DARIEN ([facility]) Diastolic blood pressure 81 mm[Hg] 81 mm[Hg] DARIEN ([facility]) Systolic blood pressure 136 mm[Hg] 136 mm[Hg] A THENA ([facility]) Body height 63 [in_i] 63 [in_i] ADRIEN ([facility]) Diastolic blood pressure 81 mm[Hg] 81 mm[Hg] DARIEN ([facility]) Systolic blood pressure 136 mm[Hg] 136 mm[Hg] A THENA ([facility]) Body height 63 [in_i] 63 [in_i] DARIEN ([facility]) Diastolic blood pressure 81 mm[Hg] 81 mm[Hg] DARIEN ([facility]) Body height 63 [in_i] 63 [in_i] DARIEN ([facility]) Body height 63 [in_i] 63 [in_i] DARIEN ([facility]) Body height 63 [in_i] 63 [in_i] DARIEN ([facility]) Body height 63 [in_i] 63 [in_i] DARIEN ([facility]) Body height 63 [in_i] 63 [in_i] DARIEN ([facility]) Body height 63 [in_i] 63 [in_i] DARIEN ([facility]) Oxygen saturation in Arterial blood by Pulse oximetry 97 % 97 % MEDENT ([facility] Body mass index (BMI) [Ratio] 27.1 kg/m2 27.1 k g/m2 MED[facility] ([facility] Cecil body weight 100 [lb_av] 100 [lb_av] MEDEN T ([facility] Body weight 139.00 [lb_av] 139.00 [lb_av] MEDEN T ([facility] Body height 60 [in_i] 60 [in_i] MEDENT ([facility] 5'0" Respiratory rate 14 [...] [in_i] 63 [in_i] DARIEN ([facility]) Body height 63 [in_i] 63 [in_i] DARIEN ([facility]) Body height 63 [in_i] 63 [in_i] DARIEN ([facility]) Body height 63 [in_i] 63 [in_i] DARIEN ([facility]) Body height 63 [in_i] 63 [in_i] DARIEN ([facility]) Body height 63 [in_i] 63 [in_i] DARIEN ([facility]) Body height 63 [in_i] 63 [in_i] DARIEN ([facility]) Body height 63 [in_i] 63 [in_i] DARIEN ([facility]) Body height 63 [in_i] 63 [in_i] DARIEN ([facility]) Body height 63 [in_i] 63 [in_i] DARIEN ([facility]) Body height 63 [in_i] 63 [in_i] DARIEN ([facility]) Body height 63 [in_i] 63 [in_i] DARIEN ([facility]) Body height 63 [in_i] 63 [in_i] DARIEN ([facility]) Heart rate 72 /min 72 /min MEDENT [...] Body height 60 [in_i] 60 [in_i] MEDENT ([facility] 5'0" Respiratory rate 14 [...] Antibio. Oint 04/02/2019 12:00:00 AM EST [facility] ([facility]) Ferrous Sulfate 325 (65 Fe) MG 04/02/2019 12:00:00 AM EST [facility] ([facility]) Advil 200 MG 03/30/2019 12:00:00 AM EST N [facility] ([facility]) magnesium 03/30/2019 12:00:00 AM EST N [facility] ([facility]) Vitamin D3 25 MCG 03/30/2019 12:00:00 AM EST [facility] ([facility]) Tylenol Extra Strength 500 MG 03/30/2019 12:00:00 AM EST [facility] ([facility]) Restasis 0.05 % 03/30/2019 12:00:00 AM EST [facility] ([facility]) Aspirin 81 MG 03/30/2019 12:00:00 AM EST [facility] ([facility]) Pravastatin Sodium 10 MG 03/30/2019 12:00:00 AM EST [facility] ([facility]) Cyclosporine 0.5 MG/ML Ophthalmic Suspension [Restasis] DARIEN ([facility]) Acetaminophen 325 MG / Hydrocodone Bitartrate 5 MG Oral Tablet DARIEN ([facility]) gabapentin 100 MG Oral Capsule DARIEN ([facility]) Fluzone High-Dose Quad (PF) 240 mcg/0.7 mL IM syringe INJECT 0.7ML INTRAMUSCULARLY [facility] Fluzone High-Dose (PF) 180 mcg/0 .5 mL intramuscular syringe INJECT DIRECTED DARIEN ([facility]) ferrous sulfate 325 MG Oral Tablet DARIEN ([facility]) Cyclosporine 0.5 MG/ML Ophthalmic Suspension [Restasis] DARIEN ([facility]) Acetaminophen 325 MG / Hydrocodone Bitartrate 5 MG Oral Tablet DARIEN ([facility]) gabapentin 100 MG Oral Capsule DARIEN ([facility]) Fluzone High-Dose Quad (PF) 240 mcg/0.7 mL IM syringe INJECT 0.7ML INTRAMUSCULARLY DARIEN ([facility]) Fluzone High-Dose (PF) 180 mcg/0 .5 mL intramuscular syringe INJECT DIRECTED DARIEN ([facility]) ferrous sulfate 325 MG Oral Tablet DARIEN ([facility]) Cyclosporine 0.5 MG/ML Ophthalmic Suspension [Restasis] DARIEN ([facility]) Acetaminophen 325 MG / Hydrocodone Bitartrate 5 MG Oral Tablet DARIEN ([facility]) gabapentin 100 MG Oral Capsule DARIEN ([facility]) Fluzone High-Dose Quad 2019- (PF) 240 mcg/0.7 mL IM syringe INJECT 0.7ML INTRAMUSCULARLY DARIEN ([facility]) Fluzone High-Dose (PF) 180 mcg/0 .5 mL intramuscular syringe INJECT DIRECTED DARIEN ([facility]) ferrous sulfate 325 MG Oral Tablet DARIEN ([facility]) Cyclosporine 0.5 MG/ML Ophthalmic Suspension [Restasis] DARIEN ([facility]) Acetaminophen 325 MG / Hydrocodone Bitartrate 5 MG Oral Tablet DARIEN ([facility]) gabapentin 100 MG Oral Capsule DARIEN ([facility]) Fluzone High-Dose Quad (PF) 240 mcg/0.7 mL IM syringe INJECT 0.7ML INTRAMUSCULARLY DARIEN ([facility]) Fluzone High-Dose (PF) 180 mcg/0 .5 mL intramuscular syringe INJECT DIRECTED DARIEN ([facility]) ferrous sulfate 325 MG Oral Tablet DARIEN ([facility]) Cyclosporine 0.5 MG/ML Ophthalmic Suspension [Restasis] DARIEN ([facility]) Acetaminophen 325 MG / Hydrocodone Bitartrate 5 MG Oral Tablet DARIEN ([facility]) gabapentin 100 MG Oral Capsule DARIEN ([facility]) Fluzone High-Dose Quad (PF) 240 mcg/0.7 mL IM syringe INJECT 0.7ML INTRAMUSCULARLY DARIEN ([facility]) Fluzone High-Dose (PF) 180 mcg/0 .5 mL intramuscular syringe INJECT DIRECTED DARIEN ([facility]) ferrous sulfate 325 MG Oral Tablet DARIEN ([facility]) Cyclosporine 0.5 MG/ML Ophthalmic Suspension [Restasis] DARIEN ([facility]) Acetaminophen 325 MG / Hydrocodone Bitartrate 5 MG Oral Tablet DARIEN ([facility]) Cyclosporine 0.5 MG/ML Ophthalmic Suspension [Restasis] DARIEN ([facility]) Acetaminophen 325 MG / Hydrocodone Bitartrate 5 MG Oral Tablet DARIEN ([facility]) Cyclosporine 0.5 MG/ML Ophthalmic Suspension [Restasis] DARIEN ([facility]) Acetaminophen 325 MG / Hydrocodone Bitartrate 5 MG Oral Tablet DARIEN ([facility]) Cyclosporine 0.5 MG/ML Ophthalmic Suspension [Restasis] DARIEN ([facility]) Acetaminophen 325 MG / Hydrocodone Bitartrate 5 MG Oral Tablet DARIEN ([facility]) Cyclosporine 0.5 MG/ML Ophthalmic Suspension [Restasis] DARIEN ([facility]) Acetaminophen 325 MG / Hydrocodone Bitartrate 5 MG Oral Tablet DARIEN ([facility]) Cyclosporine 0.5 MG/ML Ophthalmic Suspension [Restasis] DARIEN ([facility]) Acetaminophen 325 MG / Hydrocodone Bitartrate 5 MG Oral Tablet DARIEN ([facility]) Cyclosporine 0.5 MG/ML Ophthalmic Suspension [Restasis] DARIEN ([facility]) Acetaminophen 325 MG / Hydrocodone Bitartrate 5 MG Oral Tablet DARIEN ([facility]) Cyclosporine 0.5 MG/ML Ophthalmic Suspension [Restasis] DARIEN ([facility]) Acetaminophen 325 MG / Hydrocodone Bitartrate 5 MG Oral Tablet DARIEN ([facility])
--- NOTE | 2020-05-14 16:54 | REP ---
INDICATION: LLQ pain, hx ostomy reversal. COMPARISON: CT 01/03/2015, abdominal series 05/14/2020 TECHNIQUE: Oral Gastrografin per our bowel contrast protocol and scanning through the abdomen and pelvis coronal and sagittal reconstructions provided. FINDINGS: CT abdomen: Some minor basilar fibrotic changes and subsegmental atelectatic changes deep sulci lower lobes without effusion or acute infiltrate. Heart shows mild left atrial enlargement but no gross cardiomegaly or pericardial effusion. There calcifications in the aortic valve plane and coronary arteries. No hiatal hernia. There is no hepatosplenomegaly, hepatic mass or intrahepatic biliary dilatation. There is evidence of the extensive ventral abdominal wall hernia repair. The infraumbilical hernia seen on the previous study is increased in size with the small bowel loops extending in and out of it but all of the same caliber with contrast the same density above and below. This is an incarcerated but not strangulated hernia. Mesh is identified along the anterior abdominal wall with its anchors. Small bowel loops without dilatation, wall thickening or mass. Abdominal portions of colon shows stool, gas and contrast without colitis or diverticulitis. There is atherosclerotic calcification of the aorta without aneurysm. Adrenal glands are normal. No periaortic, retroperitoneal or mesenteric adenopathy. Adrenal glands and pancreas unremarkable. Liver and spleen without acute finding. Gallbladder surgically absent. Kidneys without stone, hydronephrosis, cyst or mass. No hydroureter or ureteral stone. Bone windows show degenerative changes in the lower lumbar facets and throughout the lower lumbar spine endplates. No compression fracture or destructive lesion. Visualized ribs show no focal lesion CT pelvis: Sacrum, SI joints pelvis and hips show no fracture or destructive lesion. There are degenerative changes at the SI joints and hips. Of the distal left colon shows an end to the side colorectal anastomosis with the staple line intact stool and gas in the rectum moderately distending it. Vascular calcifications of the aortoiliac vessels without aneurysm. Bladder shows no wall thickening, mass or stone. The distal ureters without stone. There are some pelvic phleboliths and pelvic surgical clips. The lower pelvis shows no midline hernia. There is no ventral or inguinal hernia nor inguinal adenopathy. Cecum extends into the pelvis without evidence of an appendix or pericecal inflammatory change. Small bowel loops in the pelvis were unremarkable. Ileocecal valve unremarkable. IMPRESSION: No CT evidence of colitis, diverticulitis, stricture or mass and the distal left colon and rectal end to side anastomosis grossly intact with moderate stool in the rectum and scattered stool and gas in the colon without abnormal distention. No abnormal fluid collections to suggest abscess.. Prior abdominal wall hernia surgery with the infraumbilical hernia which is increased in size since the prior from 01/03/2015. This is shows incarcerated loops without strangulation, normal caliber and contrast above and below as well as within the hernia for the small bowel loops. Prior cholecystectomy. No other significant or finding or interval change. <Electronically signed by Phillip Prieto > 05/14/20 [id number]
[2020-05-14] MEDS ORDERED: FLEET OIL RETENTION ENEMA PR ONE (17:00)
[2020-05-14] MEDS ORDERED: ANUS25SU PR (20:59)
[2020-05-14 21:00] VITALS: BP 127/64
== END 2020-05-14 21:20 | disposition home or self-care (01) ==
LOC: M ED 11:04
DX: K59.00 Constipation, unspecified (principal); E78.5 Hyperlipidemia, unspecified; Z91.013 Allergy to seafood; Z91.048 Other nonmedicinal substance allergy status
CPT/HCPCS: 74021; 74176; 80047; 83605; 85025; 96374; 99284; J1885

== ENCOUNTER 2020-10-23 18:09 | Emergency (ER) | payer MEDICARE ==
[~2020-10-23] VITALS: Ht 162.6 cm; Wt 66.8 kg
[~2020-10-23 18:09] MED LIST changes: +ACET-861 PO; +ANUS25SU PR; +DULC10SU2 PR
[2020-10-23] MEDS ORDERED: vitamin D PO (19:39)
[2020-10-24 00:32] VITALS: BP 128/62
[2020-10-24] MEDS ORDERED: LIDOCAINE W/EPINEPHRINE 1% 20ML VIAL SC ONE (01:10)
[2020-10-24] MEDS ORDERED: ACETAMINOPHEN TAB 650MG DOSE (2X325MG) PO ONE (01:15)
[2020-10-24] MEDS ORDERED: BUPIVACAINE HCL 0.5% 10ML VIAL SC ONE (02:50)
--- NOTE | 2020-10-24 03:13 | REPVR ---
PROCEDURE INFORMATION: Exam: XR Left Tibia and Fibula Exam date and time: 10/24/2020 1:35 AM Age: 85 years old Clinical indication: Pain; Left; Patient HX: Lac to mid lower leg anterior-lateral; Additional info: Trauma to leg TECHNIQUE: Imaging protocol: XR Left tibia and fibula. Views: 2 views. COMPARISON: US Duplex, Ext LOWER veins, bilat 01/03/2015 8:53 PM FINDINGS: Bones/joints: Moderate degenerative osteoarthritis of the left knee is noted, greatest in the medial compartment. No fractures. Soft tissues: Subcutaneous calcifications are noted. IMPRESSION: 1. Moderate degenerative osteoarthritis of the left knee, greatest medially. 2. Otherwise negative left tibia and fibula. No fracture. Electronically signed by: Mejia Medel On 10/24/2020 03:12:50 AM
[2020-10-24] MEDS ORDERED: CEPH500C PO ×2 (04:08→04:15)
[2020-10-24] MEDS ORDERED: CEPHALEXIN 500 MG CAP PO ONE (04:10)
[2020-10-24] MEDS ORDERED: BOOSTRIX/ADACEL VACCINE (DIPHTH/PERTUSS/ACELL/TETANUS) 0.5ML SYR IM ONE (04:20)
== END 2020-10-24 04:29 | disposition home or self-care (01) ==
LOC: M ED 18:09
DX: S81.812A Laceration without foreign body, left lower leg, initial encounter (principal); S80.12XA Contusion of left lower leg, initial encounter; W22.8XXA Striking against or struck by other objects, initial encounter; Y92.099 Unspecified place in other non-institutional residence as the place of occurrence of the external cause; Y93.9 Activity, unspecified; Y99.9 Unspecified external cause status; Z23 Encounter for immunization; M17.12 Unilateral primary osteoarthritis, left knee; I25.10 Atherosclerotic heart disease of native coronary artery without angina pectoris; I10 Essential (primary) hypertension; E78.5 Hyperlipidemia, unspecified; M47.24 Other spondylosis with radiculopathy, thoracic region; Z85.038 Personal history of other malignant neoplasm of large intestine; Z90.49 Acquired absence of other specified parts of digestive tract; Z79.82 Long term (current) use of aspirin; Z79.899 Other long term (current) drug therapy; Z91.89 Other specified personal risk factors, not elsewhere classified; Z91.013 Allergy to seafood

== ENCOUNTER → 2020-10-30 | Outpatient (CLI) | payer MEDICARE ==
[~2020-10-30] MED LIST changes: +CEPH500C PO; +vitamin D PO
--- NOTE | 2020-10-30 12:31 | REP ---
INDICATION: LACERATION W/O FOREIGH BODY LEFT LOWER LEG COMPARISON: 10/24/2020. TECHNIQUE: There are two views. FINDINGS: There is no fracture or dislocation. There is no radiopaque foreign body. There are dystrophic calcifications throughout the soft tissues, possibly from venous insufficiency. No laceration is identified by plain films. There is osteoarthritis in the medial compartment of the knee. IMPRESSION: Dystrophic calcifications throughout the soft tissues, possibly from venous insufficiency, unchanged. No fracture or foreign body. The laceration is not identified on plain films. Left knee osteoarthritis. <Electronically signed by Nik Mack > 10/30/20 [id number]
== END ==
LOC: M WUC 10:54
PROVIDERS: ATTEND Internal Medicine
DX: S81.812D Laceration without foreign body, left lower leg, subsequent encounter (principal); X58.XXXA Exposure to other specified factors, initial encounter; Y92.89 Other specified places as the place of occurrence of the external cause; Y93.89 Activity, other specified; Y99.8 Other external cause status; M17.12 Unilateral primary osteoarthritis, left knee

== ENCOUNTER 2021-12-09 17:35 | Emergency (ER) | payer MEDICARE ==
[~2021-12-09] VITALS: Ht 162.6 cm; Wt 61.8 kg
[2021-12-09] MEDS ORDERED: IBUPROFEN 400MG TAB PO ONE (18:00)
[2021-12-09 18:39] VITALS: BP 137/65
== END 2021-12-09 19:16 | disposition home or self-care (01) ==
LOC: M ED 17:35
DX: S40.011A Contusion of right shoulder, initial encounter (principal); S51.011A Laceration without foreign body of right elbow, initial encounter; W01.0XXA Fall on same level from slipping, tripping and stumbling without subsequent striking against object, initial encounter; Y92.009 Unspecified place in unspecified non-institutional (private) residence as the place of occurrence of the external cause; Y93.H2 Activity, gardening and landscaping; Z85.038 Personal history of other malignant neoplasm of large intestine; Z91.048 Other nonmedicinal substance allergy status; Z91.013 Allergy to seafood

== ENCOUNTER 2022-01-13 04:22 | Emergency (ER) | payer MEDICARE ==
[~2022-01-13] VITALS: Ht 162.6 cm; Wt 59.1 kg
[2022-01-13] MEDS ORDERED: ACETAMINOPHEN 500 MG TAB PO ONE (07:35)
[2022-01-13] MEDS ORDERED: BOOSTRIX/ADACEL VACCINE (DIPHTH/PERTUSS/ACELL/TETANUS) 0.5ML SYR IM ONE (07:35)
[2022-01-13] MEDS ORDERED: LIDOCAINE W/EPINEPHRINE 1% 20ML VIAL INFIL ONE (07:35)
[2022-01-13] MEDS ORDERED: ceFAZolin SOD 2 GM in IV 1 EA IV ONE (11:10)
[2022-01-13 11:40] VITALS: BP 133/63
[2022-01-13] MEDS ORDERED: CEPH500C PO (12:37)
[2022-01-13 13:25] LABS: BASO % 0.5 % (0.0-1.0); EOS % 0.5 % (0.0-3.0); HEMATOCRIT 38.1 % (36.0-47.0); LYMPH % 12.3 % (24.0-44.0); MEAN CORPUSCULAR HGB CONC 31.5 g/dl (32.0-36.5); MEAN CORPUSCULAR VOLUME 101.6 fl (80.0-96.0); MONO # 0.7 10^3/uL (0.0-0.8); MONO % 8.8 % (2.0-8.0); NEUTROPHILS % 77.6 % (36.0-66.0); PLATELET COUNT, AUTOMATED 195 10^3/uL (150-450); RED BLOOD COUNT 3.75 10^6/uL (4.00-5.40); WHITE BLOOD COUNT 7.7 10^3/uL (4.0-10.0)
[2022-01-13] MEDS ORDERED: ISOVUE-370 76% 100ML VIAL As Ordered ONE (13:27)
[2022-01-13 13:42] LABS: INR 0.98; PROTHROMBIN TIME 13.2 SECONDS (12.5-14.5)
[2022-01-13 13:43] LABS: PARTIAL THROMBOPLASTIN TIME 29.2 SECONDS (24.8-34.2)
== END 2022-01-13 14:39 | disposition home or self-care (01) ==
LOC: EDBD 04:22 → M ED 04:22
DX: S81.811A Laceration without foreign body, right lower leg, initial encounter (principal); S80.11XA Contusion of right lower leg, initial encounter; S40.021A Contusion of right upper arm, initial encounter; S86.821A Laceration of other muscle(s) and tendon(s) at lower leg level, right leg, initial encounter; S30.1XXA Contusion of abdominal wall, initial encounter; W01.0XXA Fall on same level from slipping, tripping and stumbling without subsequent striking against object, initial encounter; Y92.009 Unspecified place in unspecified non-institutional (private) residence as the place of occurrence of the external cause; M81.0 Age-related osteoporosis without current pathological fracture; M19.011 Primary osteoarthritis, right shoulder; M11.261 Other chondrocalcinosis, right knee; K43.9 Ventral hernia without obstruction or gangrene; Z85.3 Personal history of malignant neoplasm of breast; E78.5 Hyperlipidemia, unspecified; Z85.038 Personal history of other malignant neoplasm of large intestine; Z91.013 Allergy to seafood; Z91.09 Other allergy status, other than to drugs and biological substances; Z79.82 Long term (current) use of aspirin; Z79.899 Other long term (current) drug therapy
CPT/HCPCS: 12004; 73030; 73060; 73090; 73590; 74177; 80047; 85025; 85610; 85730; 90471; 90715; 96365; 99284; J0690; Q9967

== ENCOUNTER → 2022-01-21 | Outpatient (CLI) | payer MEDICARE | LOC: M WUC 10:17 | PROVIDERS: ATTEND Surgery | DX: M19.071 Primary osteoarthritis, right ankle and foot (principal); L97.812 Non-pressure chronic ulcer of other part of right lower leg with fat layer exposed; M77.31 Calcaneal spur, right foot ==

== ENCOUNTER 2022-11-27 19:03 | Emergency (ER) | payer MEDICARE ==
[~2022-11-27] VITALS: Ht 162.6 cm; Wt 60.0 kg
[2022-11-27 19:27] VITALS: TEMP 97.8
[2022-11-27 20:00] VITALS: O2SAT 97
[2022-11-27] MEDS ORDERED: ACETAMINOPHEN TAB 650MG DOSE (2X325MG) PO ONE (20:10)
[2022-11-27 20:15] VITALS: BP 95/55
== END 2022-11-27 22:12 | disposition home or self-care (01) ==
LOC: M ED 19:03
DX: S00.93XA Contusion of unspecified part of head, initial encounter (principal); W01.0XXA Fall on same level from slipping, tripping and stumbling without subsequent striking against object, initial encounter; Y92.009 Unspecified place in unspecified non-institutional (private) residence as the place of occurrence of the external cause; Y93.01 Activity, walking, marching and hiking; Y99.8 Other external cause status; I11.9 Hypertensive heart disease without heart failure; I25.10 Atherosclerotic heart disease of native coronary artery without angina pectoris; Z85.038 Personal history of other malignant neoplasm of large intestine; Z91.013 Allergy to seafood; Z88.8 Allergy status to other drugs, medicaments and biological substances; Z79.899 Other long term (current) drug therapy; Z79.82 Long term (current) use of aspirin

== ENCOUNTER → 2022-12-03 | Outpatient (CLI) | payer MEDICARE | LOC: M WUC 14:22 | PROVIDERS: ATTEND Internal Medicine | DX: M54.31 Sciatica, right side (principal) ==

== ENCOUNTER 2022-12-07 13:42 | Emergency (ER) | payer MEDICARE ==
[~2022-12-07] VITALS: Ht 157.5 cm; Wt 55.0 kg
[2022-12-07] MEDS ORDERED: TRAM50TA2 (13:55)
[2022-12-07] MEDS ORDERED: KETOROLAC 30 MG/ML 1ML VIAL IV ONE (16:35)
[2022-12-07 17:36] LABS: BASO # 0.1 10^3/uL (0.0-0.2); BASO % 1.3 % (0.0-1.0); EOS # 0.1 10^3/uL (0.0-0.5); EOS % 1.6 % (0.0-3.0); HEMATOCRIT 42.5 % (36.0-47.0); HEMOGLOBIN 13.5 g/dl (12.0-15.5); LYMPH # 1.2 10^3/uL (1.5-5.0); LYMPH % 25.6 % (24.0-44.0); MEAN CORPUSCULAR HEMOGLOBIN 31.6 pg (27.0-33.0); MEAN CORPUSCULAR HGB CONC 31.8 g/dl (32.0-36.5); MEAN CORPUSCULAR VOLUME 99.5 fl (80.0-96.0); MONO # 0.6 10^3/uL (0.0-0.8); MONO % 13.4 % (2.0-8.0); NEUTROPHILS # 2.6 10^3/uL (1.5-8.5); NEUTROPHILS % 57.9 % (36.0-66.0); PLATELET COUNT, AUTOMATED 251 10^3/uL (150-450); RED BLOOD COUNT 4.27 10^6/uL (4.00-5.40); WHITE BLOOD COUNT 4.5 10^3/uL (4.0-10.0)
[2022-12-07 17:38] LABS: BLOOD UREA NITROGEN 9 MG/DL (9-23); CALCIUM LEVEL 9.3 MG/DL (8.3-10.6); CARBON DIOXIDE LEVEL 34 MMOL/L (20-31); CHLORIDE LEVEL 102 MMOL/L (98-107); CREATININE FOR GFR 0.53 MG/DL (0.55-1.30); GLOMERULAR FILTRATION RATE > 60.0 (>32); GLUCOSE, FASTING 88 MG/DL (74-106); POTASSIUM SERUM 3.6 MMOL/L (3.5-5.1); SODIUM LEVEL 142 MMOL/L (136-145)
[2022-12-07 20:34] LABS: RSV AMPLIFICATION NEGATIVE (NEGATIVE)
[2022-12-07] MEDS ORDERED: ACETAMINOPHEN 500 MG TAB PO ONE (22:30)
[2022-12-08 04:40] VITALS: BP 110/57; TEMP 97.6; O2SAT 99
[2022-12-08] MEDS ORDERED: MORPHINE 4 MG/ML 1ML VIAL IV ONE (04:45)
== END 2022-12-08 04:52 | disposition short-term general hospital (02) ==
LOC: M ED 13:42
DX: M51.06 Intervertebral disc disorders with myelopathy, lumbar region (principal); M51.26 Other intervertebral disc displacement, lumbar region; M43.16 Spondylolisthesis, lumbar region; E78.5 Hyperlipidemia, unspecified; F10.10 Alcohol abuse, uncomplicated; Z91.013 Allergy to seafood; Z91.048 Other nonmedicinal substance allergy status; Z79.82 Long term (current) use of aspirin; Z79.899 Other long term (current) drug therapy
CPT/HCPCS: 72148; 73502; 80048; 85025; 87631; 96374; 96375; 99284; J1885

== ENCOUNTER 2023-11-01 10:11 | Emergency (ER) | payer MEDICARE ==
[~2023-11-01] VITALS: Ht 165.1 cm; Wt 53.2 kg
[2023-11-01] MEDS: LIDOCAINE W/EPINEPHRINE 1% 20ML VIAL SC ONE (15:15)
[2023-11-01] MEDS: BACITRACIN OINTMENT 30GM TUBE TOP STA (15:45)
[2023-11-01 15:50] VITALS: BP 143/62; TEMP 96.4; O2SAT 99
== END 2023-11-01 15:54 | disposition home or self-care (01) ==
LOC: M ED 10:11
DX: S80.12XA Contusion of left lower leg, initial encounter (principal); S51.002A Unspecified open wound of left elbow, initial encounter; Y92.9 Unspecified place or not applicable; Y93.9 Activity, unspecified; Y99.9 Unspecified external cause status; E78.5 Hyperlipidemia, unspecified; Z88.8 Allergy status to other drugs, medicaments and biological substances; Z91.013 Allergy to seafood; Z79.1 Long term (current) use of non-steroidal anti-inflammatories (NSAID); Z79.899 Other long term (current) drug therapy

== ENCOUNTER → 2024-03-27 | Outpatient (REF) | payer MEDICARE | LOC: SKLAB8 08:28 | PROVIDERS: ATTEND Internal Medicine | DX: S00.83XA Contusion of other part of head, initial encounter (principal) ==

== ENCOUNTER 2024-07-28 20:21 | Inpatient (IN) | payer MEDICARE ==
[~2024-07-28] VITALS: Ht 160 cm; Wt 49.5 kg
[2024-07-28] MEDS: ONDANSETRON 4MG 2ML VIAL IV ONE (21:40)
[2024-07-28] MEDS: MORPHINE 2 MG/ML 1ML VIAL IV ONE (21:41)
[2024-07-28] MEDS: ACETAMINOPHEN *IV* 1,000 MG in IV 1 EA IV ONE (21:45)
[2024-07-28] MEDS: fentaNYL 100 MCG/2 ML INJECTION IV ONE (22:45)
[2024-07-29 02:38] LABS: BASO % 0.3 % (0.0-1.0); EOS % 0.1 % (0.0-3.0); HEMOGLOBIN 12.5 g/dl (12.0-15.5); LYMPH # 0.9 10^3/uL (1.5-5.0); LYMPH % 9.3 % (24.0-44.0); MEAN CORPUSCULAR HEMOGLOBIN 30.6 pg (27.0-33.0); MEAN CORPUSCULAR HGB CONC 32.1 g/dl (32.0-36.5); MEAN CORPUSCULAR VOLUME 95.4 fl (80.0-96.0); MONO # 1.1 10^3/uL (0.0-0.8); MONO % 11.6 % (2.0-8.0); NEUTROPHILS # 7.4 10^3/uL (1.5-8.5); NEUTROPHILS % 78.3 % (36.0-66.0); PLATELET COUNT, AUTOMATED 211 10^3/uL (150-450); RED BLOOD COUNT 4.09 10^6/uL (4.00-5.40); WHITE BLOOD COUNT 9.5 10^3/uL (4.0-10.0)
[2024-07-29] MEDS ORDERED: MAALOX 30 ML SUSP *UDC PO PRN (03:05)
[2024-07-29] MEDS ORDERED: ACETAMINOPHEN 325 MG TAB PO PRN (03:05)
[2024-07-29] MEDS ORDERED: MOM 30ML SUSPENSION UDC PO PRN (03:05)
[2024-07-29 03:08] LABS: BLOOD UREA NITROGEN 14 MG/DL (9-23); CALCIUM LEVEL 8.7 MG/DL (8.3-10.6); CARBON DIOXIDE LEVEL 30 MMOL/L (20-31); CHLORIDE LEVEL 101 MMOL/L (98-107); CREATININE FOR GFR 0.44 MG/DL (0.55-1.30); GLOMERULAR FILTRATION RATE > 90.0 (>32); GLUCOSE, FASTING 106 MG/DL (74-106); MAGNESIUM LEVEL 1.7 MG/DL (1.8-2.4); POTASSIUM SERUM 3.7 MMOL/L (3.5-5.1); SODIUM LEVEL 140 MMOL/L (136-145)
[2024-07-29] MEDS ORDERED: DOCU100C16 PO (03:58)
[2024-07-29] MEDS ORDERED: DULC10SU2 PR (03:58)
[2024-07-29] MEDS ORDERED: ACET1TAB55 PO (03:58)
[2024-07-29] MEDS ORDERED: MILKSUS3 PO (03:58)
[2024-07-29] MEDS ORDERED: TRAM1TAB42 PO (03:58)
[2024-07-29] MEDS ORDERED: ARTISOL2 OU (03:58)
[2024-07-29] MEDS ORDERED: HOME MED LIST COMPLETE! XX SCH (04:00)
[2024-07-29] MEDS: METHOCARBAMOL 1,000 MG/10 ML VIAL IV ONE (04:05)
[2024-07-29 04:46] VITALS: BP 127/61; TEMP 97.9; O2SAT 99
[2024-07-29 08:00] VITALS: BP 122/71; TEMP 98.1; O2SAT 97
[2024-07-29] MEDS: MAG SULF 1GM/100ML (MAG RUN) 1 GM in IV 1 EA IV SCH (08:25)
[2024-07-29] MEDS ORDERED: methocarbamoL 500 MG TAB PO PRN (09:00)
[2024-07-29] MEDS: ERYTHROMYCIN OPHTH OINT OU SCH (10:02)
[2024-07-29] MEDS: DOCUSATE SODIUM 100MG CAPSULE PO SCH (10:03)
[2024-07-29] MEDS: traMADol 50 MG TAB PO PRN (10:15)
[2024-07-29 12:00] VITALS: BP 110/56; TEMP 98.1; O2SAT 95
[2024-07-29] MEDS: HEPARIN SOD (PORCINE) 5000UNITS/ML 1ML VIAL/SYRINGE SC SCH (12:47)
[2024-07-29] MEDS ORDERED: BISACODYL 10MG SUPP PR PRN (14:30)
[2024-07-29 16:00] VITALS: BP 119/69; TEMP 98.2; O2SAT 95
[2024-07-29 20:06] VITALS: BP 116/65; TEMP 98.8; O2SAT 99
[2024-07-29] MEDS: SENOKOT S TAB PO SCH (20:25)
[2024-07-29] MEDS: LIDOCAINE 5% (LIDODERM) PATCH TD SCH (20:26)
[2024-07-29] MEDS ORDERED: NALOXONE INJ 0.4MG/1ML VIAL IV PRN (21:10)
[2024-07-29] MEDS: MORPHINE 2 MG/ML 1ML VIAL IV ONE (21:23)
[2024-07-29 23:29] VITALS: BP 132/71; TEMP 98.2; O2SAT 96
[2024-07-30] MEDS: ACETAMINOPHEN 325 MG TAB PO SCH
[2024-07-30 03:36] VITALS: BP 125/69; TEMP 97.9; O2SAT 98
[2024-07-30] MEDS: traMADol 50 MG TAB PO PRN (07:59)
[2024-07-30 08:08] VITALS: BP 123/67; TEMP 98.1; O2SAT 95
[2024-07-30] MEDS ORDERED: PERCOCET 5MG/325MG TAB PO ONE (10:00)
[2024-07-30] MEDS ORDERED: LIDO5TD TD (11:06)
[2024-07-30] MEDS ORDERED: NALO0.4I3 IV (11:06)
[2024-07-30] MEDS ORDERED: PERCOCET PO (11:06)
[2024-07-30] MEDS ORDERED: ECOT81TA5 PO (11:34)
[2024-07-30] MEDS: PERCOCET 5MG/325MG TAB PO PRN (12:08)
== END 2024-07-30 13:29 | DRG 536 ==
LOC: M ED 20:21 → M ED INP 07-29 03:01 → M MSPAV 07-29 04:28
PROVIDERS: ADMIT Family Medicine; ATTEND Student in an Organized Health Care Education/Training Program
DX: S32.511A Fracture of superior rim of right pubis, initial encounter for closed fracture (principal); S32.040A Wedge compression fracture of fourth lumbar vertebra, initial encounter for closed fracture; S32.301A Unspecified fracture of right ilium, initial encounter for closed fracture; S32.591A Other specified fracture of right pubis, initial encounter for closed fracture; M85.89 Other specified disorders of bone density and structure, multiple sites; K21.9 Gastro-esophageal reflux disease without esophagitis; E83.42 Hypomagnesemia; I73.9 Peripheral vascular disease, unspecified; I48.91 Unspecified atrial fibrillation; G30.9 Alzheimer's disease, unspecified; F02.80 Dementia in other diseases classified elsewhere, unspecified severity, without behavioral disturbance, psychotic disturbance, mood disturbance, and anxiety; Z66 Do not resuscitate; Z85.828 Personal history of other malignant neoplasm of skin; Z85.038 Personal history of other malignant neoplasm of large intestine; Z90.49 Acquired absence of other specified parts of digestive tract; Z79.891 Long term (current) use of opiate analgesic; Z79.899 Other long term (current) drug therapy; Z91.013 Allergy to seafood; Z91.048 Other nonmedicinal substance allergy status; Z88.8 Allergy status to other drugs, medicaments and biological substances; W19.XXXA Unspecified fall, initial encounter; Y93.9 Activity, unspecified; Y99.8 Other external cause status; Y92.129 Unspecified place in nursing home as the place of occurrence of the external cause

== ENCOUNTER 2024-08-04 20:57 | Emergency (ER) | payer MEDICARE ==
[~2024-08-04] VITALS: Ht 152.4 cm; Wt 58.6 kg
[~2024-08-04 20:57] MED LIST changes: +ACET1TAB55 PO; +ARTISOL2 OU; +DOCU100C16 PO; +ECOT81TA5 PO; +LIDO5TD TD; +MILKSUS3 PO; +NALO0.4I3 IV; +PERCOCET PO; +TRAM1TAB42 PO
[2024-08-04 20:58] VITALS: TEMP 98.9
[2024-08-05] MEDS: ANEXSIA, NORCO 7.5MG/325MG TABLET(HYDROCODONE/APAP) PO ONE (00:30)
[2024-08-05 01:16] VITALS: O2SAT 98
[2024-08-05 03:00] VITALS: BP 118/58
[2024-08-05 03:13] LABS: KETONE, URINE AUTO RFX NEGATIVE (NEGATIVE); LEUKOCYTE ESTERASE UR AUTO RFX NEGATIVE (NEGATIVE); NITRITE, URINE AUTO RFX NEGATIVE (NEGATIVE); RBC, URINE AUTO RFX 1 /HPF (0-3); SQUAM EPITHELIAL CELL UR AURFX 3 /HPF (0-6); WBC, URINE AUTO RFX 1 /HPF (0-3)
== END 2024-08-05 03:37 | disposition home or self-care (01) ==
LOC: M ED 20:57
DX: S70.01XA Contusion of right hip, initial encounter (principal); S70.02XA Contusion of left hip, initial encounter; Y92.019 Unspecified place in single-family (private) house as the place of occurrence of the external cause; Y93.9 Activity, unspecified; Y99.9 Unspecified external cause status; W19.XXXA Unspecified fall, initial encounter; Z91.013 Allergy to seafood; Z91.048 Other nonmedicinal substance allergy status; Z79.1 Long term (current) use of non-steroidal anti-inflammatories (NSAID); Z79.899 Other long term (current) drug therapy

== ENCOUNTER → 2024-08-05 | Outpatient (REF) | payer MEDICARE ==
[2024-08-05 09:50] LABS: HEMATOCRIT 37.6 % (36.0-47.0); HEMOGLOBIN 11.8 g/dl (12.0-15.5); MEAN CORPUSCULAR HEMOGLOBIN 30.6 pg (27.0-33.0); MEAN CORPUSCULAR HGB CONC 31.4 g/dl (32.0-36.5); MEAN CORPUSCULAR VOLUME 97.4 fl (80.0-96.0); PLATELET COUNT, AUTOMATED 215 10^3/uL (150-450); RED BLOOD COUNT 3.86 10^6/uL (4.00-5.40); WHITE BLOOD COUNT 5.7 10^3/uL (4.0-10.0)
[2024-08-05 10:32] LABS: BLOOD UREA NITROGEN 15 MG/DL (9-23); CALCIUM LEVEL 9.2 MG/DL (8.3-10.6); CARBON DIOXIDE LEVEL 31 MMOL/L (20-31); CHLORIDE LEVEL 100 MMOL/L (98-107); CREATININE FOR GFR 0.45 MG/DL (0.55-1.30); GLOMERULAR FILTRATION RATE > 90.0 (>32); GLUCOSE, FASTING 110 MG/DL (74-106); POTASSIUM SERUM 3.8 MMOL/L (3.5-5.1); SODIUM LEVEL 140 MMOL/L (136-145)
== END ==
LOC: SKLAB8 07:00
PROVIDERS: ATTEND Internal Medicine
DX: S32.9XXD Fracture of unspecified parts of lumbosacral spine and pelvis, subsequent encounter for fracture with routine healing (principal)

== ENCOUNTER → 2024-08-06 | Outpatient (REF) | payer MEDICARE | LOC: SKLAB8 06:52 | PROVIDERS: ATTEND Internal Medicine | DX: R41.82 Altered mental status, unspecified (principal) ==

== ENCOUNTER → 2024-09-28 | Outpatient (CLI) | payer MEDICARE ==
[~2024-09-28] MED LIST changes: +PRAV10TA PO; -PRAV10TA4 PO; -PRAV40TA2 PO; +PRAV40TA85 PO
== END ==
LOC: M RAD 13:58
PROVIDERS: ATTEND Nurse Practitioner Family
DX: M25.551 Pain in right hip (principal)

== ENCOUNTER → 2024-10-05 | Outpatient (CLI) | payer MEDICARE | LOC: M RAD 10:46 | PROVIDERS: ATTEND Physician Assistant | DX: S32.040A Wedge compression fracture of fourth lumbar vertebra, initial encounter for closed fracture (principal); X58.XXXA Exposure to other specified factors, initial encounter; Y92.9 Unspecified place or not applicable ==

== ENCOUNTER → 2024-11-04 | Outpatient (CLI) | payer MEDICARE | LOC: M RAD 15:10 | PROVIDERS: ATTEND Nurse Practitioner Family | DX: S32.040A Wedge compression fracture of fourth lumbar vertebra, initial encounter for closed fracture (principal) ==

== ENCOUNTER → 2024-12-14 | Outpatient (REF) | payer MEDICARE ==
[~2024-12-14] MED LIST changes: -IBUP-1022 PO; +IBUP600T42 PO
[2024-12-14 11:37] LABS: PLATELET COUNT, AUTOMATED 210 10^3/uL (150-450)
[2024-12-14 11:50] LABS: ESTIMATED AVERAGE GLUCOSE 105.0 MG/DL (60-110)
[2024-12-14 12:03] LABS: CALCIUM LEVEL 8.3 MG/DL (8.3-10.6); CARBON DIOXIDE LEVEL 30.0 MMOL/L (20-31); CHLORIDE LEVEL 102.0 MMOL/L (98-107); CREATININE FOR GFR 0.52 MG/DL (0.55-1.30); GLOMERULAR FILTRATION RATE 88.8 (>32); POTASSIUM SERUM 3.6 MMOL/L (3.5-5.1); SODIUM LEVEL 138.0 MMOL/L (136-145)
== END ==
LOC: SKLAB8 06:51
PROVIDERS: ATTEND Internal Medicine
DX: D64.9 Anemia, unspecified (principal); N18.9 Chronic kidney disease, unspecified; Z79.899 Other long term (current) drug therapy

== ENCOUNTER → 2024-12-16 | Outpatient (REF) | payer MEDICARE ==
[2024-12-16 11:09] LABS: PLATELET COUNT, AUTOMATED 213 10^3/uL (150-450)
[2024-12-16 11:52] LABS: ALT/SGPT 10.0 U/L (7.0-40); AST/SGOT 11.0 U/L (<34); CALCIUM LEVEL 8.5 MG/DL (8.3-10.6); CARBON DIOXIDE LEVEL 28.0 MMOL/L (20-31); CHLORIDE LEVEL 103.0 MMOL/L (98-107); CREATININE FOR GFR 0.56 MG/DL (0.55-1.30); GLOMERULAR FILTRATION RATE 87.2 (>32); POTASSIUM SERUM 4.0 MMOL/L (3.5-5.1); SODIUM LEVEL 140.0 MMOL/L (136-145)
== END ==
LOC: SKLAB8 07:00
PROVIDERS: ATTEND Internal Medicine
DX: E55.9 Vitamin D deficiency, unspecified (principal); F03.C18 Unspecified dementia, severe, with other behavioral disturbance

== ENCOUNTER → 2024-12-20 | Outpatient (REF) | payer MEDICARE ==
[2024-12-20 13:52] LABS: VITAMIN B12 LEVEL 516.0 PG/ML (211-911)
== END ==
LOC: SKLAB8 12:27
PROVIDERS: ATTEND Family Medicine
DX: D64.9 Anemia, unspecified (principal)